=== PATIENT | female | born 1970 | race Caucasian/White ===

== ENCOUNTER 2020-10-29 08:17 | Outpatient (REF) | payer OTHER, SELFPAY ==
--- NOTE | 2020-10-29 08:26 | XR_ITS ---
EXAMINATION: XR KNEE, RIGHT XR KNEE, LEFT CLINICAL INFORMATION: Right and left knee pain. COMPARISON: Left knee radiographs dated 03/16/2010. TECHNIQUE: AP and lateral views of the right and left knee. FINDINGS: Right Knee: Mild tricompartmental joint space narrowing with tiny tricompartmental marginal osteophytes. No osseous erosion. No fracture or dislocation. Trace joint effusion. No abnormal soft tissue calcification. Left Knee: Mild tricompartmental joint space narrowing with small marginal osteophytes, increased when compared to the prior examination. No osseous erosion. No fracture or dislocation. Small joint effusion. No abnormal soft tissue calcification. XR/XR knee LT 2V IMPRESSION: RIGHT KNEE: Minimal tricompartmental osteoarthritis and trace joint effusion. LEFT KNEE: Mild tricompartmental osteoarthritis and small joint effusion. Findings have progressed when compared to the prior radiographs.
--- NOTE | 2020-10-29 08:26 | XR_ITS ---
EXAMINATION: XR KNEE, RIGHT XR KNEE, LEFT CLINICAL INFORMATION: Right and left knee pain. COMPARISON: Left knee radiographs dated 03/16/2010. TECHNIQUE: AP and lateral views of the right and left knee. FINDINGS: Right Knee: Mild tricompartmental joint space narrowing with tiny tricompartmental marginal osteophytes. No osseous erosion. No fracture or dislocation. Trace joint effusion. No abnormal soft tissue calcification. Left Knee: Mild tricompartmental joint space narrowing with small marginal osteophytes, increased when compared to the prior examination. No osseous erosion. No fracture or dislocation. Small joint effusion. No abnormal soft tissue calcification. XR/XR knee RT 2V IMPRESSION: RIGHT KNEE: Minimal tricompartmental osteoarthritis and trace joint effusion. LEFT KNEE: Mild tricompartmental osteoarthritis and small joint effusion. Findings have progressed when compared to the prior radiographs.
== END 2020-10-29 08:18 | disposition home or self-care (01) ==
LOC: HO.XRAY 08:17
PROVIDERS: Visit Provider Physician Assistant
DX: M25.562 Pain in left knee (principal); M25.561 Pain in right knee
CPT/HCPCS: 73560

== ENCOUNTER → 2020-12-03 09:21 | Outpatient (BNVA) | payer OTHER, SELFPAY | PROVIDERS: Visit Provider Orthopaedic Surgery | DX: Z13.89 Encounter for screening for other disorder (principal) | CPT/HCPCS: 99202 ==

== ENCOUNTER 2020-12-19 10:56 | Outpatient (REF) | payer OTHER, SELFPAY ==
--- NOTE | 2020-12-19 12:05 | ECG_ITS ---
Test Reason : PREOP Blood Pressure : / mmHG Vent. Rate : 068 BPM Atrial Rate : 069 BPM P-R Int : 158 ms QRS Dur : 082 ms QT Int : 458 ms P-R-T Axes : 043 007 021 degrees QTc Int : 487 ms Artifact in tracing Normal sinus rhythm Nonspecific ST abnormality Prolonged QT Abnormal ECG When compared with ECG of 15-OCT-2019 10:40, No significant change was found Referred By: Jovanni Moore Electronically Signed By: ISSAC VINSON
[2020-12-19 14:05] LABS: MANUAL DIFF FLAG NO
[2020-12-19 14:08] LABS: Basophils Percent Auto 0.5 % (0-2); Eosinophils Absolute Auto 0.2 X10*3/uL (0.0-0.4); Eosinophils Percent Auto 2.1 % (0-4); Hematocrit 41.2 % (37-47); Hemoglobin 12.9 g/dl (12.0-16.0); Imm Gran Abs Auto 0.03 X10*3/uL (0.00-0.03); Imm Gran Pct Auto 0.4 % (0.0-0.4); Lymphocytes Absolute Auto 1.9 X10*3/uL (1.2-4.9); Lymphocytes Percent Auto 25.1 % (20-40); Mean Corpuscular HGB Conc 31.3 g/dl (31.0-35.0); Mean Corpuscular Hemoglobin 28.1 pg (27.0-33.0); Mean Corpuscular Volume 89.8 fL (80-98); Mean Platelet Volume 10.4 fL (9.4-12.3); Monocytes Absolute Auto 0.4 X10*3/uL (0.1-1.2); Monocytes Percent Auto 5.7 % (2-11); Neutrophils Percent Auto 66.2 % (45-73); Platelet Count 224 X10*3/uL (160-400); Red Blood Count 4.59 X10*6/uL (4.20-5.50); Red Cell Distribution Width 20.4 % (11.0-16.0); White Blood Count 7.5 X10*3/uL (4.8-10.8)
[2020-12-19 14:46] LABS: Anion Gap 16 (12-20); Blood Urea Nitrogen 13 mg/dL (9-16); Calcium 8.8 mg/dL (8.4-10.2); Carbon Dioxide 25 mmol/L (22-29); Chloride 104 mmol/L (96-108); Estimated Glomerular Filt Rate > 60; Glucose Random 100 mg/dL (60-115); Potassium 4.4 mmol/L (3.3-5.1); Sodium 141 mmol/L (135-145)
== END 2020-12-19 10:57 | disposition home or self-care (01) ==
LOC: HO.LABR 10:56
PROVIDERS: PCP Physician Assistant; Visit Provider Orthopaedic Surgery
DX: Z01.812 Encounter for preprocedural laboratory examination (principal); Z01.810 Encounter for preprocedural cardiovascular examination
CPT/HCPCS: 36415; 80048; 85025; 93005

== ENCOUNTER 2021-01-17 13:50 | Outpatient (REF) | payer OTHER, SELFPAY ==
--- NOTE | ~2021-01-17 | MM_ITS ---
EXAMINATION: MM SCREENING DIGITAL BREAST TOMOSYNTHESIS, BILATERAL CLINICAL INFORMATION: Screening. Asymptomatic. The lifetime risk of breast cancer based on the Tyrer-Cuzick Model is 10%. COMPARISON: Mammography: 10/04/2019, 09/13/2018, 07/30/2016 TECHNIQUE: Digital breast tomosynthesis is performed in both the craniocaudal and mediolateral oblique views along with computer-aided detection (CAD). Synthesized 2D images are generated from the tomosynthesis. Additional right CC view is provided. FINDINGS: The breasts are almost entirely fatty (ACR BI-RADS breast composition Category a). Background stromal and fibroglandular densities are stable. There is no developing density or interval mass or architectural abnormality. No abnormal calcifications. The axilla and skin contours are unremarkable. No significant changes. MM/MM tomosynthesis screening BI IMPRESSION: No mammographic evidence of malignancy. ASSESSMENT: BI-RADS 1: Negative RECOMMENDATION: Routine annual mammography screening. This patient's information was entered into a reminder system with a target due date for their next mammogram.
== END 2021-01-17 13:51 | disposition home or self-care (01) ==
LOC: HO.MAMMO 13:50
PROVIDERS: Visit Provider Physician Assistant
DX: Z12.31 Encounter for screening mammogram for malignant neoplasm of breast (principal); M16.11 Unilateral primary osteoarthritis, right hip
CPT/HCPCS: 77063; 77067; 99212

== ENCOUNTER 2021-01-22 06:27 | Inpatient (IN) | payer OTHER, SELFPAY ==
[2021-01-11 11:01] LABS: Alanine Aminotransferase 14 U/L (0-31); Alkaline Phosphatase 92 U/L (39-117); Aspartate Amino Transferase 14 U/L (5-31); Bilirubin Direct 0.2 mg/dL (0.0-0.5); Bilirubin Total 0.4 mg/dL (0.0-1.0); Total Protein 7.3 g/dL (6.5-8.0)
[2021-01-11 11:22] LABS: Thyroid Stimulating Hormone 0.34 uIU/mL (0.32-4.0)
[2021-01-18 12:12] VITALS: BP 126/79; PULSE 68; RESP 20; O2SAT 95; BMI 41.8
[2021-01-18 15:13] LABS: MRSA Nasal PCR NEGATIVE (Negative); SA Nasal PCR POSITIVE (Negative)
[2021-01-22] VITALS (18 sets, daily range): BP systolic 102–155; BP diastolic 52–121; PULSE 60–79; RESP 14–20; TEMP 36.2–37.2; O2SAT 96–100
--- NOTE | ~2021-01-22 | XR_ITS ---
EXAMINATION: XR HIP, RIGHT CLINICAL INFORMATION: Post hip replacement COMPARISON: Previous x-ray April 2020 TECHNIQUE: One view of the right hip. FINDINGS: There is a new right hip replacement in satisfactory position. No fracture or dislocation is seen. There is a left hip replacement that appears unchanged. Bones of the pelvis are unremarkable. Soft tissues are unremarkable. XR/XR hip RT 1V IMPRESSION: Satisfactory appearance of right hip replacement.
[2021-01-22 06:45] LABS: COVID-19 Test Negative (Negative); IDNOW Serial# 9DD0AD1C
--- NOTE | 2021-01-22 07:18 | HO.ANESPROP2 ---
[facility] Active Problems Active Problems: All Active Problems (Updated 01/18/21 @ 12:42 by Sultana Wynne) Panic attack (Acute) Hip osteoarthritis (Acute) Knee pain, left (Acute) Knee pain, right (Acute) Preoperative clearance (Acute) Osteoarthritis of right hip (Acute) Past Medical History Medical History Depression DVT (deep venous thrombosis) History of anxiety History of panic attacks Hypertension Osteoarthritis of right hip Family History Family History Father In good health Mother In good health Maternal Grandmother Breast cancer Paternal Grandmother Colon cancer Brother Multiple sclerosis Surgical History Surgical History History of left hip replacement History of tonsillectomy History of tubal ligation Social History Social History (Updated 01/18/21 @ 12:36 by Sultana Wynne) Are you a primary manager critical care unit to a significant other at home: No Do you presently have visiting nurse or other home services: No Alcohol intake: current Alcohol intake frequency: a few times a week Smoking Status: Former smoker Tobacco Type: Cigarette Packs Per Day: 0.25 Cigarettes Per Day: 5.0 Years Smoked: 20 Smoked in Last 30 Days: No Smoking Quit Date: age 35 Use of substances other than those prescribed or required for medical reasons: Yes Substance Use Type: Marijuana Substance Use Frequency: Occasionally Have you been hit, kicked, punched, or otherwise hurt by someone within the past year? If so, by whom?: No Advance Directives Information Provided: No Recently lost weight without trying: No Current occupational status: unemployed Meds Allergies Allergy/AdvReac Type Severity Reaction Status Date / Time No Known Allergies Allergy Verified 01/22/21 06:47 [No Known Allergies*] Home Medications Medication Instructions Recorded Confirmed Last Taken Type ibuprofen 200 mg tablet 200 mg PO Q6H PRN 01/11/21 01/18/21 01/14/21 History bupropion HCl 150 mg PO BEDTIME 01/18/21 01/18/21 Unknown History clonidine HCl 0.6 mg PO BEDTIME 01/18/21 01/18/21 Unknown History fluoxetine 40 mg PO BEDTIME 01/18/21 01/18/21 Unknown History lisinopril 10 mg PO BEDTIME 01/18/21 01/18/21 Unknown History propranolol 20 mg PO BEDTIME 01/18/21 01/18/21 Unknown History Exam Exam Date and Time: January 22, 202118 Height,Weight and Vital Signs: Height 5 ft 9 in Weight 128.367 kg Last Vital Signs Temp 97.2 F 01/22/21 06:48 Pulse 60 01/22/21 06:48 Resp 18 01/22/21 06:48 BP 155/90 H 01/22/21 06:48 Pulse Ox 97 01/22/21 06:48 Pertinent Lab Results Pertinent Lab Results: Laboratory Tests 01/11/21 01/18/21 01/18/21 10:25 13:00 13:20 Total Bilirubin 0.4 Direct Bilirubin 0.2 AST 14 ALT 14 Alkaline Phosphatase 92 Total Protein 7.3 Albumin 4.0 TSH 0.34 Nasal Screen MRSA (PCR) NEGATIVE Nasal S. aureus Screen POSITIVE A Nasal MRSA/S.aureus Interp SEE NOTE COVID-19 ([facility]) COVID-19 Clin Com Blood Type B Positive Antibody Screen NEGATIVE 01/22/21 06:20 Total Bilirubin Direct Bilirubin AST ALT Alkaline Phosphatase Total Protein Albumin TSH Nasal Screen MRSA (PCR) Nasal S. aureus Screen Nasal MRSA/S.aureus Interp COVID-19 ([facility]) Negative COVID-19 Clin Com See Note Blood Type Antibody Screen Airway Mallampati Class: III TM Dist: >3cm Neck ROM: Full Loose/Missing/Broken Teeth: Yes Heart: RRR Lungs: NL Assessment and Plan Assessment Anesthesia Assessment: Anesthesia Plan Discussed and Chart Reviewed Final Anesthetic Review NPO: Yes ASA Class: III Final Preanesthetic Review: No Changes in Pt Med Stat, Meds/Allgs Chart Reviewed, Consent Obtained/Reviewed and Anes Risks/Benef Reviewed Patient Risk: High Procedure Risk: Intermediate Anesthetic Plan Anesthetic Plan: GA Disposition: Standard PACU
[2021-01-22] MEDS: Lactated Ringers 1,000 ML 50 ML IV (07:24)
--- NOTE | 2021-01-22 07:25 | MHC.SHP ---
Pre-Procedural Eval Section A The patient is an INPATIENT: No Changes since office visit: Yes Patient answered all questions; No Cold of Flu in the past 2 weeks, No New Medical Problems and No Changes in Medication The History & Physical has been completed within 30 days and I have reviewed it.: Yes Section B Chief Complaint: RIGHT TOTAL HIP ARTHROPLASTY Allergies: Allergies Allergy/AdvReac Type Severity Reaction Status Date / Time No Known Allergies Allergy Verified 01/22/21 06:47 [No Known Allergies*] Plan I have reviewed the history and physical and performed a pertinent physical examination on my patient. No changes have occurred unless specified.
--- NOTE | 2021-01-22 10:29 | PM.OP ---
Brief Operative Note Date of Service: 01/22/21 Pre-op diagnosis: right hip OA Post-op diagnosis: same Procedure: Right TULIO Implants: Becki trident2 52/20deg liner accolade2#5 36 -2.5 ceramic Surgeon: Jovanni Moore MD Anesthesia: GETA [employer] Consultant: Rafi Canales Estimated blood loss (mL): 150 IV fluids (mL): 1,000 Pathology: other Condition: stable Disposition: PACU
--- NOTE | 2021-01-22 10:35 | W.PM.OPN ---
Operative Note Operative Note Date of Service: 01/22/21 Narrative: Pre-op diagnosis: right hip OA Post-op diagnosis: same Procedure: Right TULIO Implants: Becki trident2 52/20deg liner accolade2#5 36 -2.5 ceramic Surgeon: Jovanni Moore MD Anesthesia: GETA Benzol Operator: Rafi Canales Estimated blood loss (mL): 150 IV fluids (mL): 1,000 Pathology: other Condition: stable Disposition: PACU Procedure in detail: Patient was brought into the operating room and placed in a right lateral decubitus position. All bony prominences were well padded and the limb was prepped and draped in standard sterile fashion. Time-out was called to identify proper site procedure proper surgeon IV antibiotics. I began by making a curvilinear incision over the posterolateral aspect of the greater trochanter. Dissection was taken down to the tensor fascia which was incised in line with the incision and a Charnley retractor was placed. She had aabundaant adipose tissue and so dissection was slow. The hip was internally rotated and the external rotators were identified. The vessels were cauterized and a full-thickness capsular/external rotator layer was developed starting just proximal to the piriformis. Dull Hohmann retractor was placed underneath the neck in the hip was dislocated. The head was defomred and diminutive. A neck cut was made 1 cm proximal to the lesser trochanter and the head and neck were removed and measured on the back table. Placed my anterior-posterior acetabular retractors and performed a labrectomy. The fovea was removed and I reamed to the inner table. There was bone loss superiorly. I then sequentially reamed up to a size 51_ and placed my final 52 cup in 45 inclination and 25 version. I then impacted a _20deg liner and turned my attention to the femur. All I used cautery to identify the piriformis start site and used this as a starting point for my isabellie cutter. I then used a Charnley awl to identify the canal and a curved curette to remove the lateral bone. I then sequentially broached in the patient's natural version to a size _5___ and placed my trial implants. I took the hip through range of motion with a -2.5 head and I was very satisfied with the stability and length. She was short pre-operatively and tight. I was unable to get a +0 located. I removed all instrumentation copiously irrigated placed my final femoral implant. I again took the hip through range of motion and was happy with the stability and length and rain using a -2.5 head and so my final femoral head was placed. I then irrigated for 3 minutes with iodine. I then performed a capsular closure with FiberWire, Robert's fascia with 0 Vicryl, subcuticular with 2-0 vicryl and skin with bola. Patient was placed into a sterile dressing. Radiographs were obtained at the completion of the case and I was satisfied with the component position. Patient was extubated brought to the recovery room in stable condition.
[2021-01-22] MEDS: HYDROmorphone HCl 0.5 MG/0.5 ML SYRINGE IVPUSH ×3 (10:37→10:52)
[2021-01-22] MEDS: Ketorolac Tromethamine 15 MG/ML VIAL IVPUSH (10:39)
[2021-01-22] MEDS: Dextrose 5 % and 0.45 % NaCl 1,000 ML 80 ML IVCONT (12:50)
[2021-01-22] MEDS: ceFAZolin Sodium/Dextrose,Iso 2 GM/50 ML PIGGYBACK IV ×2 (12:51→13:59)
[2021-01-22] MEDS: oxyCODONE HCl Immed Release 5 MG TABLET 10 MG PO (13:06)
[2021-01-22] MEDS: Acetaminophen 325 MG TABLET 650 MG PO (13:06)
--- NOTE | 2021-01-22 15:14 | MHC.CM.PN ---
NURSE BUS DRIVER SUPERVISOR NOTE ELECTRONIC MEDICAL RECORD REVIEWED ALONG WITH CASE DISCUSSED WITH STAFF NURSE , MET WITH PATIENT AND EXPLAINED THE ROLE OF THE NURSE BUS DRIVER SUPERVISOR IN THE TRANSITION FROM THE HOSPITAL TO HOME OR SHORT TERM REHAB. PATIENT CONFIRMED SHE BELIEVES SHE HAS A HEALTH CARE PROXY , COPY REQUESTED IF NOT WE COULD COMPLETE A NEW ONE NAMING ALL THREE CHILDREN ON IT. PATIENT LIVES ALONE SHE HAS NO VNA NO DME SERVICES IN THE HOME . 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 PATIENT WANTS TO GO TO SHORTY TERM REHAB AND AFTER DISCUSSION SHE REQUESTED THAT I MAKE REFERRALS TO [facility] SHE REPORTS SHE HAS A PAST HISTORY OF ANXIETY AND DEPRESSION BUT DOES NOT AEE ANYONE AND DOES NOT FEEL SHE NEEDS TO. DISCHARGE PLAN STR- [facility]
--- NOTE | 2021-01-22 17:13 | PM.IMCN ---
History of Present Illness Data of Consult Service Date: 01/22/21 Requesting physician: Jovanni Moore Primary Care Provider: BEATRIZ Vo Reason for consult: Management of medical comorbidities This is a 50-year-old woman who underwent right total hip arthroplasty for osteoarthritis today. She previously underwent left total hip arthroplasty 5 years ago without complication. About 6 years ago, she had an unprovoked DVT which she says was treated with aspirin alone. She recalls being on a short course of warfarin after the left total hip surgery. Notably, her brother had extensive bilateral DVTs and is on lifelong anticoagulation. She does not recall ever being tested for thrombophilia. Medical history also notable for hypertension, anxiety, and depression. She denies history of coronary artery disease or chronic lung disease. Currently, her postoperative pain is well controlled. Denies chest pain or dyspnea. Review of Systems Review of Systems: Yes all other systems are reviewed and are negative [facility] Medical History Depression DVT (deep venous thrombosis) History of anxiety History of panic attacks Hypertension Osteoarthritis of right hip Family History Father In good health Mother In good health Maternal Grandmother Breast cancer Paternal Grandmother Colon cancer Brother Multiple sclerosis Surgical History History of left hip replacement History of tonsillectomy History of tubal ligation Social History Household Members: None Housing: Apartment Are you a primary group care worker to a significant other at home: No Do you presently have visiting nurse or other home services: No Alcohol intake: current Alcohol intake frequency: a few times a week Smoking Status: Former smoker Tobacco Type: Cigarette Packs Per Day: 0.25 Cigarettes Per Day: 5.0 Years Smoked: 20 Smoked in Last 30 Days: No Smoking Quit Date: age 35 Use of substances other than those prescribed or required for medical reasons: Yes Substance Use Type: Marijuana Substance Use Frequency: Occasionally Currently Displaying Signs/Symptoms of Drug Intoxication Withdrawal: No Have you been hit, kicked, punched, or otherwise hurt by someone within the past year? If so, by whom?: No Do you feel safe in your current relationship?: No Current Relationship Is there a partner from a previous relationship who is making you feel unsafe now?: No Are you made to feel afraid or neglected: No Advance Directives Information Provided: No Do you have thoughts of harming others: None Do you have a plan to hurt others: No Plan Recently lost weight without trying: No service: No Current occupational status: unemployed Meds Allergies Allergy/AdvReac Type Severity Reaction Status Date / Time No Known Allergies Allergy Verified 01/22/21 06:47 [No Known Allergies*] Active Medications: Current Medications Generic Name Dose Route Start Last Admin Trade Name Freq PRN Reason Stop Dose Admin Acetaminophen 650 mg 01/22/21 12:30 01/22/21 13:06 Acetaminophen 325 Mg Tablet PO 650 mg Q6H PRN Administration Pain, Mild (Pain Scale 1-3) Bupropion HCl 150 mg 01/22/21 21:00 Bupropion Hcl Xl 150 Mg Tab.Er.24h PO BEDTIME JUNE Celecoxib 200 mg 01/22/21 21:00 Celecoxib 200 Mg Capsule PO BID JUNE Clonidine HCl 0.6 mg 01/22/21 21:00 Clonidine Hcl 0.2 Mg Tablet PO BEDTIME JUNE Docusate Sodium 100 mg 01/22/21 21:00 Docusate Sodium 100 Mg Capsule PO BID JUNE Enoxaparin Sodium 40 mg 01/23/21 10:00 Enoxaparin Sodium 40 Mg/0.4 Ml Syringe SUBCUT Q24H JUNE Fluoxetine HCl 40 mg 01/22/21 21:00 Fluoxetine Hcl 20 Mg Capsule PO BEDTIME JUNE Hydromorphone HCl 0.25 mg 01/22/21 12:30 Hydromorphone Hcl 0.5 Mg/0.5 Ml Syringe IVPUSH Q4H PRN Pain, Severe (Pain Scale 7-10) Dextrose/Sodium Chloride 1,000 mls @ 80 mls/hr 01/22/21 12:30 01/22/21 12:50 D51/2ns IVCONT 80 mls/hr .[id number] JUNE Administration Naloxone HCl 0.2 mg 01/22/21 12:30 Naloxone Hcl 0.4 Mg/Ml Vial IVPUSH Q2M PRN Excessive sedation or RR < 8 Oxycodone HCl 10 mg 01/22/21 12:30 01/22/21 13:06 Oxycodone Hcl Immed Release 5 Mg Tablet PO 10 mg Q4H PRN Administration Pain, Moderate (Pain Scale 4-6 Oxycodone HCl 10 mg 01/22/21 21:00 Oxycodone Hcl Er 10 Mg Tab.Er.12h PO BID [facility] Propranolol HCl 20 mg 01/22/21 21:00 Propranolol Hcl 20 Mg Tablet PO BEDTIME [facility] Protocol Sodium Chloride 3 ml 01/22/21 16:00 0.9 % Sodium Chloride Flush 3 Ml Syringe IVFLUSH QSHIFT [facility] Home Medications Medication Instructions Recorded Confirmed Last Taken Type ibuprofen 200 mg tablet 200 mg PO Q6H PRN 01/11/21 01/18/21 01/14/21 History bupropion HCl 150 mg PO BEDTIME 01/18/21 01/18/21 Unknown History clonidine HCl 0.6 mg PO BEDTIME 01/18/21 01/18/21 Unknown History fluoxetine 40 mg PO BEDTIME 01/18/21 01/18/21 Unknown History lisinopril 10 mg PO BEDTIME 01/18/21 01/18/21 Unknown History propranolol 20 mg PO BEDTIME 01/18/21 01/18/21 Unknown History Physical Exam Vital Signs and Narrative: Vital Signs: Last Vital Signs Temp 98.9 F 01/22/21 15:51 Pulse 73 01/22/21 15:51 Resp 15 01/22/21 15:51 BP 102/52 L 01/22/21 15:51 Pulse Ox 97 01/22/21 15:51 Body Mass Index 41.8 Gen: in no acute distress HEENT: sclera anicteric, moist mucus membranes Neck: supple Lungs: clear to auscultation bilaterally Heart: regular rate and rhythm, no murmurs Abd: soft, non-tender, non-distended, moribdly obese Ext: no edema, R hip incision with dry dressing Skin: warm/well-perfused Neuro: alert and oriented x3, no focal findings Psych: appropriate affect Results Labs Labs: Laboratory Results - last 24 hr 01/22/21 06:20 COVID-19 ([facility]) Negative COVID-19 Clin Com See Note Imaging Radiologist's Impressions: Impressions Hip X-Ray 01/22/21 08:36 IMPRESSION: Satisfactory appearance of right hip replacement. Assessment and Plan (1) Osteoarthritis of right hip: Status: Acute 50yo F POD#0 TULIO for OA, medical consultation for management of comorbid conditions: history of unprovoked DVT, HTN, and mood disorder # prior DVT - she states that this was prior to her left hip replacement. Given the family history in first-degree relative, will pursue thrombophilia workup. Certainly she is at high risk of DVT and should at least be on 1 month of anticoagulation with Lovenox postoperatively. This can be started when cleared by the orthopedics team # HTN - she takes lisinopril; will hold for now given soft blood pressure postoperatively, but resume as her blood pressure rises. she is also on propranolol but is unsure whether this for blood pressure control or mood issues are both; will continue for now. # mood disorder - continue clonidine, fluoxtine, and bupropion # POD #0 R TULIO - analgesia as per orthopedics team # VTE ppx - as above
[2021-01-22] MEDS: HYDROmorphone HCl 0.5 MG/0.5 ML SYRINGE 0.25 MG IVPUSH (18:46)
[2021-01-22] MEDS: 0.9 % Sodium Chloride Flush 3 ML SYRINGE IVFLUSH (18:46)
[2021-01-22] MEDS: FLUoxetine HCl 20 MG CAPSULE 40 MG PO (21:22)
[2021-01-22] MEDS: Docusate Sodium 100 MG CAPSULE PO (21:22)
[2021-01-22] MEDS: buPROPion HCl XL 150 MG TAB.ER.24H PO (21:22)
[2021-01-22] MEDS: cloNIDine HCL 0.2 MG TABLET 0.6 MG PO (21:22)
[2021-01-22] MEDS: oxyCODONE HCl ER 10 MG TAB.ER.12H PO (21:22)
[2021-01-22] MEDS: Celecoxib 200 MG CAPSULE PO (21:22)
[2021-01-22] MEDS: Propranolol HCL 20 MG TABLET PO (21:23)
[2021-01-23] VITALS (7 sets, daily range): BP systolic 90–114; BP diastolic 47–67; PULSE 62–81; RESP 16–19; TEMP 35.6–37.4; O2SAT 96–100
[2021-01-23] MEDS: Dextrose 5 % and 0.45 % NaCl 1,000 ML 80 ML IVCONT ×3 (01:49→23:54)
[2021-01-23] MEDS: oxyCODONE HCl Immed Release 5 MG TABLET 10 MG PO ×3 (05:23→18:36)
[2021-01-23 06:11] LABS: MANUAL DIFF FLAG NO
[2021-01-23 06:18] LABS: Basophils Percent Auto 0.1 % (0-2); Hematocrit 32.3 % (37-47); Hemoglobin 10.1 g/dl (12.0-16.0); Imm Gran Abs Auto 0.05 X10*3/uL (0.00-0.03); Imm Gran Pct Auto 0.6 % (0.0-0.4); Lymphocytes Absolute Auto 1.6 X10*3/uL (1.2-4.9); Lymphocytes Percent Auto 17.9 % (20-40); Mean Corpuscular HGB Conc 31.3 g/dl (31.0-35.0); Mean Corpuscular Hemoglobin 30.4 pg (27.0-33.0); Mean Corpuscular Volume 97.3 fL (80-98); Mean Platelet Volume 11.1 fL (9.4-12.3); Monocytes Absolute Auto 0.9 X10*3/uL (0.1-1.2); Monocytes Percent Auto 9.6 % (2-11); Neutrophils Absolute Auto 6.5 X10*3/uL (2.0-8.3); Neutrophils Percent Auto 71.8 % (45-73); Platelet Count 218 X10*3/uL (160-400); Red Blood Count 3.32 X10*6/uL (4.20-5.50); Red Cell Distribution Width 18.6 % (11.0-16.0)
[2021-01-23 06:50] LABS: Anion Gap 13 (12-20); Blood Urea Nitrogen 7 mg/dL (9-16); Calcium 8.4 mg/dL (8.4-10.2); Carbon Dioxide 24 mmol/L (22-29); Chloride 105 mmol/L (96-108); Creatinine Clr Calc Pharmacy 142.3; Estimated Glomerular Filt Rate > 60; Glucose Fasting 129 mg/dL (60-99); Potassium 3.7 mmol/L (3.3-5.1); Sodium 138 mmol/L (135-145)
--- NOTE | 2021-01-23 06:59 | P.CDIC_ITS ---
CDI Concurrent Query Service Date: 01/23/21 Documentation Clarification: Please clarify if you are treating a proba ble/suspected/likely or confirmed: Morbid Obesity Other Obesity, please specify Provider Response: Morbid Obesity PLEASE DO NOT DELETE/MODIFY EXISTING CONTENT Additional information is needed in order to code to the highest accuracy and appropriate Severity of Illness (SOI). Please clarify the information noted below in your progress notes and discharge summary. Risk Factors/Clinical Indicators/Treatments 50 year old female admitted for Osteoarthritis Right Hip and underwent Right Total Hip Arthroplasy HT 5'9 WT 128.367 kg BMI 41.8 CDS: Dorothy Hodge RN Contact Number: [phone] Please Review the information above and exercise your independent professional judgment in responding to the query. If you concur, pleas document in the PROGRESS NOTES and DISCHARGE SUMMARY. If you do not agree with the query, please document in the query above. THIS QUERY IS PART OF THE PERMANENT MEDICAL RECORD
--- NOTE | 2021-01-23 07:44 | PM.PNORT ---
Subjective Subjective Date of Service: 01/23/21 Interval history: POD:1 s/p RT TULIO No overnight events Patient is: resting in bed, tolerating pain well. No concerns. Admits: some pain in the hip flexor region down to the ankle Denies: cp, sob, dizziness Physical Exam Vital Signs: Vital Signs: Last Vital Signs Temp 96.0 F L 01/23/21 07:24 Pulse 62 01/23/21 07:24 Resp 18 01/23/21 07:24 BP 98/53 L 01/23/21 07:24 Pulse Ox 96 01/23/21 07:24 Body Mass Index 41.8 Const: General: cooperative, healthy appearing and no acute distress Resp: Effort & Inspection: normal respiratory effort and able to speak in complete sentences Cardio: Rate: regular rate Peripheral pulses: Peripheral pulses 2+ throughout GI: Palpation (GI): Soft to palpation Skin: General skin exam: no rashes or lesions noted Extrem: Other: Right hip bandage clean dry and intact No erythema mild edema, sensation intact. Progress Note: A&P Assessment and plan (1) Status post right hip replacement: Status: Acute Assessment and Plan: Continue pain mgmnt Begin lovenox for dvt ppx begin PT for RT TULIO - posterior precautions Dispo planning-Pending PT eval, pain mgmnt Fall Risk Details Current Medications: Current Medications Generic Name Dose Route Start Last Admin Trade Name Freq PRN Reason Stop Dose Admin Acetaminophen 650 mg 01/22/21 12:30 01/22/21 13:06 Acetaminophen 325 Mg Tablet PO 650 mg Q6H PRN Administration Pain, Mild (Pain Scale 1-3) Bupropion HCl 150 mg 01/22/21 21:00 01/22/21 21:22 Bupropion Hcl Xl 150 Mg Tab.Er.24h PO 150 mg BEDTIME JUNE Administration Celecoxib 200 mg 01/22/21 21:00 01/22/21 21:22 Celecoxib 200 Mg Capsule PO 200 mg BID JUNE Administration Clonidine HCl 0.6 mg 01/22/21 21:00 01/22/21 21:22 Clonidine Hcl 0.2 Mg Tablet PO 0.6 mg BEDTIME JUNE Administration Docusate Sodium 100 mg 01/22/21 21:00 01/22/21 21:22 Docusate Sodium 100 Mg Capsule PO 100 mg BID JUNE Administration Enoxaparin Sodium 40 mg 01/23/21 10:00 Enoxaparin Sodium 40 Mg/0.4 Ml Syringe SUBCUT Q24H JUNE Fluoxetine HCl 40 mg 01/22/21 21:00 01/22/21 21:22 Fluoxetine Hcl 20 Mg Capsule PO 40 mg BEDTIME JUNE Administration Hydromorphone HCl 0.25 mg 01/22/21 12:30 01/22/21 18:46 Hydromorphone Hcl 0.5 Mg/0.5 Ml Syringe IVPUSH 0.25 mg Q4H PRN Administration Pain, Severe (Pain Scale 7-10) Dextrose/Sodium Chloride 1,000 mls @ 80 mls/hr 01/22/21 12:30 01/23/21 01:49 D51/2ns IVCONT 80 mls/hr .[id number] JUNE Administration Naloxone HCl 0.2 mg 01/22/21 12:30 Naloxone Hcl 0.4 Mg/Ml Vial IVPUSH Q2M PRN Excessive sedation or RR < 8 Oxycodone HCl 10 mg 01/22/21 12:30 01/23/21 05:23 Oxycodone Hcl Immed Release 5 Mg Tablet PO 10 mg Q4H PRN Administration Pain, Moderate (Pain Scale 4-6 Oxycodone HCl 10 mg 01/22/21 21:00 01/22/21 21:22 Oxycodone Hcl Er 10 Mg Tab.Er.12h PO 10 mg BID JUNE Administration Propranolol HCl 20 mg 01/22/21 21:00 01/22/21 21:23 Propranolol Hcl 20 Mg Tablet PO 20 mg BEDTIME JUNE Administration Protocol Sodium Chloride 3 ml 01/22/21 16:00 01/23/21 00:21 0.9 % Sodium Chloride Flush 3 Ml Syringe IVFLUSH Not Given QSHIFT JUNE Time Spent With Patient Time: Total time spent is greater than 50% in coordination of care (as documented) at patient's floor/unit and/or counseling patient: Time with patient: 15 - 24 minutes
[2021-01-23] MEDS: Docusate Sodium 100 MG CAPSULE PO ×2 (08:10→21:24)
[2021-01-23] MEDS: Celecoxib 200 MG CAPSULE PO ×2 (08:11→21:24)
[2021-01-23] MEDS: oxyCODONE HCl ER 10 MG TAB.ER.12H PO ×2 (08:11→21:24)
[2021-01-23] MEDS: Enoxaparin Sodium 40 MG/0.4 ML SYRINGE SUBCUT (11:41)
--- NOTE | 2021-01-23 12:40 | HO.POSTANES ---
Post Anesthesia Evaluation Post Anesthesia Evaluation Vital Signs: Vital Signs Temp Pulse Resp BP Pulse Ox 01/23/21 11:45 97.1 F 69 18 107/61 97 01/23/21 07:24 96.0 F L 62 18 98/53 L 96 01/23/21 04:00 99.4 F 63 16 101/50 L 97 Anesthesia: General Mental Status: Awake Pain Control: Satisfactory Nausea/Vomiting: None Hydration: Adequate Anesthesia-Related Issues: No Anes. Related Issues
[2021-01-23] MEDS: Acetaminophen 325 MG TABLET 650 MG PO (13:10)
--- NOTE | 2021-01-23 14:56 | MHC.CM.PN ---
nurse geriatric care manager note electronic medical record d reviewed along with case discussed with orthopedic pa and staff nurse. clinical acceptance from [facility] secured discussed with caleb if we have STR BED WOULD THEY CONSIDER D/C TODAY AND SHE RESPONDED YES, [facility] WENT FOR INSURANCE AUTH (NOW STILL PENDING), RECIVED WORD FROM ORTHOPEDIC SURGICAL PA SURGEON NOTES HE WOULD LIKE TO KEEP HER ONE MORE DAY SINCE SHE IS ONLY POD #1, THIS INFORMATION WAS SENT TO [facility] . COMPLETION OF HEALTH CARE PLAN COMPLETED ONE SENT VIA [employer] TO [facility] , ORIGINAL AND 4 COPIES GIVEN TO PATIENT
--- NOTE | 2021-01-23 15:04 | P.PNIM_ITS ---
Subjective Subjective Date of Service: 01/23/21 Interval History: Postoperative pain well controlled No shortness of breath No chest pain Physical Exam Vital Signs: Vital Signs: Last Vital Signs Temp 97.1 F 01/23/21 11:45 Pulse 69 01/23/21 11:45 Resp 18 01/23/21 11:45 BP 107/61 01/23/21 11:45 Pulse Ox 97 01/23/21 11:45 Body Mass Index 41.8 Gen: in no acute distress HEENT: sclera anicteric, moist mucus membranes Neck: supple Lungs: clear to auscultation bilaterally Heart: regular rate and rhythm, no murmurs Abd: soft, non-tender, non-distended, morbidly obese Ext: no edema Skin: warm/well-perfused Neuro: alert and oriented x3, no focal findings Psych: appropriate affect Objective Data Current Medications Generic Name Dose Route Start Last Admin Trade Name Freq PRN Reason Stop Dose Admin Acetaminophen 650 mg 01/22/21 12:30 01/23/21 13:10 Acetaminophen 325 Mg Tablet PO 650 mg Q6H PRN Administration Pain, Mild (Pain Scale 1-3) Bupropion HCl 150 mg 01/22/21 21:00 01/22/21 21:22 Bupropion Hcl Xl 150 Mg Tab.Er.24h PO 150 mg BEDTIME JUNE Administration Celecoxib 200 mg 01/22/21 21:00 01/23/21 08:11 Celecoxib 200 Mg Capsule PO 200 mg BID JUNE Administration Clonidine HCl 0.6 mg 01/22/21 21:00 01/22/21 21:22 Clonidine Hcl 0.2 Mg Tablet PO 0.6 mg BEDTIME JUNE Administration Docusate Sodium 100 mg 01/22/21 21:00 01/23/21 08:10 Docusate Sodium 100 Mg Capsule PO 100 mg BID JUNE Administration Enoxaparin Sodium 40 mg 01/23/21 10:00 01/23/21 11:41 Enoxaparin Sodium 40 Mg/0.4 Ml Syringe SUBCUT 40 mg Q24H JUNE Administration Fluoxetine HCl 40 mg 01/22/21 21:00 01/22/21 21:22 Fluoxetine Hcl 20 Mg Capsule PO 40 mg BEDTIME JUNE Administration Hydromorphone HCl 0.25 mg 01/22/21 12:30 01/22/21 18:46 Hydromorphone Hcl 0.5 Mg/0.5 Ml Syringe IVPUSH 0.25 mg Q4H PRN Administration Pain, Severe (Pain Scale 7-10) Dextrose/Sodium Chloride 1,000 mls @ 80 mls/hr 01/22/21 12:30 01/23/21 13:16 D51/2ns IVCONT 80 mls/hr .[id number] JUNE Administration Naloxone HCl 0.2 mg 01/22/21 12:30 Naloxone Hcl 0.4 Mg/Ml Vial IVPUSH Q2M PRN Excessive sedation or RR < 8 Oxycodone HCl 10 mg 01/22/21 12:30 01/23/21 13:10 Oxycodone Hcl Immed Release 5 Mg Tablet PO 10 mg Q4H PRN Administration Pain, Moderate (Pain Scale 4-6 Oxycodone HCl 10 mg 01/22/21 21:00 01/23/21 08:11 Oxycodone Hcl Er 10 Mg Tab.Er.12h PO 10 mg BID JUNE Administration Propranolol HCl 20 mg 01/22/21 21:00 01/22/21 21:23 Propranolol Hcl 20 Mg Tablet PO 20 mg BEDTIME JUNE Administration Protocol Sodium Chloride 3 ml 01/22/21 16:00 01/23/21 08:11 0.9 % Sodium Chloride Flush 3 Ml Syringe IVFLUSH Not Given QSHIFT [facility] Labs CBC & Chem 7: 01/23/21 05:44 01/23/21 05:44 Labs: Laboratory Results - last 24 hr 01/23/21 01/23/21 05:44 05:44 WBC 9.0 RBC 3.32 L D Hgb 10.1 L D Hct 32.3 L D MCV 97.3 MCH 30.4 MCHC 31.3 RDW 18.6 H Plt Count 218 MPV 11.1 Immature Gran % (Auto) 0.6 H Neut % (Auto) 71.8 Lymph % (Auto) 17.9 L [place] % (Auto) 9.6 Eos % (Auto) 0.0 Baso % (Auto) 0.1 Lymph # (Auto) 1.6 [place] # (Auto) 0.9 Eos # (Auto) 0.0 Baso # (Auto) 0.0 Abs Immat Gran (auto) 0.05 H Absolute Neuts (auto) 6.5 Absolute Nucleated RBC 0.000 Nucleated RBC % (auto) 0.0 Sodium 138 Potassium 3.7 Chloride 105 Carbon Dioxide 24 Anion Gap 13 BUN 7 L Creatinine 0.68 Estim Creat Clear Calc 142.3 Estimated GFR > 60 Fasting Glucose 129 H Calcium 8.4 Assessment and Plan (1) Status post right hip replacement: Status: Acute Assessment and Plan: medicine consultation for this 50yo F who is POD#1 R TULIO for OA # prior DVT - not associated with her prior L TULIO. strong FHx- brother with BLE DVTs; thrombophilia workup sent. recommend 1 mo of prophylactic LMWH postoperatively- started today # HTN - holding lisinopril for soft BP postoperatively - she is also on propranolol but is unsure whether this for blood pressure control or mood issues are both; will continue for now. # mood disorder - continue clonidine, fluoxtine, and bupropion
[2021-01-23] MEDS: HYDROmorphone HCl 0.5 MG/0.5 ML SYRINGE 0.25 MG IVPUSH (16:39)
[2021-01-23] MEDS: buPROPion HCl XL 150 MG TAB.ER.24H PO (21:24)
[2021-01-23] MEDS: cloNIDine HCL 0.2 MG TABLET 0.6 MG PO (21:24)
[2021-01-23] MEDS: Propranolol HCL 20 MG TABLET PO (21:24)
[2021-01-23] MEDS: FLUoxetine HCl 20 MG CAPSULE 40 MG PO (21:24)
[2021-01-24 03:25] VITALS: BP 103/51; PULSE 75; RESP 20; TEMP 36.3; O2SAT 96
[2021-01-24 06:35] LABS: MANUAL DIFF FLAG NO
[2021-01-24 06:58] LABS: Basophils Percent Auto 0.2 % (0-2); Eosinophils Percent Auto 0.3 % (0-4); Hematocrit 28.2 % (37-47); Hemoglobin 8.9 g/dl (12.0-16.0); Imm Gran Abs Auto 0.03 X10*3/uL (0.00-0.03); Imm Gran Pct Auto 0.3 % (0.0-0.4); Lymphocytes Absolute Auto 1.6 X10*3/uL (1.2-4.9); Lymphocytes Percent Auto 17.8 % (20-40); Mean Corpuscular HGB Conc 31.6 g/dl (31.0-35.0); Mean Corpuscular Hemoglobin 30.8 pg (27.0-33.0); Mean Corpuscular Volume 97.6 fL (80-98); Mean Platelet Volume 11.6 fL (9.4-12.3); Monocytes Absolute Auto 0.8 X10*3/uL (0.1-1.2); Monocytes Percent Auto 9.3 % (2-11); Neutrophils Absolute Auto 6.4 X10*3/uL (2.0-8.3); Neutrophils Percent Auto 72.1 % (45-73); Platelet Count 161 X10*3/uL (160-400); Red Blood Count 2.89 X10*6/uL (4.20-5.50); Red Cell Distribution Width 18.4 % (11.0-16.0); White Blood Count 8.8 X10*3/uL (4.8-10.8)
[2021-01-24 07:15] VITALS: BP 112/64; PULSE 76; RESP 20; TEMP 36.9; O2SAT 98
[2021-01-24 07:23] LABS: Anion Gap 11 (12-20); Blood Urea Nitrogen 7 mg/dL (9-16); Calcium 8.1 mg/dL (8.4-10.2); Carbon Dioxide 25 mmol/L (22-29); Chloride 107 mmol/L (96-108); Creatinine Clr Calc Pharmacy 148.8; Estimated Glomerular Filt Rate > 60; Glucose Fasting 119 mg/dL (60-99); Potassium 3.3 mmol/L (3.3-5.1); Sodium 140 mmol/L (135-145)
[2021-01-24] MEDS: oxyCODONE HCl Immed Release 5 MG TABLET 10 MG PO (07:33)
[2021-01-24] MEDS: Acetaminophen 325 MG TABLET 650 MG PO (07:34)
[2021-01-24] MEDS: Docusate Sodium 100 MG CAPSULE PO (07:34)
[2021-01-24] MEDS: Enoxaparin Sodium 40 MG/0.4 ML SYRINGE SUBCUT (10:06)
[2021-01-24] MEDS: oxyCODONE HCl ER 10 MG TAB.ER.12H PO (10:06)
[2021-01-24] MEDS: Celecoxib 200 MG CAPSULE PO (10:06)
--- NOTE | 2021-01-24 10:14 | PM.DS ---
DS: Providers Provider Date of Service: 01/24/21 Date of admission: 01/22/21 06:27 Primary care physician: Declan Saravia PA-C Consults: 01/22/21 12:30 Consult to Hospitalist Routine Consulting Provider: Hospitalist Reason For Exam: post op medical management, h/o PE DS: Diagnosis Discharge Diagnosis (1) Status post right hip replacement: Status: Acute Problem details: This is a 50-year-old female who presented to the office today with ongoing right hip pain. She was found have osteoarthritis of the right hip which affected her daily activities. She failed all conservative measures and continued to have difficulty with ambulation therefore she consented to move forward with right total hip arthroplasty. DS: Medications Discharge Medications Home Medications: Home Medications Medication Instructions Recorded Confirmed bupropion HCl 150 mg PO BEDTIME 01/18/21 01/18/21 clonidine HCl 0.6 mg PO BEDTIME 01/18/21 01/18/21 fluoxetine 40 mg PO BEDTIME 01/18/21 01/18/21 lisinopril 10 mg PO BEDTIME 01/18/21 01/18/21 propranolol 20 mg PO BEDTIME 01/18/21 01/18/21 Previous Rx's Medication Instructions Recorded Raised toilet seat #1 ea 01/17/21 walker #1 ea 01/17/21 acetaminophen 650 mg PO Q6H PRN 30 Days #240 tab 01/24/21 celecoxib 200 mg PO BID 30 Days #60 cap 01/24/21 docusate sodium 100 mg PO BID 14 Days #28 cap 01/24/21 enoxaparin 40 mg SUBCUT Q24H 42 Days #16.8 ml 01/24/21 oxycodone 10 mg PO Q4H PRN 7 Days #42 tab 01/24/21 DS: Summary Hospital Course Hospital Course: The patient underwent a successful right total hip arthroplasty, was transferred to PACU and then to the floor to recover. During their stay, their vitals were stable, afebrile at 98.4. Labs were unremarkable, H/H 8.9/28.2. POD 1 she was started on Lovenox for DVT ppx, they also received physical therapy and occupational therapy services twice a day. Prior to discharge, their dressing was change, incision clean dry and intact, new Aquacel dressing applied and the plan was to be discharged to short-term rehab Time Spent with Patient Time attestation: Total time spent providing and/or coordinating discharge services: Discharge coordination time: Less than 30 minutes Physical Exam Vital Signs: Vital Signs: Last Vital Signs Temp 98.4 F 01/24/21 07:15 Pulse 76 01/24/21 07:15 Resp 20 01/24/21 07:15 BP 112/64 01/24/21 07:15 Pulse Ox 98 01/24/21 07:15 Body Mass Index 41.8 Const: General: cooperative, healthy appearing and no acute distress Resp: Effort & Inspection: normal respiratory effort and able to speak in complete sentences Cardio: Rate: regular rate Peripheral pulses: Peripheral pulses 2+ throughout GI: Palpation (GI): Soft to palpation Skin: General skin exam: no rashes or lesions noted Extrem: Other: Right hip incision clean dry and intact there is some localized bruising and swelling. Sensation intact. DS: Data Data Completed and Pending Pending studies at discharge: Pending at discharge 01/22/21 09:00 Surgical [PTH] Routine Labs on day of discharge: Laboratory Results - last 24 hr 01/24/21 01/24/21 05:56 05:56 WBC 8.8 RBC 2.89 L Hgb 8.9 L Hct 28.2 L MCV 97.6 MCH 30.8 MCHC 31.6 RDW 18.4 H Plt Count 161 D MPV 11.6 Immature Gran % (Auto) 0.3 Neut % (Auto) 72.1 Lymph % (Auto) 17.8 L [place] % (Auto) 9.3 Eos % (Auto) 0.3 Baso % (Auto) 0.2 Lymph # (Auto) 1.6 [place] # (Auto) 0.8 Eos # (Auto) 0.0 Baso # (Auto) 0.0 Abs Immat Gran (auto) 0.03 Absolute Neuts (auto) 6.4 Absolute Nucleated RBC 0.000 Nucleated RBC % (auto) 0.0 Sodium 140 Potassium 3.3 Chloride 107 Carbon Dioxide 25 Anion Gap 11 L BUN 7 L Creatinine 0.65 Estim Creat Clear Calc 148.8 Estimated GFR > 60 Fasting Glucose 119 H Calcium 8.1 L Discharge Plan Discharge Patient Disposition: Xfer SNF Discharge Diagnosis: S/p RT TULIO Referrals: JESSICA MIRANDA [Other] - 1 Week (DISCHARGED TO [facility] to be transported [facility]) Rafi Canales PA-C [Physician Critical Care Specialist] - 1 Week (02/07/21 2:15 [facility] [place] Orthopedic Surgeons Rafi Canales PA-C) Discharge Medications: New enoxaparin 40 mg/0.4 mL Syringe 40 mg subcut Q24H 42 Days Qty: 16.8 RF: 0 acetaminophen 325 mg Tablet 650 mg PO Q6H PRN (Reason: Pain, Mild (Pain Scale 1-3)) 30 Days Qty: 240 RF: 0 celecoxib 200 mg Capsule 200 mg PO BID 30 Days Qty: 60 RF: 0 docusate sodium 100 mg Capsule 100 mg PO BID 14 Days Qty: 28 RF: 0 oxycodone 5 mg Tablet 10 mg PO Q4H PRN (Reason: Pain, Moderate (Pain Scale 4-6) 7 Days Qty: 42 RF: 0 Continued fluoxetine 40 mg capsule 40 mg PO BEDTIME RF: 0 clonidine HCl 0.3 mg tablet 0.6 mg PO BEDTIME RF: 0 lisinopril 10 mg tablet 10 mg PO BEDTIME RF: 0 propranolol 20 mg tablet 20 mg PO BEDTIME RF: 0 bupropion HCl 150 mg tablet extended release 24 hr 150 mg PO BEDTIME RF: 0 (DME) walker Misc See Rx Instructions .MEDSUPPLY Qty: 1 RF: 0 (DME) Raised toilet seat See Rx Instructions .ROUTE .MEDSUPPLY Qty: 1 RF: 0 Discontinued meloxicam 15 mg tablet 15 mg PO DAILY 30 Days Qty: 30 RF: 3 ibuprofen 200 mg tablet 200 mg PO Q6H PRN (Reason: Pain) RF: 0 Discharge Orders: Discharge Order (Routine); Ordered 01/24/21 Ordered By: Rafi Canales Diet: regular diet Activity on Discharge: Use cane or walker Stand Alone Forms: Patient Portal Discharge page Care Plan Goals: Restore function of joint Health Concerns: none Plan of Treatment: Physical Therapy Pain management DVT prophylaxis Assessment: Physical Therapy for Total hip arthroplasty: posterior precautions, gait training, ROM, strength Limit stair climbing No showering, no tub bath-keep dressing clean, dry and intact No driving x6 weeks Continue Lovenox tabs once a day x 6 weeks Follow up with [facility] [place] Orthopedics in 2 weeks
--- NOTE | 2021-01-24 10:25 | P.PNIM_ITS ---
Subjective Subjective Date of Service: 01/24/21 Interval History: Pain is controlled Review of Systems Gen: no fever Resp: no sob, no cough CV: no chest, no AYOUB, no leg edema GI: No n/v, no abd pain Neuro: No confusion pain in the hip Physical Exam Vital Signs: Vital Signs: Last Vital Signs Temp 98.4 F 01/24/21 07:15 Pulse 76 01/24/21 07:15 Resp 20 01/24/21 07:15 BP 112/64 01/24/21 07:15 Pulse Ox 98 01/24/21 07:15 Body Mass Index 41.8 Const: Other: General: AO X 3, no acute distress Resp: CTA bilateral CVS: S1,S2,RRR GI: +BS, NT, no distention Skin: surgical wound site is d/c/i Neuro: motor grossly intact Psych: appropriate affect Objective Data Current Medications Generic Name Dose Route Start Last Admin Trade Name Freq PRN Reason Stop Dose Admin Acetaminophen 650 mg 01/22/21 12:30 01/24/21 07:34 Acetaminophen 325 Mg Tablet PO 650 mg Q6H PRN Administration Pain, Mild (Pain Scale 1-3) Bupropion HCl 150 mg 01/22/21 21:00 01/23/21 21:24 Bupropion Hcl Xl 150 Mg Tab.Er.24h PO 150 mg BEDTIME JUNE Administration Celecoxib 200 mg 01/22/21 21:00 01/24/21 10:06 Celecoxib 200 Mg Capsule PO 200 mg BID JUNE Administration Clonidine HCl 0.6 mg 01/22/21 21:00 01/23/21 21:24 Clonidine Hcl 0.2 Mg Tablet PO 0.6 mg BEDTIME JUNE Administration Docusate Sodium 100 mg 01/22/21 21:00 01/24/21 07:34 Docusate Sodium 100 Mg Capsule PO 100 mg BID JUNE Administration Enoxaparin Sodium 40 mg 01/23/21 10:00 01/24/21 10:06 Enoxaparin Sodium 40 Mg/0.4 Ml Syringe SUBCUT 40 mg Q24H JUNE Administration Fluoxetine HCl 40 mg 01/22/21 21:00 01/23/21 21:24 Fluoxetine Hcl 20 Mg Capsule PO 40 mg BEDTIME JUNE Administration Hydromorphone HCl 0.25 mg 01/22/21 12:30 01/23/21 16:39 Hydromorphone Hcl 0.5 Mg/0.5 Ml Syringe IVPUSH 0.25 mg Q4H PRN Administration Pain, Severe (Pain Scale 7-10) Dextrose/Sodium Chloride 1,000 mls @ 80 mls/hr 01/22/21 12:30 01/23/21 23:54 D51/2ns IVCONT 80 mls/hr .[id number] JUNE Administration Naloxone HCl 0.2 mg 01/22/21 12:30 Naloxone Hcl 0.4 Mg/Ml Vial IVPUSH Q2M PRN Excessive sedation or RR < 8 Oxycodone HCl 10 mg 01/22/21 12:30 01/24/21 07:33 Oxycodone Hcl Immed Release 5 Mg Tablet PO 10 mg Q4H PRN Administration Pain, Moderate (Pain Scale 4-6 Oxycodone HCl 10 mg 01/22/21 21:00 01/24/21 10:06 Oxycodone Hcl Er 10 Mg Tab.Er.12h PO 10 mg BID JUNE Administration Propranolol HCl 20 mg 01/22/21 21:00 01/23/21 21:24 Propranolol Hcl 20 Mg Tablet PO 20 mg BEDTIME JUNE Administration Protocol Sodium Chloride 3 ml 01/22/21 16:00 01/24/21 07:34 0.9 % Sodium Chloride Flush 3 Ml Syringe IVFLUSH Not Given QSHIFT [facility] Labs CBC & Chem 7: 01/24/21 05:56 01/24/21 05:56 Assessment and Plan (1) Status post right hip replacement: Status: Acute Assessment and Plan: medicine consultation for this 50yo F who is POD#12R TULIO for OA # prior DVT - not associated with her prior L TULIO. strong FHx- brother with BLE DVTs; t hrombophilia workup sent. recommend 1 mo of prophylactic LMWH postoperatively- started today # HTN--can resume Lisinopril and Propranolol upon dc # mood disorder - continue clonidine, fluoxtine, and bupropion no acute medical issues at this time
[2021-01-24 11:02] LABS: Anti-Thrombin III Activity 105 % normal (80-135)
[2021-01-24 11:17] LABS: COVID-19 Test Negative (Negative)
[2021-01-24 11:43] VITALS: BP 130/65; PULSE 68; RESP 20; TEMP 36.8; O2SAT 98
--- NOTE | 2021-01-24 12:56 | MHC.CM.PN ---
NURSE RAILROAD POLICE NOTE ELECTRONIC MEDICAL RECORD REVIEWED ALONG WITH CASE DISCUSSED WITH STAFF NURSE, AND THE ORTHOPEDIC SURGEON , PATIENT WILL BE DISCHARGED TODAY TO SHORT TERM REHAB AT [facility] , TO BE TRANSPORTED [facility] updates sent to [facility] with covid -19 rtapid test -negative
[2021-01-24 14:16] LABS: PTT (LAC) Screen 27 sec (< OR = 40)
[2021-01-25 01:06] LABS: Cardiolipin IgG Ab <14 GPL; Cardiolipin IgM Ab <12 MPL
[2021-01-25 22:43] LABS: Protein C Activity 120 % (70-180); Protein S Activity rflx Tot&Fr 119 % (60-140)
[2021-01-29 15:17] LABS: Prothrombin 20210A NEGATIVE
[2021-02-08 22:27] LABS: Factor V Leiden NEGATIVE
== END 2021-01-24 13:23 | disposition skilled nursing facility (03) | DRG 301 ==
LOC: HO.SSSA 06:28 → HO.S3 10:51
PROVIDERS: Family Medicine; Physician Assistant; Absent Provider Internal Medicine; Admitting Provider Orthopaedic Surgery; PCP Physician Assistant; Visit Provider Orthopaedic Surgery
PROC: 0SR90JA Replacement of Right Hip Joint with Synthetic Substitute, Uncemented, Open Approach (ICD-10-PCS; CPT 27130; principal; 2021-01-22 07:30)
DX: M16.11 Unilateral primary osteoarthritis, right hip (principal); Z68.41 Body mass index [BMI] 40.0-44.9, adult; I11.0 Hypertensive heart disease with heart failure; E66.01 Morbid (severe) obesity due to excess calories; F17.210 Nicotine dependence, cigarettes, uncomplicated; F39 Unspecified mood [affective] disorder; Z20.822 Contact with and (suspected) exposure to COVID-19; Z86.718 Personal history of other venous thrombosis and embolism; Z71.6 Tobacco abuse counseling; Z79.899 Other long term (current) drug therapy
CPT/HCPCS: 27130; 36415; 73501; 80048; 80076; 81240; 81241; 84443; 85025; 85300; 85302; 85303; 85305; 85306; 85597; 85613; 85730; 86147; 86850; 86900; 86901; 87635; 87640; 87641; 88304; 88311; 97110; 97116; 97162; 97165; 97535; C1776; J0131; J0330; J0690; J1100; J1170; J1650; J1885; J2250; J2405; J3010

== ENCOUNTER 2021-01-25 06:48 | Outpatient (REF) | payer OTHER, SELFPAY ==
[2021-01-25 07:05] LABS: MANUAL DIFF FLAG NO
[2021-01-25 07:14] LABS: Basophils Percent Auto 0.1 % (0-2); Eosinophils Absolute Auto 0.1 X10*3/uL (0.0-0.4); Eosinophils Percent Auto 1.1 % (0-4); Hematocrit 27.8 % (37-47); Hemoglobin 8.8 g/dl (12.0-16.0); Imm Gran Abs Auto 0.08 X10*3/uL (0.00-0.03); Imm Gran Pct Auto 0.9 % (0.0-0.4); Lymphocytes Absolute Auto 1.5 X10*3/uL (1.2-4.9); Lymphocytes Percent Auto 16.7 % (20-40); Mean Corpuscular HGB Conc 31.7 g/dl (31.0-35.0); Mean Corpuscular Hemoglobin 31.1 pg (27.0-33.0); Mean Corpuscular Volume 98.2 fL (80-98); Mean Platelet Volume 11.2 fL (9.4-12.3); Monocytes Absolute Auto 0.9 X10*3/uL (0.1-1.2); Monocytes Percent Auto 10.2 % (2-11); Neutrophils Absolute Auto 6.6 X10*3/uL (2.0-8.3); Platelet Count 179 X10*3/uL (160-400); Red Blood Count 2.83 X10*6/uL (4.20-5.50); Red Cell Distribution Width 18.2 % (11.0-16.0); White Blood Count 9.2 X10*3/uL (4.8-10.8)
[2021-01-25 07:35] LABS: Alanine Aminotransferase 12 U/L (0-31); Albumin Level 3.1 g/dL (3.5-5.0); Alkaline Phosphatase 62 U/L (39-117); Anion Gap 12 (12-20); Aspartate Amino Transferase 21 U/L (5-31); Bilirubin Total 0.8 mg/dL (0.0-1.0); Blood Urea Nitrogen 6 mg/dL (9-16); Calcium 8.3 mg/dL (8.4-10.2); Carbon Dioxide 26 mmol/L (22-29); Chloride 107 mmol/L (96-108); Estimated Glomerular Filt Rate > 60; Glucose Random 113 mg/dL (60-115); Potassium 3.6 mmol/L (3.3-5.1); Sodium 141 mmol/L (135-145); Total Protein 5.8 g/dL (6.5-8.0)
== END 2021-01-25 06:49 | disposition home or self-care (01) ==
LOC: HO.MMNH2L 06:48
PROVIDERS: Visit Provider Family Medicine
DX: Z96.641 Presence of right artificial hip joint (principal)
CPT/HCPCS: 36415; 80053; 85025

== ENCOUNTER 2021-01-28 00:20 | Outpatient (REF) | payer OTHER, SELFPAY ==
[2021-01-28 07:16] LABS: MANUAL DIFF FLAG NO
[2021-01-28 07:49] LABS: Basophils Percent Auto 0.3 % (0-2); Eosinophils Absolute Auto 0.3 X10*3/uL (0.0-0.4); Eosinophils Percent Auto 4.6 % (0-4); Hematocrit 30.2 % (37-47); Hemoglobin 9.7 g/dl (12.0-16.0); Imm Gran Abs Auto 0.05 X10*3/uL (0.00-0.03); Imm Gran Pct Auto 0.8 % (0.0-0.4); Lymphocytes Absolute Auto 1.8 X10*3/uL (1.2-4.9); Lymphocytes Percent Auto 27.4 % (20-40); Mean Corpuscular HGB Conc 32.1 g/dl (31.0-35.0); Mean Corpuscular Hemoglobin 31.4 pg (27.0-33.0); Mean Corpuscular Volume 97.7 fL (80-98); Mean Platelet Volume 10.8 fL (9.4-12.3); Monocytes Absolute Auto 0.7 X10*3/uL (0.1-1.2); Monocytes Percent Auto 11.4 % (2-11); Neutrophils Absolute Auto 3.6 X10*3/uL (2.0-8.3); Neutrophils Percent Auto 55.5 % (45-73); Platelet Count 283 X10*3/uL (160-400); Red Blood Count 3.09 X10*6/uL (4.20-5.50); Red Cell Distribution Width 17.2 % (11.0-16.0); White Blood Count 6.5 X10*3/uL (4.8-10.8)
[2021-01-28 08:15] LABS: Anion Gap 12 (12-20); Blood Urea Nitrogen 10 mg/dL (9-16); Calcium 8.7 mg/dL (8.4-10.2); Carbon Dioxide 30 mmol/L (22-29); Chloride 102 mmol/L (96-108); Estimated Glomerular Filt Rate > 60; Glucose Random 96 mg/dL (60-115); Potassium 3.7 mmol/L (3.3-5.1); Sodium 140 mmol/L (135-145)
== END 2021-01-28 00:21 | disposition home or self-care (01) ==
LOC: HO.MMNH2L 00:20
PROVIDERS: Visit Provider Family Medicine
DX: Z96.641 Presence of right artificial hip joint (principal)
CPT/HCPCS: 36415; 80048; 85025

== ENCOUNTER 2021-02-04 10:37 | Outpatient (REF) | payer OTHER, SELFPAY ==
[2021-02-04 07:26] LABS: MANUAL DIFF FLAG NO
[2021-02-04 07:49] LABS: Basophils Percent Auto 0.2 % (0-2); Eosinophils Absolute Auto 0.3 X10*3/uL (0.0-0.4); Eosinophils Percent Auto 4.2 % (0-4); Hematocrit 30.3 % (37-47); Hemoglobin 9.2 g/dl (12.0-16.0); Imm Gran Abs Auto 0.02 X10*3/uL (0.00-0.03); Imm Gran Pct Auto 0.3 % (0.0-0.4); Lymphocytes Absolute Auto 1.8 X10*3/uL (1.2-4.9); Lymphocytes Percent Auto 30.4 % (20-40); Mean Corpuscular HGB Conc 30.4 g/dl (31.0-35.0); Mean Corpuscular Hemoglobin 30.1 pg (27.0-33.0); Mean Platelet Volume 10.5 fL (9.4-12.3); Monocytes Absolute Auto 0.5 X10*3/uL (0.1-1.2); Monocytes Percent Auto 7.6 % (2-11); Neutrophils Absolute Auto 3.4 X10*3/uL (2.0-8.3); Neutrophils Percent Auto 57.3 % (45-73); Platelet Count 290 X10*3/uL (160-400); Red Blood Count 3.06 X10*6/uL (4.20-5.50); Red Cell Distribution Width 16.8 % (11.0-16.0); White Blood Count 5.9 X10*3/uL (4.8-10.8)
[2021-02-04 08:36] LABS: Anion Gap 12 (12-20); Blood Urea Nitrogen 10 mg/dL (9-16); Calcium 8.6 mg/dL (8.4-10.2); Carbon Dioxide 27 mmol/L (22-29); Chloride 106 mmol/L (96-108); Estimated Glomerular Filt Rate > 60; Glucose Random 99 mg/dL (60-115); Potassium 4.4 mmol/L (3.3-5.1); Sodium 141 mmol/L (135-145)
== END 2021-02-04 10:38 | disposition home or self-care (01) ==
LOC: HO.MMNH2L 10:37
PROVIDERS: Visit Provider Family Medicine
DX: Z96.641 Presence of right artificial hip joint (principal)
CPT/HCPCS: 36415; 80048; 85025

== ENCOUNTER → 2021-02-07 14:24 | Outpatient (BNVA) | payer OTHER, SELFPAY | PROVIDERS: PCP Physician Assistant; Visit Provider Physician Assistant | DX: Z47.1 Aftercare following joint replacement surgery (principal); Z96.641 Presence of right artificial hip joint | CPT/HCPCS: 99212 ==

== ENCOUNTER 2021-02-11 00:38 | Outpatient (REF) | payer OTHER, SELFPAY | END 2021-02-11 00:39 | disposition home or self-care (01) | LOC: HO.MMNH2L 00:38 | PROVIDERS: Visit Provider Family Medicine | DX: Z13.89 Encounter for screening for other disorder (principal) ==

== ENCOUNTER 2021-03-07 08:30 | Outpatient (REF) | payer OTHER, SELFPAY ==
--- NOTE | ~2021-03-07 | XR_ITS ---
EXAMINATION: PELVIS AND RIGHT HIP X-RAY CLINICAL INFORMATION: Post hip replacement COMPARISON: Previous x-ray most recent December 2020 TECHNIQUE: One view of the pelvis and 2 views of the right hip. FINDINGS: There are bilateral hip replacements in satisfactory position. No fracture or dislocation is seen. Bones of the pelvis are unremarkable. There are degenerative changes of the visualized lower lumbar spine. XR/XR pelvis 1-2V IMPRESSION: Satisfactory appearance of bilateral hip replacements.
--- NOTE | ~2021-03-07 | XR_ITS ---
EXAMINATION: PELVIS AND RIGHT HIP X-RAY CLINICAL INFORMATION: Post hip replacement COMPARISON: Previous x-ray most recent December 2020 TECHNIQUE: One view of the pelvis and 2 views of the right hip. FINDINGS: There are bilateral hip replacements in satisfactory position. No fracture or dislocation is seen. Bones of the pelvis are unremarkable. There are degenerative changes of the visualized lower lumbar spine. XR/XR hip RT 1V IMPRESSION: Satisfactory appearance of bilateral hip replacements.
== END 2021-03-07 08:31 | disposition home or self-care (01) ==
LOC: HO.HOSX 08:30
PROVIDERS: Visit Provider Orthopaedic Surgery
DX: M25.551 Pain in right hip (principal); F17.210 Nicotine dependence, cigarettes, uncomplicated; Z96.641 Presence of right artificial hip joint
CPT/HCPCS: 72170; 73501; 99212

== ENCOUNTER 2021-04-11 15:24 | Outpatient (REF) | payer OTHER, SELFPAY ==
--- NOTE | ~2021-04-11 | US_ITS ---
EXAMINATION: US VENOUS ULTRASOUND WITH DOPPLER LOWER EXTREMITY, LEFT CLINICAL INFORMATION: Pain in knee. Tenderness. COMPARISON: Bilateral venous Doppler ultrasound exam March 18, 2018. TECHNIQUE: Ultrasound of the deep veins is performed from the hip to the calf with compression sonography and color and pulse Doppler assessment. Spectral analysis with color-flow imaging is performed. FINDINGS: There is normal venous compression and respiratory variation and augmented flow. The visualized common femoral vein, superficial femoral vein, profunda femoral vein, popliteal vein, and the trifurcation region shows no evidence of deep venous thrombosis. There is a popliteal fossa cyst measuring 2.9 x 1.2 x 1.9 cm. If the patient's symptoms persist, followup ultrasound in 5 days 7 days might be of value to exclude proximal propagation from a non-visualized calf vein. US/US venous duplex LE LT IMPRESSION: 1. No DVT demonstrated in the left lower extremity. 2. Popliteal fossa cyst.
== END 2021-04-11 15:25 | disposition home or self-care (01) ==
LOC: HO.US 15:24
PROVIDERS: PCP Physician Assistant; Visit Provider Nurse Practitioner Family
DX: M25.562 Pain in left knee (principal)
CPT/HCPCS: 93971

== ENCOUNTER → 2021-04-18 09:15 | Outpatient (BNVA) | payer OTHER, SELFPAY | PROVIDERS: PCP Physician Assistant; Visit Provider Orthopaedic Surgery | DX: Z47.1 Aftercare following joint replacement surgery (principal); Z96.641 Presence of right artificial hip joint | CPT/HCPCS: 99212 ==

== ENCOUNTER 2021-04-18 10:00 | Outpatient (RCR) | payer OTHER, SELFPAY ==
--- NOTE | 2021-03-08 13:52 | MHC.PT.EP ---
[facility] [place] [facility] [place] [facility] [place] [facility] [address] Gregory Chahal [address] [phone] F: [phone] F: [phone] F: [phone] F: [phone] Physical Therapy Plan of Care Date of Evaluation: Date of Surgery: 01/23/21 Diagnosis: Presence of R artifical hip, s/p R TULIO Assessment: Angelica is a 50 y.o. female referred to PT status post R TULIO. She is 6 weeks post op. She presents w/ B decreased hip strength, R decreased hip ROM, B decreased knee strength, postural deviations, and gait abnormalities. She would benefit from skilled PT to address the aforementioned impairments and improve her ability to complete ADL's such as walking, stair negotiation, cooking, cleaning, and self care. She is very motivated to participate PT. Frequency and Duration: The patient will be seen 2x week for 5 weeks Short Term Goals: 1. In 2 weeks she will be be independent with her HEP to maintain her post-op status given TULIO precautions. 2. in 3 weeks she will be able to ambulate 100' without any AD. 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 In 4 weeks she will demonstrate improved hip ROM to improve her ability for dressing, self care, and sitting. 2. In 5 weeks she will demonstrate improved hip strength by 1 MMT grade to improve her ability for standing up from the chair, stair negotiation. 3. In 5 weeks patient will demonstrate good dynamic and static balance to enable her to participate in weight loss programs. Treatment Plan: Modalities to reduce pain, spasms and effusion. Manual therapy to restore motion and function. Therapeutic exercise to improve strength and flexibility. Neuromuscular re-education for posture and balance. Therapeutic activities to return to functional activities of daily living. Electronically signed by: Gail Stevenson PT DPT Please sign and return to therapist. Thank you for your referral.
--- NOTE | 2021-05-22 15:33 | MHC.PT.DC ---
[facility] [place] [facility] [place] [facility] [place] [facility] [address] Gregory Chahal [address] [phone] F: [phone] F: [phone] F: [phone] F: [phone] Physical Therapy Discharge Report Diagnosis: Presence of R artifical hip, s/p R TULIO Date of Surgery: 01/23/21 Date of Evaluation: 03/08/21 Date of Discharge: 04/25/21 Treatments to Date: 8 Cancellations to Date: 0 No Shows to Date: 0 Discharge Status: Achieved Goals Improved Function Independent with HEP Discharge Summary: Pt arrived late to PT at 1015. Pt presents with normalized gait pattern. Pt denies any increase in pain with exercises today, and presents with increased endurance for activities. Trial of heel tap downs today, pt demonstrated difficulty with this and was only able to junior x10. Pt would like to d/c in 2 weeks to begin PT for her knee. 1x/wk for next 2 weeks. Electronically signed by: Gail Stevenson PT DPT Please sign and return to therapist. Thank you for your referral.
== END 2021-05-22 15:33 | disposition home or self-care (01) ==
LOC: HO.PT 10:00
PROVIDERS: PCP Physician Assistant; Visit Provider Physician Assistant
DX: Z96.641 Presence of right artificial hip joint (principal)
CPT/HCPCS: 97110; 97161; 97530

== ENCOUNTER 2021-08-26 12:00 | Outpatient (REF) | payer OTHER, SELFPAY | END 2021-08-26 12:01 | disposition home or self-care (01) | LOC: HO.LAB 12:00 | PROVIDERS: Visit Provider Internal Medicine | DX: Z20.822 Contact with and (suspected) exposure to COVID-19 (principal) | CPT/HCPCS: C9803; U0003; U0005 ==

== ENCOUNTER 2021-11-04 08:07 | Outpatient (REF) | payer OTHER, SELFPAY ==
[2021-11-04 08:43] LABS: Hematocrit 47.1 % (37.0-47.0); Hemoglobin 15.7 g/dl (12.0-16.0); Mean Corpuscular HGB Conc 33.3 g/dl (31.0-35.0); Mean Corpuscular Hemoglobin 31.2 pg (27.0-33.0); Mean Corpuscular Volume 93.6 fL (80.0-98.0); Platelet Count 205 X10*3/uL (160-400); Red Blood Count 5.03 X10*6/uL (4.20-5.50); Red Cell Distribution Width 14.7 % (11.0-16.0)
[2021-11-04 08:52] LABS: Estimated Average Glucose 100 mg/dL; Hemoglobin A1c % 5.1 %
[2021-11-04 09:06] LABS: Alanine Aminotransferase 12 U/L (0-31); Albumin Level 4.3 g/dL (3.5-5.0); Alkaline Phosphatase 73 U/L (39-117); Anion Gap 15 (12-20); Aspartate Amino Transferase 16 U/L (5-31); Bilirubin Total 1.3 mg/dL (0.0-1.0); Blood Urea Nitrogen 9 mg/dL (9-16); Calcium 9.7 mg/dL (8.4-10.2); Carbon Dioxide 26 mmol/L (22-29); Chloride 104 mmol/L (96-108); Cholesterol 222 mg/dL; Estimated Glomerular Filt Rate > 60; Glucose Fasting 120 mg/dL (60-99); HDL Cholesterol 59 mg/dL; LDL Cholesterol Calculated 123 mg/dl; Potassium 3.7 mmol/L (3.3-5.1); Sodium 141 mmol/L (135-145); Total Protein 7.9 g/dL (6.5-8.0); Triglycerides 201 mg/dL
[2021-11-04 09:29] LABS: TSH reflex Free T4 1.47 uIU/mL (0.32-4.0)
== END 2021-11-04 08:08 | disposition home or self-care (01) ==
LOC: HO.LAB 08:07
PROVIDERS: PCP Physician Assistant; Visit Provider Physician Assistant
DX: I10 Essential (primary) hypertension (principal)
CPT/HCPCS: 36415; 80053; 80061; 83036; 84443; 85027

== ENCOUNTER 2022-01-29 10:29 | Outpatient (REF) | payer OTHER, SELFPAY ==
--- NOTE | ~2022-01-29 | MM_ITS ---
EXAMINATION: MM SCREENING DIGITAL BREAST TOMOSYNTHESIS, BILATERAL CLINICAL INFORMATION: Screening. Asymptomatic. The lifetime risk of breast cancer based on the Tyrer-Cuzick Model is 9%. COMPARISON: Mammography: 01/17/2021, 10/04/2019, 09/13/2018 TECHNIQUE: Digital breast tomosynthesis is performed in both the craniocaudal and mediolateral oblique views along with computer-aided detection (CAD). Synthesized 2D images are generated from the tomosynthesis. Additional right MLO view is provided. FINDINGS: The breasts are almost entirely fatty (ACR BI-RADS breast composition Category a). There are no significant masses, abnormal calcifications, or other abnormalities. Background stromal markings are stable. The axilla and skin contours are unremarkable. MM/MM tomosynthesis screening BI IMPRESSION: No mammographic evidence of malignancy. ASSESSMENT: BI-RADS 1: Negative RECOMMENDATION: Routine annual mammography screening. This patient's information was entered into a reminder system with a target due date for their next mammogram.
== END 2022-01-29 10:30 | disposition home or self-care (01) ==
LOC: HO.MAMMO 10:29
PROVIDERS: PCP Physician Assistant; Visit Provider Physician Assistant
DX: Z12.31 Encounter for screening mammogram for malignant neoplasm of breast (principal)
CPT/HCPCS: 77063; 77067

== ENCOUNTER 2022-05-30 21:45 | Emergency (ER) | payer OTHER, SELFPAY ==
[2022-05-30 21:59] VITALS: BP 127/82; BP 148/90; PULSE 110; PULSE 89; RESP 16; TEMP 36.7; O2SAT 96; O2SAT 98; BMI 39.4
--- NOTE | 2022-05-30 22:42 | ED.ALCOHOL ---
HPI - Alcohol General Chief Complaint: ETOH/Substance Use Stated Complaint: EToh Time Seen by Provider: 05/30/22 22:21 Source: patient Mode of arrival: EMS Limitations: no limitations History of Present Illness HPI narrative: 51-year-old female who presents emergency department for evaluation of alcohol intoxication. Patient states she was living with her daughter and her daughter after out the house today. The patient states that she was drinking alcohol today. She states that she drink at least 6 nips of root beer schnapps. She states she drinks this mellitus alcohol daily. She denies using any other drugs. She states she did smoke marijuana yesterday. She states she has a history of using crack cocaine in the past. She states she is currently homeless since her daughter kicked her out of the house this evening, but does have a van that she can living. She states she is interested in getting into a rehab program to help with her alcohol use disorder complaint: alcohol intoxication, alcohol dependence and desires rehab Last drink: Hours (ago) (1) Chronic alcohol use: Yes Previous visits for alcohol intoxication: No Recent trauma: No Associated symptoms: denies other symptoms Treatments prior to arrival: none Related Data Previous Rx's Medication Instructions Recorded Raised toilet seat #1 ea 01/17/21 acetaminophen 325 mg tablet 650 mg PO Q6H PRN Pain, Mild (Pain 01/24/21 Scale 1-3) 30 days #240 tabs azithromycin 250 mg tablet See Rx Instructions PO .COMPLEX #6 11/05/21 tabs blood pressure kit-extra large #1 ea 11/05/21 [id number]-[id number]-ivasepbo 1 cap PO Q8H PRN pain 4 days #12 11/05/21 50 mg-300 mg-40 mg capsule caps (Fioricet) meloxicam 15 mg tablet 15 mg PO DAILY 30 days #30 tabs 01/16/22 clonidine HCl 0.3 mg tablet 0.6 mg PO BEDTIME 30 days #60 tabs 02/11/22 bupropion HCl 150 mg 24 hr tablet, 150 mg PO QAM #90 tabs 02/25/22 extended release fluticasone propionate 50 1 spray intranasal BID 30 days #16 03/17/22 mcg/actuation nasal grams spray,suspension (Flonase Allergy Relief) fluoxetine 40 mg capsule 40 mg PO DAILY #90 caps 03/24/22 lisinopril 10 mg tablet 10 mg PO DAILY #90 tabs 03/24/22 propranolol 20 mg tablet 20 mg PO BID PRN for panic attack 04/03/22 30 days #60 tabs Allergies Allergy/AdvReac Type Severity Reaction Status Date / Time No Known Allergies Allergy Verified 11/05/21 16:17 [No Known Allergies*] Review of Systems Review of Systems: Yes all other systems are reviewed and are negative [facility] Past Medical History [facility] Narrative: Social history: The patient denies tobacco use. She states she stop smoking 17 years prior but did smoke for at least 20 years. She does drink alcohol daily. She drinks at least 6 nips of alcohol per day. She occasionally smokes marijuana. She has a history crack cocaine use but states she has not used in a long time. Medical History Depression DVT (deep venous thrombosis) History of anxiety History of panic attacks Hypertension Osteoarthritis of right hip Surgical History History of left hip replacement History of right hip replacement History of tonsillectomy History of tubal ligation Family History Family History Father In good health Mother In good health Maternal Grandmother Breast cancer Paternal Grandmother Colon cancer Brother Multiple sclerosis Social History Social History Household Members: None Housing: Apartment Are you a primary patient care nursing assistant to a significant other at home: No Do you presently have visiting nurse or other home services: No Alcohol intake: current Alcohol intake frequency: a few times a week Alcohol type: hard liquor Patient Tobacco Use Status: Former Tobacco user (15 years ago) Cigarette Packs Per Day: 0.25 Cigarettes Per Day: 5.0 Years Smoked: 20 e-Cigarette/Vaping Use: Never Used Second Hand Smoke Exposure: No Substance Use Type: Marijuana Advance Directives: No Advance Directives Information Provided: No service: No Current occupational status: unemployed Current occupation: [employer] Cognitive needs: No Hearing needs: No Vision needs: No Physical Exam ED Vital Signs: Vital Signs - 24 hr 05/30/22 21:59 Temperature 98.1 F Pulse Rate 89 Respiratory Rate 16 Blood Pressure 127/82 Pulse Oximetry 96 Oxygen Delivery Method Room Air BMI result Body Mass Index 39.4 Const Other: Awake, alert, female patient, strong odor of alcohol on her breath, she is tearful, she is aggressive at times and is yelling at the staff but can be redirected. She was able to give me a good history and answer questions appropriately. HENMT Head: Yes normal to inspection, Yes normocephalic and Yes atraumatic Ears: external ears normal General nose exam: Normal external nose present Face and sinus: Yes normal facial exam Mouth: Normal oral and palatal mucosa present Throat: Yes posterior oropharynx normal Eyes General: appearance normal, both eyes and all related structures Pupils: Equal, round and reactive pupils present Neck Neck: Yes normal visual inspection, Yes no lymphadenopathy, Yes trachea midline and Yes supple Chest Chest palpation & inspection: normal inspection of the chest and normal palpation of entire chest wall Resp Effort & Inspection: normal respiratory effort and able to speak in complete sentences Auscultation: clear to auscultation bilaterally Cardio Rate: regular rate Rhythm: regular rhythm Heart sounds: S1 normal heart sound present, S2 normal heart sound present and no murmurs GI Inspection: Yes normal to inspection Palpation (GI): Soft to palpation, nontender and no guarding Auscultation: normal bowel sounds General: Yes no CVA tenderness Back/Spine/Pelvis Back: no CVA tenderness Skin General skin exam: no rashes or lesions noted Neuro Other: Oriented to person and place Cranial nerves: Yes CN's II-XII intact bilaterally and Yes Equal, round and reactive pupils present Motor exam (neuro): 5/5 motor strength present throughout Extrem General: Yes normal to inspection Psych Other: Appears to be acutely intoxicated is tearful, belligerent at times which can be redirected Speech and movement: Normal speech and movement present Affect: Labile affect present Attitude: cooperative and Belligerent attititude/behavior present Thought process: Normal thought process present Thought content: Normal thought content present, suicidality and no homicidality Insight: Good insight present (Psych) Judgement: Good judgement present (Psych) Course Course Course Narrative: 51-year-old female who presents emergency department for evaluation of acute alcohol intoxication. Patient states that her daughter kicked her out of her house and the patient then called an ambulance since she wanted to get help. Patient states she did drink at least 6 nips of alcohol and she does this daily. On presentation to the emergency department she does appear to be acutely intoxicated. She was belligerent but cooperative at times. Her examination was unremarkable. Patient initially stated that she wanted to stay in the emergency department and get seen by our pyridine recovery operator to get into a detox program. She was able to get out hold of her father who can pick her up in the emergency department and that this time she is refusing blood work and further treatment. I think the patient is intoxicated but she does have good judgment and I think that she is not suicidal or homicidal and can be discharged in the care of her father. The patient will be given detox numbers to call as an outpatient if she is interested in getting help with her alcohol use disorder. Discharge Plan Discharge Clinical Impression: Alcohol use Alcohol intoxication Qualifiers: Complication of substance-induced condition: uncomplicated Qualified Code(s): F10.920 - Alcohol use, unspecified with intoxication, uncomplicated Patient Disposition: Home, Self-Care Instructions: Alcohol Intoxication (ED), Alcohol Use Disorder (ED) Additional Instructions: We are sending you home with a list of outpatient detox programs. If you are interested in getting help with your alcohol use disorder, call the programs on the list and if they have available spot they can get you into the treatment program. Follow-up with your doctor in 2 days. Please return to the emergency department if your symptoms get worse or if you develop any symptoms that are concerning to you. Prescriptions: No Action meloxicam 15 mg tablet 15 mg PO DAILY 30 Days Qty: 30 2RF clonidine HCl 0.3 mg tablet 0.6 mg PO BEDTIME 30 Days Qty: 60 3RF bupropion HCl 150 mg tablet extended release 24 hr 150 mg PO QAM Qty: 90 2RF fluticasone propionate [Flonase Allergy Relief] 50 mcg/actuation spray,suspension 1 spray intranasal BID 30 Days Qty: 16 2RF Rx Instructions: administer into each nostril lisinopril 10 mg tablet 10 mg PO DAILY Qty: 90 1RF fluoxetine 40 mg capsule 40 mg PO DAILY Qty: 90 1RF propranolol 20 mg tablet 20 mg PO BID PRN (Reason: for panic attack) 30 Days Qty: 60 3RF acetaminophen 325 mg Tablet 650 mg PO Q6H PRN (Reason: Pain, Mild (Pain Scale 1-3)) 30 Days Qty: 240 0RF iknwhlbikz-hnjdehlrkphno-pyao [Fioricet] 50-300-40 mg capsule 1 cap PO Q8H PRN (Reason: pain) 4 Days Qty: 12 0RF azithromycin 250 mg tablet See Rx Instructions PO .COMPLEX Qty: 6 0RF Rx Instructions: For 250 mg dose pack: take 500 mg today (day 1), then 250 mg for 4 days (days 2-5) PO (DME) blood pressure kit-extra large Kit See Rx Instructions .Route Qty: 1 0RF Rx Instructions: As directed (DME) Raised toilet seat See Rx Instructions .ROUTE .MEDSUPPLY Qty: 1 0RF Rx Instructions: As directed
--- NOTE | 2022-05-30 23:17 | PC.NURSE ---
Contacted pt's father, Mandeep, to arrange a ride for her. He said he would be on his way to pick her up.
--- NOTE | 2022-05-30 23:34 | PC.NURSE ---
pt refusing discharged paper work, pt discharge to waiting awaiting her ride home per provider.
--- NOTE | 2022-05-30 23:34 | PC.NURSE ---
Pt. refusing care and discharge paperwork. Refusing to sign. Pt. discharge to lobby with steady gait, father is here to pick her up.
== END 2022-05-30 23:40 | disposition home or self-care (01) ==
PROVIDERS: Emergency Provider Emergency Medicine Emergency Medical Services
DX: F10.129 Alcohol abuse with intoxication, unspecified (principal); Y90.9 Presence of alcohol in blood, level not specified; Z79.899 Other long term (current) drug therapy; Z87.891 Personal history of nicotine dependence
CPT/HCPCS: 99282

== ENCOUNTER 2023-03-20 07:59 | Outpatient (REF) | payer OTHER, SELFPAY ==
--- NOTE | ~2023-03-20 | MM_ITS ---
EXAMINATION: MM SCREENING DIGITAL BREAST TOMOSYNTHESIS, BILATERAL CLINICAL INFORMATION: Screening. Asymptomatic. The lifetime risk of breast cancer based on the Tyrer-Cuzick Model is 9%. COMPARISON: Mammography: 01/29/2022, 01/15/2021, 10/04/2019 TECHNIQUE: Digital breast tomosynthesis is performed in both the craniocaudal and mediolateral oblique views along with computer-aided detection (CAD). Synthesized 2D images are generated from the tomosynthesis. FINDINGS: There are scattered areas of fibroglandular density (ACR BI-RADS breast composition Category b). Breast tissue composition borders on predominantly fatty. Background stromal and fibroglandular densities are similar to prior studies and there is no developing density or architectural abnormality. There are no significant masses, abnormal calcifications, or other abnormalities. The axilla and skin contours are unremarkable. MM/MM tomosynthesis screening BI IMPRESSION: No mammographic evidence of malignancy. ASSESSMENT: BI-RADS 1: Negative RECOMMENDATION: Routine annual mammography screening. This patient's information was entered into a reminder system with a target due date for their next mammogram.
== END 2023-03-20 08:00 | disposition home or self-care (01) ==
LOC: HO.MAMMO 07:59
PROVIDERS: PCP Physician Assistant; Visit Provider Physician Assistant
DX: Z12.31 Encounter for screening mammogram for malignant neoplasm of breast (principal)
CPT/HCPCS: 77063; 77067

== ENCOUNTER 2023-04-06 16:55 | Emergency (ER) | payer OTHER, SELFPAY ==
--- NOTE | ~2023-04-06 | CT_ITS ---
EXAMINATION: CT HEAD WITHOUT CONTRAST CT FACIAL BONES WITHOUT CONTRAST CT CERVICAL SPINE WITHOUT CONTRAST CLINICAL INFORMATION: Limited head injury. Left lateral orbital swelling/pain. EtOH. COMPARISON: None available. TECHNIQUE: Imaging was performed from the skull base to vertex without intravenous administration of contrast. In addition, helical noncontrast CT imaging was acquired through the cervical spine and facial bones and source images were reviewed along with axial reconstructions and sagittal and coronal MPRs. This CT examination was performed using dose optimization techniques as appropriate, variously including the following: *Automated exposure control. *Adjustment of mA and/or kV according to patient size (this includes techniques or standardized protocols for targeted exams where dose is matched to indication/reason for exam; i.e. extremities or head). *Use of iterative reconstruction technique. DLP: 1777 mGy-cm FINDINGS: Head: There is no evidence of acute intracranial hemorrhage or edematous territorial infarction. Rajan-white matter differentiation is preserved. A few foci of hypoattenuation in the periventricular and deep white matter are consistent with mild microangiopathy. Proportional prominence of the ventricles and sulcal spaces without evidence of obstructive hydrocephalus. No abnormal mass effect or midline shift. No extra-axial fluid collections. No acute soft tissue or osseous abnormalities. Maxillofacial Bones: Moderate subcutaneous edema/hematoma within the upper lip and along the left temporal fossa No evidence of maxillofacial bone fractures. The zygomatic arches remain intact. No nasal bone fracture. The nasal septum remains midline. No evidence of mandibular or maxillary fracture. The mandibular condyles remain well-seated in their respective temporal articular grooves. Normal appearance of the intraconal and extraconal fat. No evidence of traumatic injury to the extraocular musculature or globes. Mucous retention cyst within the left maxillary sinus. Mild mucosal thickening of the remaining paranasal sinuses. The mastoid air cells and middle ear cavities are clear. No layering fluid collections. Periapical lucency associated with the maxillary left 1st premolar. Cervical Spine: . Mildly motion degraded exam. The atlantooccipital and atlantoaxial articulations remain well aligned. Degenerative stepwise anterolisthesis of C2-C5. Mild reversal the normal cervical lordosis centered on C5-C6. No evidence of acute fracture or subluxation. The vertebral body heights are maintained. Advanced degenerative disc disease at C5-C6 and C6-C7. Moderate degenerative disc disease at all additional levels. Facet and uncovertebral joint arthropathy leads to osseous encroachment on the neural foramina from C2-T3. There is no prevertebral soft tissue swelling. The thyroid gland and remaining cervical soft tissues are within normal limits. The lung apices demonstrate no abnormalities. CT/CT cervical spine wo IV con IMPRESSION: 1. No evidence of acute intracranial hemorrhage or edematous territorial infarction. Mild underlying microangiopathy and generalized cerebral volume loss. 2. No evidence of acute fracture or traumatic subluxation of the cervical spine. Moderate multilevel degenerative spondyloarthropathy of the cervical spine. 3. No evidence of acute fracture of the maxillofacial bones. Moderate edema/hematoma within the upper lip and along the left temporal fossa.
[2023-04-06 17:03] VITALS: BP 112/72; PULSE 76; O2SAT 96; BMI 36.8
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
[2023-04-06 17:16] VITALS: BP 114/65; PULSE 72; RESP 18; TEMP 36.7; O2SAT 98
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
[2023-04-06 18:44] LABS: MANUAL DIFF FLAG NO
[2023-04-06 18:46] LABS: Basophils Percent Auto 0.5 % (0-2); Eosinophils Absolute Auto 0.3 X10*3/uL (0.0-0.4); Eosinophils Percent Auto 3.6 % (0-4); Hemoglobin 12.6 g/dl (12.0-16.0); Imm Gran Abs Auto 0.06 X10*3/uL (0.00-0.03); Imm Gran Pct Auto 0.7 % (0.0-0.4); Lymphocytes Absolute Auto 2.9 X10*3/uL (1.2-4.9); Lymphocytes Percent Auto 35.7 % (20-40); Mean Corpuscular HGB Conc 34.1 g/dl (31.0-35.0); Mean Corpuscular Hemoglobin 35.3 pg (27.0-33.0); Mean Corpuscular Volume 103.6 fL (80.0-98.0); Mean Platelet Volume 9.4 fL (9.4-12.3); Monocytes Absolute Auto 0.5 X10*3/uL (0.1-1.2); Monocytes Percent Auto 6.4 % (2-11); Neutrophils Absolute Auto 4.4 x10*3/uL (2.0-8.3); Neutrophils Percent Auto 53.1 % (45-73); Platelet Count 198 X10*3/uL (160-400); Red Blood Count 3.57 X10*6/uL (4.20-5.50); Red Cell Distribution Width 13.3 % (11.0-16.0); White Blood Count 8.2 X10*3/uL (4.8-10.8)
[2023-04-06 18:56] LABS: INTERNATIONAL NORM RATIO 0.9 (0.9-1.1); Prothrombin Time 10.5 SEC (10.0-13.1)
--- NOTE | 2023-04-06 19:20 | PC.NURSE ---
Assumed care of pt. Pt lying on stretcher, C-collar in place from EMS. Pt taken to room to use bedpan. Pt endorses significant alcohol use today, however labs demonstrate inconsistencies. Pt Endorsing L face and head pain, mild contusion noted to L side of L eye socket.
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
[2023-04-06 19:29] LABS: Alanine Aminotransferase 17 U/L (0-31); Alkaline Phosphatase 77 U/L (39-117); Anion Gap 17 (12-20); Aspartate Amino Transferase 25 U/L (5-31); Bilirubin Total 0.5 mg/dL (0.0-1.0); Blood Urea Nitrogen 25 mg/dL (9-16); Calcium 9.5 mg/dL (8.4-10.2); Carbon Dioxide 21 mmol/L (22-29); Chloride 108 mmol/L (96-108); Creatinine Clr Calc Pharmacy 62.1; Estimated Glomerular Filt Rate 39; Ethanol 278 mg/dL; Glucose Random 105 mg/dL (60-115); Potassium 3.7 mmol/L (3.3-5.1); Sodium 142 mmol/L (135-145); Total Protein 7.6 g/dL (6.5-8.0)
--- NOTE | 2023-04-06 20:41 | MHC.RECOVSUP ---
? Reason for consult Recovery support o Current location: ED 22H o Identified substance use concern: Heroin - Seeking ATS (detox) - Support ? Intervention: o Community resources provided o Harm reduction discussion ? Plan: o Patient to follow up with [facility] / [facility] after discharge ? Additional information: Guerda with patient and we talked about recovery and harm reduction.. Patient stated that she wants the help to get to ATS... but has to wait till tomorrow due to her stuff is at the assisted.. Resources was given to patient where she could go tomorrow to get help in [place].
[2023-04-06] MEDS: Acetaminophen 325 MG TABLET 975 MG PO (21:04)
[2023-04-06] MEDS: 0.9 % Sodium Chloride 1,000 ML 999 ML IV (21:05)
[2023-04-06 21:51] VITALS: BP 106/65; PULSE 77; RESP 18; TEMP 36.9; O2SAT 98
[2023-04-06 23:21] LABS: Anion Gap 18 (12-20); Blood Urea Nitrogen 22 mg/dL (9-16); Calcium 8.9 mg/dL (8.4-10.2); Carbon Dioxide 17 mmol/L (22-29); Chloride 112 mmol/L (96-108); Creatinine Clr Calc Pharmacy 86.4; Estimated Glomerular Filt Rate 57; Glucose Random 92 mg/dL (60-115); Potassium 3.5 mmol/L (3.3-5.1); Sodium 143 mmol/L (135-145)
[2023-04-07 01:05] VITALS: BP 111/61; PULSE 79; RESP 18; TEMP 37.1; O2SAT 97
[2023-04-07] MEDS: ondansetron HCL 4 MG/2 ML VIAL IVPUSH (01:16)
--- NOTE | 2023-04-07 01:17 | PC.NURSE ---
Pt endorsing nausea and actively vomited x 1. Medication administered per orders with good effect.
--- NOTE | 2023-04-07 03:17 | PC.NURSE ---
Pt ready for discharge, IV removed, sleeping on stretcher at this time.
== END 2023-04-07 05:56 | disposition home or self-care (01) ==
PROVIDERS: Nurse Practitioner Family; Emergency Provider Internal Medicine; PCP Physician Assistant
DX: S09.90XA Unspecified injury of head, initial encounter (principal); F10.129 Alcohol abuse with intoxication, unspecified; R51.9 Headache, unspecified; M54.2 Cervicalgia; Y90.8 Blood alcohol level of 240 mg/100 ml or more; W01.0XXA Fall on same level from slipping, tripping and stumbling without subsequent striking against object, initial encounter; Y93.9 Activity, unspecified; Y92.9 Unspecified place or not applicable; Y99.9 Unspecified external cause status; Z86.718 Personal history of other venous thrombosis and embolism; Z79.01 Long term (current) use of anticoagulants; Z87.891 Personal history of nicotine dependence; Z79.899 Other long term (current) drug therapy
CPT/HCPCS: 36415; 70450; 70486; 72125; 80048; 80053; 80307; 85025; 85610; 96361; 96374; 99284; J2405

== ENCOUNTER 2023-05-28 10:23 | Outpatient (AMB) | payer OTHER, SELFPAY ==
[2023-05-28 10:24] VITALS: BP 130/82; PULSE 98; O2SAT 99; BMI 34.4
--- NOTE | 2023-05-28 10:24 | A.OFFPC_ITS ---
Vital Signs 05/28/23 10:24 Height 5 ft 9 in Weight 233 lb 0.6 oz BMI 34.4 BP 130/82 Blood Pressure Location Lt brachial Position Sitting Pulse 98 Pulse Source Pulse Oximeter Temp Source Skin Pulse Oximetry (%) 99 Oxygen Delivery Method Room Air Intake Visit Reasons: Physical exam Intake Note: Patient is here today for a physical. Nitroglycerin Supervisor Required: No Allergies No Known Allergies [No Known Allergies*] Allergy (Verified 05/28/23 10:35) Medication List - Last Reconciled 05/28/23 by YUNG Sin amlodipine 10 mg PO DAILY blood pressure kit-extra large As directed clonidine HCl 0.6 mg (2 x 0.3 mg) PO BEDTIME 30 days fluticasone propionate 50 mcg/actuation (Flonase Allergy Relief) 1 spray intranasal BID 30 days folic acid 1 mg PO DAILY lisinopril 10 mg PO DAILY propranolol 20 mg PO BID PRN 30 days pyridoxine (vitamin B6) 50 mg PO DAILY [Raised toilet seat As directed] Tobacco use date assessed: 05/28/23 Dental Screening Dental Screen Date: 05/28/23 Did you have a dental visit in the last 12 months?: Yes Did you have a dental problem in the last 6 months where you did not have access to dental care?: No Was dental information given to patient?: Patient has dentist HPI Physical exam HPI Details Patient is a 52-year-old female who presents today for physical exam. Patient of YASEMIN Saravia. medical history significant for panic attack, anxiety - not interested in counseling referral, hypertension, borderline high cholesterol, migraines, obesity, QT prolongation-patient has order for EKG - she was encouraged to complete her EKG, alcohol abuse-interested in comprehensive care clinic referral. Today we discussed patient's need for colon cancer screening and cervical cancer screening. Mammogram normal 02/2023. Patient reports that she started with left leg swelling about 6 months ago and then for the past couple weeks she has been having bilateral lower extremity swelling. Patient is on amlodipine and lisinopril for blood pressure. She reports she did not take anything for blood pressure today. No shortness of breath or chest pain. Patient will call for eye exam. Patient stays in a nursing home. [facility] Medical History Depression DVT (deep venous thrombosis) History of anxiety History of panic attacks Hypertension Osteoarthritis of right hip Surgical History History of left hip replacement History of right hip replacement History of tonsillectomy History of tubal ligation Family History Father In good health Mother In good health Maternal Grandmother Breast cancer Paternal Grandmother Colon cancer Brother Multiple sclerosis Social History Household Members: None Housing: Other ([facility] Are you a primary primary care coordinator to a significant other at home: No Do you presently have visiting nurse or other home services: No Alcohol intake: current Alcohol intake frequency: 3 or more drinks per day Alcohol type: hard liquor Patient Tobacco Use Status: Former Tobacco user (15 years ago) Cigarette Packs Per Day: 0.25 Cigarettes Per Day: 5.0 Years Smoked: 20 e-Cigarette/Vaping Use: Never Used Second Hand Smoke Exposure: No Substance Use Type: Marijuana service: No Current occupational status: unemployed and disabled Current occupation: Rt handed Cognitive needs: No Hearing needs: No Vision needs: No Questionnaire PHQ-9 Over the last 2 weeks, how often have you been bothered by any of the following problems? 1. Little interest or pleasure in doing things: not at all 2. Feeling down, depressed, or hopeless: not at all 3. Trouble falling or staying asleep, or sleeping too much: not at all 4. Feeling tired or having little energy: not at all 5. Poor appetite or overeating: not at all 6. Feeling bad about yourself - or that you are a failure or have let yourself or your family down: not at all 7. Trouble concentrating on things, such as reading the newspaper or watching television: not at all 8. Moving or speaking so slowly that other people could have noticed. Or the opposite - being so fidgety or restless that you have been moving around a lot more than usual: not at all 9. Thoughts that you would be better off or of hurting yourself in some way: not at all Total score: 0 Depression Screening Interpretation: Negative 24277 - PHQ-9 Billing: Yes Source: Developed by Drs. Ehsan Jeffrey, Garima Rueda, Stanley Dias and colleagues, with an educational moises from [employer]. Thrive Questionnaire Date Thrive assessed: 10/07/22 AUDIT C Alcohol Use Questionnaire (AUDIT-C) 1. How often do you have a drink containing alcohol?: 4 or more times a week 2. How many drinks containing alcohol do you have on a typical day when you are drinking?: 5 or 6 3. How often do you have six or more drinks on one occasion?: Daily or almost daily Total Score: 10 Score Reviewed/Action Taken: Yes DASHA-7 AMB Questionnaire DASHA-7 Date DASHA - 7 assessed: 05/28/23 Feeling nervous, anxious, or on edge: 0 = Not at all Not being able to stop or control worryin = Not at all Worrying too much about different things: 0 = Not at all Trouble relaxin = Not at all Being so restless that it is hard to sit still: 0 = Not at all Becoming easily annoyed or irritable: 0 = Not at all Feeling afraid as if something awful might happen: 0 = Not at all Total DASHA-7 score (0-4 normal; 5-9 mild; 10-14 moderate; 15-21 severe): 0 Source: Developed by Drs. Ehsan Jeffrey, Garima Rueda, Stanley Dias and colleagues, with an educational moises from [employer]. DASHA-7 Assessment Billing DASHA-7 Assessment Tool: DASHA-7 Assessment 17803 Review of Systems Const Denies body aches, Denies chills, Denies fever(s) and Denies headache(s) Eyes Denies change in vision ENT Denies dizziness, Denies otalgia, Denies headache(s), Denies nasal discharge, Denies sinus pain and Denies sore throat Card Denies chest pain, Denies edema, Reports leg edema, Denies lightheadedness and Denies dyspnea Resp Denies cough, Denies dyspnea and Denies wheezing GI Denies abdominal pain, Denies constipation, Denies diarrhea, Denies nausea and Denies vomiting Denies dysuria Musc Denies myalgias Skin/Breast Denies rash Neuro Denies dizziness and Denies headache(s) Aller/Immun Denies wheezing Physical exam (Primary Care) Vital Signs: Last Vital Signs Pulse 98 05/28/23 10:24 BP 130/82 05/28/23 10:24 Pulse Ox 99 05/28/23 10:24 Oxygen Delivery Method Room Air 05/28/23 10:24 BMI result Body Mass Index 34.4 Tobacco/Smoking Status: Tobacco use Status Tobacco use date assessed 05/28/23 05/28/23 10:32 Patient Tobacco Use Status Former Tobacco user (15 05/28/23 10:32 years ago) e-Cigarette/Vaping Use Never Used 05/28/23 10:32 PHQ-9: PHQ-9 Score PHQ-9: Total score 0 05/28/23 10:32 Depression Screening Interpretation: Negative Thrive Assessment: Date of Thrive Assessment Date Thrive assessed 10/07/22 05/28/23 10:32 Const General: cooperative and no acute distress Orientation/consciousness: patient oriented x3 HENMT Head: Yes normocephalic and Yes atraumatic Ears: TM's normal bilaterally Face and sinus: Yes sinuses nontender Mouth: oropharynx normal and moist mucous membranes Throat: Yes posterior oropharynx normal Eyes General: appearance normal, both eyes and all related structures Pupils: Equal, round and reactive pupils present EOM: EOMs intact bilaterally Neck Neck: Yes normal visual inspection, Yes full ROM and Yes no lymphadenopathy Thyroid: Thyroid normal Resp Effort & Inspection: normal respiratory effort and able to speak in complete sentences Auscultation: clear to auscultation bilaterally, no crackles, no rales, no rhonchi and no wheezes Cardio Rate: regular rate Rhythm: regular rhythm Heart sounds: S1 normal heart sound present, S2 normal heart sound present and no murmurs GI Palpation (GI): Soft to palpation, not firm, nontender, no guarding, not rigid and no hepatosplenomegaly Auscultation: normal bowel sounds General: No CVA tenderness Back/Spine/Pelvis Back: No CVA tenderness Skin General skin exam: no rashes or lesions noted Neuro General: patient oriented x3 Cranial nerves: Yes Equal, round and reactive pupils present Gait exam (Neuro): Normal gait present Extrem Other: Trace edema to bilateral lower extremity, no erythema General: Yes full ROM Assessment and Plan Assessment & Plan (1) Cervical cancer screening: Code(s): Z12.4 - Encounter for screening for malignant neoplasm of cervix (2) Alcohol abuse: Code(s): F10.10 - Alcohol abuse, uncomplicated Plan: Comprehensive care clinic referral Encouraged alcohol cessation (3) Obese: Code(s): E66.9 - Obesity, unspecified Qualifiers: Obesity type: due to excess calories Obesity classification: adult class 2 (BMI 35 - 39.9) Serious obesity comorbidity presence: with serious comorbidity Body mass index: BMI 39.0-39.9 Qualified Code(s): E66.01 - Morbid (severe) obesity due to excess calories; Z68.39 - Body mass index [BMI] 39.0- 39.9, adult Plan: Healthy food choices and exercise as tolerated (4) Colon cancer screening: Code(s): Z12.11 - Encounter for screening for malignant neoplasm of colon (5) Borderline high cholesterol: Code(s): E78.9 - Disorder of lipoprotein metabolism, unspecified Plan: Lipid panel ordered Low-cholesterol diet (6) Annual physical exam: Code(s): Z00.00 - Encounter for general adult medical examination without abnormal findings Plan: Repeat in 1 year (7) Hypertension: Code(s): I10 - Essential (primary) hypertension Qualifiers: Hypertension type: primary hypertension Qualified Code(s): I10 - Essential (primary) hypertension Plan: Goal BP equal or less than 140/90 Blood pressure in the range today Will stop amlodipine ? Lower extremity edema Continue lisinopril 10 mg daily Low-sodium diet and weight loss (8) DASHA (generalized anxiety disorder): Code(s): F41.1 - Generalized anxiety disorder Plan: Patient declined counseling referral Continue clonidine at bedtime (9) Bilateral lower extremity edema: Code(s): R60.0 - Localized edema Plan: Trace edema to bilateral lower extremity Elevate BLE Compression stockings on during the day and off at night Blood work ordered Follow-up in the office if no improvement in 1 month Plan Follow-up with PCP in 4 months or sooner as needed Orders: Orders Vitamin B12 and Folate Today I10 - Essential (primary) hypertension Lipid Panel Today E78.9 - Disorder of lipoprotein metabolism, unspecified TSH reflex Free T4 Today I10 - Essential (primary) hypertension Vitamin D 25-OH Total Today I10 - Essential (primary) hypertension Comprehensive [place]. Panel Fast Today I10 - Essential (primary) hypertension Referrals Addiction Medicine Referral F10.10 - Alcohol abuse, uncomplicated Gastroenterology Referral Z12.11 - Encounter for screening for malignant neoplasm of colon WAY INSPECTOR Referral Z12.4 - Encounter for screening for malignant neoplasm of cervix Medications: Refilled lisinopril 10 mg PO DAILY 90 tabs 1RF I10 - Essential (primary) hypertension propranolol 20 mg PO BID 30 days PRN 60 tabs 3RF for panic attack F41.1 - Generalized anxiety disorder Discontinued amlodipine Discontinued Reason: Doctor's Order 10 mg PO DAILY 30 tabs 3RF Coding Level of Care Code Est Pt Prev Care 40-64y(69895) Diagnoses Cervical cancer screening Z12.4 Alcohol abuse F10.10 Obese E66.01; Z68.39 Obesity type: due to excess calories Obesity classification: adult class 2 (BMI 35 - 39.9) Serious obesity comorbidity presence: with serious comorbidity Body mass index: BMI 39.0-39.9 Colon cancer screening Z12.11 Borderline high cholesterol E78.9 Annual physical exam Z00.00 Hypertension I10 Hypertension type: primary hypertension DASHA (generalized anxiety disorder) F41.1 Bilateral lower extremity edema R60.0 Additional Codes DASHA-7 Assessment Billing - DASHA-7 Assessment Tool: DASHA-7 Assessment 69252 ([id number])
== END 2023-05-28 10:55 | disposition home or self-care (01) ==
PROVIDERS: PCP Physician Assistant; Visit Provider Nurse Practitioner Family
DX: Z00.00 Encounter for general adult medical examination without abnormal findings (principal); I10 Essential (primary) hypertension; E66.01 Morbid (severe) obesity due to excess calories; Z68.39 Body mass index [BMI] 39.0-39.9, adult; F10.10 Alcohol abuse, uncomplicated; E78.9 Disorder of lipoprotein metabolism, unspecified; F41.1 Generalized anxiety disorder; R60.0 Localized edema
CPT/HCPCS: 99396

== ENCOUNTER 2023-06-03 08:31 | Outpatient (REF) | payer OTHER, SELFPAY ==
[2023-06-03 10:36] LABS: Alanine Aminotransferase 23 U/L (0-31); Albumin Level 3.8 g/dL (3.5-5.0); Alkaline Phosphatase 77 U/L (39-117); Anion Gap 14 (12-20); Aspartate Amino Transferase 34 U/L (5-31); Bilirubin Total 0.6 mg/dL (0.0-1.0); Blood Urea Nitrogen 20 mg/dL (9-16); Calcium 9.7 mg/dL (8.4-10.2); Carbon Dioxide 24 mmol/L (22-29); Chloride 108 mmol/L (96-108); Cholesterol 220 mg/dL (<200); Estimated Glomerular Filt Rate 31; Glucose Fasting 97 mg/dL (60-99); HDL Cholesterol 64 mg/dL (>40); LDL Cholesterol Calculated 135 mg/dL (<100); Potassium 5.4 mmol/L (3.3-5.1); Sodium 141 mmol/L (135-145); Total Protein 7.1 g/dL (6.5-8.0); Triglycerides 105 mg/dL (<150)
[2023-06-03 10:38] LABS: Vitamin D 25-OH Total 47.3 ng/mL (>30)
[2023-06-03 10:55] LABS: Folate 2.4 ng/mL (> or = 4.0); Vitamin B12 182 pg/mL (200-900)
== END 2023-06-03 08:32 | disposition home or self-care (01) ==
LOC: HO.LAB 08:31
PROVIDERS: PCP Physician Assistant; Visit Provider Nurse Practitioner Family
DX: I10 Essential (primary) hypertension (principal); E78.9 Disorder of lipoprotein metabolism, unspecified
CPT/HCPCS: 36415; 80053; 80061; 82306; 82607; 82746; 84443

== ENCOUNTER 2023-06-05 07:24 | Outpatient (REF) | payer OTHER, SELFPAY ==
[2023-06-05 07:57] LABS: Anion Gap 14 (12-20); Blood Urea Nitrogen 16 mg/dL (9-16); Calcium 9.5 mg/dL (8.4-10.2); Carbon Dioxide 24 mmol/L (22-29); Chloride 109 mmol/L (96-108); Estimated Glomerular Filt Rate 38; Glucose Random 95 mg/dL (60-115); Potassium 4.6 mmol/L (3.3-5.1); Sodium 142 mmol/L (135-145)
== END 2023-06-05 07:25 | disposition home or self-care (01) ==
LOC: HO.LAB 07:24
PROVIDERS: PCP Physician Assistant; Visit Provider Nurse Practitioner Family
DX: E78.5 Hyperlipidemia, unspecified (principal); N18.30 Chronic kidney disease, stage 3 unspecified
CPT/HCPCS: 36415; 80048

== ENCOUNTER 2023-06-08 09:41 | Outpatient (AMB) | payer OTHER, SELFPAY ==
--- NOTE | 2023-06-08 09:51 | MHC.OFFVIS ---
Intake Intake Visit Reasons: MAT Intake Allergies No Known Allergies [No Known Allergies*] Allergy (Verified 05/28/23 10:35) PFSH Medical History Depression DVT (deep venous thrombosis) History of anxiety History of panic attacks Hypertension Osteoarthritis of right hip Surgical History History of left hip replacement History of right hip replacement History of tonsillectomy History of tubal ligation Family History Father In good health Mother In good health Maternal Grandmother Breast cancer Paternal Grandmother Colon cancer Brother Multiple sclerosis Social History Household Members: None Housing: Other (Correction.) Are you a primary summer child caregiver to a significant other at home: No Do you presently have visiting nurse or other home services: No Alcohol intake: current Alcohol intake frequency: 3 or more drinks per day Alcohol type: hard liquor Patient Tobacco Use Status: Former Tobacco user (15 years ago) Cigarette Packs Per Day: 0.25 Cigarettes Per Day: 5.0 Years Smoked: 20 e-Cigarette/Vaping Use: Never Used Second Hand Smoke Exposure: No Substance Use Type: Marijuana service: No Current occupational status: unemployed and disabled Current occupation: Rt handed Cognitive needs: No Hearing needs: No Vision needs: No Coding
--- NOTE | 2023-06-08 09:54 | AM.OFFVISNUR ---
Intake Vital Signs 06/08/23 10:02 BP 108/76 Blood Pressure Location Lt radial Position Sitting Pulse 62 Pulse Source Pulse Oximeter Pulse Oximetry (%) 98 Oxygen Delivery Method Room Air Intake Visit Reasons: MAT Intake Intake Note: the patient presents for a mat intake Computer Systems Integrator Required: No Allergies No Known Allergies [No Known Allergies*] Allergy (Verified 06/08/23 10:03) Do you need a note to return to daycare/school/sports/work: No Coding
[2023-06-08 10:02] VITALS: BP 108/76; PULSE 62; O2SAT 98
--- NOTE | 2023-06-08 10:39 | A.OFFVIS_ITS ---
Intake Vital Signs 06/08/23 10:02 BP 108/76 Blood Pressure Location Lt radial Position Sitting Pulse 62 Pulse Source Pulse Oximeter Pulse Oximetry (%) 98 Oxygen Delivery Method Room Air Intake Visit Reasons: MAT Intake Intake Note: the patient presents for a mat visit Inspector Insulation Required: No Allergies No Known Allergies [No Known Allergies*] Allergy (Verified 06/08/23 11:20) Do you need a note to return to daycare/school/sports/work: No MAT Intake Nursing Intake Reason for visit: Pt presents for AUD information, MAT intake. Resides at [facility] [address] [facility] the [facility] in [place]. Pt interested in medications for AUD. Are you currently using?: Yes What are you taking?: ETOH When was your last use?: Last night 06/07 How much?: 10 nips Current PCP: Declan Saravia Date of last visit: 05/28/23 Referral Source: PCP Substance Abuse History Substance Abuse History (includes route, frequency and quantity): Alcohol (5-10 nips daily) Age of first use: 13 years old Social History Children: 3 Do you have a support system?: No Current mode of transportation?: None Where are you currently [facility] LMP: None Are you using contraception?: Yes (Pt states tubes tied) IV Drug Use Details: Not applicable Recovery History Have you had any periods of recovery?: Yes What is your longest time in recovery?: During three pregnancies When was the last time you were in recovery?: 26 years ago, for 9 months, when with last child Have you ever had inpatient treatment for your substance abuse disorder?: No Have you been in an inpatient detoxification program?: No Have you been in an inpatient Rehab/Assisted house?: No Have you been in an outpatient Methadone Maintenance program?: No Have you been in an outpatient Suboxone Maintenance program?: No Have you been in an AA/NA support program?: No Have you had a Recovery Support Curing Press Maintainer?: No Have you had Peer Support?: No Details: Pt reports had tried [facility] in the past, not helpful Behavioral Health History Do you have a current BH provider? If so, who?: None BH diagnosis: None History of other addictive behavior: None History of inpatient psychiatric hospitalization? If so, how many? Most Recent? Where?: None History of self harming thoughts?: No History of homicidal or suicidal intentions?: No Medical Conditions Endocarditis?: No Skin Infection: No Seizure related to withdrawal or overdose: Yes (3 x's, Willy 2022, hosptialized at [facility] for ETOH withdrawal) Head or brain injury: No Hepatitis A (if yes, have you been treated?): No Hepatitis B (if yes, have you been treated?): No Hepatitis C (if yes, have you been treated?): No HIV (if yes, have you been treated?): No TB (if yes, have you been treated?): No Other: No Do you have any chronic pain conditions?: None Details: Current medications listed in chart, pt confirmed takes all meds as prescribed. Reviewed risks of ETOH withdrawal, pt verbalized understanding. HPI MAT Intake HPI Details Patient presents for evaluation and treatment of alcohol use. Intake completed by RN, notes reviewed. Currently drinking 5-10 nips daily Patient reporting that she wants to stop drinking completely, however is unable to go to [facility] facility because [facility] Discussed risk reduction strategies, including naltrexone and reduction of drinks over time ED visit a couple of moths ago for fall history of alcohol withdrawal seizure in September family history of AUD Patient reports that she has no supports (although her daughter was present in visit) [facility] Medical History Depression DVT (deep venous thrombosis) History of anxiety History of panic attacks Hypertension Osteoarthritis of right hip Surgical History History of left hip replacement History of right hip replacement History of tonsillectomy History of tubal ligation Family History Father In good health Mother In good health Maternal Grandmother Breast cancer Paternal Grandmother Colon cancer Brother Multiple sclerosis Social History Household Members: None Housing: Other ([facility].) Are you a primary director of healthcare systems to a significant other at home: No Do you presently have visiting nurse or other home services: No Alcohol intake: current Alcohol intake frequency: 3 or more drinks per day Alcohol type: hard liquor Patient Tobacco Use Status: Former Tobacco user (15 years ago) Cigarette Packs Per Day: 0.25 Cigarettes Per Day: 5.0 Years Smoked: 20 e-Cigarette/Vaping Use: Never Used Second Hand Smoke Exposure: No Substance Use Type: Marijuana service: No Current occupational status: unemployed and disabled Current occupation: Rt handed Cognitive needs: No Hearing needs: No Vision needs: No Review of Systems Const Reports as per HPI Physical Exam Vital Signs: Last Vital Signs Pulse 62 06/08/23 10:02 BP 108/76 06/08/23 10:02 Pulse Ox 98 06/08/23 10:02 Oxygen Delivery Method Room Air 06/08/23 10:02 Const General: cooperative, healthy appearing and anxious Nutritional Appearance: overweight Orientation/consciousness: patient oriented x3 Neuro General: patient oriented x3 Psych Appearance: well kempt Speech and movement: Clear speech present Affect: Sad affect present and Anxious affect present Insight: Good insight present (Psych) Assessment & Plan Assessment & Plan (1) Alcohol use disorder, severe, dependence: Code(s): F10.20 - Alcohol dependence, uncomplicated Plan: * naltrexone 50mg QD * reduce drinks slowly * encouraged to present to ED with any withdrawal sx Medications: New naltrexone take 1/2 tab daily for 3 days then increase to one tab daily 50 mg PO DAILY 30 tabs 0RF Coding Level of Care Code New Pt Level 4 (48331) Diagnoses Alcohol use disorder, severe, dependence F10.20
== END 2023-06-08 10:53 | disposition home or self-care (01) ==
LOC: HO.HCC 09:41
PROVIDERS: PCP Physician Assistant; Visit Provider Nurse Practitioner Psychiatric/Mental Health
DX: F10.20 Alcohol dependence, uncomplicated (principal)
CPT/HCPCS: 99204

== ENCOUNTER → 2023-06-08 09:41 | Outpatient (BNVA) | payer OTHER, SELFPAY | PROVIDERS: PCP Physician Assistant; Visit Provider Nurse Practitioner Psychiatric/Mental Health ==

== ENCOUNTER 2023-06-22 09:35 | Outpatient (AMB) | payer OTHER, SELFPAY ==
--- NOTE | 2023-06-22 09:46 | A.OFFVIS_ITS ---
Intake Vital Signs 06/22/23 10:08 BP 130/90 H Blood Pressure Location Lt brachial Position Sitting Pulse 54 Pulse Oximetry (%) 99 Intake Visit Reasons: MAT Visit Allergies No Known Allergies [No Known Allergies*] Allergy (Verified 06/08/23 11:20) HPI MAT Visit HPI Details Patient presents for AUD treatment follow up Last drink Thursday 3 nips and a truly prior to that 1 nip Following last appt, started taper. At the start she was at 10 nips daily and now at 0-3 (rarely 3) Reporting some anxiety, mild tremor and increased cravings for alcohol Tolerating naltrexone, discussed increasing dose to 2 tabs daily, or taking an additional tab when cravings increase. Overall feeling better. Discussed recovery supports, including family and social situations. Patient reports she often drinks with her adult children especially when one of us gets paid . [facility] Medical History Depression DVT (deep venous thrombosis) History of anxiety History of panic attacks Hypertension Osteoarthritis of right hip Surgical History History of left hip replacement History of right hip replacement History of tonsillectomy History of tubal ligation Family History Father In good health Mother In good health Maternal Grandmother Breast cancer Paternal Grandmother Colon cancer Brother Multiple sclerosis Social History Household Members: None Housing: Other ([facility].) Are you a primary manager intensive care to a significant other at home: No Do you presently have visiting nurse or other home services: No Alcohol intake: current Alcohol intake frequency: 3 or more drinks per day Alcohol type: hard liquor Patient Tobacco Use Status: Former Tobacco user (15 years ago) Cigarette Packs Per Day: 0.25 Cigarettes Per Day: 5.0 Years Smoked: 20 e-Cigarette/Vaping Use: Never Used Second Hand Smoke Exposure: No Substance Use Type: Marijuana service: No Current occupational status: unemployed and disabled Current occupation: Rt handed Cognitive needs: No Hearing needs: No Vision needs: No Review of Systems Const Reports as per HPI Physical Exam Vital Signs: Last Vital Signs Pulse 54 06/22/23 10:08 BP 130/90 H 06/22/23 10:08 Pulse Ox 99 06/22/23 10:08 Const General: cooperative, healthy appearing and no acute distress Psych Appearance: well kempt Speech and movement: Clear speech present Affect: normal affect Attitude: cooperative Thought process: Normal thought process present Thought content: Normal thought content present Insight: Fair insight present (Psych) Judgement: Good judgement present (Psych) Assessment & Plan Assessment & Plan (1) Alcohol use disorder, severe, dependence: Code(s): F10.20 - Alcohol dependence, uncomplicated Plan: * continue naltrexone at current dose, with PRN dose * vivitrol injection ordered * recovery support center information provided ([facility]) Medications: New gabapentin 100 mg PO BID 14 caps 0RF naltrexone microspheres ER (Vivitrol) 380 mg IM Q4W 1 ea 5RF Changed From naltrexone take 1/2 tab daily for 3 days then increase to one tab daily 50 mg PO DAILY 30 tabs 0RF To naltrexone 100 mg (2 x 50 mg) PO DAILY 60 tabs 0RF Coding Level of Care Code Est Pt Level 4 (14231) Diagnoses Alcohol use disorder, severe, dependence F10.20
[2023-06-22 10:08] VITALS: BP 130/90; PULSE 54; O2SAT 99
== END 2023-06-22 10:35 | disposition home or self-care (01) ==
LOC: HO.HCC 09:35
PROVIDERS: PCP Physician Assistant; Visit Provider Nurse Practitioner Psychiatric/Mental Health
DX: F10.20 Alcohol dependence, uncomplicated (principal)
CPT/HCPCS: 99214

== ENCOUNTER → 2023-06-22 09:35 | Outpatient (BNVA) | payer OTHER, SELFPAY | PROVIDERS: PCP Physician Assistant; Visit Provider Nurse Practitioner Psychiatric/Mental Health | DX: F10.20 Alcohol dependence, uncomplicated (principal) | CPT/HCPCS: 99212 ==

== ENCOUNTER 2023-07-09 13:18 | Outpatient (AMB) | payer OTHER, SELFPAY ==
--- NOTE | 2023-07-09 13:39 | AM.OFFVISNUR ---
Intake Vital Signs 07/09/23 13:40 BP 140/98 H Blood Pressure Location Lt brachial Position Sitting Pulse Oximetry (%) 97 Intake Visit Reasons: Dora Inj Allergies No Known Allergies [No Known Allergies*] Allergy (Verified 06/08/23 11:20) Coding
[2023-07-09 13:40] VITALS: BP 140/98; O2SAT 97
== END 2023-07-09 14:18 | disposition home or self-care (01) ==
PROVIDERS: PCP Physician Assistant; Visit Provider Nurse Practitioner Psychiatric/Mental Health
DX: F10.20 Alcohol dependence, uncomplicated (principal); Z51.81 Encounter for therapeutic drug level monitoring
CPT/HCPCS: J2315

== ENCOUNTER → 2023-07-09 13:18 | Outpatient (BNVA) | payer OTHER, SELFPAY | PROVIDERS: PCP Physician Assistant; Visit Provider Nurse Practitioner Psychiatric/Mental Health | DX: F10.20 Alcohol dependence, uncomplicated (principal) | CPT/HCPCS: 80305; 96372 ==

== ENCOUNTER 2023-08-06 13:22 | Outpatient (AMB) | payer OTHER, SELFPAY ==
--- NOTE | 2023-08-06 15:14 | MHC.AM.SUB ---
Intake Intake Visit Reasons: Dora Inj Allergies No Known Allergies [No Known Allergies*] Allergy (Verified 06/08/23 11:20) HPI Dora Inj HPI Details Pt presents for vivitrol injection. States the past month has been good for her Had a job interview yesterday for [employer]- starts Thursday of next week. Pt excited about new job- bright affect. Brother recently came to visit from [place], pt states she has not seen him in 16 yrs, was happy about visit. Drinking 3 nips daily, feels as though she is making good progress cutting down. Cautioned by t/w not to cut down too quickly. Denies any concerns at this time. [facility] Medical History Depression DVT (deep venous thrombosis) History of anxiety History of panic attacks Hypertension Osteoarthritis of right hip Surgical History History of left hip replacement History of right hip replacement History of tonsillectomy History of tubal ligation Family History Father In good health Mother In good health Maternal Grandmother Breast cancer Paternal Grandmother Colon cancer Brother Multiple sclerosis Social History Household Members: None Housing: Other (Retirement.) Are you a primary home care administrator to a significant other at home: No Do you presently have visiting nurse or other home services: No Alcohol intake: current Alcohol intake frequency: 3 or more drinks per day Alcohol type: hard liquor Patient Tobacco Use Status: Former Tobacco user (15 years ago) Cigarette Packs Per Day: 0.25 Cigarettes Per Day: 5.0 Years Smoked: 20 e-Cigarette/Vaping Use: Never Used Second Hand Smoke Exposure: No Substance Use Type: Marijuana service: No Current occupational status: unemployed and disabled Current occupation: Rt handed Cognitive needs: No Hearing needs: No Vision needs: No Review of Systems Const Reports as per HPI and Reports no additional complaints Physical Exam Const General: cooperative and no acute distress Resp Effort & Inspection: normal respiratory effort Skin General skin exam: no rashes or lesions noted Psych Appearance: grossly normal Mental Status: mental status grossly normal Speech and movement: Normal speech and movement present Attitude: cooperative Thought process: Normal thought process present Office Meds Vivitrol 380 mg intramuscular suspension,extended release Performing Provider: Geetha Coombs CNP Performing Location: [facility] Administered by: Lana Johnson on 08/06/23 15:21 Dose Route Admin Location Dispensed Lot Number Expiration Date [employer] 380 mg IM RG 380 mg 2023-1013T 11/25/25 28632-319-99 [employer] Comments: Pt tolerated injection well. Educated on signs/symptoms of infection, encouraged to call the [facility] with questions or concerns. Assessment & Plan Assessment & Plan (1) Alcohol use disorder, severe, dependence: Code(s): F10.20 - Alcohol dependence, uncomplicated Plan: Pt tolerated injection well. Follow up 4 weeks. eval and plan reviewed with HELENA Stokes Orders: Orders AMB Naltrexone Injection Patient Supplied 08/06/23 F10.20 - Alcohol dependence, uncomplicated Coding Level of Care Code Est Pt Level 3 (38189) Diagnoses Alcohol use disorder, severe, dependence F10.20
== END 2023-08-06 13:54 | disposition home or self-care (01) ==
PROVIDERS: PCP Physician Assistant; Visit Provider Nurse Practitioner Psychiatric/Mental Health
DX: F10.20 Alcohol dependence, uncomplicated (principal)
CPT/HCPCS: 99213; J2315

== ENCOUNTER → 2023-08-06 13:22 | Outpatient (BNVA) | payer OTHER, SELFPAY | PROVIDERS: PCP Physician Assistant; Visit Provider Nurse Practitioner Psychiatric/Mental Health | DX: F10.20 Alcohol dependence, uncomplicated (principal); Z79.899 Other long term (current) drug therapy | CPT/HCPCS: 96372; 99212 ==

== ENCOUNTER → 2023-08-26 10:36 | Outpatient (BNVA) | payer OTHER, SELFPAY | PROVIDERS: PCP Physician Assistant; Visit Provider Nurse Practitioner Family | DX: Z12.11 Encounter for screening for malignant neoplasm of colon (principal); F10.20 Alcohol dependence, uncomplicated; K59.01 Slow transit constipation | CPT/HCPCS: 99202 ==

== ENCOUNTER 2023-08-26 10:38 | Outpatient (AMB) | payer OTHER, SELFPAY ==
--- NOTE | 2023-08-26 10:38 | MHC.OFFVIS ---
Intake Vital Signs 08/26/23 10:40 Height 5 ft 9 in Weight 238 lb 1.588 oz BMI 35.2 Blood Pressure Location Lt brachial Position Sitting Intake Visit Reasons: Colonoscopy Screening Intake Note: Angelica presents in the office as a colonoscopy screening. CC: She states that she is upset because her weight. She wants to do the weight loss program. Allergies No Known Allergies [No Known Allergies*] Allergy (Verified 08/26/23 10:43) HPI Colonoscopy Screening HPI Details 52-year-old female with past medical history of low vitamin B12 level, low folate, CKD, obesity, hypertension, DASHA, hypercholesteremia, right hip lid placement, ETOH abuse is here today for initial consultation. Patient is here to discuss going for colonoscopy. Patient reports that she has been doing fairly well. Patient has been feeling frustrated lately as she is unable to lose weight. Patient has been trying to quit alcohol completely and is seen by addiction medicine for Vivitrol shot. Patient also takes Vivitrol orally. Drinks couple nips a day which is significantly less from what she used to drink. Patient reports that she is not able to move her bowels well. Feels very bloated throughout the day. Denies any melena, hematochezia, unintentional weight loss or ribbon like stools. Patient reports occasional acid reflux, however that depends on what she eats. Denies any dyspepsia, dysphagia or odynophagia. [facility] Medical History DVT (deep venous thrombosis) History of anxiety History of panic attacks Depression Osteoarthritis of right hip Hypertension Surgical History History of right hip replacement History of left hip replacement History of tubal ligation History of tonsillectomy Family History (Updated 08/26/23 @ 10:46 by NATASHA Patterson) Father Colon cancer Mother In good health Maternal Grandmother Breast cancer Paternal Grandmother Colon cancer Brother Multiple sclerosis Paternal Uncle Colon cancer Social History Household Members: None Housing: Other (Assisted.) Are you a primary residential caregiver to a significant other at home: No Do you presently have visiting nurse or other home services: No Alcohol intake: current Alcohol intake frequency: 3 or more drinks per day Alcohol type: hard liquor Patient Tobacco Use Status: Former Tobacco user (15 years ago) Cigarette Packs Per Day: 0.25 Cigarettes Per Day: 5.0 Years Smoked: 20 e-Cigarette/Vaping Use: Never Used Second Hand Smoke Exposure: No Substance Use Type: Marijuana service: No Current occupational status: unemployed and disabled Current occupation: Rt handed Cognitive needs: No Hearing needs: No Vision needs: No Review of Systems Const Denies weight gain and Denies weight loss ENT Reports no additional complaints, Denies dysphagia and Denies odynophagia Card Reports no additional complaints Resp Reports no additional complaints GI Denies abdominal pain, Denies belching, Denies melena, Denies bloating, Denies change in bowel habits, Reports constipation, Denies dysphagia, Denies excessive flatus, Denies dyspepsia, Denies heartburn, Denies diarrhea, Denies loose stools, Denies nausea, Denies odynophagia and Denies vomiting Reports no additional complaints Musc Reports no additional complaints Neuro Reports no additional complaints Psych Reports no additional complaints Endo Reports no additional complaints Physical Exam Vital Signs: BMI result Body Mass Index 35.2 Const General: healthy appearing, no acute distress and well developed Nutritional Appearance: obese Orientation/consciousness: patient oriented x3 HEENT Head: Yes normal to inspection, Yes normocephalic and Yes atraumatic Face and sinus: Yes normal facial exam Mouth: Normal oral and palatal mucosa present Throat: Yes posterior oropharynx normal, Yes tonsils normal and Yes uvula midline Eyes General: appearance normal, both eyes and all related structures Neck Neck: Yes normal visual inspection, Yes full ROM and Yes trachea midline Thyroid: Thyroid normal Resp Effort & Inspection: normal respiratory effort, able to speak in complete sentences, no tracheal deviation and symmetric chest movement Auscultation: clear to auscultation bilaterally Cardio Rate: regular rate GI Inspection: Yes normal to inspection, No distended and Yes obesity Palpation (GI): Soft to palpation, not firm, nontender and No hepatosplenomegaly present Auscultation: normal bowel sounds General: Yes no CVA tenderness Back/Spine/Pelvis Back: no CVA tenderness Skin General skin exam: elasticity normal, turgor normal and dry skin Neuro General: patient oriented x3 Psych Appearance: grossly normal Mental Status: mental status grossly normal Assessment & Plan Assessment & Plan (1) Alcohol use disorder, severe, dependence: Code(s): F10.20 - Alcohol dependence, uncomplicated (2) Colon cancer screening: Code(s): Z12.11 - Encounter for screening for malignant neoplasm of colon (3) Constipation: Code(s): K59.00 - Constipation, unspecified Qualifiers: Constipation type: slow transit constipation Qualified Code(s): K59.01 - Slow transit constipation Plan Patient was encouraged to increase fluid intake and activity to promote better bowel motility. Patient will start taking MiraLax every morning and will take senna every evening. Patient will return in 5 weeks to discuss colonoscopy. Patient will call our office if she will have any other GI concerning symptoms. Patient is agreeable to this plan and verbalizes understanding of instructions. She was given the opportunity to ask questions and all questions answered. Thank you for allowing me to participate in her care Medications: New sennosides (Natural Senna Laxative) 8.6 mg PO BEDTIME 90 tabs 3RF constipation K59.00 - Constipation, unspecified polyethylene glycol 3350 (Miralax) 17 grams PO DAILY 510 grams 2RF Coding Level of Care Code New Pt Level 3 (17715) Diagnoses Alcohol use disorder, severe, dependence F10.20 Colon cancer screening Z12.11 Slow transit constipation K59.01 Constipation type: slow transit constipation Time Spent (min) 40 Comment 30 minutes spent with patient and additional 10 minutes spent reviewing her records
[2023-08-26 10:40] VITALS: BMI 35.2
== END 2023-08-26 11:22 | disposition home or self-care (01) ==
PROVIDERS: PCP Physician Assistant; Visit Provider Nurse Practitioner Family
DX: F10.20 Alcohol dependence, uncomplicated (principal); Z12.11 Encounter for screening for malignant neoplasm of colon; K59.01 Slow transit constipation
CPT/HCPCS: 99203

== ENCOUNTER 2023-09-10 11:02 | Outpatient (AMB) | payer OTHER, SELFPAY ==
--- NOTE | 2023-09-10 11:01 | AM.OFFVISNUR ---
Intake Vital Signs 09/10/23 11:11 BP 118/70 Blood Pressure Location Lt radial Position Sitting Pulse 70 Pulse Source Pulse Oximeter Pulse Oximetry (%) 98 Oxygen Delivery Method Room Air Intake Visit Reasons: MAT VISIT Intake Note: th patient presents for a mana inj Move Coordinator Required: No Allergies No Known Allergies [No Known Allergies*] Allergy (Verified 08/26/23 10:43) Do you need a note to return to daycare/school/sports/work: No Office Meds Vivitrol 380 mg intramuscular suspension,extended release Performing Provider: Diane Stokes NP Performing Location: [facility] Administered by: Angelica Wong RN on 09/10/23 11:35 Dose Route Admin Location Dispensed Lot Number Expiration Date [facility] [employer] 380 mg IM LG 380 mg 2023-1019T 12/27/23 [id number] [employer] Comments: Pt tolerated injection well, denies concerns about previous injection. Educated on signs and symptoms of infection, encouraged to call [facility] with any questions or concerns, pt verbalized understanding. Coding Assessment & Plan Assessment & Plan Orders: Orders AMB Naltrexone Injection Today F10.20 - Alcohol dependence, uncomplicated
[2023-09-10 11:11] VITALS: BP 118/70; PULSE 70; O2SAT 98
--- NOTE | 2023-09-10 11:40 | AM.OFFVISNUR ---
Intake Vital Signs 09/10/23 11:11 BP 118/70 Blood Pressure Location Lt radial Position Sitting Pulse 70 Pulse Source Pulse Oximeter Pulse Oximetry (%) 98 Oxygen Delivery Method Room Air Intake Visit Reasons: MAT VISIT Allergies No Known Allergies [No Known Allergies*] Allergy (Verified 08/26/23 10:43) Nursing Note Patient present for four week AUD visit and naltrexone injection. Pt states that she is doing okay with alcohol use. Pt reports 3-4 nips a day, still grieving loss of ex-. Pt was asked if utilizing any other recovery resources, she was not. Pt expressed interest in AA and was shown how to access AA website to view active meetings in her new location of [place]. Pt to call [facility] with any injection or recovery questions and will schedule follow up appointment in four weeks. Office Meds Vivitrol 380 mg intramuscular suspension,extended release Performing Provider: Diane Stokes NP Performing Location: [facility] Administered by: Angelica Wong RN on 09/10/23 11:35 Dose Route Admin Location Dispensed Lot Number Expiration Date [facility] [employer] 380 mg IM LG 380 mg 2023-1019T 12/27/23 [id number] [employer] Comments: Pt tolerated injection well, denies concerns about previous injection. Educated on signs and symptoms of infection, encouraged to call [facility] with any questions or concerns, pt verbalized understanding. Coding Assessment & Plan Assessment & Plan Orders: Orders AMB Naltrexone Injection Today F10.20 - Alcohol dependence, uncomplicated
== END 2023-09-10 11:31 | disposition home or self-care (01) ==
PROVIDERS: PCP Physician Assistant
DX: F10.20 Alcohol dependence, uncomplicated (principal)

== ENCOUNTER → 2023-09-10 11:02 | Outpatient (BNVA) | payer OTHER, SELFPAY | PROVIDERS: PCP Physician Assistant | DX: F10.20 Alcohol dependence, uncomplicated (principal) | CPT/HCPCS: 96372; J2315 ==

== ENCOUNTER 2023-09-24 09:54 | Outpatient (AMB) | payer OTHER, SELFPAY ==
[2023-09-24 10:05] VITALS: BP 142/72; PULSE 41; O2SAT 94; BMI 36.6
--- NOTE | 2023-09-24 10:05 | A.OFFPC_ITS ---
Vital Signs 09/24/23 10:05 Height 5 ft 9 in Weight 248 lb BMI 36.6 BP 142/72 H Blood Pressure Location Lt brachial Position Sitting Pulse 41 L Pulse Source Pulse Oximeter Pulse Oximetry (%) 94 Oxygen Delivery Method Room Air Intake Visit Reasons: HTN Bingo Usher Required: No Accompanied by: Self / Same As Patient Allergies No Known Allergies [No Known Allergies*] Allergy (Verified 09/24/23 10:35) Medication List - Last Reconciled 09/24/23 by Declan Saravia PA-C blood pressure kit-extra large As directed clonidine HCl 0.6 mg (2 x 0.3 mg) PO BEDTIME 30 days cyanocobalamin (vitamin B-12) 1,000 mcg PO DAILY fluticasone propionate 50 mcg/actuation (Flonase Allergy Relief) 1 spray intranasal BID 30 days folic acid 1 mg PO DAILY gabapentin 100 mg PO BID lisinopril 10 mg PO DAILY naltrexone 100 mg (2 x 50 mg) PO DAILY naltrexone microspheres ER (Vivitrol) 380 mg IM Q4W polyethylene glycol 3350 (Miralax) 17 grams PO DAILY propranolol 20 mg PO BID PRN 30 days pyridoxine (vitamin B6) 50 mg PO DAILY [Raised toilet seat As directed] sennosides (Natural Senna Laxative) 8.6 mg PO BEDTIME Tobacco use date assessed: 05/28/23 Dental Screening Dental Screen Date: 09/24/23 Did you have a dental visit in the last 12 months?: Yes Did you have a dental problem in the last 6 months where you did not have access to dental care?: No Was dental information given to patient?: Patient has dentist HPI HTN HPI Details Patient is a 52-year-old female here today for follow-up visit.? Patient has a past medical history significant for generalized anxiety disorder polyarthralgia hypertension, history of total hip replacement.. ? .. Alcohol use disorder: Now getting Vivitrol injections through addiction treatment special here in [place]. Unfortunately continues to drink 3 nips a day. She reports if she does not drink she has breakthrough seizures. She will try to find inpatient detox to get completely sober. Given the phone number to [facility]. .. Major depressive disorder: Has been existing condition for her with comorbid alcohol use disorder. She had reports her expose been recently and she is going through grieving process. .. ? Hypertension:? she reports her blood pressures have been stable.? Today in office blood pressure slightly elevated, continues on lisinopril and propranolol. Denies any headaches, chest discomfort or palpitations. Colonoscopy: Has followed up with [place] gastro[facility]ology and getting colonoscopy in near future. [facility] Medical History DVT (deep venous thrombosis) History of anxiety History of panic attacks Depression Osteoarthritis of right hip Hypertension Surgical History History of right hip replacement History of left hip replacement History of tubal ligation History of tonsillectomy Family History Father Colon cancer Mother In good health Maternal Grandmother Breast cancer Paternal Grandmother Colon cancer Brother Multiple sclerosis Paternal Uncle Colon cancer Social History (Updated 09/24/23 @ 13:32 by Declan Saravia PA-C) Household Members: None Housing: Other (Fpc.) Are you a primary pediatric critical care nurse to a significant other at home: No Do you presently have visiting nurse or other home services: No Alcohol intake: current Alcohol intake frequency: 3 or more drinks per day Alcohol type: hard liquor Patient Tobacco Use Status: Former Tobacco user (15 years ago) Cigarette Packs Per Day: 0.25 Cigarettes Per Day: 5.0 Years Smoked: 20 e-Cigarette/Vaping Use: Never Used Second Hand Smoke Exposure: No Substance Use Type: Marijuana service: No Current occupational status: unemployed and disabled Current occupation: Rt handed Cognitive needs: No Hearing needs: No Vision needs: No Questionnaire Thrive Questionnaire Date Thrive assessed: 10/07/22 DASHA-7 AMB Questionnaire DASHA-7 Date DASHA - 7 assessed: 05/28/23 Source: Developed by Drs. Ehsan Jeffrey, Garima Rueda, Stanley Dias and colleagues, with an educational moises from [employer]. Review of Systems Const Denies headache(s) Eyes Denies loss of vision ENT Denies vertigo, Denies dizziness, Denies headache(s) and Denies sore throat Card Denies chest pain, Denies leg edema and Denies lightheadedness Resp Denies cough, Denies hemoptysis and Denies wheezing GI Denies abdominal pain, Denies melena, Denies constipation, Denies diarrhea and Denies vomiting Denies urinary frequency, Denies dysuria and Denies urinary urgency Musc Denies arthralgias, Denies joint swelling, Denies numbness and Denies tingling Neuro Denies Abnormal speech present, Denies behavioral changes, Denies vertigo, Denies dizziness, Denies headache(s), Denies loss of vision, Denies memory loss, Denies numbness and Denies tingling Psych Denies anxiety, Denies behavioral changes, Denies depression, Denies memory loss and Denies panic attacks Freddie/Lymph Denies easy bleeding and Denies easy bruising Aller/Immun Denies wheezing Physical exam (Primary Care) Vital Signs: Last Vital Signs Pulse 41 L 09/24/23 10:05 BP 142/72 H 09/24/23 10:05 Pulse Ox 94 09/24/23 10:05 Oxygen Delivery Method Room Air 09/24/23 10:05 BMI result Body Mass Index 36.6 BMI Assessment/Plan discussion: High Tobacco/Smoking Status: Tobacco use Status Tobacco use date assessed 05/28/23 09/24/23 10:06 Patient Tobacco Use Status Former Tobacco user (15 09/24/23 10:06 years ago) e-Cigarette/Vaping Use Never Used 09/24/23 10:06 Thrive Assessment: Date of Thrive Assessment Date Thrive assessed 10/07/22 09/24/23 10:06 Const Other: Obese- teary-eyed today in office General: healthy appearing, no acute distress, alert and awake Nutritional Appearance: well nourished Orientation/consciousness: oriented to person, oriented to place and oriented to time [facility] Ears: TM's normal bilaterally General nose exam: Normal nasal mucous membranes and turbinates present Eyes Conjunctivae: conjunctivae normal Sclerae: sclerae normal Pupils: Equal, round and reactive pupils present Neck Neck: Yes no lymphadenopathy and Yes no JVD Thyroid: Thyroid normal Carotids: no bruits Resp Effort & Inspection: normal respiratory effort and not tachypneic Auscultation: no crackles, no rales, no rhonchi and no wheezes Cardio Rate: regular rate Rhythm: regular rhythm Heart sounds: no murmurs and normal S1 and S2 GI Palpation (GI): Soft to palpation, nontender, no hepatomegaly and no splenomegaly Auscultation: normal bowel sounds Skin General skin exam: no rashes or lesions noted and dry skin Neuro General: oriented to person, oriented to place and oriented to time Cranial nerves: Yes Equal, round and reactive pupils present Speech: No Abnormal speech present Gait exam (Neuro): Normal gait present Motor exam (neuro): no tremor noted Extrem Right upper extremity: full ROM Left upper extremity: full ROM Right lower extremity: full ROM; no edema Left lower extremity: full ROM; no edema Psych Mental Status: mental status grossly normal Speech and movement: Normal speech and movement present Affect: normal affect Attitude: cooperative Thought process: Normal thought process present Assessment and Plan Assessment & Plan (1) Alcohol use disorder, severe, dependence: Code(s): F10.20 - Alcohol dependence, uncomplicated Plan: CONTINUES TO HAVE SEVERE DEPENDENCE TO ALCOHOL. SHE REPORTS SHE IS MAINTAINING HERSELF ON 3 NIPS A DAY DOWN FROM 20 NIPS A DAY. SHE IS SEEING [facility] AND GETTING VIVITROL INJECTIONS. ADVISED INPATIENT DETOX. GIVEN PHONE NUMBER TO JEREMY. (2) Hypertension: Code(s): I10 - Essential (primary) hypertension Qualifiers: Hypertension type: primary hypertension Qualified Code(s): I10 - Essential (primary) hypertension Plan: Patient's blood pressure slightly elevated today in office. Likely due to continued alcohol use. Advised to continue on lisinopril and propranolol. Difficult to control blood pressure when still actively abusing alcohol. The patient agrees and understands. (3) Obese: Code(s): E66.9 - Obesity, unspecified Qualifiers: Body mass index: BMI 36.0-36.9 Obesity classification: adult class 2 (BMI 35 - 39.9) Obesity type: due to excess calories Serious obesity comorbidity presence: with serious comorbidity Qualified Code(s): E66.01 - Morbid (severe) obesity due to excess calories; Z68.36 - Body mass index [BMI] 36.0-36.9, adult Plan: Patient does understand her BMI is over 30 and will try to be more physically active and adapt to better eating habits to reduce her weight. (4) CKD (chronic kidney disease) stage 3, GFR 30-59 ml/min: Code(s): N18.30 - Chronic kidney disease, stage 3 unspecified Qualifiers: Chronic kidney disease stage 3 subtype: stage 3a (GFR 45-59) Qualified Code(s): N18.31 - Chronic kidney disease, stage 3a Plan: Noted to have chronic kidney disease likely secondary to her alcohol use disorder vs uncontrolled hypertension. Will continue to follow renal function Orders: Orders Microalbumin, Random (w Creat) Today I10 - Essential (primary) hypertension Comprehensive [place]. Panel Fast Today E78.9 - Disorder of lipoprotein metabolism, unspecified Lipid Panel Today E78.9 - Disorder of lipoprotein metabolism, unspecified Medications: Refilled folic acid 1 mg PO DAILY 90 tabs 3RF E53.8 - Deficiency of other specified B group vitamins cyanocobalamin (vitamin B-12) 1,000 mcg PO DAILY 90 caps 3RF E53.8 - Deficiency of other specified B group vitamins propranolol 20 mg PO BID 30 days PRN 60 tabs 3RF for panic attack F41.1 - Generalized anxiety disorder Coding Level of Care Code Est Pt Level 4 (55249) Diagnoses Alcohol use disorder, severe, dependence F10.20 Primary hypertension I10 Hypertension type: primary hypertension Class 2 severe obesity due to excess calories with serious comorbidity and body mass index (BMI) of 36.0 to 36.9 in adult E66.01; Z68.36 Body mass index: BMI 36.0-36.9 Obesity classification: adult class 2 (BMI 35 - 39.9) Obesity type: due to excess calories Serious obesity comorbidity presence: with serious comorbidity Stage 3a chronic kidney disease N18.31 Chronic kidney disease stage 3 subtype: stage 3a (GFR 45-59)
== END 2023-09-24 11:01 | disposition home or self-care (01) ==
PROVIDERS: PCP Physician Assistant; Visit Provider Physician Assistant
DX: F10.20 Alcohol dependence, uncomplicated (principal); I12.9 Hypertensive chronic kidney disease with stage 1 through stage 4 chronic kidney disease, or unspecified chronic kidney disease; N18.31 Chronic kidney disease, stage 3a
CPT/HCPCS: 99214

== ENCOUNTER 2023-09-30 10:06 | Outpatient (REF) | payer OTHER, SELFPAY ==
[2023-09-30 12:59] LABS: Alanine Aminotransferase 18 U/L (0-31); Albumin Level 3.8 g/dL (3.5-5.0); Alkaline Phosphatase 84 U/L (39-117); Anion Gap 12 (12-20); Aspartate Amino Transferase 27 U/L (5-31); Bilirubin Total 1.3 mg/dL (0.0-1.0); Blood Urea Nitrogen 9 mg/dL (9-16); Carbon Dioxide 30 mmol/L (22-29); Chloride 104 mmol/L (96-108); Cholesterol 235 mg/dL (<200); Estimated Glomerular Filt Rate > 60; Glucose Fasting 105 mg/dL (60-99); HDL Cholesterol 87 mg/dL (>40); LDL Cholesterol Calculated 131 mg/dL (<100); Potassium 3.8 mmol/L (3.3-5.1); Sodium 142 mmol/L (135-145); Total Protein 7.4 g/dL (6.5-8.0); Triglycerides 89 mg/dL (<150)
== END 2023-09-30 10:07 | disposition home or self-care (01) ==
LOC: HO.LAB 10:06
PROVIDERS: PCP Physician Assistant; Visit Provider Physician Assistant
DX: I10 Essential (primary) hypertension (principal); E78.9 Disorder of lipoprotein metabolism, unspecified; E53.8 Deficiency of other specified B group vitamins
CPT/HCPCS: 36415; 80053; 80061; 82043; 82570; 82607; 82746; 99212

== ENCOUNTER 2023-09-30 10:49 | Outpatient (AMB) | payer OTHER, SELFPAY ==
--- NOTE | 2023-09-30 10:54 | MHC.OFFVIS ---
Intake Vital Signs 09/30/23 10:55 Height 5 ft 9 in Weight 242 lb 8.136 oz BMI 35.8 BP 157/88 H Blood Pressure Location Lt brachial Position Sitting Pulse 69 Intake Visit Reasons: 5 weekfollow up Intake Note: Angelica presents in the office as a 5 week follow up. CC: She states that she is not having any concerns at this time. She states that she did the prep yesterday because she thought today was the procedure and she will need a new Rx. Allergies No Known Allergies [No Known Allergies*] Allergy (Verified 09/30/23 10:56) HPI 5 weekfollow up HPI Details LAST VISIT: Alcohol use disorder, severe, dependence Colon cancer screening Constipation Plan Patient was encouraged to increase fluid intake and activity to promote better bowel motility. Patient will start taking MiraLax every morning and will take senna every evening. Patient will return in 5 weeks to discuss colonoscopy. Patient will call our office if she will have any other GI concerning symptoms. Patient is agreeable to this plan and verbalizes understanding of instructions. She was given the opportunity to ask questions and all questions answered. ? Thank you for allowing me to participate in her care Medications New sennosides (Natural Senna Laxative) 8.6 mg PO BEDTIME 90 tabs 3RF constipation K59.00 polyethylene glycol 3350 (Miralax) 17 grams PO DAILY 510 grams 2RF TODAY'S VISIT: Patient is here today for follow-up and to discuss going for colonoscopy. Patient felt that today was the procedure and she did her prep yesterday. Patient has not taking senna or MiraLax daily. Patient that the bowel was the prep before the procedure. Since last visit patient reports that she has been feeling better. Denies any abdominal pain or discomfort. Is able to move her bowels better, however she continues to feel like she does not empty completely. Occasional postprandial abdominal bloating. Patient denies any acid reflux, dyspepsia, dysphagia or odynophagia. Patient has a very strong family history of colorectal cancer. Paternal unkles and patient's father have colon cancer. Patient's father is currently treated for stage IV colorectal cancer with chemotherapy. Patient reports that she has been drinking less. Last little weight. Currently is living with her daughter. Patient denies any melena, hematochezia, unintentional weight loss or ribbon like stools. No history of sleep apnea. Not on any anticoagulation medication. Denies any issues with anesthesia in the past. [facility] Medical History DVT (deep venous thrombosis) History of anxiety History of panic attacks Depression Osteoarthritis of right hip Hypertension Surgical History History of right hip replacement History of left hip replacement History of tubal ligation History of tonsillectomy Family History Father Colon cancer Mother In good health Maternal Grandmother Breast cancer Paternal Grandmother Colon cancer Brother Multiple sclerosis Paternal Uncle Colon cancer Social History Household Members: None Housing: Other ([facility] Are you a primary field care advocate to a significant other at home: No Do you presently have visiting nurse or other home services: No Alcohol intake: current Alcohol intake frequency: 3 or more drinks per day Alcohol type: hard liquor Patient Tobacco Use Status: Former Tobacco user (15 years ago) Cigarette Packs Per Day: 0.25 Cigarettes Per Day: 5.0 Years Smoked: 20 e-Cigarette/Vaping Use: Never Used Second Hand Smoke Exposure: No Substance Use Type: Marijuana service: No Current occupational status: unemployed and disabled Current occupation: Rt handed Cognitive needs: No Hearing needs: No Vision needs: No Review of Systems Const Denies weight gain and Denies weight loss ENT Reports no additional complaints, Denies dysphagia and Denies odynophagia Card Reports no additional complaints Resp Reports no additional complaints GI Denies abdominal pain, Denies belching, Denies melena, Denies bloating, Reports constipation, Denies dysphagia, Denies excessive flatus, Denies dyspepsia, Denies heartburn, Denies diarrhea, Denies loose stools, Denies nausea, Denies odynophagia and Denies vomiting Reports no additional complaints Musc Reports no additional complaints Neuro Reports no additional complaints Psych Reports no additional complaints Endo Reports no additional complaints Physical Exam Vital Signs: Last Vital Signs Pulse 69 09/30/23 10:55 BP 157/88 H 09/30/23 10:55 BMI result Body Mass Index 35.8 Const General: healthy appearing, no acute distress and well developed Nutritional Appearance: obese Orientation/consciousness: patient oriented x3 HEENT Head: Yes normal to inspection, Yes normocephalic and Yes atraumatic Face and sinus: Yes normal facial exam Mouth: Normal oral and palatal mucosa present Throat: Yes posterior oropharynx normal, Yes tonsils normal and Yes uvula midline Eyes General: appearance normal, both eyes and all related structures Neck Neck: Yes normal visual inspection, Yes full ROM and Yes trachea midline Thyroid: Thyroid normal Resp Effort & Inspection: normal respiratory effort, able to speak in complete sentences, no tracheal deviation and symmetric chest movement Auscultation: clear to auscultation bilaterally Cardio Rate: regular rate GI Inspection: Yes normal to inspection, No distended and Yes obesity Palpation (GI): Soft to palpation, not firm, nontender and No hepatosplenomegaly present Auscultation: normal bowel sounds General: Yes no CVA tenderness Back/Spine/Pelvis Back: no CVA tenderness Skin General skin exam: elasticity normal, turgor normal and dry skin Neuro General: patient oriented x3 Psych Appearance: grossly normal Mental Status: mental status grossly normal Assessment & Plan Assessment & Plan (1) Alcohol use disorder, severe, dependence: Code(s): F10.20 - Alcohol dependence, uncomplicated (2) Colon cancer screening: Code(s): Z12.11 - Encounter for screening for malignant neoplasm of colon (3) Constipation: Code(s): K59.00 - Constipation, unspecified Qualifiers: Constipation type: slow transit constipation Qualified Code(s): K59.01 - Slow transit constipation Plan Patient can start taking Senokot every day 2 tablets in the evening. Patient denies any cardiac or respiratory symptoms. No issues with anesthesia in the past. No history of sleep apnea. Not on any anticoagulation medication. With expect before during and after procedure discussed with patient. Good bowel prep as well as clear liquid diet day before procedure discussed with patient. I will see patient after the procedure, sooner on as needed basis. Patient is agreeable to this plan and verbalizes understanding of instructions she was given the opportunity to ask questions and all questions answered. Thank you for allowing me to participate in her care Medications: New polyethylene glycol 3350 (Miralax) As directed by [facility]ology [facility] at [facility] 238 grams PO ONCE 238 grams 0RF Z12.11 - Encounter for screening for malignant neoplasm of colon bisacodyl (Dulcolax (bisacodyl)) take 4 tabs at noon the day before your colonoscopy 20 mg (4 x 5 mg) PO ONCE 1 day 4 tabs 0RF Z12.11 - Encounter for screening for malignant neoplasm of colon Changed From sennosides (Natural Senna Laxative) 8.6 mg PO BEDTIME 90 tabs 3RF constipation K59.00 - Constipation, unspecified To sennosides (Natural Senna Laxative) 17.2 mg (2 x 8.6 mg) PO BEDTIME 180 tabs 3RF constipation K59.00 - Constipation, unspecified Coding Level of Care Code Est Pt Level 3 (29755) Diagnoses Alcohol use disorder, severe, dependence F10.20 Colon cancer screening Z12.11 Slow transit constipation K59.01 Constipation type: slow transit constipation Time Spent (min) 30 Comment 20 minutes spent with patient and additional 10 minutes spent reviewing her records
[2023-09-30 10:55] VITALS: BP 157/88; PULSE 69; BMI 35.8
== END 2023-09-30 11:47 | disposition home or self-care (01) ==
PROVIDERS: PCP Physician Assistant; Visit Provider Nurse Practitioner Family
DX: F10.20 Alcohol dependence, uncomplicated (principal); Z12.11 Encounter for screening for malignant neoplasm of colon; K59.01 Slow transit constipation
CPT/HCPCS: 99213

== ENCOUNTER 2023-10-13 10:23 | Outpatient (AMB) | payer OTHER, SELFPAY ==
--- NOTE | 2023-10-13 10:30 | AM.OFFVISNUR ---
Intake Vital Signs 10/13/23 10:39 BP 136/88 Blood Pressure Location Lt radial Position Sitting Pulse 76 Pulse Source Pulse Oximeter Pulse Oximetry (%) 98 Oxygen Delivery Method Room Air Intake Visit Reasons: Dora Inj Intake Note: the patient presents for a dora inj Ramp Agent Required: No Allergies No Known Allergies [No Known Allergies*] Allergy (Verified 10/13/23 10:32) Do you need a note to return to daycare/school/sports/work: No Nursing Note Patient here today for Vivitrol injection. Tolerated with no stated complaints or complications. Here with Daughter, both in good spirits. Daughter acknowledged she noticed a change for the positive in mom since recieving injections, Patient said she is down to 3 nips a day from 20. Office Meds Vivitrol 380 mg intramuscular suspension,extended release Performing Provider: Geetha Coombs CNP Performing Location: [facility] Administered by: Rossy Arroyo RN on 10/13/23 11:05 Dose Route Admin Location Dispensed Lot Number Expiration Date [facility] Wood Shop Teacher 380 mg IM RG 380 mg 2023-1023T 12/26/25 11512-354-68 [employer] Results AMB Test Urine AMB Test Urine Negative Last Edit by Danya Soares CMA on 10/13/23 10:40 Coding Assessment & Plan Assessment & Plan Orders: Orders AMB HCG Urine Test Today Z32.01 - Encounter for test, result positive, Z32.02 - Encounter for test, result negative AMB Naltrexone Injection Patient Supplied Today F10.20 - Alcohol dependence, uncomplicated
[2023-10-13 10:39] VITALS: BP 136/88; PULSE 76; O2SAT 98
== END 2023-10-13 11:03 | disposition home or self-care (01) ==
PROVIDERS: PCP Physician Assistant
DX: Z32.02 Encounter for pregnancy test, result negative (principal); Z32.01 Encounter for pregnancy test, result positive; F10.20 Alcohol dependence, uncomplicated

== ENCOUNTER → 2023-10-13 10:23 | Outpatient (BNVA) | payer OTHER, SELFPAY | PROVIDERS: PCP Physician Assistant | DX: F10.20 Alcohol dependence, uncomplicated (principal) | CPT/HCPCS: 81025; 96372; J2315 ==

== ENCOUNTER 2023-11-10 09:45 | Outpatient (AMB) | payer OTHER, SELFPAY ==
--- NOTE | 2023-11-10 09:46 | AM.OFFVISNUR ---
Intake Vital Signs 11/10/23 09:51 BP 130/80 Blood Pressure Location Rt brachial Position Sitting Pulse 71 Pulse Source Pulse Oximeter Pulse Oximetry (%) 93 Oxygen Delivery Method Room Air Intake Visit Reasons: Dora Inj Allergies No Known Allergies [No Known Allergies*] Allergy (Verified 10/13/23 10:32) Office Meds Vivitrol 380 mg intramuscular suspension,extended release Performing Provider: Geetha Coombs CNP Performing Location: [facility] Administered by: Rossy Arroyo RN on 11/10/23 15:27 Dose Route Admin Location Dispensed Lot Number Expiration Date [facility] Quality Process Lead 380 mg IM LG 380 mg 2023-3022T 01/25/26 28166-889-66 [employer] Comments: Patient tolerated injection well with no noted or stated side effects. Verbally understands to call [facility] with any questions or concerns. Coding Assessment & Plan Assessment & Plan Orders: Orders AMB Naltrexone Injection Patient Supplied Today F10.20 - Alcohol dependence, uncomplicated
[2023-11-10 09:51] VITALS: BP 130/80; PULSE 71; O2SAT 93
== END 2023-11-10 10:18 | disposition home or self-care (01) ==
PROVIDERS: PCP Physician Assistant
DX: F10.20 Alcohol dependence, uncomplicated (principal)

== ENCOUNTER → 2023-11-10 09:45 | Outpatient (BNVA) | payer OTHER, SELFPAY | PROVIDERS: PCP Physician Assistant | DX: F10.20 Alcohol dependence, uncomplicated (principal); Z79.899 Other long term (current) drug therapy | CPT/HCPCS: 96372; J2315 ==

== ENCOUNTER 2023-11-13 08:33 | Outpatient (AMB) | payer OTHER, SELFPAY ==
[2023-11-13 08:33] VITALS: BP 126/70; BMI 35.8
--- NOTE | 2023-11-13 08:33 | A.OFFVIS_ITS ---
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 She is doing well with concerns: Reoccurring external bump, she squeezed this week. Currently not sexually active. Denies any vaginal dryness or irritation. STI testing offered; she accepts. Last pap smear; not up-to-date. Last mammogram; 02/2023. Colonoscopy is booked for 01/15/2024. Denies any family history of breast or ovarian cancer. Family history of colon cancer. [facility] Medical History (Updated 11/13/23 @ 08:54 by Milady Boone CNM) Possible exposure to STD DVT (deep venous thrombosis) History of anxiety History of panic attacks Depression Osteoarthritis of right hip Hypertension Surgical History History of right hip replacement History of left hip replacement History of tubal ligation History of tonsillectomy Family History Father Colon cancer Mother In good health Maternal Grandmother Breast cancer Paternal Grandmother Colon cancer Brother Multiple sclerosis Paternal Uncle Colon cancer Social History Household Members: None Housing: Other Are you a primary career development coordinator/teacher to a significant other at home: No Do you presently have visiting nurse or other home services: No Alcohol intake: current Alcohol intake frequency: 3 or more drinks per day Alcohol type: hard liquor Patient Tobacco Use Status: Former Tobacco user Cigarette Packs Per Day: 0.25 Cigarettes Per Day: 5.0 Years Smoked: 20 e-Cigarette/Vaping Use: Never Used Second Hand Smoke Exposure: No Substance Use Type: Marijuana service: No Current occupational status: unemployed and disabled Current occupation: Rt handed Cognitive needs: No Hearing needs: No Vision needs: No Female Reproductive History Menstrual Menopause type: natural Total pregnancies: 3 Full term: 3 Number of Living Children: 3 Date of last pap smear: 12/05/10 Date of Mammogram: 03/20/23 Review of Systems Const All systems reviewed & are unremarkable except as noted in HPI and below Reports as per HPI Eyes Reports no additional complaints ENT Reports no additional complaints Card Reports no additional complaints Resp Reports no additional complaints GI Reports as per HPI and Reports no additional complaints Reports as per HPI Musc Reports no additional complaints Skin/Breast Reports as per HPI Neuro Reports no additional complaints Psych Reports no additional complaints Endo Reports no additional complaints Freddie/Lymph Reports no additional complaints Aller/Immun Reports no additional complaints Physical Exam Vital Signs: Last Vital Signs BP 126/70 11/13/23 08:33 BMI result Body Mass Index 35.8 Const General: cooperative, healthy appearing, no acute distress, well developed and alert Orientation/consciousness: patient oriented x3 HEENT Head: Yes normal to inspection Eyes General: appearance normal, both eyes and all related structures Neck Neck: Yes normal visual inspection Thyroid: Thyroid normal Chest Chest palpation & inspection: normal inspection of the chest and other (no puckering, dimpling, peau de orange, retraction, discharge, masses) Breast/axilla inspection: normal inspection of the breasts Breast/axilla palpation: normal palpation of the breasts Resp Effort & Inspection: normal respiratory effort GI Inspection: Yes normal to inspection Palpation (GI): Soft to palpation Rectal Exam - Female: deferred Other: 1 cm right lower labial sore, appears to be a healing ingrown hair, no erythema or pus drainage. General: Yes bladder normal to palpation External Female Exam: normal external appearance and normal appearance of the urethra Speculum Exam - Vagina: normal appearance of the vagina, normal palpation and abnormal vaginal discharge (Frothy white) Speculum Exam - Cervix: normal appearance of the cervix and normal palpation Bimanual exam- vagina & uterus: normal bimanual exam, normal palpation, uterine size normal, bladder normal to palpation, normal palpation and non-tender Bimanual Exam- Adnexa, other: no masses Skin General skin exam: no rashes or lesions noted Rashes: no rashes Neuro General: patient oriented x3 Cognition (Neuro): normal cognition Extrem General: Yes normal to inspection Psych Attitude: cooperative Thought process: Normal thought process present Assessment & Plan Assessment & Plan (1) Encounter for well woman exam with routine gynecological exam: Code(s): Z01.419 - Encounter for gynecological examination (general) (routine) without abnormal findings (2) Possible exposure to STD: Code(s): Z20.2 - Contact with and (suspected) exposure to infections with a predominantly sexual mode of transmission Plan Discussed: Current recommendations for pap smears per ASCCP guidelines. Breast awareness, periodic self breast exams and yearly mammogram. Maintain a healthy lifestyle, well balanced diet including Calcium 1,200 mg and Vitamin D 600 IU daily, and routine exercise. Use of condoms for STI if indicated. Plan STD blood work, patient denies any past history of HIV, syphilis or hepatitis diagnosis. Advised not to squeeze any ingrown hairs, preferably just to use a warm compress externally several times a day. If at any time an external area becomes red, painful and not resolving advised to come in to the office for further evaluation. Contact the office with any postmenopausal bleeding. Patient verbalizes understanding and agrees to the plan of care. She was given opportunity to ask questions and all questions were answered to the best of my ability. RTO in 1 year for annual telephone cleaner exam. This note is constructed using voice recognition software. While every effort has been made to ensure accuracy, document imaging manager errors may have been included. Orders: Orders Hepatitis C Antibody Reflex Today Z20.2 - Contact with and (suspected) exposure to infections with a predominantly sexual mode of transmission HIV Ab/Ag Today Z20.2 - Contact with and (suspected) exposure to infections with a predominantly sexual mode of transmission Hepatitis B Core Antibody Today Z20.2 - Contact with and (suspected) exposure to infections with a predominantly sexual mode of transmission Syphilis Screen Today Z20.2 - Contact with and (suspected) exposure to infections with a predominantly sexual mode of transmission Coding Level of Care Code New Pt Prev Care 40-64y(24973) Diagnoses Encounter for well woman exam with routine gynecological exam Z01.419 Possible exposure to STD Z20.2
== END 2023-11-13 08:58 | disposition home or self-care (01) ==
LOC: HO.HWS 08:33
PROVIDERS: PCP Physician Assistant; Visit Provider Advanced Practice Midwife
DX: Z01.419 Encounter for gynecological examination (general) (routine) without abnormal findings (principal); Z20.2 Contact with and (suspected) exposure to infections with a predominantly sexual mode of transmission
CPT/HCPCS: 99386

== ENCOUNTER 2023-11-13 08:33 | Outpatient (REF) | payer OTHER, SELFPAY ==
[2023-11-13 11:14] LABS: CT PCR NOT DETECTED (Not Detect.); NG PCR NOT DETECTED (Not Detect.)
[2023-11-14 11:36] LABS: BV Int Neg Control Negative (Negative); BV Int Pos Control Positive (Positive)
[2023-11-17 04:24] LABS: HPV mRNA E6/E7 rflx Not Detected (Not Detected)
== END 2023-11-13 08:34 | disposition home or self-care (01) ==
LOC: HO.LNP 08:33
PROVIDERS: PCP Physician Assistant; Visit Provider Advanced Practice Midwife
DX: Z01.419 Encounter for gynecological examination (general) (routine) without abnormal findings (principal); Z20.2 Contact with and (suspected) exposure to infections with a predominantly sexual mode of transmission
CPT/HCPCS: 0353U; 87480; 87510; 87624; 87660; 88142; 99386

== ENCOUNTER 2023-12-08 09:24 | Outpatient (AMB) | payer OTHER, SELFPAY ==
--- NOTE | 2023-12-08 09:31 | AM.OFFVISNUR ---
Intake Vital Signs 12/08/23 09:46 BP 126/84 Blood Pressure Location Lt radial Position Sitting Pulse 74 Pulse Oximetry (%) 96 Oxygen Delivery Method Room Air Intake Visit Reasons: mana inj Intake Note: the patient presents for a mana inj Plant Pathologist Required: No Allergies No Known Allergies [No Known Allergies*] Allergy (Verified 12/08/23 09:34) Nursing Note Patient in office today for vivitrol injection, she is tearful, admits to having one nip this morning, lost her housing and is trying to find a place to stay. A+o x4, speaking in clear/full sentences, other than emotional distress states I feel good . Patient given bus passes and multiple numbers to call for housing, encouraged to stay in our waiting area to make calls, and encouraged to reach out for assistance. Office Meds Vivitrol 380 mg intramuscular suspension,extended release Performing Provider: Geetha Coombs CNP Performing Location: [facility] Administered by: Rossy Arroyo RN on 12/08/23 09:32 Dose Route Admin Location Dispensed Lot Number Expiration Date [facility] New Media Strategist 380 mg IM RG 380 mg 2023-1031T 02/25/23 37174-650-20 [employer] Comments: patient tolerated injection well with no stated or noted complications. Agrees and educated to call [facility] with any concerns or questions. Results AMB Test Urine AMB Test Urine Negative Last Edit by Danya Soares CMA on 12/08/23 09:52 Coding Assessment & Plan Assessment & Plan Orders: Orders AMB HCG Urine Test Today Z32.02 - Encounter for test, result negative AMB Naltrexone Injection Patient Supplied ([place]) Today F10.20 - Alcohol dependence, uncomplicated
[2023-12-08 09:46] VITALS: BP 126/84; PULSE 74; O2SAT 96
== END 2023-12-08 10:19 | disposition home or self-care (01) ==
PROVIDERS: PCP Physician Assistant
DX: F10.20 Alcohol dependence, uncomplicated (principal); Z32.02 Encounter for pregnancy test, result negative

== ENCOUNTER → 2023-12-08 09:24 | Outpatient (BNVA) | payer OTHER, SELFPAY | PROVIDERS: PCP Physician Assistant | DX: F10.20 Alcohol dependence, uncomplicated (principal); Z32.02 Encounter for pregnancy test, result negative; Z79.899 Other long term (current) drug therapy | CPT/HCPCS: 81025; 96372; J2315 ==

== ENCOUNTER 2023-12-23 10:20 | Outpatient (AMB) | payer OTHER, SELFPAY ==
[2023-12-23 10:33] VITALS: BP 120/86; PULSE 74; O2SAT 95; BMI 36.5
--- NOTE | 2023-12-23 10:33 | MHC.PC.OV ---
Vital Signs 12/23/23 10:33 Height 5 ft 9 in Weight 247 lb BMI 36.5 BP 120/86 Blood Pressure Location Lt brachial Position Sitting Pulse 74 Pulse Source Pulse Oximeter Pulse Oximetry (%) 95 Oxygen Delivery Method Room Air Intake Visit Reasons: f/u HTN/ ETOH use Intake Note: The patient is here for a follow-up on hypertension. However, today, they are also experiencing depression, anxiety, and grief due to the recent loss of their spouse, as well as the news that their father has stage 4 colon cancer. In Store Representative Required: No Accompanied by: Self / Same As Patient Allergies No Known Allergies [No Known Allergies*] Allergy (Verified 12/23/23 11:07) Medication List - Last Reconciled 12/23/23 by Declan Saravia PA-C acamprosate 666 mg PO TID bisacodyl (Dulcolax (bisacodyl)) 20 mg (4 x 5 mg) PO ONCE 1 day blood pressure kit-extra large As directed clonidine HCl 0.6 mg (2 x 0.3 mg) PO BEDTIME 30 days cyanocobalamin (vitamin B-12) 1,000 mcg PO DAILY fluticasone propionate 50 mcg/actuation (Flonase Allergy Relief) 1 spray intranasal BID 30 days folic acid 1 mg PO DAILY gabapentin 100 mg PO BID lisinopril 10 mg PO DAILY naltrexone 100 mg (2 x 50 mg) PO DAILY naltrexone microspheres ER (Vivitrol) 380 mg IM Q4W polyethylene glycol 3350 (Miralax) 238 grams PO ONCE propranolol 20 mg PO BID 90 days pyridoxine (vitamin B6) 50 mg PO DAILY [Raised toilet seat As directed] sennosides (Natural Senna Laxative) 17.2 mg (2 x 8.6 mg) PO BEDTIME Tobacco use date assessed: 12/23/23 Dental Screening Dental Screen Date: 12/23/23 Did you have a dental visit in the last 12 months?: Yes Did you have a dental problem in the last 6 months where you did not have access to dental care?: No Was dental information given to patient?: Patient has dentist HPI f/u HTN/ ETOH use HPI Details Patient is a 53 year-old female here today for follow-up visit.? Patient has a past medical history significant for generalized anxiety disorder polyarthralgia hypertension, history of total hip replacement. Currently homeless- living in a retirement in [place]. Luna--> has developed a facial rash over the last week. She reports she has been out in the cold and wind which may have caused her facial rash/ ? Wind burned ? .. Alcohol use disorder: getting Vivitrol injections through addiction treatment special I here in [place]. Unfortunately continues to drink 3-6 nips a day which is much better from previous 15 -20 nips a day. She reports if she does not drink she has breakthrough seizures. She will try to find inpatient detox to get completely sober. She adds that she will ask her retirement counselor about getting into detox soon .. Major depressive disorder: Has been existing condition for her with comorbid alcohol use disorder. She had reports her expose been recently and she is going through grieving process. .. ? Hypertension:? she reports her blood pressures have been stable.? Today in office blood pressure reasonable. continues on lisinopril and propranolol. Denies any headaches, chest discomfort or palpitations. [facility] Medical History (Updated 12/23/23 @ 11:17 by Declan Saravia PA-C) Possible exposure to STD DVT (deep venous thrombosis) History of anxiety History of panic attacks Depression Osteoarthritis of right hip Hypertension Surgical History History of right hip replacement History of left hip replacement History of tubal ligation History of tonsillectomy Family History Father Colon cancer Mother In good health Maternal Grandmother Breast cancer Paternal Grandmother Colon cancer Brother Multiple sclerosis Paternal Uncle Colon cancer Social History Household Members: None Housing: Other Are you a primary patient care to a significant other at home: No Do you presently have visiting nurse or other home services: No Alcohol intake: current Alcohol intake frequency: 3 or more drinks per day Alcohol type: hard liquor Patient Tobacco Use Status: Former Tobacco user Cigarette Packs Per Day: 0.25 Cigarettes Per Day: 5.0 Years Smoked: 20 e-Cigarette/Vaping Use: Never Used Second Hand Smoke Exposure: No Substance Use Type: Marijuana service: No Current occupational status: unemployed and disabled Current occupation: Rt handed Cognitive needs: No Hearing needs: No Vision needs: No Questionnaire PHQ-9 Over the last 2 weeks, how often have you been bothered by any of the following problems? 1. Little interest or pleasure in doing things: nearly every day 2. Feeling down, depressed, or hopeless: nearly every day 3. Trouble falling or staying asleep, or sleeping too much: nearly every day 4. Feeling tired or having little energy: nearly every day 5. Poor appetite or overeating: nearly every day 6. Feeling bad about yourself - or that you are a failure or have let yourself or your family down: nearly every day 7. Trouble concentrating on things, such as reading the newspaper or watching television: nearly every day 8. Moving or speaking so slowly that other people could have noticed. Or the opposite - being so fidgety or restless that you have been moving around a lot more than usual: not at all 9. Thoughts that you would be better off or of hurting yourself in some way: nearly every day Total score: 24 Depression Screening Interpretation: Positive Depression Screening Follow-up: Existing condition and In treatment Depression Screening Done: Yes 33793 - PHQ-9 Billing: Yes Source: Developed by Drs. Ehsan Jeffrey, Garima Rueda, Stanley Dias and colleagues, with an educational moises from [employer]. Thrive Questionnaire Date Thrive assessed: 12/23/23 I am a: Patient What is your living situation today?: I do not have a steady places to live I am staying at a retirement (For the past 4 days) Within the past 12 months, did the food you bought not last and you didn't have the money to get more?: Never true Within the past 12 months, did you worry whether your food would run out before you got money to buy more?: Never true Do you have trouble paying for medicines?: No Do you have trouble getting transportation to medical appointments?: No Do you have trouble paying your heating and electricity bill?: No Do you have trouble taking care of your child, family member or friend?: No Do you have trouble with day-to-day activities such as bathing, preparing meals, shopping, managing finances, etc.?: No Are you currently unemployed and looking for a job?: No Are you interested in more education?: No Please select the resources that you would like help with: None Currently or been in a relationship where the following occur: no concerns reported THRIVE Score: 1 AUDIT C Alcohol Use Questionnaire (AUDIT-C) 1. How often do you have a drink containing alcohol?: 4 or more times a week 2. How many drinks containing alcohol do you have on a typical day when you are drinking?: 5 or 6 (Nips 100 proof ) 3. How often do you have six or more drinks on one occasion?: Daily or almost daily Total Score: 10 DASHA-7 AMB Questionnaire DASHA-7 Date DASHA - 7 assessed: 12/23/23 Feeling nervous, anxious, or on edge: 3 = Nearly every day Not being able to stop or control worryin = Nearly every day Worrying too much about different things: 3 = Nearly every day Trouble relaxin = Nearly every day Being so restless that it is hard to sit still: 2 = More than half the days Becoming easily annoyed or irritable: 3 = Nearly every day Feeling afraid as if something awful might happen: 3 = Nearly every day Total DASHA-7 score (0-4 normal; 5-9 mild; 10-14 moderate; 15-21 severe): 20 Source: Developed by Drs. Ehsan Jeffrey, Garima Rueda, Stanley Dias and colleagues, with an educational moises from [employer]. DASHA-7 Assessment Billing DASHA-7 Assessment Tool: DASHA-7 Assessment 99958 Review of Systems Const Denies headache(s) Eyes Denies loss of vision ENT Denies vertigo, Denies dizziness, Denies headache(s) and Denies sore throat Card Denies chest pain, Denies leg edema and Denies lightheadedness Resp Denies cough, Denies hemoptysis and Denies wheezing GI Denies abdominal pain, Denies melena, Denies constipation, Denies diarrhea and Denies vomiting Denies urinary frequency, Denies dysuria and Denies urinary urgency Musc Denies arthralgias, Denies joint swelling, Denies numbness and Denies tingling Neuro Denies Abnormal speech present, Denies behavioral changes, Denies vertigo, Denies dizziness, Denies headache(s), Denies loss of vision, Denies memory loss, Denies numbness and Denies tingling Psych Denies anxiety, Denies behavioral changes, Denies depression, Denies memory loss and Denies panic attacks Freddie/Lymph Denies easy bleeding and Denies easy bruising Aller/Immun Denies wheezing Physical exam (Primary Care) Vital Signs: Last Vital Signs Pulse 74 12/23/23 10:33 BP 120/86 12/23/23 10:33 Pulse Ox 95 12/23/23 10:33 Oxygen Delivery Method Room Air 12/23/23 10:33 BMI result Body Mass Index 36.5 Tobacco/Smoking Status: Tobacco use Status Tobacco use date assessed 12/23/23 12/23/23 10:48 Patient Tobacco Use Status Former Tobacco user 12/23/23 10:35 e-Cigarette/Vaping Use Never Used 12/23/23 10:35 PHQ-9: PHQ-9 Score PHQ-9: Total score 24 12/23/23 11:11 Depression Screening Interpretation: Positive Depression Screening Follow-up: Existing condition and In treatment Thrive Assessment: Date of Thrive Assessment Date Thrive assessed 12/23/23 12/23/23 10:48 Currently or been in a relationship where the following occur: no concerns reported Const General: healthy appearing, no acute distress, alert and awake Nutritional Appearance: well nourished Orientation/consciousness: oriented to person, oriented to place and oriented to time HENMT Other: THROAT ERYTHEMATOUS UPON INSPECTION. NO TONSILLAR EXUDATES Ears: TM's normal bilaterally General nose exam: Normal nasal mucous membranes and turbinates present Eyes Conjunctivae: conjunctivae normal Sclerae: sclerae normal Pupils: Equal, round and reactive pupils present Neck Neck: Yes no lymphadenopathy and Yes no JVD Thyroid: Thyroid normal Carotids: no bruits Resp Effort & Inspection: normal respiratory effort and not tachypneic Auscultation: no crackles, no rales, no rhonchi and no wheezes Cardio Rate: regular rate Rhythm: regular rhythm Heart sounds: no murmurs and normal S1 and S2 GI Palpation (GI): Soft to palpation, nontender, no hepatomegaly and no splenomegaly Auscultation: normal bowel sounds Skin General skin exam: no rashes or lesions noted and dry skin Neuro General: oriented to person, oriented to place and oriented to time Cranial nerves: Yes Equal, round and reactive pupils present Speech: No Abnormal speech present Gait exam (Neuro): Normal gait present Motor exam (neuro): no tremor noted Extrem Right upper extremity: full ROM Left upper extremity: full ROM Right lower extremity: full ROM; no edema Left lower extremity: full ROM; no edema Psych Mental Status: mental status grossly normal Speech and movement: Normal speech and movement present Affect: normal affect Attitude: cooperative Thought process: Normal thought process present Assessment and Plan Assessment & Plan (1) Alcohol use disorder, severe, dependence: Code(s): F10.20 - Alcohol dependence, uncomplicated Plan: CONTINUES TO HAVE SEVERE DEPENDENCE TO ALCOHOL. SHE REPORTS SHE IS MAINTAINING HERSELF ON 3 NIPS A DAY DOWN FROM 20 NIPS A DAY. SHE [facility] SEEING [facility] AND GETTING VIVITROL INJECTIONS. ADVISED INPATIENT DETOX. (2) Hypertension: Code(s): I10 - Essential (primary) hypertension Qualifiers: Hypertension type: primary hypertension Qualified Code(s): I10 - Essential (primary) hypertension Plan: Patient's blood pressure acceptable today in office.. Advised to continue on lisinopril and propranolol. Goal blood pressures to remain below 140/90 (3) Obese: Code(s): E66.9 - Obesity, unspecified Qualifiers: Body mass index: BMI 36.0-36.9 Obesity classification: adult class 2 (BMI 35 - 39.9) Obesity type: due to excess calories Serious obesity comorbidity presence: with serious comorbidity Qualified Code(s): E66.01 - Morbid (severe) obesity due to excess calories; Z68.36 - Body mass index [BMI] 36.0-36.9, adult Plan: Patient does understand her BMI is over 30 and will try to be more physically active and adapt to better eating habits to reduce her weight. (4) CKD (chronic kidney disease) stage 3, GFR 30-59 ml/min: Code(s): N18.30 - Chronic kidney disease, stage 3 unspecified Qualifiers: Chronic kidney disease stage 3 subtype: stage 3a (GFR 45-59) Qualified Code(s): N18.31 - Chronic kidney disease, stage 3a Plan: Noted to have chronic kidney disease likely secondary to her alcohol use disorder vs uncontrolled hypertension. Will continue to follow renal function (5) Facial rash: Code(s): R21 - Rash and other nonspecific skin eruption Plan: Has erythema and edema to her facial skin. Likely secondary to wind and cold exposure. Will supply patient with a prednisone taper. (6) Acute pharyngitis: Code(s): J02.9 - Acute pharyngitis, unspecified Qualifiers: Pharyngitis/tonsillitis etiology: other specified organisms Qualified Code(s): J02.8 - Acute pharyngitis due to other specified organisms Plan: Does have a sore throat and erythematous posterior pharynx on physical exam. Will supply patient with antibiotic. Orders: Orders Lipid Panel Today E78.9 - Disorder of lipoprotein metabolism, unspecified Comprehensive [place]. Panel Fast Today E78.9 - Disorder of lipoprotein metabolism, unspecified Complete Blood Count no Diff Today I10 - Essential (primary) hypertension Medications: New prednisone take 3 tabs x 3 days, take 2 tabs x 3 days , take 1 tab x 3 days 10 mg PO DIRECTED 9 days 18 tabs 0RF R21 - Rash and other nonspecific skin eruption azithromycin For 250 mg dose pack: take 500 mg today (day 1), then 250 mg for 4 days (days 2-5) PO 6 tabs 0RF J02.8 - Acute pharyngitis due to other specified organisms Coding Level of Care Code Est Pt Level 4 (81362) Diagnoses Alcohol use disorder, severe, dependence F10.20 Primary hypertension I10 Hypertension type: primary hypertension Class 2 severe obesity due to excess calories with serious comorbidity and body mass index (BMI) of 36.0 to 36.9 in adult E66.01; Z68.36 Body mass index: BMI 36.0-36.9 Obesity classification: adult class 2 (BMI 35 - 39.9) Obesity type: due to excess calories Serious obesity comorbidity presence: with serious comorbidity Stage 3a chronic kidney disease N18.31 Chronic kidney disease stage 3 subtype: stage 3a (GFR 45-59) Facial rash R21 Acute pharyngitis due to other specified organisms J02.8 Pharyngitis/tonsillitis etiology: other specified organisms Additional Codes DASHA-7 Assessment Billing - DASHA-7 Assessment Tool: DASHA-7 Assessment 56110 ([id number])
== END 2023-12-23 11:29 | disposition home or self-care (01) ==
PROVIDERS: PCP Physician Assistant; Visit Provider Physician Assistant
DX: I12.9 Hypertensive chronic kidney disease with stage 1 through stage 4 chronic kidney disease, or unspecified chronic kidney disease (principal); N18.31 Chronic kidney disease, stage 3a; F10.20 Alcohol dependence, uncomplicated; J02.8 Acute pharyngitis due to other specified organisms
CPT/HCPCS: 99214

== ENCOUNTER 2024-01-14 07:52 | Day surgery (SDC) | payer OTHER, SELFPAY ==
--- NOTE | 2024-01-13 16:39 | HO.ANESPROP2 ---
HPI - Anesthesia Eval Consult details Narrative: 53 yo female patient for Colonoscopy PMF Active Problems Active Problems: All Active Problems Acute pharyngitis (Acute) Facial rash (Acute) Possible exposure to STD (Acute) Alcohol use disorder, severe, dependence (Acute). Last drink 01/13/24 Low vitamin B12 level (Acute) Low folate (Acute) CKD (chronic kidney disease) stage 3, GFR 30-59 ml/min (Acute) Hyperkalemia (Acute) Bilateral lower extremity edema (Acute) Cervical cancer screening (Acute) Alcohol abuse (Acute). QT prolongation (Acute) Obese (Acute). BMI 35.7 Colon cancer screening (Acute) Migraines (Acute) Acute frontal sinusitis (Acute) Borderline high cholesterol (Acute) Annual physical exam (Acute) Hypertension (Acute) DASHA (generalized anxiety disorder) (Acute) Price's cyst of knee (Acute) Status post right hip replacement (Acute) Panic attack (Acute) Hip osteoarthritis (Acute) Knee pain, left (Acute) Knee pain, right (Acute) Preoperative clearance (Acute) Past Medical History Medical History Possible exposure to STD DVT (deep venous thrombosis) History of anxiety History of panic attacks Depression Osteoarthritis of right hip Hypertension Family History Family History Father Colon cancer Mother In good health Maternal Grandmother Breast cancer Paternal Grandmother Colon cancer Brother Multiple sclerosis Paternal Uncle Colon cancer Family history of problems with anesthesia: No Surgical History Surgical History History of right hip replacement History of left hip replacement History of tubal ligation History of tonsillectomy History of Problems with Anesthesia: No Social History Social History Household Members: None Housing: Other Are you a primary respiratory care practitioner to a significant other at home: No Do you presently have visiting nurse or other home services: No Alcohol intake: current Alcohol intake frequency: 3 or more drinks per day Alcohol type: hard liquor Patient Tobacco Use Status: Former Tobacco user Cigarette Packs Per Day: 0.25 Cigarettes Per Day: 5.0 Years Smoked: 20 e-Cigarette/Vaping Use: Never Used Second Hand Smoke Exposure: No Substance Use Type: Marijuana Advance Directives: No Advance Directives Information Provided: Yes Nutrition Risks: No Nutritional Risk service: No Current occupational status: unemployed and disabled Current occupation: Rt handed Cognitive needs: No Hearing needs: No Vision needs: No Meds Allergies Allergy/AdvReac Type Severity Reaction Status Date / Time No Known Allergies Allergy Verified 01/14/24 08:22 [No Known Allergies*] Home Medications ?Medication ?Instructions ?Recorded ?Confirmed ?Last Taken ?Type pyridoxine (vitamin B6) 50 mg 50 mg PO DAILY 10/07/22 01/14/24 Unknown History tablet naltrexone microspheres 380 mg 380 mg IM Q4W 01/14/24 01/14/24 Unknown History intramuscular suspension,extended release (Vivitrol) Exam Height,Weight and Vital Signs: Height 5 ft 9 in Weight 109.769 kg Vital Signs Temp Pulse Resp BP Pulse Ox O2 Del Method 01/14/24 08:55 97.9 F 79 18 146/81 H 100 Room Air Airway Mallampati Class: III TM Dist: >3cm Partial: Upper and Lower Loose/Missing/Broken Teeth: Yes Heart: RRR Lungs: CTAB Assessment and Plan Assessment Anesthesia Assessment: Anesthesia Plan Discussed and Chart Reviewed Final Anesthetic Review Family History of Problems with Anesthesia: No History of Problems with Anesthesia: No NPO: Yes ASA Class: III Final Preanesthetic Review: No Changes in Pt Med Stat, Meds/Allgs Chart Reviewed, Consent Obtained/Reviewed and Anes Risks/Benef Reviewed Patient Risk: Intermediate Procedure Risk: Low Assessment/Block/Sedation in SS: Assess/Block/Sedation-SS Anesthetic Plan Anesthetic Plan: MAC: and TIVA Disposition: Standard PACU
[2024-01-14 08:49] VITALS: BMI 35.7
[2024-01-14] MEDS: Lactated Ringers 1,000 ML 100 ML IVCONT (08:54)
[2024-01-14 08:55] VITALS: BP 146/81; PULSE 79; RESP 18; TEMP 36.6; O2SAT 100
--- NOTE | 2024-01-14 09:40 | MHC.SHP ---
Pre-Procedural Eval Section A - 24 Hr Update-Section A only Date of Service: 01/14/24 Section B - Complete if H&P > 30 days Chief Complaint: Encounter for screening for malignant neoplasm of Details of Present Illness: fh of CRC Relevant Family History (Specify if Yes): Yes Relevant Social History: Alcohol Use Present Medications: see Short Stay Collaborative assessment Medical History: Significant History (Possible exposure to STD DVT (deep venous thrombosis) History of anxiety History of panic attacks Depression Osteoarthritis of right hip Hypertension) History of Previous Operations: Relevant previous surgery/procedure and date(s) (History of right hip replacement History of left hip replacement History of tubal ligation History of tonsillectomy) Allergies: Allergies Allergy/AdvReac Type Severity Reaction Status Date / Time No Known Allergies Allergy Verified 01/14/24 08:22 [No Known Allergies*] Review of Systems Sugical H&P ROS: Negative: Constitution, Cardiovascular, Respiratory, Neurological, Psychiatric, Hem-Onc, Allergic/Immunologic, Gastrointestinal, Genitourinary, Musculoskeletal, Integumentary, Endocrine and Eyes/Ears/Nose/Throat Exam Surgical H&P Exam: Normal: HEENT, Normal: Heart, Normal: Lungs, Normal: Extremities, Normal: Abdomen, Normal: Skin and Normal: Neurological Plan Diagnosis/Plan: Unchanged I have reviewed the history and physical and performed a pertinent physical examination on my patient. No changes have occurred unless specified. Time Spent With Patient Time: Total time managing care of this patient today ____ minutes.
--- NOTE | 2024-01-14 10:14 | W.PM.OPN ---
Operative Note Operative Note Date of Service: 01/14/24 Narrative: Operative Information Procedure Description: Colonoscopy Indication: screening Anesthesia: MAC COLONOSCOPY Instrument: Olympus variable stiffness pediatric scope 190L Colonoscopy Monitoring: Vital signs and clinical assessment, continuous EKG monitoring, Pulse oximetry, Carbon Dioxide monitoring and blood pressure monitoring were done throughout the procedure. Colon withdrawal time was 30 minutes. Procedure: The patient was placed in the left lateral decubitis position and pre-procedure medications were administered. After a digital rectal examination of the ano-rectum, the video colonoscope was inserted into the rectum and advanced through the colon to the cecum/TI. The colonoscope was slowly withdrawn in a retrograde panoramic fashion and the colon mucosa was carefully examined including a retroflexed view of the rectum. Findings and interventions are described below. Procedure Difficulty: easy Findings: Terminal Ileum-normal Cecum:normal Ascending Colon: x 2 sessile polyps 4-7 mm removed with cold forceps Transverse Colon -normal Descending Colon:normal Sigmoid Colon: 10 mm sessile polyp removed with cold snare Rectum: Retroflexion with small internal hemorrhoids seen, grade I, x2 semi pedunculated polyps, one was 10 mm and the other was 15 mm--smaller one removed with cold snare and the other with hot snare with one clip applied to the stalk after injection with 1 cc of epinephrine Anorectum - normal Intervention: cold snare, hot snare, epinephrine injection, cold forceps polypectomy Colon preparation: [place] Bowel Preparation Scale Right colon; 2 Transverse colon: 2 Left colon; 2 (0 = Unprepared colon segment with mucosa not seen due to solid stool that cannot be cleared. 1 = Portion of mucosa of the colon segment seen, but other areas of the colon segment not well seen due to staining, residual stool and/or opaque liquid. 2 = Minor amount of residual staining, small fragments of stool and/or opaque liquid, but mucosa of colon segment seen well. 3 = Entire mucosa of colon segment seen well with no residual staining, small fragments of stool or opaque liquid) Impression and Post Procedure Diagnosis: colon polyps internal hemorrhoids Plan: High fiber diet leaflet Avoid straining at stool, epsom salts and sitz bath, anusol supps or cream Repeat Colonoscopy in 1 year or earlier if clinically indicated Above findings were reviewed with the patient and relevant handouts were provided if indicated.
[2024-01-14 11:00] VITALS: BP 112/62; PULSE 76; RESP 16; TEMP 36.8; O2SAT 99
[2024-01-14 11:15] VITALS: BP 142/89; PULSE 79; RESP 16; TEMP 36.8; O2SAT 100
== END 2024-01-14 11:58 | disposition home or self-care (01) ==
PROVIDERS: PCP Physician Assistant; Visit Provider Internal Medicine Gastroenterology
PROC: 0DJD8ZZ Inspection of Lower Intestinal Tract, Via Natural or Artificial Opening Endoscopic (ICD-10-PCS; CPT 45378; principal; 2024-01-14 09:50)
DX: Z12.11 Encounter for screening for malignant neoplasm of colon (principal); D12.2 Benign neoplasm of ascending colon; D12.8 Benign neoplasm of rectum; K59.01 Slow transit constipation; I10 Essential (primary) hypertension; Z86.718 Personal history of other venous thrombosis and embolism
CPT/HCPCS: 45385; 45380; 45381; 88305; J0171; J2250; J2704

== ENCOUNTER → 2024-01-14 07:52 | Outpatient (BNV) | payer OTHER, SELFPAY | PROVIDERS: PCP Physician Assistant; Visit Provider Internal Medicine Gastroenterology | DX: Z12.11 Encounter for screening for malignant neoplasm of colon (principal); D12.2 Benign neoplasm of ascending colon; D12.5 Benign neoplasm of sigmoid colon; D12.8 Benign neoplasm of rectum; K64.0 First degree hemorrhoids | CPT/HCPCS: 45380; 45381; 45385 ==

== ENCOUNTER 2024-01-19 09:42 | Outpatient (AMB) | payer OTHER, SELFPAY ==
--- NOTE | 2024-01-19 09:50 | AM.OFFVISNUR ---
Intake Vital Signs 01/19/24 09:55 BP 130/90 H Blood Pressure Location Rt brachial Position Sitting Respiration 20 Pulse 84 Pulse Source Pulse Oximeter Pulse Oximetry (%) 96 Intake Visit Reasons: Dora Inj Allergies No Known Allergies [No Known Allergies*] Allergy (Verified 01/14/24 08:22) Nursing Note Patient in office today for injection, she is alert and oreinted x4. Acknowledges she is dirnking about 2 drinks a day , is afraid to stop, states she is afraid of having a seizure . I asked pt if detox is something she is interested in, she accepted a list of numbers and states she wants to call on her own. I encouraged pt to reach out for any help. Pt will see provider in 4 weeks for follow up. 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
[2024-01-19 09:55] VITALS: BP 130/90; PULSE 84; RESP 20; O2SAT 96
== END 2024-01-19 10:40 | disposition home or self-care (01) ==
PROVIDERS: PCP Physician Assistant
DX: F10.20 Alcohol dependence, uncomplicated (principal)

== ENCOUNTER → 2024-01-19 09:42 | Outpatient (BNVA) | payer OTHER, SELFPAY | PROVIDERS: PCP Physician Assistant | DX: F10.20 Alcohol dependence, uncomplicated (principal); Z79.899 Other long term (current) drug therapy; Z51.81 Encounter for therapeutic drug level monitoring | CPT/HCPCS: 96372; J2315 ==

== ENCOUNTER 2024-01-25 11:24 | Inpatient (IN) | payer OTHER, SELFPAY ==
--- NOTE | ~2024-01-25 | US_ITS ---
EXAMINATION: US VENOUS ULTRASOUND WITH DOPPLER LOWER EXTREMITY, BILATERAL CLINICAL INFORMATION: Swelling left greater than right history of DVT COMPARISON: Ultrasound venous Doppler lower extremity from 04/11/2021 TECHNIQUE: Ultrasound of the deep veins is performed from the hip to the calf with compression sonography and color and pulse Doppler assessment. Spectral analysis with color-flow imaging is performed. FINDINGS: RIGHT: There is normal venous compression and respiratory variation and augmented flow. The visualized common femoral vein, superficial femoral vein, profunda femoral vein, popliteal vein, and the trifurcation region shows no evidence of deep venous thrombosis. Within the right popliteal fossa is a 3.2 x 1.2 x 1.8 cm cystic focus. Soft tissue edema overlying the calf. LEFT: There is normal venous compression and respiratory variation and augmented flow. The visualized common femoral vein, superficial femoral vein, profunda femoral vein, popliteal vein, and the trifurcation region shows no evidence of deep venous thrombosis. Within left popliteal fossa is a 1.3 x 2.6 x 0.9 cm cystic focus. Soft tissue edema overlying the calf. If the patient's symptoms persist, followup ultrasound in 5 days 7 days might be of value to exclude proximal propagation from a non-visualized calf vein. US/US venous duplex LE BI IMPRESSION: 1. No DVT demonstrated in the bilateral lower extremity. 2. Within the right popliteal fossa is a 3.2 x 1.2 x 1.8 cm cystic focus. 3. Within the left popliteal fossa is a 1.3 x 2.6 x 0.9 cm cystic focus. 4. Soft tissue edema overlying the calf.
--- NOTE | ~2024-01-25 | XR_ITS ---
EXAMINATION: XR CHEST CLINICAL INFORMATION: Cough. COMPARISON: Chest radiograph dated 10/15/2019. TECHNIQUE: 2 views of the chest were obtained. FINDINGS: Heart size is normal. The lungs are clear. There is no pleural effusion or pneumothorax. There is no acute osseous abnormality. XR/XR chest 2V IMPRESSION: No acute cardiopulmonary disease.
--- NOTE | 2024-01-25 11:26 | ECG_ITS ---
Test Reason : palpitation Blood Pressure : / mmHG Vent. Rate : 067 BPM Atrial Rate : 067 BPM P-R Int : 180 ms QRS Dur : 090 ms QT Int : 440 ms P-R-T Axes : 048 030 042 degrees QTc Int : 464 ms Normal sinus rhythm Anterior infarct , age undetermined Abnormal ECG When compared with ECG of 19-DEC-2020 12:28, Anterior infarct is now Present Referred By: Everett Garcia Electronically Signed By:ISSAC TAYLOR
--- NOTE | 2024-01-25 11:31 | ED.GENADULT ---
HPI - General Adult General Chief complaint: ETOH/Substance Use Stated complaint: ETOH Time Seen by Provider: 01/25/24 12:10 Source: patient Mode of arrival: ambulatory History of Present Illness HPI narrative: 53-year-old female with chronic alcohol use disorder, currently intoxicated and has complaints about bilateral lower extremity edema for 3 days with increased pain, was seen at urgent care yesterday, has significant withdrawal symptoms when abstaining from alcohol and also expresses vague SI, is currently homeless and states being sad about those conditions and about her current alcohol use. When detox is offered to the patient she states that she would prefer to take care of this in the outpatient setting. Related Data Home Medications ?Medication ?Instructions ?Recorded ?Confirmed pyridoxine (vitamin B6) 50 mg 50 mg PO DAILY 10/07/22 01/14/24 tablet naltrexone microspheres 380 mg 380 mg IM Q4W 01/14/24 01/14/24 intramuscular suspension,extended release (Vivitrol) Previous Rx's ?Medication ?Instructions ?Recorded Raised toilet seat #1 ea 01/17/21 blood pressure kit-extra large #1 ea 11/05/21 cyanocobalamin (vitamin B-12) 1,000 mcg PO DAILY #90 caps 09/24/23 1,000 mcg capsule folic acid 1 mg tablet 1 mg PO DAILY #90 tabs 09/24/23 clonidine HCl 0.3 mg tablet 0.6 mg (2 x 0.3 mg) PO BEDTIME 30 11/09/23 days #60 tabs propranolol 20 mg tablet 20 mg PO BID for panic attack 90 01/11/24 days #180 tabs lisinopril 10 mg tablet 10 mg PO DAILY #90 tabs 01/19/24 Allergies Allergy/AdvReac Type Severity Reaction Status Date / Time No Known Allergies Allergy Verified 01/25/24 11:45 [No Known Allergies*] Review of Systems Review of Systems: Pertinent positives and negatives as stated in HPI [facility] Past Medical History Source: nursing notes reviewed Medical History Possible exposure to STD DVT (deep venous thrombosis) History of anxiety History of panic attacks Depression Osteoarthritis of right hip Hypertension Surgical History History of right hip replacement History of left hip replacement History of tubal ligation History of tonsillectomy Family History Family History Father Colon cancer Mother In good health Maternal Grandmother Breast cancer Paternal Grandmother Colon cancer Brother Multiple sclerosis Paternal Uncle Colon cancer Social History Social History Household Members: None Housing: Other Are you a primary continuum of care manager to a significant other at home: No Do you presently have visiting nurse or other home services: No Alcohol intake: current Alcohol intake frequency: 3 or more drinks per day Alcohol type: hard liquor Patient Tobacco Use Status: Former Tobacco user Cigarette Packs Per Day: 0.25 Cigarettes Per Day: 5.0 Years Smoked: 20 Smoked in Last 30 Days: Yes e-Cigarette/Vaping Use: Never Used Second Hand Smoke Exposure: No Use of substances other than those prescribed or required for medical reasons: Yes Substance Use Type: Marijuana and Opiates Advance Directives: No Advance Directives Information Provided: Yes Do you have a plan to hurt others: No Plan service: No Current occupational status: unemployed and disabled Current occupation: Rt handed Cognitive needs: No Hearing needs: No Vision needs: No Physical Exam ED Vital Signs: Vital Signs - 24 hr 01/25/24 11:39 Temperature 96.8 F Pulse Rate 65 Respiratory Rate 20 Blood Pressure 90/53 L Pulse Oximetry 99 Oxygen Delivery Method Room Air BMI result Body Mass Index 35.4 VITAL SIGNS: Reviewed. GENERAL: Well developed, well nourished, in no acute distress. HEAD: Normocephalic/atraumatic EYES: PERRLA, EOMI EARS: Ext canals without abnormality NOSE: Nares patent bilateral OROPHARYNX: no oral lesions noted, posterior pharynx clear NECK: Supple, no adenopathy LUNGS: Normal breath sounds. No adventitious sounds or accessory muscle use. SpO2<99> CARDIOVASCULAR: Regular rate and rhythm without noted murmurs, no JVD bilateral lower leg pitting edema ABDOMEN: Soft, non-tender, non-distended with bowel sounds. MUSCULOSKELETAL: No tenderness, deformities, or effusions noted on gross inspection. EXTREMITIES: No cyanosis, clubbing or edema. SKIN: Inspection of the skin reveals no rashes NEUROLOGIC: Alert and oriented x 4. Strength and sensation to light touch were grossly intact x 4. Course Course Course Narrative: This is an RME: Additional HPI, ROS, PE not included below will be deferred to primary provider. 53 yo f with alcohol use disorder and CKD, low B12 and folate, HTN, alcohol withdrawal seizures presents with bilateral swelling in legs and feet for 3 days. States no trauma to the area. Has not taken any prescribed meds since , reports she is homeless. Current daily drinker, 2 sleeves per day. Last drink was one hour ago. Endorses SI. Medical Decision Making Medical Decision Making MDM Narrative: 53-year-old female with history and clinical presentation, DDX: Alcohol intoxication, severe alcohol use disorder, history of alcohol withdrawal, NIDIA, venous insufficiency, no concern for DVT. I reviewed all investigations and hematologic indices are negative for leukocytosis and there is no thrombocytopenia, patient has a macrocytic anemia without history or clinical findings to suggest active bleeding and likely reflective of patient's underlying chronic use of alcohol. Chemistry indices demonstrate NIDIA with mildly elevated sodium and chloride likely indicative of hemoconcentration and detectable transaminases without right upper quadrant pain, BNP is noted to be elevated and this is in corroboration with clinical findings. Patient is also noted to have a mildly elevated lipase again likely associated with alcohol use but patient has no complaints of nausea and vomiting. I sensitivity troponin is noted be detectable but not significantly elevated and on review of EKG there is no evidence of STEMI however there are changes when compared to prior EKG from 2020 but patient also expresses no complaints of chest pain. Urinalysis is grossly contaminated and do not suspect acute UTI. Urine drug screen positive for barbiturates and alcohol level-355 and patient placed on CIWA and has a significant past medical history of alcohol withdrawals. Chest x-ray does not demonstrate pulmonary edema. My interpretation is that patient will benefit from diuresis, she is placed on a one-to-one and will receive 40 mg of Lasix, she is continued on a CIWA protocol and has been started on a phenobarb protocol. Differential Diagnosis Differential Diagnoses: The differential diagnosis associated with the presentation includes Please see the discussion above Admission/Observation Consideration of admission/observation: Escalation of care including admission/observation considered Please see the discussion above Consult Healthcare Provider Management of the patient was discussed with: Hospitalist Please see the discussion above Lab Data [facility] Lab Attestation statement: I reviewed the patient's lab results. Please see the discussion above 01/25/24 11:55 01/25/24 11:55 Labs: Lab Results 01/25/24 01/25/24 Range/Units 11:55 12:52 WBC 7.6 (4.8-10.8) X10*3/uL RBC 3.28 L (4.20-5.50) X10*6/uL Hgb 11.8 L (12.0-16.0) g/dl Hct 35.1 L (37.0-47.0) % MCV 107.0 H (80.0-98.0) fL MCH 36.0 H (27.0-33.0) pg MCHC 33.6 (31.0-35.0) g/dl RDW 14.6 (11.0-16.0) % Plt Count 192 (160-400) X10*3/uL MPV 9.9 (9.4-12.3) fL Immature Gran % (Auto) 0.7 H (0.0-0.4) % Neut % (Auto) 40.9 L (45-73) % Lymph % (Auto) 46.4 H (20-40) % [place] % (Auto) 7.3 (2-11) % Eos % (Auto) 4.0 (0-4) % Baso % (Auto) 0.7 (0-2) % Lymph # (Auto) 3.5 (1.2-4.9) X10*3/uL [place] # (Auto) 0.6 (0.1-1.2) X10*3/uL Eos # (Auto) 0.3 (0.0-0.4) X10*3/uL Baso # (Auto) 0.1 (0.0-0.2) X10*3/uL Abs Immat Gran (auto) 0.05 H (0.00-0.03) X10*3/uL Absolute Neuts (auto) 3.1 (2.0-8.3) x10*3/uL Absolute Nucleated RBC 0.000 (0.0-0.012) X10*3/uL Nucleated RBC % (auto) 0.0 (0.0-0.2) /100WBC Sodium 146 H (135-145) mmol/L Potassium 3.3 (3.3-5.1) mmol/L Chloride 109 H (96-108) mmol/L Carbon Dioxide 27 (22-29) mmol/L Anion Gap 13 (12-20) BUN 18 H (9-16) mg/dL Creatinine 2.07 H (0.5-1.4) mg/dL Estim Creat Clear Calc 41.3 Estimated GFR 25 Random Glucose 108 (60-115) mg/dL Calcium 8.7 (8.4-10.2) mg/dL Magnesium 2.0 (1.6-2.6) mg/dL Total Bilirubin 0.3 (0.0-1.0) mg/dL AST 60 H (5-31) U/L ALT 35 H (0-31) U/L Alkaline Phosphatase 86 (39-117) U/L Troponin I High Sens 8.5 (<3.5-17.0) ng/L B-Natriuretic Peptide 118 H (<100) pg/mL Total Protein 7.0 (6.5-8.0) g/dL Albumin 3.4 L (3.5-5.0) g/dL Lipase 93 H (8-78) U/L Urine Color Dark Yellow Urine Appearance Turbid Urine pH 5.5 (5.0-9.0) Ur Specific [place] 1.025 (1.005-1.025) Urine Protein 100 (2+) H (Neg-Trace) mg/dL Urine Glucose (UA) Negative (Negative) mg/dL Urine Ketones 15 (Negative) mg/dL Urine Blood Negative (Negative) Urine Nitrite Negative (Negative) Ur Leukocyte Esterase Large (3+) H (Negative) Urine RBC 0-2 (0-2) /HPF Urine WBC >50 H (0-5) /HPF Urine WBC Clumps Present Ur Squamous Epith Cells >20 (0-2) /HPF Urine Bacteria 4+ (None Seen) Hyaline Casts 11-20 (0-2) /LPF Urine Opiates Screen Not Detected (Not Detect) Ur Buprenorphine Scrn Not Detected (Not Detect) ng/mL Ur Oxycodone Screen Not Detected (Not Detect) ng/mL Urine Methadone Screen Not Detected (Not Detect) ng/mL Urine Fentanyl Screen Not Detected (Not Detect) Ur Barbiturates Screen POSITIVE H (Not Detect) Ur Phencyclidine Scrn Not Detected (Not Detect) Ur Amphetamines Screen Not Detected (Not Detect) U Benzodiazepines Scrn Not Detected (Not Detect) Urine Cocaine Screen Not Detected (Not Detect) U Marijuana (THC) Screen Not Detected (Not Detect) Ethyl Alcohol 355 H* mg/dL Independent Interpretation I performed an independent interpretation of an: EKG Interpretation: Normal sinus rhythm, HR-67, no STEMI, MS/QRS/QTC is within normal limits. Radiology Impression Discussion of test interpretation with radiology: I have reviewed the radiologist's reading. Radiologist Impression: Please see the discussion above External Record Review External record reviewed: Outpatient record and Prior outpatient labs Chronic Conditions Patient?s care impacted by: Hypertension Social Determinants Patient?s care significantly limited by Social Determinants of Health including: Alcoholism and drug addiction in family Critical Care Time Critical Care Time Critical Care Time: Yes Total Critical Care Time: 60 Attestation: I personally attest to this time spent taking care of the patient. Discharge Plan Discharge Clinical Impression: Alcohol withdrawal, Alcohol abuse, CHF (congestive heart failure) Patient Disposition: Admitted As Inpatient Prescriptions: No Action clonidine HCl 0.3 mg tablet 0.6 mg PO BEDTIME 30 Days Qty: 60 6RF propranolol 20 mg tablet 20 mg PO BID 90 Days Qty: 180 1RF lisinopril 10 mg tablet 10 mg PO DAILY Qty: 90 1RF Vivitrol 380 mg suspension,extended rel recon 380 mg IM Q4W pyridoxine (vitamin B6) 50 mg tablet 50 mg PO DAILY folic acid 1 mg tablet 1 mg PO DAILY Qty: 90 3RF cyanocobalamin (vitamin B-12) 1,000 mcg capsule 1,000 mcg PO DAILY Qty: 90 3RF (DME) blood pressure kit-extra large Kit See Rx Instructions .Route Qty: 1 0RF Rx Instructions: As directed (DME) Raised toilet seat See Rx Instructions .ROUTE .MEDSUPPLY Qty: 1 0RF Rx Instructions: As directed Print Language: Malagasy
[2024-01-25 11:39] VITALS: BP 90/53; PULSE 65; RESP 20; TEMP 36; O2SAT 99; BMI 35.4
[2024-01-25 12:01] LABS: MANUAL DIFF FLAG NO
[2024-01-25 12:05] LABS: Basophils Absolute Auto 0.1 X10*3/uL (0.0-0.2); Basophils Percent Auto 0.7 % (0-2); Eosinophils Absolute Auto 0.3 X10*3/uL (0.0-0.4); Hematocrit 35.1 % (37.0-47.0); Hemoglobin 11.8 g/dl (12.0-16.0); Imm Gran Abs Auto 0.05 X10*3/uL (0.00-0.03); Imm Gran Pct Auto 0.7 % (0.0-0.4); Lymphocytes Absolute Auto 3.5 X10*3/uL (1.2-4.9); Lymphocytes Percent Auto 46.4 % (20-40); Mean Corpuscular HGB Conc 33.6 g/dl (31.0-35.0); Mean Platelet Volume 9.9 fL (9.4-12.3); Monocytes Absolute Auto 0.6 X10*3/uL (0.1-1.2); Monocytes Percent Auto 7.3 % (2-11); Neutrophils Absolute Auto 3.1 x10*3/uL (2.0-8.3); Neutrophils Percent Auto 40.9 % (45-73); Platelet Count 192 X10*3/uL (160-400); Red Blood Count 3.28 X10*6/uL (4.20-5.50); Red Cell Distribution Width 14.6 % (11.0-16.0); White Blood Count 7.6 X10*3/uL (4.8-10.8)
[2024-01-25 12:15] LABS: Ethanol 355 mg/dL
[2024-01-25 12:18] LABS: Alanine Aminotransferase 35 U/L (0-31); Albumin Level 3.4 g/dL (3.5-5.0); Alkaline Phosphatase 86 U/L (39-117); Anion Gap 13 (12-20); Aspartate Amino Transferase 60 U/L (5-31); Bilirubin Total 0.3 mg/dL (0.0-1.0); Blood Urea Nitrogen 18 mg/dL (9-16); Calcium 8.7 mg/dL (8.4-10.2); Carbon Dioxide 27 mmol/L (22-29); Chloride 109 mmol/L (96-108); Creatinine Clr Calc Pharmacy 41.3; Estimated Glomerular Filt Rate 25; Glucose Random 108 mg/dL (60-115); Lipase 93 U/L (8-78); Potassium 3.3 mmol/L (3.3-5.1); Sodium 146 mmol/L (135-145)
[2024-01-25 12:23] LABS: B Type Natriuretic Peptide 118 pg/mL (<100)
[2024-01-25 12:26] LABS: Troponin-I High Sensitivity 8.5 ng/L (<3.5-17.0)
[2024-01-25 13:22] LABS: Appearance Urine Turbid; Color Urine Dark Yellow; Glucose Urine UA Negative (Negative); Leukocyte Esterase Urine Large (3+) (Negative); Nitrite Urine Negative (Negative); PH 5.5 (5.0-9.0); Specific Gravity - Urine 1.025 (1.005-1.025); UMIC TRIGGER UACC YES; Urine Blood Negative (Negative); Urine Ketones 15 mg/dL (Negative); Urine Protein 100 (2+) mg/dL (Neg-Trace)
[2024-01-25 13:32] LABS: Bacteria Urine 4+ (None Seen); RBC Urine 0-2 /HPF (0-2); Squamous Epithelial Cell Urine >20 /HPF (0-2); UACC Culture Trigger YES; WBC Clumps Urine Present; WBC Urine >50 /HPF (0-5)
[2024-01-25 13:33] LABS: Amphetamine Screen Urine Not Detected (Not Detect); Barbiturates, Urine POSITIVE (Not Detect); Benzodiazepines Screen Urine Not Detected (Not Detect); Buprenorphine Scr Not Detected (Not Detect); Cannabinoid Screen Urine Not Detected (Not Detect); Cocaine Screen Urine Not Detected (Not Detect); Fentanyl, urine Not Detected (Not Detect); Methadone Screen, Urine Not Detected (Not Detect); Opiate Screen Urine Not Detected (Not Detect); Oxycodone Screen Urine Not Detected (Not Detect); Phencyclidine Screen Urine Not Detected (Not Detect)
--- NOTE | 2024-01-25 17:03 | PHA.MEDREC ---
Pharmacy Consult ? Medication Reconciliation Pharmacy has completed the medication reconciliation. Patient reported medications. Reports taking medications at bedtime, and takes propranolol every night and as needed in the morning. Lday Hanna, AshwiniD
[2024-01-25 17:18] VITALS: BP 90/52; PULSE 64; RESP 20; TEMP 36.6; O2SAT 99
--- NOTE | 2024-01-25 18:01 | PM.IMHP ---
History of Present Illness Date of Service: 01/25/24 Chief Complaint: Bilateral leg swelling 53-year-old female patient with past medical history significant for chronic alcohol use disorder, hypertension, anxiety, depression, history of DVT, status post bilateral hip replacement , went to urgent care today due to bilateral lower extremity swelling of 3 days' duration, and difficulty in ambulation, she was referred to [place] ED from urgent care for further evaluation and treatment, as per patient she is homeless and sleeping in her car for last several days since she lost her residents since she was unable to pay her rent, she has been drinking on and off heavily depending on how much money she has, in last 24 hours she had 20 nips, last alcohol intake this morning, denies withdrawal symptoms, no tremors, no nausea, no vomiting, she denies chest pain, no shortness of breath, no PND, no orthopnea, in the emergency room patient was noted to have soft blood pressure 90/53, BNP 118, magnesium of 2, lipase 93, troponin of 8.5, AST 60, ALT 35, albumin 3.4, normal total bili, chest x-ray showed no acute infiltrate, patient in the emergency room placed on phenobarb protocol, received 1 dose of IV Lasix 40 mg Since patient mentioned about feeling hopeless , no desire to live, with lack of housing, patient had sitter placed due to passive suicidal ideation, patient has no plan, patient is now being admitted to [facility] for bilateral lower extremity edema, acute kidney injury and alcohol use disorder with high likelihood of alcohol withdrawal. Review of Systems Review of Systems: General no headache, no dizziness, feels cold being in car CVS no chest pain, no palpitation. Respiratory no cough no sob Gastrointestinal no nausea no vomiting, no abdominal pain Skin no rash Musculoskeletal bilateral leg pain no urgency, no frequency PMFSH Medical History Possible exposure to STD DVT (deep venous thrombosis) History of anxiety History of panic attacks Depression Osteoarthritis of right hip Hypertension Family History Father Colon cancer Mother In good health Maternal Grandmother Breast cancer Paternal Grandmother Colon cancer Brother Multiple sclerosis Paternal Uncle Colon cancer Surgical History History of right hip replacement History of left hip replacement History of tubal ligation History of tonsillectomy Social History Household Members: None Housing: Homeless Are you a primary primary care sales representative to a significant other at home: No Do you presently have visiting nurse or other home services: No Alcohol intake: current Alcohol intake frequency: 3 or more drinks per day Alcohol type: hard liquor Comment: 1:1 sitter Patient Tobacco Use Status: Former Tobacco user Cigarette Packs Per Day: 0.25 Cigarettes Per Day: 5.0 Years Smoked: 20 Smoked in Last 30 Days: Yes e-Cigarette/Vaping Use: Never Used Second Hand Smoke Exposure: No Use of substances other than those prescribed or required for medical reasons: Yes Substance Use Type: Marijuana Substance Use Frequency: Occasionally Last Used Substance: Unknown Currently Displaying Signs/Symptoms of Drug Intoxication Withdrawal: No Have you been hit, kicked, punched, or otherwise hurt by someone within the past year? If so, by whom?: No Do you feel safe in your current relationship?: No Current Relationship Is there a partner from a previous relationship who is making you feel unsafe now?: No Are you made to feel afraid or neglected: No Advance Directives: No Advance Directives Information Provided: Yes Advance Directives on File: No Do you have a plan to hurt others: No Plan Recently lost weight without trying: No How much weight loss: Not applicable Eating poorly because of decreased appetite: No Nutrition screen score: 0 Nutrition Risks: No Nutritional Risk Patient : No : No Poor oral hygiene: No service: No Current occupational status: unemployed and disabled Current occupation: Rt handed Cognitive needs: No Hearing needs: No Vision needs: No Meds Allergies Allergy/AdvReac Type Severity Reaction Status Date / Time No Known Allergies Allergy Verified 01/25/24 11:45 [No Known Allergies*] Active Medications: Current Medications Pharmacy Consult (Consult Rx Etoh Phenob Im/Po) 1 each MISCELLANE ONCE PRN; Protocol PRN Reason: Consult order Phenobarbital (Phenobarbital 15 Mg Tablet) 45 mg PO BID JUNE; Protocol Stop: 01/27/24 21:01 Phenobarbital (Phenobarbital 15 Mg Tablet) 15 mg PO BID JUNE; Protocol Stop: 01/29/24 21:01 Phenobarbital (Phenobarbital 15 Mg Tablet) 15 mg PO DAILY JUNE; Protocol Stop: 01/31/24 09:01 Phenobarbital Sodium (Phenobarbital Sodium 130 Mg/Ml Vial Im Q3hx2) 237.9 mg IM Q3H JUNE; Protocol Stop: 01/25/24 23:01 Home Medications ?Medication ?Instructions ?Recorded ?Confirmed ?Last Taken ?Type naltrexone microspheres 380 mg 380 mg IM Q4W 01/14/24 01/25/24 5 Days Ago History intramuscular suspension,extended ~01/20/24 release (Vivitrol) ibuprofen 200 mg tablet 400 mg PO Q6H PRN Pain (Scale 01/25/24 01/25/24 Unknown History Score 1-3) lisinopril 10 mg tablet 10 mg PO BEDTIME 01/25/24 01/25/24 01/24/24 History propranolol 20 mg tablet 20 mg PO BEDTIME for panic attack 01/25/24 01/25/24 01/24/24 History propranolol 20 mg tablet 20 mg PO DAILY PRN panic attack 01/25/24 01/25/24 01/24/24 History Physical Exam Vital Signs and Narrative: Vital Signs: Last Vital Signs Temp 97.9 F 01/25/24 17:18 Pulse 64 01/25/24 17:18 Resp 20 01/25/24 17:18 BP 90/52 L 01/25/24 17:18 Pulse Ox 99 01/25/24 17:18 O2 Del Method Room Air 01/25/24 17:18 BMI result Body Mass Index 35.4 Const: Other: General awake alert x3, resting comfortably in no acute distress. Anicteric sclera,PERRLA Neck supple no JVD. CVS regular rate rhythm, Respiratory lungs clear to auscultation, no respiratory distress, no wheeze, no rhonchi. Gastrointestinal abdomen soft, non tender, bowel sounds audible, no guarding , no rigidity. Extremities bilateral pitting edema left >rt., no redness, mild warmth, tender to palpation. Neuro non focal,speech clear, no tremors. Psych depressed Results Labs 01/26/24 08:30 01/26/24 08:30 Labs: Laboratory Results - last 24 hr 01/25/24 01/25/24 11:55 12:52 MCV 107.0 H MCH 36.0 H MCHC 33.6 RDW 14.6 Plt Count 192 MPV 9.9 Immature Gran % (Auto) 0.7 H Neut % (Auto) 40.9 L Lymph % (Auto) 46.4 H [place] % (Auto) 7.3 Eos % (Auto) 4.0 Baso % (Auto) 0.7 Lymph # (Auto) 3.5 [place] # (Auto) 0.6 Eos # (Auto) 0.3 Baso # (Auto) 0.1 Abs Immat Gran (auto) 0.05 H Absolute Neuts (auto) 3.1 Absolute Nucleated RBC 0.000 Nucleated RBC % (auto) 0.0 Anion Gap 13 Estim Creat Clear Calc 41.3 Estimated GFR 25 Random Glucose 108 Calcium 8.7 Magnesium 2.0 Total Bilirubin 0.3 AST 60 H ALT 35 H Alkaline Phosphatase 86 Troponin I High Sens 8.5 B-Natriuretic Peptide 118 H Total Protein 7.0 Albumin 3.4 L Lipase 93 H Urine Color Dark Yellow Urine Appearance Turbid Urine pH 5.5 Ur Specific [place] 1.025 Urine Protein 100 (2+) H Urine Glucose (UA) Negative Urine Ketones 15 Urine Blood Negative Urine Nitrite Negative Ur Leukocyte Esterase Large (3+) H Urine RBC 0-2 Urine WBC >50 H Urine WBC Clumps Present Ur Squamous Epith Cells >20 Urine Bacteria 4+ Hyaline Casts 11-20 Urine Opiates Screen Not Detected Ur Buprenorphine Scrn Not Detected Ur Oxycodone Screen Not Detected Urine Methadone Screen Not Detected Urine Fentanyl Screen Not Detected Ur Barbiturates Screen POSITIVE H Ur Phencyclidine Scrn Not Detected Ur Amphetamines Screen Not Detected U Benzodiazepines Scrn Not Detected Urine Cocaine Screen Not Detected U Marijuana (THC) Screen Not Detected Ethyl Alcohol 355 H* Imaging Radiologist's Impressions: Impressions Chest X-Ray 01/25/24 15:42 IMPRESSION: No acute cardiopulmonary disease. Assessment and Plan (1) NIDIA (acute kidney injury): Status: Acute (2) Alcohol abuse: Status: Acute (3) Alcohol withdrawal: Status: Acute Plan 53-year-old female patient with past medical history significant for alcohol use disorder, hypertension, history of anxiety, panic attacks and depression history of bilateral hip arthroplasty, history of unprovoked DVT which as per patient was treated with aspirin, brother has history of extensive bilateral DVT and is on lifelong anticoagulation, presented to [place] ED due to bilateral lower extremity swelling of 3 days' duration without associated shortness of breath chest pain, dyspnea on exertion and noted to be in acute kidney injury. Alcohol use disorder/high likelihood of alcohol withdrawal Admit to med surge continue phenobarb protocol Place on thiamine/folic acid On naltrexone IM Q monthly Addiction Team consult Acute kidney injury likely due to hypotension Hold lisinopril, propranolol and clonidine, avoid nephrotoxins was on ibuprofen at home IV fluids, Monitor BP closely Hold diuretics/follow BMP Bilateral lower extremity swelling Unknown etiology Rule out DVT with history of prior unprovoked DVT/no evidence of cellulitis with no redness, no skin breakdown no fevers, normal WBC Less likely CHF with no history of shortness of breath, no PND, no orthopnea, chest x-ray unremarkable, bnp 118, albumin 3.4, Received 1 dose of IV Lasix in ED will follow I's and O's and clinical course/recommend to keep leg elevated Suicidal ideation with underlying history of anxiety/depression/panic 1:1 sitter, care team evaluation prior to discharge. Hypertension Noted to have soft blood pressures will hold lisinopril 10 mg at bedtime, clonidine 0.6 mg at bedtime and propranolol 20 mg at bedtime, patient also use propranolol 20 mg daily as needed for panic attacks. Full code Lovenox In my clinical judgment patient need two night inpatient hospitalization for management of bilateral lower extremity swelling requiring further imaging studies, monitoring of BMP and management of alcohol withdrawal. Quality Stroke Does the patient have a stroke diagnosis?: No VTE Prior VTE?: No VTE Risk Level:: Medical - moderate - high VTE Device Contraindication: Treatment Not Indicated VTE Drug Contraindication: N/A - Med Ordered
[2024-01-25 18:11] VITALS: BP 101/59; PULSE 68; RESP 16; O2SAT 100
[2024-01-25 18:12] VITALS: BP 101/59
[2024-01-25] MEDS: Furosemide 40 MG/4 ML VIAL IVPUSH (18:12)
[2024-01-25 19:59] VITALS: BP 133/75; PULSE 69; RESP 18; TEMP 36.2; O2SAT 99; BMI 35.4
[2024-01-25] MEDS: PHENobarbitaL sodium 130 MG/ML VIAL IM Q3Hx2 237.9 MG IM (20:35)
[2024-01-25] MEDS: Enoxaparin Sodium 40 MG/0.4 ML SYRINGE SUBCUT (20:36)
[2024-01-26] MEDS: 0.9 % Sodium Chloride Flush 3 ML SYRINGE IVFLUSH ×4 (03:09→20:23)
[2024-01-26 03:24] VITALS: BP 122/71; PULSE 66; RESP 18; TEMP 36.7; O2SAT 97
[2024-01-26] MEDS: Acetaminophen 325 MG TABLET 650 MG PO ×2 (03:36→15:39)
[2024-01-26] MEDS: PHENobarbitaL sodium 130 MG/ML VIAL IM Q3Hx2 237.9 MG IM (03:42)
[2024-01-26 07:29] VITALS: BP 139/77; PULSE 74; RESP 18; TEMP 36.6; O2SAT 96
[2024-01-26] MEDS: Folic Acid 1 MG TABLET PO (08:19)
[2024-01-26] MEDS: PHENobarbitaL 15 MG TABLET 45 MG PO ×2 (08:19→20:23)
[2024-01-26] MEDS: Thiamine HCL 100 MG TABLET PO (08:19)
[2024-01-26 08:58] LABS: Hematocrit 36.7 % (37.0-47.0); Hemoglobin 12.5 g/dl (12.0-16.0); Mean Corpuscular HGB Conc 34.1 g/dl (31.0-35.0); Mean Corpuscular Hemoglobin 35.8 pg (27.0-33.0); Mean Corpuscular Volume 105.2 fL (80.0-98.0); Mean Platelet Volume 9.7 fL (9.4-12.3); Platelet Count 161 X10*3/uL (160-400); Red Blood Count 3.49 X10*6/uL (4.20-5.50); Red Cell Distribution Width 14.4 % (11.0-16.0); White Blood Count 6.2 X10*3/uL (4.8-10.8)
[2024-01-26 09:36] LABS: Anion Gap 15 (12-20); Blood Urea Nitrogen 16 mg/dL (9-16); Calcium 8.6 mg/dL (8.4-10.2); Carbon Dioxide 26 mmol/L (22-29); Chloride 102 mmol/L (96-108); Creatinine Clr Calc Pharmacy 98.3; Estimated Glomerular Filt Rate > 60; Glucose Random 107 mg/dL (60-115); Potassium 3.2 mmol/L (3.3-5.1); Sodium 140 mmol/L (135-145)
--- NOTE | 2024-01-26 11:46 | MHC.CM.PN ---
Addendum entered by Rachel Franco 01/26/24 11:52: Return message received from Recovery nurse Lana Johnson. She will send out a referral for treatment programs. Original Note: Female 53 DX ETOH W/D SI with a 1:1 observation. She states that she is independent with all functional mobility. She is hoeless. She is living in a care with a friend. She is a patient @ the [facility]. She is interested in a treatment program at discharge. A tiger text has been sent to the Recovery nurse. She has been notified of pts interest in REHAB for ETOH. DP resources provided by Addiction/Recovery medicine. She may need assist with transportation.
--- NOTE | 2024-01-26 13:45 | P.PNIM_ITS ---
Subjective Subjective Date of Service: 01/26/24 Interval History: Feeling better this morning with less leg swelling, and pain, denies chest pain, no shortness of breath, no acute events overnight tolerating diet with no nausea, no vomiting, no fevers, no chills, no acute events overnight. Review of Systems All other system reviewed and negative Physical Exam 2 Vital Signs: Vital Signs: Last Vital Signs Temp 97.9 F 01/26/24 07:29 Pulse 74 01/26/24 07:29 Resp 18 01/26/24 07:29 BP 139/77 01/26/24 07:29 Pulse Ox 96 01/26/24 07:29 O2 Del Method Room Air 01/26/24 07:29 BMI result Body Mass Index 35.4 Const: Other: General awake alert x3, resting comfortably in no acute distress. Anicteric sclera,PERRLA Neck supple no JVD. CVS regular rate rhythm, Respiratory lungs clear to auscultation, no respiratory distress, no wheeze, no rhonchi. Gastrointestinal abdomen soft, non tender, bowel sounds audible, no guarding , no rigidity. Extremities bilateral pitting edema left >rt., better than yesterday no redness, no warmth, no open sores. Neuro non focal,speech clear, no tremors. Psych depressed Objective Data Active Medications Acetaminophen (Acetaminophen 325 Mg Tablet) 650 mg PO Q6H PRN PRN Reason: Pain, Mild (Pain Scale 1-3) Last Admin: 01/26/24 03:36 Dose: 650 mg Documented By: JAY Benzonatate (Benzonatate 100 Mg Capsule) 100 mg PO TID PRN PRN Reason: Cough Docusate Sodium (Docusate Sodium 100 Mg Capsule) 100 mg PO DAILY PRN PRN Reason: Constipation Enoxaparin Sodium (Enoxaparin Sodium 40 Mg/0.4 Ml Syringe) 40 mg SUBCUT Q24H [facility] Last Admin: 01/25/24 20:36 Dose: 40 mg Documented By: JAY Folic Acid (Folic Acid 1 Mg Tablet) 1 mg PO DAILY [facility] Last Admin: 01/26/24 08:19 Dose: 1 mg Documented By: SULEMA Magnesium Hydroxide (Milk Of Magnesia 30 Ml Oral.Susp) 30 ml PO DAILY PRN PRN Reason: Constipation Melatonin (Melatonin 3 Mg Tablet) 6 mg PO BEDTIME PRN PRN Reason: Insomnia Ondansetron HCl (Ondansetron Hcl 4 Mg/2 Ml Vial) 4 mg IVPUSH Q8H PRN PRN Reason: Nausea and Vomiting Pharmacy Consult (Consult Rx Etoh Phenob Im/Po) 1 each MISCELLANE ONCE PRN; Protocol PRN Reason: Consult order Phenobarbital (Phenobarbital 15 Mg Tablet) 45 mg PO BID [facility]; Protocol Stop: 01/27/24 21:01 Last Admin: 01/26/24 08:19 Dose: 45 mg Documented By: SULEMA Phenobarbital (Phenobarbital 15 Mg Tablet) 15 mg PO BID [facility]; Protocol Stop: 01/29/24 21:01 Phenobarbital (Phenobarbital 15 Mg Tablet) 15 mg PO DAILY [facility]; Protocol Stop: 01/31/24 09:01 Sodium Chloride (0.9 % Sodium Chloride Flush 3 Ml Syringe) [facility] Last Admin: 01/26/24 08:19 Dose: 3 ml Documented By: SULEMA Thiamine HCl (Thiamine Hcl 100 Mg Tablet) 100 mg PO DAILY [facility] Last Admin: 01/26/24 08:19 Dose: 100 mg Documented By: SULEMA Labs 01/26/24 08:30 01/26/24 08:30 Labs: Laboratory Results - last 24 hr 01/26/24 08:30 MCV 105.2 H MCH 35.8 H MCHC 34.1 RDW 14.4 Plt Count 161 MPV 9.7 Absolute Nucleated RBC 0.000 Nucleated RBC % (auto) 0.0 Anion Gap 15 Estim Creat Clear Calc 98.3 Estimated GFR > 60 Random Glucose 107 Calcium 8.6 Microbiology Microbiology Results: Microbiology 01/25/24 Unknown Urine Culture - Preliminary Urine clean catch - Clean Catch Midstream Gram negative jacy Assessment and Plan (1) NIDIA (acute kidney injury): Status: Acute (2) Alcohol abuse: Status: Acute (3) Alcohol withdrawal: Status: Acute Plan 53-year-old female patient with past medical history significant for alcohol use disorder, hypertension, history of anxiety, panic attacks and depression history of bilateral hip arthroplasty, history of unprovoked DVT which as per patient was treated with aspirin, brother has history of extensive bilateral DVT and is on lifelong anticoagulation, presented to [place] ED due to bilateral lower extremity swelling of 3 days' duration without associated shortness of breath chest pain, dyspnea on exertion and noted to be in acute kidney injury. Alcohol use disorder/alcohol withdrawal Denies withdrawal symptoms, continue phenobarb protocol, thiamine/folic acid On naltrexone IM Q monthly Addiction Team consult Acute kidney injury likely due to hypotension Resolved, will avoid hypotension continue to Hold lisinopril, propranolol and clonidine, avoid nephrotoxins was on ibuprofen at home Monitor BP closely Acute mild hypokalemia likely due to diuretic will repeat bleed and follow labs Bilateral lower extremity swelling Improving Ultrasound lower extremity showed no DVT/no evidence of cellulitis with no redness, no skin breakdown no fevers, normal WBC Less likely CHF with no history of shortness of breath, no PND, no orthopnea, chest x-ray unremarkable, bnp 118, albumin 3.4, Likely due to venous insufficiency/recommend to keep leg elevated/Angel wrap/verona stockings low-dose Lasix Suicidal ideation with underlying history of anxiety/depression/panic 1:1 sitter, care team evaluation prior to discharge. Hypertension On admission had soft blood pressure, now 139/77 will dc lisinopril 10 mg at bedtime, continue to hold clonidine 0.6 mg at bedtime and propranolol 20 mg at bedtime, patient also use propranolol 20 mg daily as needed for panic attacks. Will resume propranolol 20 mg at bedtime. Will adjust dose of antihypertensive prior to discharge Full code Lovenox In my clinical judgment patient need continued inpatient hospitalization for management of bilateral lower extremity swelling , monitoring of BMP and management of alcohol withdrawal on phenobarb protocol. Quality Stroke Does the patient have a stroke diagnosis?: No VTE Prior VTE?: No VTE Risk Level:: Medical - moderate - high VTE Device Contraindication: Treatment Not Indicated VTE Drug Contraindication: N/A - Med Ordered
[2024-01-26 15:28] VITALS: BP 140/80; PULSE 75; RESP 18; TEMP 36.5; O2SAT 99
[2024-01-26 16:15] VITALS: BP 140/80
[2024-01-26] MEDS: Furosemide 20 MG TABLET PO (16:15)
[2024-01-26] MEDS: Potassium Chloride ER 20 MEQ TAB.ER.PRT 40 MEQ PO (16:15)
[2024-01-26] MEDS: ondansetron HCL 4 MG/2 ML VIAL IVPUSH (17:22)
[2024-01-26 19:58] VITALS: BP 168/78; PULSE 78; RESP 18; TEMP 36.6; O2SAT 95
[2024-01-26] MEDS: Enoxaparin Sodium 40 MG/0.4 ML SYRINGE SUBCUT (20:23)
[2024-01-27 02:37] VITALS: BP 152/59; PULSE 90; RESP 18; TEMP 37.1; O2SAT 94
[2024-01-27] MEDS: ondansetron HCL 4 MG/2 ML VIAL IVPUSH (05:05)
[2024-01-27 07:39] VITALS: BP 161/92; PULSE 87; RESP 14; TEMP 37; O2SAT 94
[2024-01-27] MEDS: Propranolol HCL 20 MG TABLET PO (08:23)
[2024-01-27] MEDS: PHENobarbitaL 15 MG TABLET 45 MG PO (08:24)
[2024-01-27 08:26] VITALS: BP 161/92
[2024-01-27] MEDS: Folic Acid 1 MG TABLET PO (08:26)
[2024-01-27] MEDS: Furosemide 20 MG TABLET PO (08:26)
[2024-01-27] MEDS: Thiamine HCL 100 MG TABLET PO (08:26)
[2024-01-27] MEDS: 0.9 % Sodium Chloride Flush 3 ML SYRINGE IVFLUSH (08:29)
[2024-01-27] MEDS: Acetaminophen 325 MG TABLET 650 MG PO (08:36)
[2024-01-27 09:01] LABS: Potassium 3.2 mmol/L (3.3-5.1)
--- NOTE | 2024-01-27 10:23 | MHC.CARE ---
Patient was seen by CARE team and does NOT currently meet inpatient level of care, patient will be referred to [facility] for 1:1 individual therapy.
--- NOTE | 2024-01-27 11:47 | MHC.RECOVRN ---
Addendum entered by Lana Johnson 01/27/24 12:18: [facility] does not have bed availability today, pt is added to the waitlist. Pt to call from community to check in, . RN and CM aware. Original Note: Met with pt and daughter to discuss discharge plans. Pt interested in CSS level of care, has not been to treatment before. Educated pt on CSS, pt agreeable to referral to [facility]. Pt denies questions or concerns. Referral sent, awaiting reply.
--- NOTE | 2024-01-27 12:16 | MHC.CM.PN ---
Addendum entered by Rachel Franco 01/27/24 12:51: [facility] does not have a bed today. The patient is on the wait list. Contact info has been provided to the patient. She will need to call daily to check on bed availability. She has arranged for transportation at discharge. She is not interested in going to a care home. She will return to her prior situation. She lives in a car. Original Note: Patient is discharged. She has been seen by the Recovery nurse. Patient interested in CSS. A referral has been sent to the [facility]. Bed offer is pending.
--- NOTE | 2024-01-27 17:53 | P.CDIM_ITS ---
PROVIDER RESPONSE TEXT: To clarify, the appropriate diagnosis supported by the clinical indicators: Other (explain): anthony QUERY TEXT: PHYSICIAN'S DOCUMENTATION REQUEST Date of Query: 01/27/2024 08:49 AM EDT Patient Name: Angelica Ventura Admit Date: 01/25/2024 Dear Jeet Marx, A review of the medical record indicates additional documentation may be needed. Please review below and update the documentation accordingly. Clinical Indicators: ED 4/: History and Physical: CKD Stage 3 Course narrative: 53 y old female with alcohol use disorder and CKD. Progress notes: Plan - Acute kidney injury likely due to hypotension. Creatinine 2.07 Bun 18 Gfr 25 >60 Please clarify which of the following accurately represents the patient's stage of the noted CKD: Acute on chronic renal failure Stage 1, 2, 3a, 3b, 4 Chronic kidney disease please specify stage if known Other (explain) Clinically unable to determine (explain) Thank you, Ananya Silva, CCS, CDIS Use of terms such as suspected, likely, concern for, or probable (associated with a specific diagnosi s that is being evaluated, monitored, or treated as if it exists) are acceptable and can be coded in the inpatient se tting, when documented at the time of discharge. Please use your independent medical judgment in providing your response. THIS QUERY IS PART OF THE PERMANENT MEDICAL RECORD
--- NOTE | 2024-01-27 22:08 | MHC.CARE ---
RAD Team emailed pt referral to [facility]. RAD Team will follow up tomorrow
--- NOTE | 2024-01-28 16:04 | P.DS_ITS ---
DS: Providers Provider Date of Service: 01/28/24 Date of admission: 01/25/24 17:59 Primary care physician: Declan Saravia PA-C Consults: 01/25/24 16:44 Consult to Care Team Stat Comment: Reason for consultation: SI 01/25/24 18:23 Addiction Medicine Routine Consulting Provider: Addiction Covering Reason for consultation: etoh abuse Has provider been notified: No 01/27/24 07:59 Consult to Care Team Routine Comment: Reason for consultation: medically cleared DS: Diagnosis Discharge Diagnosis (1) NIDIA (acute kidney injury): Status: Acute (2) Alcohol abuse: Status: Acute (3) Alcohol withdrawal: Status: Acute DS: Summary Hospital Course Hospital Course: Date of Service: 01/25/24 Chief Complaint: Bilateral leg swelling 53-year-old female patient with past medical history significant for chronic alcohol use disorder, hypertension, anxiety, depression, history of DVT, status post bilateral hip replacement , went to urgent care today due to bilateral lower extremity swelling of 3 days' duration, and difficulty in ambulation, she was referred to [place] [facility] from urgent care for further evaluation and treatment, as per patient she is homeless and sleeping in her car for last several days since she lost her residents since she was unable to pay her rent, she has been drinking on and off heavily depending on how much money she has, in last 24 hours she had 20 nips, last alcohol intake this morning, denies withdrawal symptoms, no tremors, no nausea, no vomiting, she denies chest pain, no shortness of breath, no PND, no orthopnea, in the emergency room patient was noted to have soft blood pressure 90/53, BNP 118, magnesium of 2, lipase 93, troponin of 8.5, AST 60, ALT 35, albumin 3.4, normal total bili, chest x-ray showed no acute infiltrate, patient in the emergency room placed on phenobarb protocol, received 1 dose of IV Lasix 40 mg Since patient mentioned about feeling hopeless , no desire to live, with lack of housing, patient had sitter placed due to passive suicidal ideation, patient has no plan, patient is now being admitted to [facility] for bilateral lower extremity edema, acute kidney injury and alcohol use disorder with high likelihood of alcohol withdrawal. Hospital course: 53-year-old female patient with past medical history significant for alcohol use disorder, hypertension, history of anxiety, panic attacks and depression history of bilateral hip arthroplasty, history of unprovoked DVT which as per patient was treated with aspirin, brother has history of extensive bilateral DVT and is on lifelong anticoagulation, presented to [place] [facility] due to bilateral lower extremity swelling of 3 days' duration without associated shortness of breath chest pain, dyspnea on exertion and noted to be in acute kidney injury and also mentioned about feeling hopeless and no desire to live therefore admitted for following medical issues. Alcohol use disorder/alcohol withdrawal treated with phenobarb protocol, thiamine and folic acid patient responded well to above treatment feeling significantly better seen by Addiction Team and they recommend outpatient foll ow-up with [facility] appointment has been made, recommend to continue naltrexone IM Q monthly. Acute kidney injury likely due to hypotension resolved, lisinopril has been discontinued recommend to avoid NSAIDs. Acute mild hypokalemia likely due to diuretics, repleted and normalized. Bilateral lower extremity swelling, treated with 1 dose of IV Lasix, Ultrasound lower extremity showed no DVT/no evidence of cellulitis with no redness, no skin breakdown no fevers, normal WBC, chest x-ray unremarkable BMP 118, normal albumin likely has venous insufficiency recommend to keep leg elevated and use Luis stockings as tolerated. Suicidal ideation with underlying history of anxiety/depression/panic seen by care team and patient has been cleared for discharge. Hypertension, noted to have soft blood pressures on admission therefore lisinopril has been discontinued and she has been continued on home dose of clonidine and propranolol recommended close outpatient follow-up with PCP. Time Attestation Discharge Coordination Time (in mins): 38 Quality: Safe Use of Opioids Does Pt have an Active Cancer Diagnosis on the Problem List?: No Quality: Stroke Does the patient have a stroke diagnosis?: No Physical Exam Vital Signs: Vital Signs: Last Vital Signs Temp 98.6 F 01/27/24 07:39 Pulse 87 01/27/24 07:39 Resp 14 01/27/24 07:39 BP 161/92 H 01/27/24 08:26 Pulse Ox 94 01/27/24 07:39 O2 Del Method Room Air 01/27/24 07:39 BMI result Body Mass Index 35.4 Const: Other: General awake alert x3, resting comfortably in no acute distress. Anicteric sclera,PERRLA Neck supple no JVD. CVS regular rate rhythm, Respiratory lungs clear to auscultation, no respiratory distress, no wheeze, no rhonchi. Gastrointestinal abdomen soft, non tender, bowel sounds audible, no guarding , no rigidity. Extremities mild edema resolved. Neuro non focal,speech clear, no tremors. Psych depressed DS: Data Data Completed and Pending Completed studies during hospitalization [Text1]: Procedures Replacement of Right Hip Joint with Synthetic Substitute, Uncemented, Open Approach (01/22/21) Discharge Plan Discharge Anticipated Discharge Date/Time: 01/27/24 10:37 Patient Disposition: Home, Self-Care Discharge Diagnosis: Alcohol use disorder Alcohol withdrawal Acute kidney injury Referrals: [facility] [Other] - 1 Week (You have been placed on the wait list for the [facility]. Please call the number above to check on bed availability.) Declan Saravia PA-C [Primary Care Provider] - 1 Week Discharge Medications: Continued clonidine HCl 0.3 mg tablet 0.6 mg PO BEDTIME 30 Days Qty: 60 6RF Vivitrol 380 mg suspension,extended rel recon 380 mg IM Q4W propranolol 20 mg tablet 20 mg PO DAILY PRN (Reason: panic attack) propranolol 20 mg tablet 20 mg PO BEDTIME (DME) blood pressure kit-extra large Kit See Rx Instructions .Route Qty: 1 0RF Rx Instructions: As directed (DME) Raised toilet seat See Rx Instructions .ROUTE .MEDSUPPLY Qty: 1 0RF Rx Instructions: As directed Discontinued lisinopril 10 mg tablet 10 mg PO BEDTIME ibuprofen 200 mg Tablet 400 mg PO Q6H PRN (Reason: Pain (Scale Score 1-3)) Discharge Orders: Discharge Order (Routine); Ordered 01/27/24 Ordered By: Jeet Marx Diet: Advance to usual diet Activity on Discharge: As tolerated Stand Alone Forms: Patient Portal Discharge page Print Language: Welsh Care Plan Goals: Strongly recommend to abstain from alcohol, recommend outpatient [facility] for one-to-one individual therapy Take all other medications as above Avoid NSAIDs including ibuprofen Advil Motrin Take Tylenol for pain Lisinopril has been discontinued monitor blood pressure Continue clonidine and propranolol as before and follow-up with primary care physician. Health Concerns: Hypertension Alcohol use disorder Plan of Treatment: Follow-up at [facility] as above Follow-up with primary care physician call for appointment in 1-2 weeks. Assessment: As above. Discharge Date/Time: 01/27/24 13:52
== END 2024-01-27 13:52 | disposition home or self-care (01) | DRG 775 ==
LOC: HO.ED 16:47 → HO.EDOVER 18:06 → HO.S3 18:24
PROVIDERS: Physician Assistant; Admitting Provider Hospitalist; Emergency Provider Student in an Organized Health Care Education/Training Program; PCP Physician Assistant; Visit Provider Hospitalist
DX: F10.139 Alcohol abuse with withdrawal, unspecified (principal); F10.129 Alcohol abuse with intoxication, unspecified; N17.9 Acute kidney failure, unspecified; R45.851 Suicidal ideations; I95.9 Hypotension, unspecified; E87.6 Hypokalemia; B96.20 Unspecified Escherichia coli [E. coli] as the cause of diseases classified elsewhere; Y90.8 Blood alcohol level of 240 mg/100 ml or more; I10 Essential (primary) hypertension; F41.9 Anxiety disorder, unspecified; F32.A Depression, unspecified; Z59.02 Unsheltered homelessness; Z86.718 Personal history of other venous thrombosis and embolism; Z87.891 Personal history of nicotine dependence; Z79.899 Other long term (current) drug therapy
CPT/HCPCS: 36415; 71046; 80048; 80053; 80307; 81001; 81003; 83690; 83735; 83880; 84132; 84484; 85025; 85027; 87086; 87088; 87186; 93005; 93970; 99285; J1650; J1940; J2405; J2560; S9485

== ENCOUNTER → 2024-01-25 11:26 | Outpatient (BNV) | payer OTHER, SELFPAY | PROVIDERS: Emergency Provider Student in an Organized Health Care Education/Training Program; PCP Physician Assistant; Visit Provider Internal Medicine | DX: R94.31 Abnormal electrocardiogram [ECG] [EKG] (principal) | CPT/HCPCS: 93010 ==

== ENCOUNTER → 2024-01-25 17:59 | Outpatient (BNV) | payer OTHER, SELFPAY | PROVIDERS: Admitting Provider Hospitalist; Emergency Provider Student in an Organized Health Care Education/Training Program; PCP Physician Assistant; Visit Provider Hospitalist | DX: N17.9 Acute kidney failure, unspecified (principal); F10.939 Alcohol use, unspecified with withdrawal, unspecified | CPT/HCPCS: 99223; 99233; 99239 ==

== ENCOUNTER 2024-02-08 11:14 | Outpatient (AMB) | payer OTHER, SELFPAY ==
[2024-02-08 11:18] VITALS: BP 140/98; PULSE 54; O2SAT 97; BMI 39.1
--- NOTE | 2024-02-08 11:18 | MHC.PC.OV ---
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 Patient has a past medical history significant for generalized anxiety disorder polyarthralgia hypertension, history of total hip replacement. Patient recently admitted to the [facility] for acute alcohol withdrawal. She was found to worsening lower extremity edema 3 days prior to hospital admission. She was given IV Lasix. She was also found to hypotension and her lisinopril was discontinued. She was seen by the addiction team will recommended IM injections on naltrexone. She is now living at the [facility] sober living. She is now 15 days sober and is very proud of this. Of note since her hospitalization her blood pressures have been elevated and is asking to be placed back on lisinopril. She unfortunately still has bilateral lower extremity edema. Ultrasounds in the hospital were negative for DVT. PLAN: Will supply her 2 weeks of 20 mg Lasix and restart lisinopril at lower dose 5 mg for blood pressure control. ? .. Alcohol use disorder(in early remission): getting Vivitrol injections through addiction treatment special I here in [place]. She is now 15 days sober. Now living in sober living at the [facility]. .. ? Hypertension:? Blood pressure is since hospitalization seen to been elevated. She has been taken off lisinopril due to hypotension in the setting of her hospitalization. continues on clonidine and propranolol. Denies any headaches, chest discomfort or palpitations. [facility] Medical History Possible exposure to STD DVT (deep venous thrombosis) History of anxiety History of panic attacks Depression Osteoarthritis of right hip Hypertension Surgical History History of right hip replacement History of left hip replacement History of tubal ligation History of tonsillectomy Family History Father Colon cancer Mother In good health Maternal Grandmother Breast cancer Paternal Grandmother Colon cancer Brother Multiple sclerosis Paternal Uncle Colon cancer Social History Household Members: None Housing: Homeless Are you a primary child care center administrator to a significant other at home: No Do you presently have visiting nurse or other home services: No Alcohol intake: current Alcohol intake frequency: 3 or more drinks per day Alcohol type: hard liquor Comment: 1:1 sitter Patient Tobacco Use Status: Former Tobacco user Cigarette Packs Per Day: 0.25 Cigarettes Per Day: 5.0 Years Smoked: 20 e-Cigarette/Vaping Use: Never Used Second Hand Smoke Exposure: No Substance Use Type: Marijuana service: No Current occupational status: unemployed and disabled Current occupation: Rt handed Cognitive needs: No Hearing needs: No Vision needs: No Questionnaire Thrive Questionnaire Date Thrive assessed: 02/08/24 I am a: Patient What is your living situation today?: I do not have a steady places to live I am staying at a prison (For the past 4 days) Within the past 12 months, did the food you bought not last and you didn't have the money to get more?: Never true Within the past 12 months, did you worry whether your food would run out before you got money to buy more?: Never true Do you have trouble paying for medicines?: No Do you have trouble getting transportation to medical appointments?: No Do you have trouble paying your heating and electricity bill?: No Do you have trouble taking care of your child, family member or friend?: No Do you have trouble with day-to-day activities such as bathing, preparing meals, shopping, managing finances, etc.?: No Are you currently unemployed and looking for a job?: No Are you interested in more education?: No Please select the resources that you would like help with: None Currently or been in a relationship where the following occur: no concerns reported THRIVE Score: 1 AUDIT C Alcohol Use Questionnaire (AUDIT-C) 1. How often do you have a drink containing alcohol?: 4 or more times a week 2. How many drinks containing alcohol do you have on a typical day when you are drinking?: 5 or 6 (Nips 100 proof ) 3. How often do you have six or more drinks on one occasion?: Daily or almost daily Total Score: 10 DASHA-7 AMB Questionnaire DASHA-7 Date DASHA - 7 assessed: 12/23/23 Source: Developed by Drs. Ehsan Jeffrey, Garima Rueda, Stanley Dias and colleagues, with an educational moises from [employer]. Review of Systems Const Denies headache(s) Eyes Denies loss of vision ENT Denies vertigo, Denies dizziness, Denies headache(s) and Denies sore throat Card Denies chest pain, Denies leg edema and Denies lightheadedness Resp Denies cough, Denies hemoptysis and Denies wheezing GI Denies abdominal pain, Denies melena, Denies constipation, Denies diarrhea and Denies vomiting Denies urinary frequency, Denies dysuria and Denies urinary urgency Musc Denies arthralgias, Denies joint swelling, Denies numbness and Denies tingling Neuro Denies Abnormal speech present, Denies behavioral changes, Denies vertigo, Denies dizziness, Denies headache(s), Denies loss of vision, Denies memory loss, Denies numbness and Denies tingling Psych Denies anxiety, Denies behavioral changes, Denies depression, Denies memory loss and Denies panic attacks Freddie/Lymph Denies easy bleeding and Denies easy bruising Aller/Immun Denies wheezing Physical exam (Primary Care) Vital Signs: Last Vital Signs Pulse 54 02/08/24 11:18 BP 140/98 H 02/08/24 11:18 Pulse Ox 97 02/08/24 11:18 Oxygen Delivery Method Room Air 02/08/24 11:18 BMI result Body Mass Index 39.1 Tobacco/Smoking Status: Tobacco use Status Tobacco use date assessed 02/08/24 02/08/24 11:19 Patient Tobacco Use Status Former Tobacco user 02/08/24 11:19 e-Cigarette/Vaping Use Never Used 02/08/24 11:19 Thrive Assessment: Date of Thrive Assessment Date Thrive assessed 02/08/24 02/08/24 11:19 Currently or been in a relationship where the following occur: no concerns reported Const General: healthy appearing, no acute distress, alert and awake Nutritional Appearance: well nourished Orientation/consciousness: oriented to person, oriented to place and oriented to time HENMT Ears: TM's normal bilaterally General nose exam: Normal nasal mucous membranes and turbinates present Eyes Conjunctivae: conjunctivae normal Sclerae: sclerae normal Pupils: Equal, round and reactive pupils present Neck Neck: Yes no lymphadenopathy and Yes no JVD Thyroid: Thyroid normal Carotids: no bruits Resp Effort & Inspection: normal respiratory effort and not tachypneic Auscultation: no crackles, no rales, no rhonchi and no wheezes Cardio Rate: regular rate Rhythm: regular rhythm Heart sounds: no murmurs and normal S1 and S2 GI Palpation (GI): Soft to palpation, nontender, no hepatomegaly and no splenomegaly Auscultation: normal bowel sounds Skin General skin exam: no rashes or lesions noted and dry skin Neuro General: oriented to person, oriented to place and oriented to time Cranial nerves: Yes Equal, round and reactive pupils present Speech: No Abnormal speech present Gait exam (Neuro): Normal gait present Motor exam (neuro): no tremor noted Extrem Other: NOTED BILATERAL LOWER 1+ PITTING EXTREMITY EDEMA TO THE LEVEL OF MID GRANADOS Right upper extremity: full ROM Left upper extremity: full ROM Right lower extremity: full ROM and edema Left lower extremity: full ROM and edema Psych Mental Status: mental status grossly normal Speech and movement: Normal speech and movement present Affect: normal affect Attitude: cooperative Thought process: Normal thought process present Assessment and Plan Assessment & Plan (1) Alcohol use disorder, severe, dependence: Code(s): F10.20 - Alcohol dependence, uncomplicated Plan: PATIENT NOW IN EARLY REMISSION, 15 DAYS SOBER. SEEING THE [email or web address] TREATMENT C[facility] AND GETTING IM NALTREXONE INJECTIONS. NOW LIVING IN A SOBER LIVING SITUATION AT THE [facility] IN DOING DAILY ACTIVITIES AND MEETINGS. SHE HOPES TO GAIN LONG-TERM SOBRIETY.. (2) Hypertension: Code(s): I10 - Essential (primary) hypertension Qualifiers: Hypertension type: primary hypertension Qualified Code(s): I10 - Essential (primary) hypertension Plan: Patient's blood pressure elevated today in office. She was taken off of lisinopril while in the hospital due to hypotension. Will restart lisinopril at a lower dose 5 mg and advised to monitor blood pressure with goal blood pressure to be below 140/90.. Goal blood pressures to remain below 140/90 (3) Lower extremity edema: Code(s): R60.0 - Localized edema Plan: Will supply patient with 2 week dose of Lasix 20 mg. Advised on elevating her legs and to perhaps try some compression socks on a daily basis. (4) Allergic rhinitis: Code(s): J30.9 - Allergic rhinitis, unspecified Qualifiers: Allergic rhinitis seasonality: seasonal Allergic rhinitis trigger: pollen Qualified Code(s): J30.1 - Allergic rhinitis due to pollen (5) DASHA (generalized anxiety disorder): Code(s): F41.1 - Generalized anxiety disorder Plan: Patient does continue to suffer with anxiety. She does use propanolol for her somatic symptoms(heart palpitations) that manifest in her anxiety. Also does use clonidine at bedtime with good effect on sleep. Orders: Orders CA echo transthoracic complete 02/08/24 R60.0 - Localized edema Medications: New furosemide 20 mg PO DAILY 14 tabs 0RF 14 days R60.0 - Localized edema lisinopril 5 mg PO DAILY 30 tabs 3RF 30 days I10 - Essential (primary) hypertension loratadine 10 mg PO DAILY 30 tabs 3RF 30 days J30.1 - Allergic rhinitis due to pollen acetaminophen 500 mg PO Q6H PRN 120 caps 0RF fever 30 days M25.562 - Pain in left knee Changed From propranolol 20 mg PO DAILY PRN panic attack To propranolol 20 mg PO DAILY 30 tabs 3RF panic attack 30 days Refilled clonidine HCl 0.6 mg (2 x 0.3 mg) PO BEDTIME 60 tabs 6RF 30 days F41.1 - Generalized anxiety disorder Coding Level of Care Code Est Pt Level 4 (86221) Diagnoses Alcohol use disorder, severe, dependence F10.20 Primary hypertension I10 Hypertension type: primary hypertension Lower extremity edema R60.0 Seasonal allergic rhinitis due to pollen J30.1 Allergic rhinitis seasonality: seasonal Allergic rhinitis trigger: pollen DASHA (generalized anxiety disorder) F41.1
== END 2024-02-08 12:12 | disposition home or self-care (01) ==
PROVIDERS: PCP Physician Assistant; Visit Provider Physician Assistant
DX: I10 Essential (primary) hypertension (principal); F10.20 Alcohol dependence, uncomplicated; R60.0 Localized edema; J30.1 Allergic rhinitis due to pollen; F41.1 Generalized anxiety disorder
CPT/HCPCS: 99214

== ENCOUNTER 2024-02-17 13:08 | Outpatient (AMB) | payer OTHER, SELFPAY ==
[2024-02-17 13:05] VITALS: BP 142/88; PULSE 80; O2SAT 98
--- NOTE | 2024-02-17 13:05 | MHC.AM.SUB ---
Vital Signs 02/17/24 13:05 BP 142/88 H Blood Pressure Location Lt brachial Position Sitting Pulse 80 Pulse Source Pulse Oximeter Pulse Oximetry (%) 98 Oxygen Delivery Method Room Air Intake Visit Reasons: MAT Visit/ Dora Inj Allergies No Known Allergies [No Known Allergies*] Allergy (Verified 02/08/24 11:18) HPI HPI MAT Visit/ [facility]ora Inj: Details: Patient presents for AUD treatment follow up and Vivitrol injection 24 days no alcohol -bright affect happy to share this news has been staying at the [facility] since January 28 Will be transitioning to [facility] on Thursday Tearful during visit sharing that her daughter recently had an overdose, she is okay, and currently inpatient at a facility in [facility]. She acknowledges that while this is a challenging time for her, she does not want to risk her recovery and has chosen to stay in treatment. Bilateral lower leg edema Saw PCP on 02/07 -started on lasix Follow up March 01 Denies any SOB PFSH Medical History Possible exposure to STD DVT (deep venous thrombosis) History of anxiety History of panic attacks Depression Osteoarthritis of right hip Hypertension Surgical History History of right hip replacement History of left hip replacement History of tubal ligation History of tonsillectomy Family History Father Colon cancer Mother In good health Maternal Grandmother Breast cancer Paternal Grandmother Colon cancer Brother Multiple sclerosis Paternal Uncle Colon cancer Social History Household Members: None Housing: Homeless Are you a primary infant childcare provider to a significant other at home: No Do you presently have visiting nurse or other home services: No Alcohol intake: current Alcohol intake frequency: 3 or more drinks per day Alcohol type: hard liquor Comment: 1:1 sitter Patient Tobacco Use Status: Former Tobacco user Cigarette Packs Per Day: 0.25 Cigarettes Per Day: 5.0 Years Smoked: 20 e-Cigarette/Vaping Use: Never Used Second Hand Smoke Exposure: No Substance Use Type: Marijuana service: No Current occupational status: unemployed and disabled Current occupation: Rt handed Cognitive needs: No Hearing needs: No Vision needs: No Review of Systems Const Reports as per HPI Physical Exam Vital Signs: Last Vital Signs Pulse 80 02/17/24 13:05 BP 142/88 H 02/17/24 13:05 Pulse Ox 98 02/17/24 13:05 Oxygen Delivery Method Room Air 02/17/24 13:05 Const General: cooperative, healthy appearing, no acute distress and well groomed Extrem Right lower extremity: edema Left lower extremity: edema Office Meds Vivitrol 380 mg intramuscular suspension,extended release Performing Provider: Geetha Coombs CNP Performing Location: [facility] Administered by: Rossy Arroyo RN on 02/18/24 12:53 Dose Route Admin Location Dispensed Lot Number Expiration Date [facility] [employer] 380 mg IM RG 380 mg [id number] 05/28/26 04975-808-16 [employer] Assessment & Plan Assessment & Plan (1) Alcohol use disorder, severe, dependence: Code(s): F10.20 - Alcohol dependence, uncomplicated Category: Medical Plan: relapse prevention discussion follow up 4 weeks tolerated injection Orders: Orders AMB Naltrexone Injection Patient Supplied ([place]) 02/17/24 F10.10 - Alcohol abuse, uncomplicated
== END 2024-02-17 13:52 | disposition home or self-care (01) ==
LOC: HO.HCC 13:08
PROVIDERS: PCP Physician Assistant; Visit Provider Nurse Practitioner Psychiatric/Mental Health
DX: F10.20 Alcohol dependence, uncomplicated (principal)
CPT/HCPCS: 99213

== ENCOUNTER → 2024-02-17 13:08 | Outpatient (BNVA) | payer OTHER, SELFPAY | PROVIDERS: PCP Physician Assistant; Visit Provider Nurse Practitioner Psychiatric/Mental Health | DX: F10.20 Alcohol dependence, uncomplicated (principal); Z79.899 Other long term (current) drug therapy; Z51.81 Encounter for therapeutic drug level monitoring | CPT/HCPCS: 96372; 99212; J2315 ==

== ENCOUNTER 2024-03-01 11:23 | Outpatient (AMB) | payer OTHER, SELFPAY ==
[2024-03-01 11:27] VITALS: BP 110/72; PULSE 55; O2SAT 92; BMI 35.6
--- NOTE | 2024-03-01 11:27 | MHC.PC.OV ---
Vital Signs 03/01/24 11:27 Height 5 ft 9 in Weight 241 lb 4 oz BMI 35.6 BP 110/72 Blood Pressure Location Lt brachial Position Sitting Pulse 55 Pulse Source Pulse Oximeter Pulse Oximetry (%) 92 Oxygen Delivery Method Room Air Intake Visit Reasons: 2 Week F/U Egg Caser Required: No Accompanied by: Self / Same As Patient Allergies No Known Allergies [No Known Allergies*] Allergy (Verified 03/01/24 11:44) Medication List - Last Reconciled 03/01/24 by Declan Saravia PA-C acetaminophen 500 mg PO Q6H PRN 30 days blood pressure kit-extra large As directed clonidine HCl 0.6 mg (2 x 0.3 mg) PO BEDTIME 30 days furosemide 20 mg PO DAILY 14 days lisinopril 5 mg PO DAILY 30 days loratadine 10 mg PO DAILY 30 days naltrexone microspheres ER (Vivitrol) 380 mg IM Q4W propranolol 20 mg PO BEDTIME [Raised toilet seat As directed] Tobacco use date assessed: 02/08/24 Dental Screening Dental Screen Date: 12/23/23 HPI 2 Week F/U HPI Details Patient is a 53 year-old female here today for a follow-up visit. Patient has a past medical history significant for generalized anxiety disorder polyarthralgia hypertension, history of total hip replacement. 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 Now has 1 month sobriety. Continues to do vivitrol injection. She reports she is feeling well. She has now in a new sober living situation at the [facility] and [place]. As far as her lower extremity edema have drastically improved since she has been sober and taking furosemide. Does have upcoming appointment for echocardiogram to evaluate her heart. hypertension: Blood pressure acceptable today in office. Continues on lisinopril 5 mg. Blood pressures have been stable at home. She denies any chest pain, shortness of breath or headaches. [facility] Medical History Possible exposure to STD DVT (deep venous thrombosis) History of anxiety History of panic attacks Depression Osteoarthritis of right hip Hypertension Surgical History History of right hip replacement History of left hip replacement History of tubal ligation History of tonsillectomy Family History Father Colon cancer Mother In good health Maternal Grandmother Breast cancer Paternal Grandmother Colon cancer Brother Multiple sclerosis Paternal Uncle Colon cancer Social History Household Members: None Housing: Homeless Are you a primary companion caregiver to a significant other at home: No Do you presently have visiting nurse or other home services: No Alcohol intake: current Alcohol intake frequency: 3 or more drinks per day Alcohol type: hard liquor Comment: 1:1 sitter Patient Tobacco Use Status: Former Tobacco user Cigarette Packs Per Day: 0.25 Cigarettes Per Day: 5.0 Years Smoked: 20 Packs Per Year: 5 Packs per year/per ci.00 e-Cigarette/Vaping Use: Never Used Second Hand Smoke Exposure: No Substance Use Type: Marijuana service: No Current occupational status: unemployed and disabled Current occupation: Rt handed Cognitive needs: No Hearing needs: No Vision needs: No Questionnaire Thrive Questionnaire Date Thrive assessed: 02/08/24 DASHA-7 AMB Questionnaire DASHA-7 Date DASHA - 7 assessed: 12/23/23 Source: Developed by Drs. Ehsan Jeffrey, Garima Rueda, Stanley Dias and colleagues, with an educational moises from [employer]. Review of Systems Const Denies headache(s) Eyes Denies loss of vision ENT Denies vertigo, Denies dizziness, Denies headache(s) and Denies sore throat Card Denies chest pain, Denies leg edema and Denies lightheadedness Resp Denies cough, Denies hemoptysis and Denies wheezing GI Denies abdominal pain, Denies melena, Denies constipation, Denies diarrhea and Denies vomiting Denies urinary frequency, Denies dysuria and Denies urinary urgency Musc Denies arthralgias, Denies joint swelling, Denies numbness and Denies tingling Neuro Denies Abnormal speech present, Denies behavioral changes, Denies vertigo, Denies dizziness, Denies headache(s), Denies loss of vision, Denies memory loss, Denies numbness and Denies tingling Psych Denies anxiety, Denies behavioral changes, Denies depression, Denies memory loss and Denies panic attacks Freddie/Lymph Denies easy bleeding and Denies easy bruising Aller/Immun Denies wheezing Physical exam (Primary Care) Vital Signs: Last Vital Signs Pulse 55 03/01/24 11:27 BP 110/72 03/01/24 11:27 Pulse Ox 92 03/01/24 11:27 Oxygen Delivery Method Room Air 03/01/24 11:27 BMI result Body Mass Index 35.6 Tobacco/Smoking Status: Tobacco use Status Tobacco use date assessed 02/08/24 03/01/24 11:27 Patient Tobacco Use Status Former Tobacco user 03/01/24 11:27 e-Cigarette/Vaping Use Never Used 03/01/24 11:27 Thrive Assessment: Date of Thrive Assessment Date Thrive assessed 02/08/24 03/01/24 11:27 Const General: healthy appearing, no acute distress, alert and awake Nutritional Appearance: well nourished Orientation/consciousness: oriented to person, oriented to place and oriented to time HENMT Ears: TM's normal bilaterally General nose exam: Normal nasal mucous membranes and turbinates present Eyes Conjunctivae: conjunctivae normal Sclerae: sclerae normal Pupils: Equal, round and reactive pupils present Neck Neck: Yes no lymphadenopathy and Yes no JVD Thyroid: Thyroid normal Carotids: no bruits Resp Effort & Inspection: normal respiratory effort and not tachypneic Auscultation: no crackles, no rales, no rhonchi and no wheezes Cardio Rate: regular rate Rhythm: regular rhythm Heart sounds: no murmurs and normal S1 and S2 GI Palpation (GI): Soft to palpation, nontender, no hepatomegaly and no splenomegaly Auscultation: normal bowel sounds Skin General skin exam: no rashes or lesions noted and dry skin Neuro General: oriented to person, oriented to place and oriented to time Cranial nerves: Yes Equal, round and reactive pupils present Speech: No Abnormal speech present Gait exam (Neuro): Normal gait present Motor exam (neuro): no tremor noted Extrem Right upper extremity: full ROM Left upper extremity: full ROM Right lower extremity: full ROM; no edema Left lower extremity: full ROM; no edema Psych Mental Status: mental status grossly normal Speech and movement: Normal speech and movement present Affect: normal affect Attitude: cooperative Thought process: Normal thought process present Assessment and Plan Assessment & Plan (1) Alcohol use disorder, severe, dependence: Code(s): F10.20 - Alcohol dependence, uncomplicated Plan: PATIENT NOW IN EARLY REMISSION, 32 DAYS SOBER. SEEING THE [facility] TREATMENT C[facility] AND GETTING IM NALTREXONE INJECTIONS. NOW LIVING IN A SOBER LIVING SITUATION ([facility]) AT THE [facility] IN DOING DAILY ACTIVITIES AND MEETINGS. SHE HOPES TO GAIN LONG-TERM SOBRIETY.. (2) Hypertension: Code(s): I10 - Essential (primary) hypertension Qualifiers: Hypertension type: primary hypertension Qualified Code(s): I10 - Essential (primary) hypertension Plan: Patient's blood pressure acceptable today in office. We have restarted lisinopril 5 mg. Blood pressures are acceptable.. Goal blood pressures to remain below 140/90 (3) DASHA (generalized anxiety disorder): Code(s): F41.1 - Generalized anxiety disorder Plan: Patient does continue to suffer with anxiety. She does use propanolol for her somatic symptoms(heart palpitations) that manifest in her anxiety. Also does use clonidine at bedtime with good effect on sleep. (4) Lower extremity edema: Code(s): R60.0 - Localized edema Plan: Continues to use furosemide 20 mg. Legs are much improved. Has lost significant amount of weight since last office visit. Does have upcoming appointment for echocardiogram to evaluate for cardiomyopathy. Patient Instructions: :Goal: Blood pressure to remain below 140/90, maintain sobriety Barriers: Adherence to physical activity and healthy eating habits. Coding Level of Care Code Est Pt Level 4 (07856) Complex EM visit Add On [id number] Diagnoses Alcohol use disorder, severe, dependence F10.20 Primary hypertension I10 Hypertension type: primary hypertension DASHA (generalized anxiety disorder) F41.1 Lower extremity edema R60.0
== END 2024-03-01 11:57 | disposition home or self-care (01) ==
PROVIDERS: PCP Physician Assistant; Visit Provider Physician Assistant
DX: I10 Essential (primary) hypertension (principal); F10.20 Alcohol dependence, uncomplicated; F41.1 Generalized anxiety disorder; R60.0 Localized edema
CPT/HCPCS: 99214; G2211

== ENCOUNTER → 2024-03-09 12:42 | Outpatient (REF) | payer OTHER, SELFPAY ==
--- NOTE | 2024-03-09 12:45 | CA_ITS ---
Transthoracic Echocardiogram Patient (Last, First, Middle): Angelica Ventura M Gender: Female Date of : 1970 Age: 53 Procedure Date: 03/09/2024 Procedure Type: Transthoracic Echocardiogram Location: OP Height: 175.26 cm Weight: 108.86 kg BSA: 2.23 m2 Heart Rate: bpm BP: 110 / 70 mmHg Commissioned Security Officer: TO Referring MD: Declan Saravia PA-C Symptoms: R60.0 - Localized edema Study Quality: Adequate ECG Rhythm: Sinus Conclusions: - The left ventricular systolic function is normal. The calculated ejection fraction is 67% by biplane method. - The left atrium is moderately dilated. - No obvious valvular pathology seen on this study. Findings Left Ventricle Normal left ventricular cavity size. The left ventricular systolic function is normal. The calculated ejection fraction is 67% by biplane method. There is no evidence of regional wall motion abnormalities. There is mild septal asymmetric hypertrophy. LV peak GLS -22.3% (normal). Right Ventricle Normal right ventricular cavity size and systolic function. Atria The left atrium is moderately dilated. The right atrium is mildly dilated. Aortic Valve There is a normal trileaflet aortic valve. There is no aortic valve stenosis. There is no aortic valve regurgitation. Mitral Valve There is mild mitral annular calcification. There is no mitral valve regurgitation. There is no mitral valve stenosis. Pulmonic Valve There is trace pulmonic valve regurgitation. Tricuspid Valve Normal tricuspid valve structure. There is trace tricuspid valve regurgitation. There is no evidence of pulmonary hypertension. Great Vessels The asc aorta is normal in size. Venous The inferior vena cava is normal in size and collapses greater than 50% with inspiration. Pericardium/Pleural There is no evidence of pericardial effusion. Prior Study Comparison Changes noted compared to prior study dated: 10/26/2019. Increase in left atrial size. Recommendations, Care & Conclusions No obvious valvular pathology seen on this study. Measurements 2D Linear Measurements IVSd: 1.26 0.6-0.9/0.6-1.0 cm LVIDd: 5.07 3.9-5.3/4.2-5.9 cm LVIDd Index: 2.27 2.4-3.2/2.2-3.1 cm/m2 LVIDs: 3.38 2.0-3.6 cm LVPWd: 0.75 0.7-1.1 cm LA Diam: 4.50 2.7-3.8/3.0-4.0 cm LAIDs Index: 2.02 1.5-2.3 cm/m2 LV Mass: 233.24 67-162/88-224 g LV Mass Index: 104.59 43-95/49-115 g/m2 LVOT Diam: 2.10 3.0+(-)1.3 cm 2D Systolic Function EF 4C: 68.20 >55% EF 2C: 64.10 >55% EF BiP: 66.60 >55% Mitral Valve MV Pk E: 0.76 MV PK A: 0.50 MV Decel Time: 205.00 E/A: 1.50 E'Lateral: 8.70 E'Medial: 6.85 E/E' Med: 11.10 E/E' Lat: 8.80 PHT: 60.00 MVA PHT: 3.67 Decel [place]: 3.71 Aortic Valve AoV Pk Grabiel: 1.50 AoV Mn Grabiel: 1.06 AoV VTI: 0.36 AoV Pk Grad: 9.00 Aov Mn Grad: 5.00 LINA Cont.VTI: 2.49 LVOT LVOT Pk Grabiel: 1.15 LVOT Mn Grabiel: 0.70 LVOT VTI: 0.26 LVOT Pk Grad: 5.00 LVOT Mn Grad: 2.00 LVOT Diam: 2.10 LVOT Area: 3.46 Diastolic Function MV Pk E: 0.76 MV Pk A: 0.50 E/A: 1.50 E'Medial: 6.85 E/E' Med: 11.10 E' Laterial: 8.70 E/E' Lat: 8.80 Right Ventricle TAPSE (mm): 26.40 TVS' Grabiel: 12.10 Tricuspid Valve TR Pk Grabiel: 2.28 TR Pk Grad: 21.00 RA Press: 3.00 RVSP: 24.00 Great Vessels Aorta Sinus of Valsalva: 3.19 2.0-3.5 cm Ao Asc: 3.20 2.1-3.4 cm Ao Arch: 3.00 Updated in Other Vendor System with Status of Final Laurent Soliz MD electronically signed on 03/10/2024 11:11:54 AM with status of Final
== END ==
LOC: HO.CARD 12:42
PROVIDERS: PCP Physician Assistant; Visit Provider Physician Assistant
DX: R60.0 Localized edema (principal)
CPT/HCPCS: 93306; 93356

== ENCOUNTER → 2024-03-09 12:45 | Outpatient (BNV) | payer OTHER, SELFPAY | PROVIDERS: PCP Physician Assistant; Visit Provider Internal Medicine | DX: I34.81 Nonrheumatic mitral (valve) annulus calcification (principal); I51.7 Cardiomegaly | CPT/HCPCS: 93306; 93356 ==

== ENCOUNTER 2024-03-17 09:48 | Outpatient (AMB) | payer OTHER, SELFPAY ==
--- NOTE | 2024-03-17 09:49 | AM.OFFVISNUR ---
Intake Intake Visit Reasons: Dora Inj Allergies No Known Allergies [No Known Allergies*] Allergy (Verified 03/01/24 11:44) Nursing Note Patient here today in clinic for injection. Pt is alert and oriented x4, in good spirits, speaking in clear/full sentences. Denies any complications with previous injection. Patient has been residing at the [facility] for about a month, states she feels great , is having a hard time with other clients at facility, she states they steal often, and this worries her, she also bought herself multivitamins and staff at facility she states threw them away. She requested that we write her a script so she can take them according to the rules of the [facility] . Office Meds Vivitrol 380 mg intramuscular suspension,extended release Performing Provider: Geetha Coombs CNP Performing Location: [facility] [[email or web address]] Administered by: Rossy Arroyo RN on 03/17/24 10:14 Dose Route Admin Location Dispensed Lot Number Expiration Date [facility] Steam Conditioning Operator 380 mg IM RG 380 mg [id number] 07/28/26 89301-997-48 [employer] Coding Assessment & Plan Assessment & Plan Orders: Orders AMB Naltrexone Injection Patient Supplied (NC) Today F10.10 - Alcohol abuse, uncomplicated Medications: New Vivitrol ER (naltrexone microspheres) 380 mg IM ONCE 1 ea 0RF NS F10.10 - Alcohol abuse, uncomplicated
== END 2024-03-17 10:04 | disposition home or self-care (01) ==
LOC: HO.HCC 09:48
PROVIDERS: PCP Physician Assistant
DX: F10.10 Alcohol abuse, uncomplicated (principal)

== ENCOUNTER → 2024-03-17 09:48 | Outpatient (BNVA) | payer OTHER, SELFPAY | PROVIDERS: PCP Physician Assistant | DX: F10.10 Alcohol abuse, uncomplicated (principal); Z79.899 Other long term (current) drug therapy | CPT/HCPCS: 96372; J2315 ==

== ENCOUNTER 2024-03-25 07:43 | Outpatient (REF) | payer OTHER, SELFPAY | END 2024-03-25 07:44 | disposition home or self-care (01) | LOC: HO.MAMMO 07:43 | PROVIDERS: PCP Physician Assistant; Visit Provider Physician Assistant | DX: Z12.31 Encounter for screening mammogram for malignant neoplasm of breast (principal) | CPT/HCPCS: 77063; 77067 ==

== ENCOUNTER → 2024-03-25 08:00 | Outpatient (BNV) | payer OTHER, SELFPAY | PROVIDERS: PCP Physician Assistant; Visit Provider Radiology Diagnostic Radiology | DX: Z12.31 Encounter for screening mammogram for malignant neoplasm of breast (principal) | CPT/HCPCS: 77063; 77067 ==

== ENCOUNTER 2024-04-13 14:11 | Outpatient (AMB) | payer OTHER, SELFPAY ==
--- NOTE | 2024-04-13 14:21 | AM.OFFVISNUR ---
Vital Signs 04/13/24 14:32 BP 130/80 Blood Pressure Location Rt brachial Position Sitting Respiration 19 Pulse 88 Pulse Source Pulse Oximeter Intake Visit Reasons: Dora Inj Allergies No Known Allergies [No Known Allergies*] Allergy (Verified 03/01/24 11:44) Nursing Note Patient to clinic today for vivitrol injection. Alert and oriented x4, denies any complications with previous injection, injection today given per orders in the RG. Will follow up in 4 weeks with RN. Patient continues her treatment and support systems with the [facility] that she resides in, doing AA multiple times a week. Office Meds Vivitrol 380 mg intramuscular suspension,extended release Performing Provider: Geetha Coombs CNP Performing Location: [facility] Administered by: Rossy Arroyo RN on 04/13/24 14:30 Dose Route Admin Location Dispensed Lot Number Expiration Date [facility] Manager Music 380 mg IM RG 380 mg [id number] 04/13/24 50467-210-25 [employer] Dynamo Assessment & Plan Assessment & Plan Orders: Orders AMB Naltrexone Injection Patient Supplied (NC) Today F10.20 - Alcohol dependence, uncomplicated Medications: New Vivitrol ER (naltrexone microspheres) 380 mg IM ONCE 1 ea 0RF NS F10.20 - Alcohol dependence, uncomplicated
[2024-04-13 14:32] VITALS: BP 130/80; PULSE 88; RESP 19
== END 2024-04-13 14:36 | disposition home or self-care (01) ==
PROVIDERS: PCP Physician Assistant
DX: F10.20 Alcohol dependence, uncomplicated (principal)

== ENCOUNTER → 2024-04-13 14:11 | Outpatient (BNVA) | payer OTHER, SELFPAY | PROVIDERS: PCP Physician Assistant | DX: F10.20 Alcohol dependence, uncomplicated (principal) | CPT/HCPCS: 96372; J2315 ==

== ENCOUNTER 2024-04-16 08:39 | Emergency (ER) | payer OTHER, SELFPAY ==
--- NOTE | ~2024-04-16 | XR_ITS ---
EXAMINATION: XR LUMBOSACRAL SPINE CLINICAL INFORMATION: Fall. COMPARISON: MR lumbar spine 09/06/2014. TECHNIQUE: Three views of the lumbosacral spine. FINDINGS: Mild rightward curvature of the lumbar spine with apex at L3. No evidence of acute compression deformity or subluxation. Moderate intervertebral disc height loss with endplate sclerosis at L5-S1. Moderate multilevel facet arthropathy more prominent at L5-S1 where there is some degree of neural foraminal encroachment. Symmetric SI joints. No significant paraspinal soft tissue abnormality. Partially seen bilateral hip arthroplasties. Tubular-shaped radiopaque body in the left upper pelvis, possibly surgical clip, correlate with prior surgical history. XR/XR lumbar spine 2-3V IMPRESSION: 1. No acute compression deformity or malalignment. 2. Moderate lumbar spondylosis, more prominent at L5-S1.
--- NOTE | ~2024-04-16 | XR_ITS ---
EXAMINATION: RADIOGRAPH PELVIS AND LEFT HIP CLINICAL INFORMATION: Fall, post total hip arthroplasty. COMPARISON: Radiograph pelvis 03/07/2021. TECHNIQUE: 1 view of the pelvis and 2 views of the left hip. FINDINGS: Total left-sided hip arthroplasty. No evidence of hardware fracture or complication. Partially seen total right-sided hip arthroplasty without discrete abnormality, the distal aspect of the femoral stem is not included in the field of view. No acute fracture or subluxation. Symmetric SI joints. Pubic symphysis is maintained. Elongated radiopaque body, possibly surgical clip overlying the left upper pelvis. Small pelvic calcifications suggestive of phleboliths. XR/XR hip LT w PEL1V IMPRESSION: No acute fracture or subluxation.
--- NOTE | ~2024-04-16 | XR_ITS ---
RADIOGRAPH LEFT HUMERUS AND LEFT ELBOW CLINICAL HISTORY: Fall. COMPARISON: Radiograph left elbow 03/10/2010 and. Radiograph right shoulder 07/02/2016. TECHNIQUE: 2 views of the left humerus and 2 views of the left elbow. FINDINGS: No acute fracture or subluxation. No joint effusion. No significant soft tissue abnormality. XR/XR humerus LT IMPRESSION: Normal radiographic examinations of the left humerus and left elbow.
--- NOTE | ~2024-04-16 | XR_ITS ---
RADIOGRAPH LEFT HUMERUS AND LEFT ELBOW CLINICAL HISTORY: Fall. COMPARISON: Radiograph left elbow 03/10/2010 and. Radiograph right shoulder 07/02/2016. TECHNIQUE: 2 views of the left humerus and 2 views of the left elbow. FINDINGS: No acute fracture or subluxation. No joint effusion. No significant soft tissue abnormality. XR/XR elbow LT 2V IMPRESSION: Normal radiographic examinations of the left humerus and left elbow.
[2024-04-16 08:45] VITALS: BP 180/100; PULSE 60; O2SAT 95
[2024-04-16 08:48] VITALS: BMI 35.4
[2024-04-16 08:50] VITALS: BP 106/73; PULSE 60; RESP 18; TEMP 36.6; O2SAT 100
--- NOTE | 2024-04-16 08:50 | PC.NURSE ---
a&ox4. vss and up to date. pt biba from the [facility] s/p falling down the stairs after someone mopped. pt verbalizes falling from the 2nd/3rd step but is worried d/t past surgical history of bilateral hip replacements. pt c/o lower back pain/left hip/left elbow pain. denies any numbness/tingling. no sob/wob noted. respirations even/unlabored. plan of care ongoing. call coats placed within reach.
--- NOTE | 2024-04-16 08:53 | ED.FALL ---
HPI - Fall General Chief Complaint: Fall Stated Complaint: FELL DOWN 2 STEPS L ELBOW PAIN Time Seen by Provider: 04/16/24 08:51 Source: patient and EMS Mode of arrival: EMS Limitations: no limitations History of Present Illness ED Provider: DR. Becker HPI Narrative: 53-year-old female came in for evaluation after a mechanical fall. Patient is a [facility] resident for alcohol detox rehab was going downstairs patient stepped on a wet stairs causing her to lose balance and fall down 2 steps of stairs landing on her back, no head injury, no LOC, no neck pain, no numbness, no weakness. Patient is complaining of low back pain, left elbow pain, and left hip pain. Patient is s/p bilateral THR. No history of AC therapy. Related Data Home Medications ?Medication ?Instructions ?Recorded ?Confirmed naltrexone microspheres 380 mg 380 mg IM Q4W 01/14/24 03/01/24 intramuscular suspension,extended release (Vivitrol) propranolol 20 mg tablet 20 mg PO BEDTIME for panic attack 01/25/24 03/01/24 Previous Rx's ?Medication ?Instructions ?Recorded Raised toilet seat #1 ea 01/17/21 blood pressure kit-extra large #1 ea 11/05/21 clonidine HCl 0.3 mg tablet 0.6 mg (2 x 0.3 mg) PO BEDTIME 30 02/08/24 days #60 tabs lisinopril 5 mg tablet 5 mg PO DAILY 30 days #30 tabs 02/08/24 loratadine 10 mg tablet 10 mg PO DAILY 30 days #30 tabs 02/08/24 multivitamin (Daily Multi-Vitamin 1 tab PO QAM #30 tabs 03/17/24 tablet) acetaminophen 500 mg capsule 500 mg PO Q6H PRN fever 30 days 03/30/24 #120 caps furosemide 20 mg tablet 20 mg PO DAILY 14 days #14 tabs 04/15/24 Allergies Allergy/AdvReac Type Severity Reaction Status Date / Time No Known Allergies Allergy Verified 04/16/24 08:49 [No Known Allergies*] Review of Systems Review of Systems: All other systems are reviewed and are negative Constitutional: Reports as per HPI and Reports no additional constitutional complaints Eyes: Reports as per HPI and Reports no additional eye complaints Reports system reviewed and no additional complaints, except as documented Cardiovascular: Reports as per HPI and Reports no additional cardiovascular complaints Respiratory: Reports as per HPI and Reports no additional respiratory complaints Gastrointestinal: Reports as per HPI and Reports no additional gastrointestinal complaints Genitourinary: Reports no additional female genitourinary complaints Musculoskeletal: Reports no additional musculoskeletal complaints Skin/Breast: Reports system reviewed and no additional complaints, except as docu Psychiatric: Reports no additional psychiatric complaints Endocrine: Reports no additional endocrine complaints Hematologic/Lymphatic: Reports no additional hematologic/lymphatic complaints Allergic/Immunologic: Reports no additional allergic/immunologic complaints Reports system reviewed and no additional complaints, except as documented and Reports Abnormal speech present [facility] Past Medical History Medical History Possible exposure to STD DVT (deep venous thrombosis) History of anxiety History of panic attacks Depression Osteoarthritis of right hip Hypertension Surgical History History of right hip replacement History of left hip replacement History of tubal ligation History of tonsillectomy Family History Family History Father Colon cancer Mother In good health Maternal Grandmother Breast cancer Paternal Grandmother Colon cancer Brother Multiple sclerosis Paternal Uncle Colon cancer Social History Social History Household Members: None Housing: Homeless Are you a primary long term acute care registered nurse to a significant other at home: No Do you presently have visiting nurse or other home services: No Alcohol intake: current Alcohol intake frequency: 3 or more drinks per day Alcohol type: hard liquor Comment: 1:1 sitter Patient Tobacco Use Status: Former Tobacco user Cigarette Packs Per Day: 0.25 Cigarettes Per Day: 5.0 Years Smoked: 20 e-Cigarette/Vaping Use: Never Used Second Hand Smoke Exposure: No Substance Use Type: Marijuana Advance Directives: No Advance Directives Information Provided: No Do you have a plan to hurt others: No Plan service: No Current occupational status: unemployed and disabled Current occupation: Rt handed Cognitive needs: No Hearing needs: No Vision needs: No Physical Exam Vital Signs: Vital Signs: Last Vital Signs Temp 97.9 F 04/16/24 08:50 Pulse 60 04/16/24 08:50 Resp 18 04/16/24 08:50 BP 106/73 04/16/24 08:50 Pulse Ox 100 04/16/24 08:50 O2 Del Method Room Air 04/16/24 08:50 BMI result Body Mass Index 35.4 Vital signs have been reviewed and appear to be correct. Blood pressure elevated. Heart rate normal. Respiratory rate normal. Temperature normal. Oxygen saturation normal. Appearance: Alert. Oriented X3. No acute distress. Head: Normal external exam. Normocephalic. Atraumatic. No Pritchett signs noted. No raccoon eyes noted Eyes: PERRLA. EOMI. Conjunctiva and sclera normal. Eyelids normal. ENT: TM's Normal. Pharynx normal. Uvula midline. Moist mucous membranes. No trismus noted. No drooling noted. No muffled voice noted. Neck: Normal inspection. Neck supple. FROM. No adenopathy. Thyroid Normal. No meningeal signs. No neck mass noted. CVS: Normal heart rate and rhythm. Heart sound normal. No murmurs noted. Pulses normal throughout. Respiratory: No respiratory distress. Painless inspiration. Breath sounds normal. No wheezes/rales/rhonchi noted. Chest nontender. No accessory muscle usage noted or decreased air movement noted. Abdomen: Soft and nontender. Bowel sounds normal in all 4 quadrants. No distention noted. No organomegaly noted. No visible injury noted. Back: No CVA tenderness. Full range of motion noted. Skin: Skin warm and dry. Normal skin color. Normal skin turgor. No rashes/lesions/lacerations noted. Extremities: Slight tenderness over the left mid humerus and left elbow with full range of motion, neurovascularly intact. Left hip: No deformity, no step-off, no leg shortness or rotation, neurovascularly intact. Neuro: Oriented X 3. Cranial nerve exam: II-XII are grossly intact No motor deficit. No sensory deficit. Reflexes normal. Course Reevaluation(s) Reevaluation #1: Unremarkable x-rays, patient is able to ambulate in the emergency department with no Abnormal limping or pain. Time: 10:34 Medical Decision Making Differential Diagnosis Differential Diagnoses: The differential diagnosis associated with the presentation includes ( Head injury, cervical spine injury, chest injury, extremity injury, abdominal trauma.) Admission/Observation Consideration of admission/observation: Escalation of care including admission/observation considered Independent Interpretation I performed an independent interpretation of an: Plain X-Ray ( Left elbow, pelvis, left hip x-ray: No acute fracture.) Radiology Impression Discussion of test interpretation with radiology: I have reviewed the radiologist's reading. Discharge Plan Discharge Clinical Impression: Accident due to mechanical fall without injury, Contusion of elbow, left, Contusion of back Patient Disposition: Home, Self-Care Instructions: Fall Prevention for Older Adults (ED), Contusion in Adults (ED) Additional Instructions: take ibuprofen 200 mg tablet every 6 hours if needed for pain. (it is [id number] ) Prescriptions: No Action multivitamin [Daily Multi-Vitamin] Tablet 1 tab PO QAM Qty: 30 3RF acetaminophen 500 mg capsule 500 mg PO Q6H PRN (Reason: fever) 30 Days Qty: 120 0RF furosemide 20 mg tablet 20 mg PO DAILY 14 Days Qty: 14 0RF Vivitrol 380 mg suspension,extended rel recon 380 mg IM Q4W propranolol 20 mg tablet 20 mg PO BEDTIME lisinopril 5 mg tablet 5 mg PO DAILY 30 Days Qty: 30 3RF loratadine 10 mg tablet 10 mg PO DAILY 30 Days Qty: 30 3RF clonidine HCl 0.3 mg tablet 0.6 mg PO BEDTIME 30 Days Qty: 60 6RF (DME) blood pressure kit-extra large Kit See Rx Instructions .Route Qty: 1 0RF Rx Instructions: As directed (DME) Raised toilet seat See Rx Instructions .ROUTE .MEDSUPPLY Qty: 1 0RF Rx Instructions: As directed Print Language: Guatemalan
--- NOTE | 2024-04-16 09:10 | PC.NURSE ---
pt returned from xray at this time. plan of care ongoing.
--- NOTE | 2024-04-16 10:28 | PC.NURSE ---
pt ambulated to the restroom w/ a strong/steady gait independently. pt denies feeling dizzy/lightheaded. no sob/wob shown. respirations even/unlabored.
[2024-04-16 10:46] VITALS: BP 106/73; PULSE 60; RESP 18; TEMP 36.6; O2SAT 100
== END 2024-04-16 10:46 | disposition home or self-care (01) ==
PROVIDERS: Emergency Provider Emergency Medicine; PCP Physician Assistant
DX: S50.02XA Contusion of left elbow, initial encounter (principal); S30.0XXA Contusion of lower back and pelvis, initial encounter; W10.8XXA Fall (on) (from) other stairs and steps, initial encounter; Y93.89 Activity, other specified; Y92.198 Other place in other specified residential institution as the place of occurrence of the external cause; Y99.9 Unspecified external cause status
CPT/HCPCS: 72100; 73060; 73070; 73502; 99282; 99283

== ENCOUNTER 2024-04-25 13:33 | Outpatient (AMB) | payer OTHER, SELFPAY ==
--- NOTE | 2024-04-25 13:47 | A.OFFPC_ITS ---
Vital Signs 3 04/25/24 13:51 Height 5 ft 9 in Weight 238 lb 6 oz BMI 35.2 BP 100/70 Blood Pressure Location Lt brachial Position Sitting Pulse 69 Pulse Source Pulse Oximeter Pulse Oximetry (%) 96 Oxygen Delivery Method Room Air [place] [facility] [place] DOWN 2 STEPS L ELBOW PAIN Intake Note: The patient would like all her medications transferred back to [facility]. Please send all prescriptions to [facility] instead of [facility]. Private Duty Rn Required: No Accompanied by: Self / Same As Patient Allergies No Known Allergies [No Known Allergies*] Allergy (Verified 04/25/24 14:16) Medication List - Last Reconciled 04/25/24 by Declan Saravia PA-C acetaminophen 500 mg PO Q6H PRN 30 days blood pressure kit-extra large As directed clonidine HCl 0.6 mg (2 x 0.3 mg) PO BEDTIME 30 days furosemide 20 mg PO DAILY 14 days lisinopril 5 mg PO DAILY 30 days loratadine 10 mg PO DAILY 30 days multivitamin (Daily Multi-Vitamin tablet) 1 tab PO QAM naltrexone microspheres ER (Vivitrol) 380 mg IM Q4W propranolol 20 mg PO BEDTIME [Raised toilet seat As directed] Tobacco use date assessed: 02/08/24 Dental Screening Dental Screen Date: 12/23/23 [place] [facility] [place] FELL DOWN 2 STEPS L ELBOW PAIN 2 HPI0 Details Patient is a 53-year-old female here today for an ER follow-up visit. Patient fell down 2 steps injuring her left elbow and lower back. X-rays without any acute findings of fractures. She reports the fall was mechanical by slipping down 2 stairs. Has been using Tylenol with good effect on reducing her pain. Otherwise doing well and continues to live in sobriety. Obesity--> patient would like to reestablish care with the bariatric program to be considered for bariatric surgery. [facility] Medical History Possible exposure to STD DVT (deep venous thrombosis) History of anxiety History of panic attacks Depression Osteoarthritis of right hip Hypertension Surgical History History of right hip replacement History of left hip replacement History of tubal ligation History of tonsillectomy Family History Father Colon cancer Mother In good health Maternal Grandmother Breast cancer Paternal Grandmother Colon cancer Brother Multiple sclerosis Paternal Uncle Colon cancer Social History Household Members: None Housing: Homeless Are you a primary care administrative tech to a significant other at home: No Do you presently have visiting nurse or other home services: No Alcohol intake: current Alcohol intake frequency: 3 or more drinks per day Alcohol type: hard liquor Comment: 1:1 sitter Patient Tobacco Use Status: Former Tobacco user Cigarette Packs Per Day: 0.25 Cigarettes Per Day: 5.0 Years Smoked: 20 Packs Per Year: 5 Packs per year/per ci.00 e-Cigarette/Vaping Use: Never Used Second Hand Smoke Exposure: No Substance Use Type: Marijuana service: No Current occupational status: unemployed and disabled Current occupation: Rt handed Cognitive needs: No Hearing needs: No Vision needs: No Questionnaire Thrive Questionnaire Date Thrive assessed: 02/08/24 DASHA-7 AMB Questionnaire DASHA-7 Date DASHA - 7 assessed: 12/23/23 Source: Developed by Drs. Ehsan Jeffrey, Garima Rueda, Stanley Dias and colleagues, with an educational moises from [employer]. Review of Systems Const Denies headache(s) Eyes Denies loss of vision ENT Denies vertigo, Denies dizziness, Denies headache(s) and Denies sore throat Card Denies chest pain, Denies leg edema and Denies lightheadedness Resp Denies cough, Denies hemoptysis and Denies wheezing GI Denies abdominal pain, Denies melena, Denies constipation, Denies diarrhea and Denies vomiting Denies urinary frequency, Denies dysuria and Denies urinary urgency Musc Denies arthralgias, Denies joint swelling, Denies numbness and Denies tingling Neuro Denies Abnormal speech present, Denies behavioral changes, Denies vertigo, Denies dizziness, Denies headache(s), Denies loss of vision, Denies memory loss, Denies numbness and Denies tingling Psych Denies anxiety, Denies behavioral changes, Denies depression, Denies memory loss and Denies panic attacks Freddie/Lymph Denies easy bleeding and Denies easy bruising Aller/Immun Denies wheezing Physical exam (Primary Care) Vital Signs: Last Vital Signs Pulse 69 04/25/24 13:51 BP 100/70 04/25/24 13:51 Pulse Ox 96 04/25/24 13:51 Oxygen Delivery Method Room Air 04/25/24 13:51 BMI result Body Mass Index 35.2 Tobacco/Smoking Status: Tobacco use Status Tobacco use date assessed 02/08/24 04/25/24 13:49 Patient Tobacco Use Status Former Tobacco user 04/25/24 13:49 e-Cigarette/Vaping Use Never Used 04/25/24 13:49 Thrive Assessment: Date of Thrive Assessment Date Thrive assessed 02/08/24 04/25/24 13:49 Const General: healthy appearing, no acute distress, alert and awake Nutritional Appearance: well nourished Orientation/consciousness: oriented to person, oriented to place and oriented to time HENMT Ears: TM's normal bilaterally General nose exam: Normal nasal mucous membranes and turbinates present Eyes Conjunctivae: conjunctivae normal Sclerae: sclerae normal Pupils: Equal, round and reactive pupils present Neck Neck: Yes no lymphadenopathy and Yes no JVD Thyroid: Thyroid normal Carotids: no bruits Resp Effort & Inspection: normal respiratory effort and not tachypneic Auscultation: no crackles, no rales, no rhonchi and no wheezes Cardio Rate: regular rate Rhythm: regular rhythm Heart sounds: no murmurs and normal S1 and S2 GI Palpation (GI): Soft to palpation, nontender, no hepatomegaly and no splenomegaly Auscultation: normal bowel sounds Skin General skin exam: no rashes or lesions noted and dry skin Neuro General: oriented to person, oriented to place and oriented to time Cranial nerves: Yes Equal, round and reactive pupils present Speech: No Abnormal speech present Gait exam (Neuro): Normal gait present Motor exam (neuro): no tremor noted Extrem Right upper extremity: full ROM Left upper extremity: full ROM Elbow/forearm/wrist images: 2 1. SOME FADING ECCHYMOSIS OVER THE LEFT FOREARM AND ELBOW. Right lower extremity: full ROM; no edema Left lower extremity: full ROM; no edema Psych Mental Status: mental status grossly normal Speech and movement: Normal speech and movement present Affect: normal affect Attitude: cooperative Thought process: Normal thought process present Assessment and Plan Assessment & Plan (1) Obese: Code(s): E66.9 - Obesity, unspecified Qualifiers: Body mass index: BMI 36.0-36.9 Obesity classification: adult class 2 (BMI 35 - 39.9) Obesity type: due to excess calories Serious obesity comorbidity presence: with serious comorbidity Qualified Code(s): E66.01 - Morbid (severe) obesity due to excess calories; Z68.36 - Body mass index [BMI] 36.0-36.9, adult Plan: Patient does understand her BMI remains above 30. She was in the weight management program in 2019. She was interested in getting bariatric surgery at though at the time pandemic was happening and she was not able to get surgery. She would like to articulate back into the bariatric program. (2) Status post fall: Code(s): Z91.81 - History of falling Plan: As per HPI patient suffered a mechanical fall down 2 stairs at her residence. Was seen at the ER gotten multiple x-rays without any acute fractures. Did so for some contusions and bruises. Otherwise doing well. Has been using Tylenol for her pain with good effect. Orders: Referrals 2 Bariatric Surgery Referral E66.01 - Morbid (severe) obesity due to excess calories, Z68.36 - Body mass index [BMI] 36.0-36.9, adult Medications: Changed 2 From acetaminophen 500 mg PO Q6H 30 days PRN 120 caps 0RF fever M25.562 - Pain in left knee To acetaminophen 1,000 mg (2 x 500 mg) PO Q6H PRN 120 caps 3RF fever 30 days M25.562 - Pain in left knee From propranolol 20 mg PO BEDTIME for panic attack I10 - Essential (primary) hypertension To propranolol 20 mg PO BEDTIME 90 tabs 3RF for panic attack 90 days I10 - Essential (primary) hypertension Refilled 2 lisinopril 5 mg PO DAILY 30 tabs 3RF 30 days I10 - Essential (primary) hypertension clonidine HCl 0.6 mg (2 x 0.3 mg) PO BEDTIME 60 tabs 6RF 30 days F41.1 - Generalized anxiety disorder furosemide 20 mg PO DAILY 14 tabs 0RF 14 days R60.0 - Localized edema loratadine 10 mg PO DAILY 30 tabs 3RF 30 days J30.1 - Allergic rhinitis due to pollen Coding Level of Care Code Est Pt Level 3 (14136) Diagnoses Class 2 severe obesity due to excess calories with serious comorbidity and body mass index (BMI) of 36.0 to 36.9 in adult E66.01; Z68.36 Body mass index: BMI 36.0-36.9 Obesity classification: adult class 2 (BMI 35 - 39.9) Obesity type: due to excess calories Serious obesity comorbidity presence: with serious comorbidity Status post fall Z91.81
[2024-04-25 13:51] VITALS: BP 100/70; PULSE 69; O2SAT 96; BMI 35.2
== END 2024-04-25 14:31 | disposition home or self-care (01) ==
PROVIDERS: PCP Physician Assistant; Visit Provider Physician Assistant
DX: E66.01 Morbid (severe) obesity due to excess calories (principal); Z68.36 Body mass index [BMI] 36.0-36.9, adult; Z91.81 History of falling
CPT/HCPCS: 99213

== ENCOUNTER → 2024-05-03 10:54 | Outpatient (BNVA) | payer OTHER, SELFPAY | PROVIDERS: PCP Physician Assistant; Visit Provider Surgery ==

== ENCOUNTER 2024-05-11 14:26 | Outpatient (AMB) | payer OTHER, SELFPAY ==
--- NOTE | 2024-05-11 14:59 | AM.OFFVISNUR ---
Intake Visit Reasons: Dora Inj Allergies No Known Allergies [No Known Allergies*] Allergy (Verified 05/03/24 11:44) Nursing Note Patient Presents for vivitrol Injection on 05/11. Given in the with LG no noted or stated complication. Denies any issues with previous injection. Denies symptoms, and denies any break through cravings. Will follow up with RN in 4 weeks for injection. Will need to see provider for check in in June . Office Meds Vivitrol 380 mg intramuscular suspension,extended release Performing Provider: Geetha Coombs CNP Performing Location: [facility] Administered by: Rossy Arroyo RN on 05/11/24 08:31 Dose Route Admin Location Dispensed Lot Number Expiration Date [facility] Manager Quality Improvement 380 mg IM LG 380 mg [id number] 02/25/26 [id number] [employer] Assessment & Plan Assessment & Plan Orders: Orders AMB Naltrexone Injection Patient Supplied (NC) 05/11/24 F10.20 - Alcohol dependence, uncomplicated Medications: New Vivitrol ER (naltrexone microspheres) 380 mg IM ONCE 1 ea 0RF NS F10.20 - Alcohol dependence, uncomplicated
== END 2024-05-11 14:56 | disposition home or self-care (01) ==
PROVIDERS: PCP Physician Assistant
DX: F10.20 Alcohol dependence, uncomplicated (principal)

== ENCOUNTER → 2024-05-11 14:26 | Outpatient (BNVA) | payer OTHER, SELFPAY | PROVIDERS: PCP Physician Assistant | DX: F10.20 Alcohol dependence, uncomplicated (principal) | CPT/HCPCS: 96372; J2315 ==

== ENCOUNTER 2024-05-21 08:54 | Outpatient (REF) | payer OTHER, SELFPAY ==
[2024-05-21 10:29] LABS: Alanine Aminotransferase 8 U/L (0-31); Albumin Level 4.1 g/dL (3.5-5.0); Alkaline Phosphatase 74 U/L (39-117); Anion Gap 14 (12-20); Aspartate Amino Transferase 12 U/L (5-31); Bilirubin Total 0.5 mg/dL (0.0-1.0); Blood Urea Nitrogen 11 mg/dL (9-16); Calcium 10.1 mg/dL (8.4-10.2); Carbon Dioxide 28 mmol/L (22-29); Chloride 108 mmol/L (96-108); Cholesterol 207 mg/dL (<200); Estimated Glomerular Filt Rate > 60; Glucose Fasting 116 mg/dL (60-99); HDL Cholesterol 48 mg/dL (>40); LDL Cholesterol Calculated 134 mg/dL (<100); Potassium 5.2 mmol/L (3.3-5.1); Sodium 145 mmol/L (135-145); Total Protein 7.2 g/dL (6.5-8.0); Triglycerides 127 mg/dL (<150)
[2024-05-21 10:41] LABS: Hematocrit 37.2 % (37.0-47.0); Hemoglobin 12.1 g/dl (12.0-16.0); Mean Corpuscular HGB Conc 32.5 g/dl (31.0-35.0); Mean Corpuscular Hemoglobin 30.3 pg (27.0-33.0); Mean Corpuscular Volume 93.2 fL (80.0-98.0); Mean Platelet Volume 11.3 fL (9.4-12.3); Platelet Count 168 X10*3/uL (160-400); Red Blood Count 3.99 X10*6/uL (4.20-5.50); Red Cell Distribution Width 12.6 % (11.0-16.0); White Blood Count 5.6 X10*3/uL (4.8-10.8)
[2024-05-21 10:50] LABS: HIV AB/AG Nonreactive (Nonreactive); HIV Num 1 0.05 S/CO (0.00-0.99); Hepatitis B Core Antibody Nonreactive (Nonreactive); ~HepC Num1 0.13 S/CO (0.00-0.79); ~Hepatitis C Antibody Nonreactive (Nonreactive)
[2024-05-21 10:51] LABS: Syphilis Screen Nonreactive (Nonreactive)
== END 2024-05-21 08:55 | disposition home or self-care (01) ==
LOC: HO.LAB 08:54
PROVIDERS: Advanced Practice Midwife; PCP Physician Assistant; Visit Provider Physician Assistant
DX: I10 Essential (primary) hypertension (principal); Z20.2 Contact with and (suspected) exposure to infections with a predominantly sexual mode of transmission; E78.9 Disorder of lipoprotein metabolism, unspecified
CPT/HCPCS: 36415; 80053; 80061; 85027; 86704; 86780; 86803; 87389

== ENCOUNTER 2024-05-23 08:01 | Outpatient (AMB) | payer OTHER, SELFPAY ==
--- NOTE | 2024-05-23 11:21 | A.OFFVIS_ITS ---
VS Expanded 05/23/24 11:46 Height 5 ft 7 in Weight 236 lb 8 oz BMI 37.0 Body Fat % 38.9 Body Fat Mass 92.2 Fat Free Mass 144.6 Visceral Fat Rating 11 Body Water % 43.4 Body Water Mass 102.8 Basal Metabolic Rate/Score 1,985 Intake Visit Reasons: [employer] BMI 37.1 Allergies No Known Allergies [No Known Allergies*] Allergy (Verified 05/23/24 11:24) Medication List - Last Reconciled 05/23/24 by Tirso Phelps MD acetaminophen 1,000 mg (2 x 500 mg) PO Q6H PRN 30 days blood pressure kit-extra large As directed clonidine HCl 0.6 mg (2 x 0.3 mg) PO BEDTIME 30 days furosemide 20 mg PO DAILY 14 days lisinopril 5 mg PO DAILY 30 days loratadine 10 mg PO DAILY 30 days naltrexone microspheres ER (Vivitrol) 380 mg IM Q4W propranolol 20 mg PO BEDTIME 90 days [Raised toilet seat As directed] vitamin B complex-folic acid 0.4 mg (B Complex 1 (with folic acid)) 1 tab PO DAILY HPI HPI [employer] BMI 37.1: Details: Start time: 11.00am, End time: 11.53am ?I spent 48 minutes speaking with the patient on the phone plus an additional 5 minutes reviewing and updating records for a total of 53 minutes HPI Comments Details: Previous weight loss efforts: self diets Wakes up: 6am, Sleeps: 11pm Breakfast: skips Lunch: 1.30pm (cereal, hot dogs, sandwich) Dinner: 5pm (rice and chicken) Snacks: 10am (bar, cookies), 7pm (cookies, cheetos) Exercise: none Fluids: Coffee: 2 cups/day with creamer, Iced tea: with sugar, soda: none, juice: none, ETOH: none PFSH Medical History (Updated 05/23/24 @ 11:29 by Tirso Phelps MD) Possible exposure to STD DVT (deep venous thrombosis) History of anxiety History of panic attacks Depression Osteoarthritis of right hip Hypertension Surgical History (Updated 05/05/24 @ 08:46 by Loulou Traore CMA) Hx of colonoscopy History of right hip replacement History of left hip replacement History of tubal ligation History of tonsillectomy Family History Father Colon cancer Mother In good health Maternal Grandmother Breast cancer Paternal Grandmother Colon cancer Brother Multiple sclerosis Paternal Uncle Colon cancer Social History (Updated 05/05/24 @ 08:52 by Loulou Traore [facility]) Household Members: None Housing: Homeless Are you a primary patient care specialist to a significant other at home: No Do you presently have visiting nurse or other home services: No Alcohol intake: former Year quit: 02/18 Comment: pt stated started vivitrol January 2024 Patient Tobacco Use Status: Former Tobacco user Cigarette Packs Per Day: 0.25 Cigarettes Per Day: 5.0 Years Smoked: 20 e-Cigarette/Vaping Use: Never Used Second Hand Smoke Exposure: No Substance Use Type: Marijuana service: No Current occupational status: unemployed and disabled Current occupation: Rt handed Cognitive needs: No Hearing needs: No Vision needs: No Telehealth Telehealth Telehealth Platform: Telephone Location of provider rendering services: practice address Location of patient: address on file Patient Identification confirmed using: Name, : Yes Telehealth method: voice only Patient verbally consented to treatment: Yes Patient verbally consented to billing insurance company: Yes Patient informed of any privacy concerns related to visit: Yes Minutes spent on Phone/Video with Pt.: 53 Assessment & Plan Assessment & Plan (1) Obese: Code(s): E66.9 - Obesity, unspecified Category: Medical Qualifiers: Obesity type: due to excess calories Obesity classification: adult class 2 (BMI 35 - 39.9) Serious obesity comorbidity presence: with serious comorbidity Body mass index: BMI 36.0-36.9 Qualified Code(s): E66.01 - Morbid (severe) obesity due to excess calories; Z68.36 - Body mass index [BMI] 36.0- 36.9, adult Plan: 1.? Plan for lap sleeve gastrectomy. If diaphragmatic or ventral hernias are present at time of surgery, these will be repaired laparoscopically as well. Risks and complications include possible conversion to an open procedure, anast omotic leak, bleeding requiring transfusion, small bowel obstruction, , DVT and pulmonary embolism, cardiac, or pulmonary complications, as longterm complications such as anastomotic ulcer, insufficient weight loss and vitamin deficiencies. I emphasized the importance of close follow-up, adherence to instructions and good communication. Meal to include lean meat (beef, fish, pork, turkey, chicken), or welsh yogurt, or egg whites, or beans with a salad with olive oil and fruits (berries, pears, apples, kiwi). Avoid salt, breads, potatoes, rice, pasta, desserts. ?3. If you choose shakes, each shake would be drunk slowly, like coffee in a period of 2 hours. ?4. If you choose bars, cut each bar in 4 pieces and eat each piece in 30min ?to make each bar last 2 hours. ?5. I emphasized the importance of measuring accurately the food portion and measure it when serving the food in plate ?6. The meal portions include a specific number of forks of meat and salad. You always eat the meat portion but you can replace up to half of salad/vegetables portion with rice, potatoes or pasta, or a fruit ?if you like. The less you do it the better weight loss will be. ?7. One full-size fork is what it can be scooped on the fork without falling aside and not what can be bit with the fork. Use regular forks like those you find in a typical restaurant. ?8.? Please send me weight measurements as soon as possible and then once a week. Always include your diet and exercise plan. 9. Start treadmill with an incline of 2.0 and speed of 3.0. Increase incline by 1 every 3 min to a max incline of 8.0, stay 3min at 8.0 and then return to 2.0 and repeat same steps until calorie goal is met. Goal is to burn 2000 calories per week on exercise, which means either 300 calories daily, or 400 calories 5 days per week, or 500 calories 4 days per week, or 650 calories 3 days per week. ?10.?It is important of avoiding and for at least 18 months postoperatively and has been discussed at the infosession. ?11. Goal is to lose at least 1.5-2lbs per week ?12. Goal to lose 10% of your weight before surgery, which is about 23lbs. Ultimate weight goal: 213lbs before surgery 13. Please follow the diet plan exactly without any change. If you don't like something about the plan or you feel hungry you need to communicate with me so I can help you revise the plan. You should not change the plan yourself. 14. To be scheduled for EGD to assess the anatomy of your stomach. The possibility of biopsies was discussed. Patient needs to avoid use of NSAIDs and aspirin for 1 week prior to EGD. Risks of perforation and bleeding was discussed with the patient. This will be an outpatient procedure with IV sedation.
[2024-05-23 11:46] VITALS: BMI 37.0
== END 2024-05-23 11:54 | disposition home or self-care (01) ==
LOC: HO.HBS 08:01
PROVIDERS: PCP Physician Assistant; Visit Provider Surgery
DX: E66.01 Morbid (severe) obesity due to excess calories (principal); Z68.36 Body mass index [BMI] 36.0-36.9, adult
CPT/HCPCS: 99204

== ENCOUNTER → 2024-05-23 08:01 | Outpatient (BNVA) | payer OTHER, SELFPAY | PROVIDERS: PCP Physician Assistant; Visit Provider Surgery ==

== ENCOUNTER 2024-05-26 08:30 | Outpatient (REF) | payer OTHER, SELFPAY ==
[2024-05-26 08:54] LABS: MANUAL DIFF FLAG NO
[2024-05-26 09:07] LABS: Basophils Percent Auto 0.6 % (0-2); Eosinophils Absolute Auto 0.2 X10*3/uL (0.0-0.4); Eosinophils Percent Auto 2.9 % (0-4); Hemoglobin 12.4 g/dl (12.0-16.0); Imm Gran Abs Auto 0.01 X10*3/uL (0.00-0.03); Imm Gran Pct Auto 0.2 % (0.0-0.4); Lymphocytes Percent Auto 38.9 % (20-40); Mean Corpuscular HGB Conc 33.5 g/dl (31.0-35.0); Mean Corpuscular Hemoglobin 30.8 pg (27.0-33.0); Mean Platelet Volume 11.1 fL (9.4-12.3); Monocytes Absolute Auto 0.3 X10*3/uL (0.1-1.2); Monocytes Percent Auto 6.3 % (2-11); Neutrophils Absolute Auto 2.7 x10*3/uL (2.0-8.3); Neutrophils Percent Auto 51.1 % (45-73); Platelet Count 148 X10*3/uL (160-400); Red Blood Count 4.02 X10*6/uL (4.20-5.50); Red Cell Distribution Width 12.7 % (11.0-16.0); White Blood Count 5.3 X10*3/uL (4.8-10.8)
[2024-05-26 09:15] LABS: INTERNATIONAL NORM RATIO 0.9 (0.9-1.1); Prothrombin Time 11.2 SEC (11.1-13.3)
[2024-05-26 09:18] LABS: Partial Thromboplastin Time 29.5 SEC (26.0-36.8)
[2024-05-26 09:25] LABS: Estimated Average Glucose 111 mg/dL; Hemoglobin A1c % 5.5 % (<6.0)
[2024-05-26 09:47] LABS: Alanine Aminotransferase 12 U/L (0-31); Albumin Level 4.1 g/dL (3.5-5.0); Alkaline Phosphatase 77 U/L (39-117); Anion Gap 10 (12-20); Aspartate Amino Transferase 15 U/L (5-31); Bilirubin Total 0.5 mg/dL (0.0-1.0); Blood Urea Nitrogen 12 mg/dL (9-16); C Reactive Protein 0.23 mg/dL (< or = 0.50); Calcium 10.3 mg/dL (8.4-10.2); Carbon Dioxide 29 mmol/L (22-29); Chloride 110 mmol/L (96-108); Cholesterol 214 mg/dL (<200); Estimated Glomerular Filt Rate > 60; Glucose Random 118 mg/dL (60-115); HDL Cholesterol 48 mg/dL (>40); Iron 71 mcg/dL (30-160); LDL Cholesterol Calculated 143 mg/dL (<100); Percent Iron Saturation 25 % (15-50); Potassium 4.9 mmol/L (3.3-5.1); Sodium 144 mmol/L (135-145); Total Iron Binding Capacity 287 mcg/dL (228-428); Total Protein 7.3 g/dL (6.5-8.0); Triglycerides 115 mg/dL (<150); Unsaturated Iron Binding 216 ug/dL
[2024-05-26 09:55] LABS: Ferritin 74 ng/mL (10-250); TSH reflex Free T4 1.65 uIU/mL (0.32-4.0); Vitamin D 25-OH Total 38.8 ng/mL (>30)
[2024-05-26 10:01] LABS: Vitamin B12 363 pg/mL (200-900)
[2024-05-30 16:09] LABS: Zinc 70 mcg/dL (60-130)
[2024-05-31 16:32] LABS: Vitamin B1 22 nmol/L (8-30)
[2024-06-01 16:47] LABS: Vitamin A 48 mcg/dL (38-98)
== END 2024-05-26 08:31 | disposition home or self-care (01) ==
LOC: HO.LAB 08:30
PROVIDERS: PCP Physician Assistant; Visit Provider Physician Assistant Surgical
DX: Z01.818 Encounter for other preprocedural examination (principal)
CPT/HCPCS: 36415; 80053; 80061; 82306; 82607; 82728; 83036; 83540; 84425; 84443; 84590; 84630; 85025; 85610; 85730; 86140

== ENCOUNTER 2024-05-31 11:20 | Outpatient (AMB) | payer OTHER, SELFPAY ==
--- NOTE | 2024-05-31 11:33 | A.OFFPC_ITS ---
Vital Signs 05/31/24 11:34 Height 5 ft 7 in Weight 243 lb 2 oz BMI 38.1 BP 110/68 Blood Pressure Location Lt brachial Position Sitting Pulse 46 L Pulse Source Pulse Oximeter Pulse Oximetry (%) 98 Oxygen Delivery Method Room Air Intake Visit Reasons: PE Intake Note: Patient is here today for a physical. 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 Accompanied by: Self / Same As Patient Allergies No Known Allergies [No Known Allergies*] Allergy (Verified 05/31/24 11:40) Medication List - Last Reconciled 05/31/24 by Declan Saravia PA-C acetaminophen 1,000 mg (2 x 500 mg) PO Q6H PRN 30 days blood pressure kit-extra large As directed clonidine HCl 0.6 mg (2 x 0.3 mg) PO BEDTIME 30 days furosemide 20 mg PO DAILY 14 days lisinopril 5 mg PO DAILY 30 days loratadine 10 mg PO DAILY 30 days naltrexone microspheres ER (Vivitrol) 380 mg IM Q4W propranolol 20 mg PO BEDTIME 90 days [Raised toilet seat As directed] vitamin B complex-folic acid 0.4 mg (B Complex 1 (with folic acid)) 1 tab PO DAILY Tobacco use date assessed: 02/08/24 Dental Screening Dental Screen Date: 12/23/23 HPI PE HPI Details Patient is a 53 year-old female here today for an annual physical. Patient has a past medical history significant for generalized anxiety disorder polyarthralgia hypertension, history of total hip replacement. Concern--> reports increased left lower extremity swelling. She does report her swelling gets better with the use of furosemide. She does have a history of a DVT in her left lower extremity in 2015 and was on anticoagulation for a short term. Did have an ultrasound of her left lower extremity in the spring which did not show any acute clot. Alcohol use disorder (in remission)-continues to follow addiction holistic specialist. Now has about 4 months of sobriety Continues to do vivitrol injection. She reports she is feeling well. She has now in a new sober living situation at the [facility]. . Obesity: Now followed by [facility]. Has been undergoing testing in his due for an upper endoscopy. She anticipates getting bariatric surgery. hypertension: Blood pressure acceptable today in office. Continues on lisinopril 5 mg. Blood pressures have been stable at home. She denies any chest pain, shortness of breath or headaches. Vaccines: UTD with COVID VAcc, UTD Tdap, Declines FLu. 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, Pap smear done in October/2023 Colonoscopy: Up-to-date with colonoscopy- done in spring polyp found repeat 1 year- has a family history PFSH Medical History Possible exposure to STD DVT (deep venous thrombosis) History of anxiety History of panic attacks Depression Osteoarthritis of right hip Hypertension Surgical History Hx of colonoscopy History of right hip replacement History of left hip replacement History of tubal ligation History of tonsillectomy Family History Father Colon cancer Mother In good health Maternal Grandmother Breast cancer Paternal Grandmother Colon cancer Brother Multiple sclerosis Paternal Uncle Colon cancer Social History Household Members: None Housing: Homeless Are you a primary menagerie caretaker to a significant other at home: No Do you presently have visiting nurse or other home services: No Alcohol intake: former Year quit: 02/18 Comment: pt stated started vivitrol January 2024 Patient Tobacco Use Status: Former Tobacco user Cigarette Packs Per Day: 0.25 Cigarettes Per Day: 5.0 Years Smoked: 20 e-Cigarette/Vaping Use: Never Used Second Hand Smoke Exposure: No Substance Use Type: Marijuana service: No Current occupational status: unemployed and disabled Current occupation: Rt handed Cognitive needs: No Hearing needs: No Vision needs: No Questionnaire PHQ-9 Over the last 2 weeks, how often have you been bothered by any of the following problems? 1. Little interest or pleasure in doing things: not at all 2. Feeling down, depressed, or hopeless: not at all 3. Trouble falling or staying asleep, or sleeping too much: not at all 4. Feeling tired or having little energy: not at all 5. Poor appetite or overeating: not at all 6. Feeling bad about yourself - or that you are a failure or have let yourself or your family down: not at all 7. Trouble concentrating on things, such as reading the newspaper or watching television: not at all 8. Moving or speaking so slowly that other people could have noticed. Or the opposite - being so fidgety or restless that you have been moving around a lot more than usual: not at all 9. Thoughts that you would be better off or of hurting yourself in some way: not at all Total score: 0 Depression Screening Interpretation: Negative Depression Screening Done: Yes 09789 - PHQ-9 Billing: Yes Source: Developed by Drs. Ehsan Jeffrey, Garima Rueda, Stanley Dias and colleagues, with an educational moises from [employer]. Thrive Questionnaire Date Thrive assessed: 05/31/24 I am a: Patient DASHA-7 AMB Questionnaire DASHA-7 Date DASHA - 7 assessed: 12/23/23 Source: Developed by Drs. Ehsan Jeffrey, Garima Rueda, Stanley Disa and colleagues, with an educational moises from [employer]. Physical exam (Primary Care) Vital Signs: Last Vital Signs Pulse 46 L 05/31/24 11:34 BP 110/68 05/31/24 11:34 Pulse Ox 98 05/31/24 11:34 Oxygen Delivery Method Room Air 05/31/24 11:34 BMI result Body Mass Index 38.1 Tobacco/Smoking Status: Tobacco use Status Tobacco use date assessed 02/08/24 05/31/24 11:34 Patient Tobacco Use Status Former Tobacco user 05/31/24 11:34 e-Cigarette/Vaping Use Never Used 05/31/24 11:34 PHQ-9: PHQ-9 Score PHQ-9: Total score 0 05/31/24 11:34 Depression Screening Interpretation: Negative Thrive Assessment: Date of Thrive Assessment Date Thrive assessed 05/31/24 05/31/24 11:34 Assessment and Plan Assessment & Plan (1) Annual physical exam: Code(s): Z00.00 - Encounter for general adult medical examination without abnormal findings (2) Alcohol use disorder, severe, dependence: Code(s): F10.20 - Alcohol dependence, uncomplicated Plan: Her alcoholism has been in remission. Still living in sober living. Has been 4 months of sobriety. (3) Hypertension: Code(s): I10 - Essential (primary) hypertension Qualifiers: Hypertension type: primary hypertension Qualified Code(s): I10 - Essential (primary) hypertension Plan: Patient's blood pressure acceptable today in office. Patient continues on lisinopril 5 mg with good effect. Blood pressures are acceptable.. Goal blood pressures to remain below 140/90 (4) DASHA (generalized anxiety disorder): Code(s): F41.1 - Generalized anxiety disorder Plan: Patient does continue to suffer with anxiety. She does use propanolol for her somatic symptoms(heart palpitations) that manifest in her anxiety. Also does use clonidine at bedtime with good effect on sleep. (5) Lower extremity edema: Code(s): R60.0 - Localized edema Plan: Continues to use furosemide 20 mg. She reports when taking furosemide more consistently her legs much improved. She does have history of a left DVT and recently has more swelling in her left leg. We did discuss the possible use of daily compression stockings. Will send for another ultrasound of her left lower extremity to evaluate for any recurrent deep vein thrombosis. (6) Pain of left thumb: Code(s): M79.645 - Pain in left finger(s) Plan: She reports left thumb/thenar eminence pain and soreness. She denies any trauma to her left hand. Will send for x-ray to evaluate for osteoarthritis. Will supply patient with diclofenac 1% gel to use in the area (7) Left leg swelling: Code(s): M79.89 - Other specified soft tissue disorders Plan: As above Orders: Orders XR hand LT min 3V Today M79.645 - Pain in left finger(s) US venous duplex LE LT Today M79.89 - Other specified soft tissue disorders Medications: New diclofenac sodium 1% apply to single elbow, wrist or hand; for hand includes palm/fingers/back of hand 2 grams topical QID 30 days PRN 100 grams 0RF pain (scale score 7-10) M79.645 - Pain in left finger(s) Changed From furosemide 20 mg PO DAILY 14 days 14 tabs 0RF R60.0 - Localized edema To furosemide 20 mg PO DAILY 90 days 90 tabs 1RF R60.0 - Localized edema Patient Instructions: Goal: Blood pressure to be below 140/90 Barriers: Adherence to physical activity and healthy eating habits Coding Level of Care Code Est Pt Prev Care 40-64y(72157) Diagnoses Annual physical exam Z00.00 Alcohol use disorder, severe, dependence F10.20 Primary hypertension I10 Hypertension type: primary hypertension DASHA (generalized anxiety disorder) F41.1 Lower extremity edema R60.0 Pain of left thumb M79.645 Left leg swelling M79.89
[2024-05-31 11:34] VITALS: BP 110/68; PULSE 46; O2SAT 98; BMI 38.1
== END 2024-05-31 12:06 | disposition home or self-care (01) ==
PROVIDERS: PCP Physician Assistant; Visit Provider Physician Assistant
DX: Z00.00 Encounter for general adult medical examination without abnormal findings (principal); F10.20 Alcohol dependence, uncomplicated; I10 Essential (primary) hypertension; F41.1 Generalized anxiety disorder; R60.0 Localized edema; M79.645 Pain in left finger(s); M79.89 Other specified soft tissue disorders
CPT/HCPCS: 99396

== ENCOUNTER 2024-06-01 08:42 | Outpatient (REF) | payer OTHER, SELFPAY ==
--- NOTE | ~2024-06-01 | XR_ITS ---
EXAMINATION: XR CHEST CLINICAL INFORMATION: Preoperative evaluation. COMPARISON: Chest radiograph dated 01/25/2024. TECHNIQUE: 2 views of the chest were obtained. FINDINGS: The lungs are clear. The cardiomediastinal silhouette is normal in size. There is no pleural effusion or pneumothorax. No acute osseous abnormality. XR/XR chest 2V IMPRESSION: No acute cardiopulmonary findings. Electronically signed by: Julian Garrido MD 06/06/2024 10:23 PM EDT
--- NOTE | ~2024-06-01 | XR_ITS ---
EXAMINATION: XR HAND, LEFT CLINICAL INFORMATION: Left finger pain. COMPARISON: None available. TECHNIQUE: PA, lateral, and oblique views of the left hand. FINDINGS: No acute fracture or dislocation. Severe joint space narrowing with marginal osteophytes at the first carpometacarpal joint. More mild joint space narrowing with small marginal osteophytes of the triscaphe and first metacarpophalangeal joint as well as scattered throughout the interphalangeal joints. No periarticular erosion. No abnormal soft tissue calcification. XR/XR hand LT min 3V IMPRESSION: Severe osteoarthritis at the first carpometacarpal joint with more mild osteoarthritis at the triscaphe and first metacarpophalangeal joints as well as scattered throughout the interphalangeal joints. Electronically signed by: Julian Garrido MD 06/06/2024 10:23 PM EDT
== END 2024-06-01 08:43 | disposition home or self-care (01) ==
LOC: HO.XRAY 08:42
PROVIDERS: PCP Physician Assistant; Visit Provider Physician Assistant
DX: Z01.818 Encounter for other preprocedural examination (principal); M79.645 Pain in left finger(s)
CPT/HCPCS: 71046; 73130

== ENCOUNTER 2024-06-02 08:34 | Day surgery (SDC) | payer OTHER, SELFPAY ==
[2024-06-02 08:38] VITALS: BP 100/66; PULSE 79; RESP 18; TEMP 36.9; O2SAT 96; BMI 37.6
[2024-06-02] MEDS: Lactated Ringers 1,000 ML 80 ML IVCONT (09:00)
--- NOTE | 2024-06-02 09:34 | P.CONAN_ITS ---
[facility] Active Problems Active Problems: All Active Problems Left leg swelling (Acute) Pain of left thumb (Acute) Pre-op evaluation (Acute) BMI 37.0-37.9, adult (Acute) Status post fall (Acute) Allergic rhinitis (Acute) Lower extremity edema (Acute) Alcohol abuse (Acute) Acute pharyngitis (Acute) Facial rash (Acute) Possible exposure to STD (Acute) Alcohol use disorder, severe, dependence (Acute) Low vitamin B12 level (Acute) Low folate (Acute) CKD (chronic kidney disease) stage 3, GFR 30-59 ml/min (Acute) Hyperkalemia (Acute) Bilateral lower extremity edema (Acute) Cervical cancer screening (Acute) Alcohol abuse (Acute) QT prolongation (Acute) Obese (Acute) Colon cancer screening (Acute) Migraines (Acute) Acute frontal sinusitis (Acute) Borderline high cholesterol (Acute) Annual physical exam (Acute) Hypertension (Acute) DASHA (generalized anxiety disorder) (Acute) Prcie's cyst of knee (Acute) Status post right hip replacement (Acute) Panic attack (Acute) Hip osteoarthritis (Acute) Knee pain, left (Acute) Knee pain, right (Acute) Preoperative clearance (Acute) Past Medical History Medical History Possible exposure to STD DVT (deep venous thrombosis) History of anxiety History of panic attacks Depression Osteoarthritis of right hip Hypertension Family History Family History Father Colon cancer Mother In good health Maternal Grandmother Breast cancer Paternal Grandmother Colon cancer Brother Multiple sclerosis Paternal Uncle Colon cancer Family history of problems with anesthesia: No Surgical History Surgical History Hx of colonoscopy History of right hip replacement History of left hip replacement History of tubal ligation History of tonsillectomy History of Problems with Anesthesia: No Social History Social History Household Members: None Housing: Homeless Are you a primary child care education coordinator to a significant other at home: No Do you presently have visiting nurse or other home services: No Alcohol intake: former Year quit: 02/18 Comment: pt stated started vivitrol January 2024 Patient Tobacco Use Status: Former Tobacco user Cigarette Packs Per Day: 0.25 Cigarettes Per Day: 5.0 Years Smoked: 20 e-Cigarette/Vaping Use: Never Used Second Hand Smoke Exposure: No Substance Use Type: Marijuana Have you been hit, kicked, punched, or otherwise hurt by someone within the past year? If so, by whom?: No Are you DNR?: No Advance Directives: No Advance Directives Information Provided: Yes Recently lost weight without trying: No service: No Current occupational status: unemployed and disabled Current occupation: Rt handed Cognitive needs: No Hearing needs: No Vision needs: No Meds Allergies Allergy/AdvReac Type Severity Reaction Status Date / Time No Known Allergies Allergy Verified 05/31/24 11:40 [No Known Allergies*] Active Medications: Current Medications Lactated Ringer's (Lr) 1,000 mls @ 80 mls/hr IVCONT .[id number] Last Admin: 06/02/24 09:00 Dose: 80 mls/hr Exam Height,Weight and Vital Signs: Height 5 ft 7 in Weight 108.998 kg Last Vital Signs Temp 98.5 F 06/02/24 08:38 Pulse 79 06/02/24 08:38 Resp 18 06/02/24 08:38 BP 100/66 06/02/24 08:38 Pulse Ox 96 06/02/24 08:38 O2 Del Method Room Air 06/02/24 08:38 Airway Mallampati Class: III TM Dist: >3cm Neck ROM: Full Partial: Upper Assessment and Plan Assessment Anesthesia Assessment: Anesthesia Plan Discussed and Chart Reviewed Final Anesthetic Review Family History of Problems with Anesthesia: No History of Problems with Anesthesia: No NPO: Yes ASA Class: III Final Preanesthetic Review: No Changes in Pt Med Stat, Meds/Allgs Chart Reviewed, Consent Obtained/Reviewed and Anes Risks/Benef Reviewed Patient Risk: Intermediate Procedure Risk: Low Anesthetic Plan Anesthetic Plan: TIVA Disposition: Standard PACU
--- NOTE | 2024-06-02 10:16 | MHC.SHP ---
Pre-Procedural Eval Section A - 24 Hr Update-Section A only Date of Service: 06/02/24 The patient is an INPATIENT: No The patient has been examined within 24 hours of the surgical procedure. The History & Physical has been completed within 30 days and I have reviewed it.: Yes Section B - Complete if H&P > 30 days Chief Complaint: Morbid (severe) obesity due to excess calories Relevant Family History (Specify if Yes): No Relevant Social History: None Present Medications: None Medical History: No relevant PMH History of Previous Operations: No relevant previous surgery Allergies: Allergies Allergy/AdvReac Type Severity Reaction Status Date / Time No Known Allergies Allergy Verified 05/31/24 11:40 [No Known Allergies*] Review of Systems Sugical H&P ROS: Negative: Constitution, Cardiovascular, Respiratory, Neurological, Psychiatric, Hem-Onc, Allergic/Immunologic, Gastrointestinal, Genitourinary, Musculoskeletal, Integumentary, Endocrine and Eyes/Ears/Nose/Throat Exam Surgical H&P Exam: Normal: HEENT, Normal: Heart, Normal: Lungs, Normal: Extremities, Normal: Abdomen, Normal: Skin and Normal: Neurological Plan Diagnosis/Plan: Unchanged (EGD to assess the anatomy of the stomach. Risks of bleeding and perforation were discussed with the patient and she is in agreement with the plan.) I have reviewed the history and physical and performed a pertinent physical examination on my patient. No changes have occurred unless specified. Time Spent With Patient Time: Total time managing care of this patient today ____ minutes.
--- NOTE | 2024-06-02 10:18 | PM.OP ---
Brief Operative Note Date of Service: 06/02/24 Pre-op diagnosis: Obesity Post-op diagnosis: same Procedure: PROCEDURE DATE: 06/02/2024 PREOPERATIVE DIAGNOSIS: Obesity POSTOPERATIVE DIAGNOSIS: ?Same as above. Normal endoscopy PROCEDURE: [id number] with biopsies Surgeon: Lisa Phelps M.D.. Ph.D. Biochemical Development Engineer: None ? Anesthesia: IV sedation Estimated blood loss: ?Minimal FINDINGS AND PROCEDURE: ? OPERATIVE INDICATIONS: ?The patient is a 53 year old female known to me who is interested in bariatric surgery. Based on this information I recommended an upper endoscopy to assess the anatomy of her stomach. Risks and complications of the surgery were discussed with the patient in advance particularly the possibility of perforation or bleeding that may require surgical intervention. The patient understood the risks and was in agreement with the plan. ? PROCEDURE: After informed consent was obtained by the patient, the patient was ?transferred to the Operating Room and was placed in the supine position.? After successful induction of IV sedation, a mouth block was inserted and the patient was placed in the left lateral decubitus position. An upper endoscopy was performed next, the oropharynx and esophagus appeared within the normal limits. There was no hiatal hernia. The z-line was smooth. Two biopsies were obtained from the distal esophagus 2-3 cm proximal to the GE junction and two additional biopsies from the GE junction. The stomach was entered and it appeared to be of normal size. There was no gastritis. There was no stricture or ulcer. A biopsy was obtained from the gastric fundus and the antrum. No significant bleeding was noted from any of the biopsy sites. Retroflexion of the scope revealed a normal GE junction. The scope was then advanced into the duodenum which appeared to be normal as well. At that point the duodenum ?and the stomach were decompressed and the scope was withdrawn from the patient's mouth. The patient extubated and was transferred in stable condition to the Recovery Room for further care. I was present and performed all steps of the procedure. There were no residents to assist with this case. Shadi Phelps M.D., Ph.D. Surgeon: Tirso Raftopoulos, MD Anesthesia: MAC Was an Biochemical Development Engineer used for this Procedure?: No Estimated blood loss (mL): 0 IV fluids (mL): 400 Urine output (mL): 0 (No Reyes to record output) Pathology: other (1) antrum x1, 2) fundus x1, 3) GE junction x2, 4) distal esophagus x2) Condition: stable Disposition: PACU
[2024-06-02 11:06] VITALS: BP 123/71; PULSE 71; RESP 12; TEMP 36.4; O2SAT 99
[2024-06-02 11:10] VITALS: BP 130/70; PULSE 63; RESP 14; O2SAT 99
[2024-06-02 11:15] VITALS: BP 126/76; PULSE 57; RESP 14; O2SAT 99
[2024-06-02 11:30] VITALS: BP 125/80; PULSE 56; RESP 14; TEMP 36.5; O2SAT 99
== END 2024-06-02 12:00 | disposition home or self-care (01) ==
PROVIDERS: PCP Physician Assistant; Visit Provider Surgery
PROC: 0DJ08ZZ Inspection of Upper Intestinal Tract, Via Natural or Artificial Opening Endoscopic (ICD-10-PCS; CPT 43235; principal; 2024-06-02 10:30)
DX: E66.01 Morbid (severe) obesity due to excess calories (principal); Z68.37 Body mass index [BMI] 37.0-37.9, adult; I10 Essential (primary) hypertension; F32.A Depression, unspecified; Z86.718 Personal history of other venous thrombosis and embolism; Z96.643 Presence of artificial hip joint, bilateral; Z79.899 Other long term (current) drug therapy; Z87.891 Personal history of nicotine dependence; Z56.0 Unemployment, unspecified
CPT/HCPCS: 43239; 88305; 88342; J1100; J1596; J2250; J2704

== ENCOUNTER → 2024-06-02 08:34 | Outpatient (BNV) | payer OTHER, SELFPAY | PROVIDERS: PCP Physician Assistant; Visit Provider Surgery | DX: E66.01 Morbid (severe) obesity due to excess calories (principal); Z68.37 Body mass index [BMI] 37.0-37.9, adult; Z01.818 Encounter for other preprocedural examination | CPT/HCPCS: 43239 ==

== ENCOUNTER → 2024-06-10 09:26 | Outpatient (AMB) | payer OTHER, SELFPAY ==
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
== END ==
PROVIDERS: PCP Physician Assistant; Visit Provider Counselor Mental Health
DX: F10.21 Alcohol dependence, in remission (principal); F41.9 Anxiety disorder, unspecified
CPT/HCPCS: 90791

== ENCOUNTER → 2024-06-10 09:26 | Outpatient (BNVA) | payer OTHER, SELFPAY | PROVIDERS: PCP Physician Assistant; Visit Provider Counselor Mental Health ==

== ENCOUNTER 2024-06-14 08:48 | Outpatient (AMB) | payer OTHER, SELFPAY ==
--- NOTE | 2024-06-14 08:55 | A.OFFVISCC_ITS ---
Intake Visit Reasons: MAT/Dora Inj Allergies No Known Allergies [No Known Allergies*] Allergy (Verified 05/31/24 11:40) HPI HPI MAT/Dora Inj: Details: patient presents for AUD treatment follow up and vivitrol injeciton continues to abstain from alcohol still residing at [facility] has been working on her overall health -bright affect, motivated PFSH Medical History Possible exposure to STD DVT (deep venous thrombosis) History of anxiety History of panic attacks Depression Osteoarthritis of right hip Hypertension Surgical History Hx of colonoscopy History of right hip replacement History of left hip replacement History of tubal ligation History of tonsillectomy Family History Father Colon cancer Mother In good health Maternal Grandmother Breast cancer Paternal Grandmother Colon cancer Brother Multiple sclerosis Paternal Uncle Colon cancer Social History Household Members: None Housing: Homeless Are you a primary career technology teacher to a significant other at home: No Do you presently have visiting nurse or other home services: No Alcohol intake: former Year quit: 02/18 Comment: pt stated started vivitrol January 2024 Patient Tobacco Use Status: Former Tobacco user Cigarette Packs Per Day: 0.25 Cigarettes Per Day: 5.0 Years Smoked: 20 e-Cigarette/Vaping Use: Never Used Second Hand Smoke Exposure: No Substance Use Type: Marijuana service: No Current occupational status: unemployed and disabled Current occupation: Rt handed Cognitive needs: No Hearing needs: No Vision needs: No Review of Systems Const Reports as per HPI and Reports no additional complaints Physical Exam Const General: cooperative, healthy appearing, comfortable and well groomed Orientation/consciousness: patient oriented x3 Limitations: no limitations Neuro General: patient oriented x3 Office Meds Vivitrol 380 mg intramuscular suspension,extended release Performing Provider: Geetha Coombs CNP Performing Location: [facility] Administered by: Rossy Arroyo RN on 06/14/24 08:56 Dose Route Admin Location Dispensed Lot Number Expiration Date [facility] Medical Office Specialist 380 mg IM LG 380 mg [id number] 05/28/26 07016-068-14 [employer] Assessment & Plan Assessment & Plan (1) Alcohol use disorder, severe, in early remission, dependence: Code(s): F10.21 - Alcohol dependence, in remission Category: Medical Plan: * tolerated injection * follow up 4 weeks Orders: Orders AMB Naltrexone Injection Patient Supplied (NC) 06/14/24 F10.21 - Alcohol dependence, in remission
== END 2024-06-14 10:08 | disposition home or self-care (01) ==
PROVIDERS: PCP Physician Assistant
DX: F10.21 Alcohol dependence, in remission (principal)
CPT/HCPCS: 99213

== ENCOUNTER → 2024-06-14 08:48 | Outpatient (BNVA) | payer OTHER, SELFPAY | PROVIDERS: PCP Physician Assistant | DX: F10.21 Alcohol dependence, in remission (principal); Z51.81 Encounter for therapeutic drug level monitoring; Z79.899 Other long term (current) drug therapy | CPT/HCPCS: 96372; 99212; J2315 ==

== ENCOUNTER 2024-06-15 09:48 | Outpatient (REF) | payer OTHER, SELFPAY ==
--- NOTE | ~2024-06-15 | US_ITS ---
EXAMINATION: US COMPLETE ABDOMEN WITH LIVER ELASTOGRAPHY CLINICAL INFORMATION: Preoperative. COMPARISON: None available. TECHNIQUE: Real-time imaging of the abdominal viscera. Noninvasive ultrasound liver fibrosis assessment is performed using Lizandro ElastPQ point quantification shear wave elastography (pSWE) with a C5-2 MHz transducer. Multiple elastography samples are obtained. FINDINGS: PANCREAS: The visualized pancreas appears unremarkable but the pancreatic tail is obscured by bowel gas. ABDOMINAL AORTA: The proximal, middle, and distal aortic segments are normal in caliber. INFERIOR VENA CAVA: Visualized portions are normal. LIVER: The liver has a normal contour with increased echogenicity. No focal lesion or intrahepatic biliary duct dilatation. The right lobe measures 14 cm in length. The left lobe measures 9.1 cm in length. Portal flow is towards the liver (hepatopetal). Shear wave liver elastography median stiffness is 1.83 m/s (reference: normal median stiffness is 1.3 m/s or less). IQR/median stiffness to assess sampling precision is 0.19 (reference: good quality data set is IQR/median stiffness of 0.15 or less). GALLBLADDER: Fundus of the gallbladder is abnormal with question of gallstone at the fundus of the gallbladder along with adenomyomatosis. No evidence of cholecystitis. COMMON BILE DUCT: Normal in caliber measuring 0.5 cm in diameter. RIGHT KIDNEY: Normal. No hydronephrosis. No renal calculi or focal parenchymal lesions. The kidney measures 10.5 cm in maximum dimension. LEFT KIDNEY: Normal. No hydronephrosis. No renal calculi or focal parenchymal lesions. The kidney measures 10.6 cm in maximum dimension. SPLEEN: Normal. The spleen measures 10.1 cm in maximum dimension. FREE FLUID: None. US/US abdomen comp w elastography IMPRESSION: 1. Hepatic steatosis. 2. Diseased gallbladder with question of stone and adenomyomatosis. 2. Liver elastography: Although measurements are suggestive of compensated advanced chronic liver disease, there is statistical variability of the sampling which decreases accuracy. REFERENCE: Society of Radiologists in Ultrasound Liver Stiffness Thresholds (2019): LIVER STIFFNESS THRESHOLDS: *Liver Stiffness equal or less than 1.3 m/s: High probability of being normal. *Liver Stiffness less than 1.7 m/s: In the absence of other known clinical signs, rules out compensated advanced chronic liver disease. *Liver Stiffness 1.7-2.1 m/s: Suggestive of compensated advanced chronic liver disease but need further test for confirmation. *Liver Stiffness over 2.1 m/s: Rules in compensated advanced chronic liver disease. *Liver Stiffness over 2.4 m/s: Suggestive of clinically significant portal hypertension. QUALITY OF DATA SET: *IQR/Median value equal or less than 0.15 implies a quality data set. *IQR/Median value over 0.15 implies a poor quality data set. SIGNIFICANT CHANGE FROM PRIOR EXAM: Significant change if liver stiffness measurement is 10% or greater from prior exam. OTHER CONSIDERATIONS: The stage of liver fibrosis may be overestimated in the setting of acute hepatitis, liver inflammation, elevated liver function tests, hepatic vascular congestion, obstructive cholestasis, non-fasting state, and infiltrative diseases such as amyloidosis and lymphoma. In some patients with NAFLD, the liver stiffness thresholds for compensated advanced chronic liver disease may be lower. In causes other than viral hepatitis and NAFLD, liver stiffness thresholds are not well established. Electronically signed by: Michael Mejia MD 06/22/2024 05:04 PM EDT
--- NOTE | ~2024-06-15 | US_ITS ---
EXAMINATION: US LOWER EXTREMITY (REFLUX EXAM), LEFT CLINICAL INDICATION: Left lower extremity swelling, history of deep venous thrombosis. Evaluate for venous insufficiency COMPARISON: Ultrasound from 01/25/2024 and 04/11/2021 TECHNIQUE: Color flow triplex imaging and compression Doppler was performed to evaluate both the deep and the superficial systems of the left lower extremity. To evaluate the superficial system, the examination was performed in the upright position. Color-flow Doppler ultrasound and compression ultrasound were utilized. In addition, maneuvers were utilized to demonstrate reflux. FINDINGS: 1. DEEP VENOUS DOPPLER ULTRASOUND: Common Femoral Vein: Compressible, normal respiratory variation and augmented flow. Femoral Vein: Compressible, normal color flow and augmentation. Popliteal Vein: Compressible, normal augmentation. Deep Reflux: There is no evidence of reflux in the deep system in either the common femoral vein, superficial femoral vein or the popliteal vein. There is no evidence of a Price's cyst. 2. SUPERFICIAL VENOUS DOPPLER ULTRASOUND: GREAT SAPHENOUS VEIN: Saphenofemoral Junction: 0.5 cm; Reflux: 0 ms Proximal Thigh: 0.4 cm; Reflux: 2968 ms Mid Thigh: 0.3 cm; Reflux: 2232 ms Above Knee: 0.4 cm; Reflux: 1920 ms At Knee: 0.4 cm; Reflux: No 116 ms Below Knee: 0.3 cm; Reflux: 0 ms Mid Calf: 0.3 cm; Reflux: 440 ms Ankle: 0.2 cm; Reflux: 928 ms DUPLICATED MEDIAL GREAT SAPHENOUS VEIN: Diameter: None imaged Reflux: NA DUPLICATED LATERAL GREAT SAPHENOUS VEIN: Diameter: None imaged Reflux: NA SMALL SAPHENOUS VEIN: Saphenopopliteal Junction: 0.2 cm; Reflux: 0 ms Proximal: 0.2 cm; Reflux: 0 ms Distal: 0.2 cm; Reflux: 0 ms VEIN OF GIACOMINI: Size: NA Reflux: NA PERFORATORS: Location: Mid calf Size: 0.3 cm Reflux: None VARICOSITIES: Location: Distal thigh, knee, medial calf Size: 0.3 to 0.4 cm Reflux: 2492- 2844 ms US/US venous duplex LE LT IMPRESSION: 1. Left great saphenous vein is patent with severe reflux as described above. 2. Left small saphenous vein is patent without reflux. 3. Multiple varicosities in the left lower extremity with severe reflux as described above. Electronically signed by: Fco Man MD 06/21/2024 01:43 PM EDT Workstation: [id number]
== END 2024-06-15 09:49 | disposition home or self-care (01) ==
LOC: HO.US 09:48
PROVIDERS: PCP Physician Assistant; Visit Provider Physician Assistant Surgical
DX: Z01.818 Encounter for other preprocedural examination (principal); M79.89 Other specified soft tissue disorders
CPT/HCPCS: 76700; 76981; 93971

== ENCOUNTER 2024-07-12 08:43 | Outpatient (AMB) | payer OTHER, SELFPAY ==
--- NOTE | 2024-07-12 08:44 | AM.OFFVISNUR ---
Intake Visit Reasons: Dora Inj Allergies No Known Allergies [No Known Allergies*] Allergy (Verified 05/31/24 11:40) Nursing Note Patient Presents for Vivitrol Injection. Current Dose 380mg . Given in the LG with no noted or stated complications. Denies any issues with previous injection. Denies symptoms, and denies any break through cravings. Will follow up with RN in 4 weeks for injection. Office Meds Vivitrol 380 mg intramuscular suspension,extended release Performing Provider: Geetha Coombs CNP Performing Location: [facility] Administered by: Rossy Arroyo RN on 07/12/24 08:47 Dose Route Admin Location Dispensed Lot Number Expiration Date [facility] Coding Coordinator 380 mg IM LG 380 mg [id number] 10/28/26 40277-921-85 [employer] Assessment & Plan Assessment & Plan Orders: Orders AMB Naltrexone Injection Patient Supplied (NC) Today F10.21 - Alcohol dependence, in remission Medications: New Vivitrol ER (naltrexone microspheres) 380 mg IM ONCE 1 ea 0RF NS F10.21 - Alcohol dependence, in remission
== END 2024-07-12 10:09 | disposition home or self-care (01) ==
PROVIDERS: PCP Physician Assistant
DX: F10.21 Alcohol dependence, in remission (principal)

== ENCOUNTER → 2024-07-12 08:43 | Outpatient (BNVA) | payer OTHER, SELFPAY | PROVIDERS: PCP Physician Assistant | DX: F10.21 Alcohol dependence, in remission (principal) | CPT/HCPCS: 96372; J2315 ==

== ENCOUNTER 2024-07-20 08:19 | Outpatient (REF) | payer OTHER, SELFPAY ==
--- NOTE | ~2024-07-20 | FL_ITS ---
EXAMINATION: XR FLUOROSCOPY UPPER GI WITH AIR CLINICAL INFORMATION: Evaluation prior to bariatric surgery. COMPARISON: 11/21/2019 4 GI. TECHNIQUE: Fluoroscopic air contrast upper GI examination was performed utilizing standard techniques with thin and thick barium and effervescent granules. Numerous spot images were obtained. FINDINGS: Dual and single contrast images of the esophagus demonstrate a normal caliber, contour, and mucosal pattern. 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 No evidence of stricture, mass, or ulcerations identified. Esophageal peristalsis is moderately disorganized. A very small type I hiatal hernia is present. No significant gastroesophageal reflux was seen during the course of the examination and on reflux views. Dual contrast and single contrast images of the stomach demonstrated normal contour and mucosal pattern without evidence of mass, ulceration, or other abnormality. Contrast freely passed into the gastric antrum and duodenal bulb without delay. Single and air-contrast images of the duodenal bulb demonstrate no abnormality. The duodenal sweep has a normal appearance, course, and mucosal fold appearance. The imaged proximal jejunum has a normal fold pattern and caliber. FLUOROSCOPY TIME: 3 minutes 56 seconds DOSE AREA PRODUCT: 3099 uGy-m2 (microgray-meter squared) FL/FL upper GI w air IMPRESSION: 1. 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 2. Moderately disorganized esophageal peristalsis. 3. Very small type I hiatal hernia. This procedure was performed by Rios Hubbard PA-C, and supervised by Dr. Rincon Electronically signed by: Taz Rincon MD 07/21/2024 02:32 PM EDT
== END 2024-07-20 08:20 | disposition home or self-care (01) ==
LOC: HO.XRAY 08:19
PROVIDERS: PCP Physician Assistant; Visit Provider Physician Assistant Surgical
DX: Z01.818 Encounter for other preprocedural examination (principal)
CPT/HCPCS: 74246

== ENCOUNTER → 2024-07-20 08:20 | Outpatient (BNV) | payer OTHER, SELFPAY | PROVIDERS: PCP Physician Assistant; Visit Provider Physician Assistant Surgical | DX: E66.9 Obesity, unspecified (principal); Z01.818 Encounter for other preprocedural examination | CPT/HCPCS: 74246 ==

== ENCOUNTER → 2024-07-20 08:42 | Outpatient (AMB) | payer OTHER, SELFPAY ==
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
== END ==
PROVIDERS: PCP Physician Assistant; Visit Provider Counselor Mental Health
DX: F10.21 Alcohol dependence, in remission (principal)
CPT/HCPCS: 90837

== ENCOUNTER 2024-08-08 11:39 | Outpatient (AMB) | payer OTHER, SELFPAY ==
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
== END 2024-08-09 08:17 | disposition home or self-care (01) ==
LOC: HO.HBST 11:39
PROVIDERS: PCP Physician Assistant; Visit Provider Counselor Mental Health
DX: F10.21 Alcohol dependence, in remission (principal)
CPT/HCPCS: 90834

== ENCOUNTER 2024-08-09 07:03 | Outpatient (REF) | payer OTHER, SELFPAY ==
[2024-08-09 07:45] LABS: Ethanol < 10 mg/dL
== END 2024-08-09 07:04 | disposition home or self-care (01) ==
LOC: HO.LAB 07:03
PROVIDERS: PCP Physician Assistant; Visit Provider Surgery
DX: F10.21 Alcohol dependence, in remission (principal)
CPT/HCPCS: 36415; 80307; 96372; J2315

== ENCOUNTER 2024-08-09 08:53 | Outpatient (AMB) | payer OTHER, SELFPAY ==
--- NOTE | 2024-08-09 08:56 | AM.OFFVISNUR ---
Intake Visit Reasons: Dora Inj Allergies No Known Allergies [No Known Allergies*] Allergy (Verified 05/31/24 11:40) Nursing Note Patient Presents for vivitrol Injection. Current Dose 380mg . Given in the LG with no noted or stated complications. Denies any issues with previous injection. Denies symptoms, and denies any break through cravings. Will follow up with RN in 4 weeks for injection. Will need to see provider for check in August . Office Meds Vivitrol 380 mg intramuscular suspension,extended release Performing Provider: Geetha Coombs CNP Performing Location: [facility] Administered by: Rossy Arroyo RN on 08/09/24 08:57 Dose Route Admin Location Dispensed Lot Number Expiration Date [facility] [employer] Worker 380 mg IM LG 380 mg [id number] 12/26/26 [id number] [employer] Assessment & Plan Assessment & Plan Orders: Orders AMB Naltrexone Injection Patient Supplied (NC) Today F10.21 - Alcohol dependence, in remission
== END 2024-08-09 09:16 | disposition home or self-care (01) ==
PROVIDERS: PCP Physician Assistant
DX: F10.21 Alcohol dependence, in remission (principal)

== ENCOUNTER 2024-08-24 08:57 | Outpatient (AMB) | payer OTHER, SELFPAY ==
--- NOTE | 2024-08-24 09:02 | A.OFFVIS_ITS ---
Vital Signs 08/24/24 09:03 Height 5 ft 7 in Weight 227 lb BMI 35.5 Intake Visit Reasons: OUTSIDE DELIVERER/[facility] referral Left LE VV s/p US Intake Note: OUTSIDE DELIVERER/ Declan Saravia referral for bilateral LE swelling, pt states Left LE worse than the Right LE. Pt had left LE US on 06/15/24. Pt states she is unsure if she has VV. When pt gets swelling she states the leg is painful and red. Mulling Machine Operator Required: No Accompanied by: Self / Same As Patient Allergies No Known Allergies [No Known Allergies*] Allergy (Verified 08/24/24 09:05) HPI HPI OUTSIDE DELIVERER/HMG referral Left LE VV s/p US: Details: Angelica, a pleasant 53-year-old female patient, is presenting today on referral from PCP for lower extremity swelling, left more than right along with redness and pain. She has trialed Lasix 20 mg p.r.n., which she states has helped a little bit. There was a duplex of the left lower extremity ordered by her PCP. Complaints include pain, swelling of lower extremities, cramping, fatigue, and heaviness of the lower extremities. It has been affecting their daily activities including walking, standing and physical activity. It is noted more so in left leg. Patient denies any previous venous surgery or injections. Patient has a history of a left lower extremity DVT in 2016 and was treated with aspirin and Coumadin, for a short time per patient. Patient denies any history of phlebitis. Trial of compression includes - elevation They now present for vascular evaluation regarding their varicose veins. [facility] Medical History Possible exposure to STD DVT (deep venous thrombosis) History of anxiety History of panic attacks Depression Osteoarthritis of right hip Hypertension Surgical History Hx of colonoscopy History of right hip replacement History of left hip replacement History of tubal ligation History of tonsillectomy Family History Father Colon cancer Mother In good health Maternal Grandmother Breast cancer Paternal Grandmother Colon cancer Brother Multiple sclerosis Paternal Uncle Colon cancer Social History Household Members: None Housing: Homeless Are you a primary pediatric care coordinator to a significant other at home: No Do you presently have visiting nurse or other home services: No Alcohol intake: former Year quit: 02/18 Comment: pt stated started vivitrol January 2024 Patient Tobacco Use Status: Former Tobacco user Cigarette Packs Per Day: 0.25 Cigarettes Per Day: 5.0 Years Smoked: 20 e-Cigarette/Vaping Use: Never Used Second Hand Smoke Exposure: No Substance Use Type: Marijuana service: No Current occupational status: unemployed and disabled Current occupation: Rt handed Cognitive needs: No Hearing needs: No Vision needs: No Review of Systems Const Reports as per HPI and Denies weakness ENT Reports Normal hearing present and Denies dizziness Card Reports as per HPI, Denies chest pain, Denies chest pain at rest, Denies chest pain with activity, Denies dyspnea and Denies dyspnea on exertion Resp Reports as per HPI, Denies cough, Denies dyspnea and Denies dyspnea on exertion GI Reports as per HPI, Denies abdominal pain, Denies nausea and Denies vomiting Musc Denies numbness Skin/Breast Reports as per HPI, Denies erythema and Denies wounds Neuro Reports Normal hearing present, Denies dizziness, Denies numbness, Denies Sensory deficit (Neuro) and Denies weakness Psych Reports no additional complaints Endo Reports no additional complaints Physical Exam Vital Signs: BMI result Body Mass Index 35.5 Const General: healthy appearing and no acute distress Orientation/consciousness: patient oriented x3 HEENT Head: Yes normal to inspection Ears: hearing grossly normal bilaterally Mouth: Normal oral and palatal mucosa present Resp Effort & Inspection: normal respiratory effort and able to speak in complete sentences Auscultation: clear to auscultation bilaterally Cardio Jugular venous distension: no JVD Rate: regular rate Rhythm: regular rhythm Heart sounds: S1 normal heart sound present and S2 normal heart sound present Bruits: no abdominal aortic bruits, no carotid bruits, no femoral bruits and no renal bruits Peripheral pulses: Peripheral pulses 2+ throughout GI Inspection: Yes normal to inspection Palpation (GI): No Abdominal aortic bruit present Skin General skin exam: no rashes or lesions noted Wounds: no wounds Hair: normal Neuro General: patient oriented x3 Cranial nerves: Yes Normal hearing present Cognition (Neuro): normal cognition Gait exam (Neuro): Normal gait present Motor exam (neuro): 5/5 motor strength present throughout Sensory Exam: No Sensory deficit (Neuro) Extrem Other: Left lower extremity: 1+ peripheral edema noted. Palpable DP pulses. Slight discoloration around the ankles. Right lower extremity: Trace peripheral edema noted. Palpable DP pulses. General: Yes normal to inspection, Yes full ROM, Yes capillary refill normal and Yes normal gait Results Reviewed Results Reviewed: Brief summary of venous insufficiency testing is as follows: right great saphenous vein: negative right small saphenous vein: negative right accessory vein: none present left great saphenous vein: positive for venous insufficiency. left small saphenous vein: negative left accessory vein: none present Please note there is no evidence of any venous aneurysms or significant tortuosity Assessment & Plan Assessment & Plan (1) Varicose veins of both lower extremities with inflammation: Code(s): I83.11 - Varicose veins of right lower extremity with inflammation; I83.12 - Varicose veins of left lower extremity with inflammation Category: Medical Plan: Angelica is presenting for follow-up to testing by her PCP, who is concerned about ongoing left lower extremity swelling. She has been on Lasix 20 mg with some relief but the swelling continues. She also endorses redness over her lower extremity as well as pain, which increases with the swelling. This patient has varicose veins with inflammation. They continue to be a source of discomfort for the patient. The patient has tried conservative treatment with compression, leg elevation and exercise program for over 3 months time. They have been compliant with all treatment. This has provided minimal relief for the patient. I do not anticipate this course of treatment will alter the underlying etiology. The patient has been scheduled for lower extremity venous treatment inclusive of left great saphenous vein Venaseal. She has no known drug allergies or allergies to latex or adhesives. Risks, benefits, and complications of this procedure has been discussed in detail with the patient including but not limited to bleeding, infection, and the development of a DVT. The patient has demonstrated a clear understanding and has consented. We will schedule the patient as soon as possible. Thank you for allowing us to participate in this patient's care. If there are any questions or concerns please do not hesitate to contact us. Coding Level of Care Code New Pt Level 4 (31270) Diagnoses Varicose veins of both lower extremities with inflammation I83.11; I83.12 Comment Review of venous insufficiency ultrasound, discussion plan
[2024-08-24 09:03] VITALS: BMI 35.5
== END 2024-08-24 09:55 | disposition home or self-care (01) ==
PROVIDERS: PCP Physician Assistant; Visit Provider Physician Assistant Surgical
DX: I83.11 Varicose veins of right lower extremity with inflammation (principal); I83.12 Varicose veins of left lower extremity with inflammation
CPT/HCPCS: 99204

== ENCOUNTER → 2024-08-24 08:57 | Outpatient (BNVA) | payer OTHER, SELFPAY | PROVIDERS: PCP Physician Assistant; Visit Provider Physician Assistant Surgical | DX: I83.11 Varicose veins of right lower extremity with inflammation (principal); I83.12 Varicose veins of left lower extremity with inflammation | CPT/HCPCS: 99202 ==

== ENCOUNTER 2024-09-09 08:50 | Outpatient (AMB) | payer OTHER, SELFPAY ==
--- NOTE | 2024-09-09 09:02 | A.OFFVISCC_ITS ---
Intake Visit Reasons: MAT/Dora Inj Allergies No Known Allergies [No Known Allergies*] Allergy (Verified 08/24/24 09:05) HPI HPI MAT/Dora Inj: Details: Patient presents for AUD treatment follow up and vivitrol injection 8 months abstaining from alcohol Still residing at [facility] --hoping for her own apartment this winter Still tolerating injection Denies cravings throughout the month Still engaged with weight management program Review of Systems Const Reports as per HPI and Reports no additional complaints Physical Exam Const General: cooperative, healthy appearing and well groomed Orientation/consciousness: patient oriented x3 Limitations: no limitations Neuro General: patient oriented x3 Psych Appearance: grossly normal Mental Status: mental status grossly normal Speech and movement: Normal speech and movement present Affect: normal affect Attitude: cooperative Thought process: Normal thought process present Thought content: Normal thought content present Insight: Good insight present (Psych) Judgement: Good judgement present (Psych) Office Meds Vivitrol 380 mg intramuscular suspension,extended release Performing Provider: Geetha Coombs CNP Performing Location: [facility] Administered by: Rossy Arroyo RN on 09/09/24 15:47 Dose Route Admin Location Dispensed Lot Number Expiration Date [facility] Addiction Social Worker 380 mg IM RG 380 mg 2024-1032T 03/27/25 00313-453-35 [employer] Assessment & Plan Assessment & Plan (1) Alcohol use disorder, severe, in early remission, dependence: Code(s): F10.21 - Alcohol dependence, in remission Category: Medical Plan: * tolerated injection * follow up 4 weeks for injection with RN Orders: Orders AMB Naltrexone Injection Patient Supplied ([place]) 09/09/24 F10.21 - Alcohol dependence, in remission [facility] Medical History Possible exposure to STD DVT (deep venous thrombosis) History of anxiety History of panic attacks Depression Osteoarthritis of right hip Hypertension Surgical History Hx of colonoscopy History of right hip replacement History of left hip replacement History of tubal ligation History of tonsillectomy Family History Father Colon cancer Mother In good health Maternal Grandmother Breast cancer Paternal Grandmother Colon cancer Brother Multiple sclerosis Paternal Uncle Colon cancer Social History Household Members: None Housing: Homeless Are you a primary home care chaplain to a significant other at home: No Do you presently have visiting nurse or other home services: No Alcohol intake: former Year quit: 02/18 Comment: pt stated started vivitrol January 2024 Patient Tobacco Use Status: Former Tobacco user Cigarette Packs Per Day: 0.25 Cigarettes Per Day: 5.0 Years Smoked: 20 e-Cigarette/Vaping Use: Never Used Second Hand Smoke Exposure: No Substance Use Type: Marijuana service: No Current occupational status: unemployed and disabled Current occupation: Rt handed Cognitive needs: No Hearing needs: No Vision needs: No
--- NOTE | 2024-09-09 09:35 | MHC.AM.SUB ---
Intake Visit Reasons: MAT/Dora Inj Allergies No Known Allergies [No Known Allergies*] Allergy (Verified 08/24/24 09:05) HPI HPI MAT/Dora Inj: Details: Patient seen in follow up for AUD and dora Office Meds Vivitrol 380 mg intramuscular suspension,extended release Performing Provider: Geetha Coombs CNP Performing Location: [facility] Administered by: Rossy Arroyo RN on 09/09/24 15:47 Dose Route Admin Location Dispensed Lot Number Expiration Date [facility] [employer] 380 mg IM RG 380 mg 2023-1032T 03/27/25 47116-818-95 What the Trend Assessment & Plan Assessment & Plan (1) Alcohol use disorder, severe, in early remission, dependence: Code(s): F10.21 - Alcohol dependence, in remission Category: Medical Orders: Orders AMB Naltrexone Injection Patient Supplied ([place]) 09/09/24 F10.21 - Alcohol dependence, in remission PFSH Medical History Possible exposure to STD DVT (deep venous thrombosis) History of anxiety History of panic attacks Depression Osteoarthritis of right hip Hypertension Surgical History Hx of colonoscopy History of right hip replacement History of left hip replacement History of tubal ligation History of tonsillectomy Family History Father Colon cancer Mother In good health Maternal Grandmother Breast cancer Paternal Grandmother Colon cancer Brother Multiple sclerosis Paternal Uncle Colon cancer Social History Household Members: None Housing: Homeless Are you a primary progressive care unit registered nurse to a significant other at home: No Do you presently have visiting nurse or other home services: No Alcohol intake: former Year quit: 02/18 Comment: pt stated started vivitrol January 2024 Patient Tobacco Use Status: Former Tobacco user Cigarette Packs Per Day: 0.25 Cigarettes Per Day: 5.0 Years Smoked: 20 e-Cigarette/Vaping Use: Never Used Second Hand Smoke Exposure: No Substance Use Type: Marijuana service: No Current occupational status: unemployed and disabled Current occupation: Rt handed Cognitive needs: No Hearing needs: No Vision needs: No
== END 2024-09-09 09:31 | disposition home or self-care (01) ==
PROVIDERS: PCP Physician Assistant; Visit Provider Nurse Practitioner Psychiatric/Mental Health
DX: F10.21 Alcohol dependence, in remission (principal)
CPT/HCPCS: 99213

== ENCOUNTER → 2024-09-09 08:50 | Outpatient (BNVA) | payer OTHER, SELFPAY | PROVIDERS: PCP Physician Assistant; Visit Provider Nurse Practitioner Psychiatric/Mental Health | DX: F10.21 Alcohol dependence, in remission (principal) | CPT/HCPCS: 96372; 99212; J2315 ==

== ENCOUNTER 2024-09-12 09:16 | Outpatient (AMB) | payer OTHER, SELFPAY ==
--- NOTE | 2024-09-12 09:10 | A.OFFWM_ITS ---
Intake Intake Visit Reasons: (TV) BH F/U Allergies No Known Allergies [No Known Allergies*] Allergy (Verified 08/24/24 09:05) PFSH Medical History Possible exposure to STD DVT (deep venous thrombosis) History of anxiety History of panic attacks Depression Osteoarthritis of right hip Hypertension Surgical History Hx of colonoscopy History of right hip replacement History of left hip replacement History of tubal ligation History of tonsillectomy Family History Father Colon cancer Mother In good health Maternal Grandmother Breast cancer Paternal Grandmother Colon cancer Brother Multiple sclerosis Paternal Uncle Colon cancer Social History Household Members: None Housing: Homeless Are you a primary dog daycare provider to a significant other at home: No Do you presently have visiting nurse or other home services: No Alcohol intake: former Year quit: 02/18 Comment: pt stated started vivitrol January 2024 Patient Tobacco Use Status: Former Tobacco user Cigarette Packs Per Day: 0.25 Cigarettes Per Day: 5.0 Years Smoked: 20 e-Cigarette/Vaping Use: Never Used Second Hand Smoke Exposure: No Substance Use Type: Marijuana service: No Current occupational status: unemployed and disabled Current occupation: Rt handed Cognitive needs: No Hearing needs: No Vision needs: No Behavioral Health Assessment Weight Management Therapy Therapy Notes Details Subjective: PT reports doing well. Some irritability due to her living situation. She has been called for an apartment in [place], [place] and is doing the steps to try to move to her own place soon. PT reports she has been off track with the holidays, has eaten some sweets and not exercising consistently due to pain thorough her whole body due to arthritis. Most recent weight: 224Lbs. Objective: PT presents for a follow up visit over the phone. Discussed functioning and routine. PHQ-9 administered. Processed ongoing needs and recovery process. Discussed commitment with weight-loss and meal/exercise plan. Planned for upcoming holidays, provided with techniques to remain consistent and to not skip meals. Explored challenges/triggers around the holidays and coping techniques were discussed. Assessment/Response: * Mental status: WNL. * Risk reported/identified:None. PT open and engaged. Responded well to interventions. Living Situation Current Living Situation [facility]idential[facility]/Treatment At risk of losing current housing? No Satisfied with current living situation? No Food/Weight/Diet Expectations of change Initial Goal to lose 10% of your weight before surgery, which is about 23lbs. Ultimate weight goal: 213lbs before surgery Most recent weight: 224Lbs. PT is implementing the following: Current meal plan: 2 shakes, 2 bar and 1 meal 07/07. Exercise plan: attending Gym 4-5 days at week. She does treadmill, bike and weights. Swim on weekends. Questionnaires PHQ-9 Over the last 2 weeks, how often have you been bothered by any of the following problems? 1. Little interest or pleasure in doing things: not at all 2. Feeling down, depressed, or hopeless: not at all 3. Trouble falling or staying asleep, or sleeping too much: not at all 4. Feeling tired or having little energy: not at all 5. Poor appetite or overeating: not at all 6. Feeling bad about yourself - or that you are a failure or have let yourself or your family down: not at all 7. Trouble concentrating on things, such as reading the newspaper or watching television: not at all 8. Moving or speaking so slowly that other people could have noticed. Or the opposite - being so fidgety or restless that you have been moving around a lot more than usual: not at all 9. Thoughts that you would be better off or of hurting yourself in some way: not at all Total score: 0 Depression Screening Interpretation: Negative Depression Screening Done: Yes 66106 - PHQ-9 Billing: Yes Source: Developed by Drs. Ehsan Jeffrey, Garima Rueda, Stanley Dias and colleagues, with an educational moises from [employer]. Assessment & Plan Assessment & Plan (1) Alcohol use disorder, severe, in early remission, dependence: Code(s): F10.21 - Alcohol dependence, in remission Plan PT continues doing well, and has been attending [facility] appointments as scheduled. Reports tolerating HERNANDEZ medication well and no cravings. This provider will consult with her [facility] provider Geetha Coombs, for further direction as PT wants to be submitted sir weight-loss surgery, she understands she needs to be sober for at least 1 year but would like to try to get approved before. At this time, patient is considered stable and functioning is intact. She is showing her commitment with herself and with the program and this provider is comfortable clearing her from BH standpoint as long all providers are on the same page. PT requested a Follow up after the holidays. Next ravinder: 10/10/24 at 11am, over the phone. Telehealth Telehealth Telehealth Platform: Telephone Location of provider rendering services: practice address Location of patient: address on file Telehealth method: voice only Patient verbally consented to treatment: Yes Patient verbally consented to billing insurance company: Yes Patient informed of any privacy concerns related to visit: Yes Minutes spent on Phone/Video with Pt.: 50 Coding Level of Care Code Established Pt Tele Psytx >53 mins (49593) Patient Type Established Diagnoses Alcohol use disorder, severe, in early remission, dependence F10.21 Additional Codes PHQ-9 - 70325 - PHQ-9 Billing: Yes ([id number]) Time Spent (min) 55
== END 2024-09-12 11:52 | disposition home or self-care (01) ==
LOC: HO.HBST 09:16
PROVIDERS: PCP Physician Assistant; Visit Provider Counselor Mental Health
DX: F10.21 Alcohol dependence, in remission (principal)
CPT/HCPCS: 90837

== ENCOUNTER → 2024-09-12 09:16 | Outpatient (BNVA) | payer OTHER, SELFPAY | PROVIDERS: PCP Physician Assistant; Visit Provider Counselor Mental Health ==

== ENCOUNTER 2024-10-03 10:50 | Outpatient (AMB) | payer OTHER, SELFPAY ==
[2024-10-03 11:08] VITALS: BP 104/62; PULSE 51; O2SAT 97; BMI 35.6
--- NOTE | 2024-10-03 11:08 | A.OFFPC_ITS ---
Vital Signs 10/03/24 11:08 Height 5 ft 7 in Weight 227 lb 4 oz BMI 35.6 BP 104/62 Blood Pressure Location Lt brachial Position Sitting Pulse 51 Pulse Source Pulse Oximeter Pulse Oximetry (%) 97 Oxygen Delivery Method Room Air Intake Visit Reasons: 4 Month F/U Acquisition Cost Estimator Required: No Accompanied by: Self / Same As Patient Allergies No Known Allergies [No Known Allergies*] Allergy (Verified 10/03/24 11:31) Medication List - Last Reconciled 10/03/24 by Declan Saravia PA-C acetaminophen 1,000 mg (2 x 500 mg) PO Q6H PRN 30 days blood pressure kit-extra large As directed clonidine HCl 0.6 mg (2 x 0.3 mg) PO BEDTIME 30 days diclofenac sodium 1% 2 grams topical QID PRN 30 days furosemide 20 mg PO DAILY 90 days lisinopril 5 mg PO DAILY loratadine 10 mg PO DAILY naltrexone microspheres ER (Vivitrol) 380 mg IM Q4W nirmatrelvir-ritonavir 300 mg (150 mg x 2)-100 mg (Paxlovid) take TWO 150 mg tablets of nirmatrelvir with ONE 100 mg tablet of ritonavir twice daily for 5 days PO propranolol 20 mg PO BEDTIME 90 days [Raised toilet seat As directed] vitamin B complex-folic acid 0.4 mg (B Complex 1 (with folic acid)) 1 tab PO DAILY Tobacco use date assessed: 10/03/24 Dental Screening Dental Screen Date: 10/03/24 Did you have a dental visit in the last 12 months?: Yes Did you have a dental problem in the last 6 months where you did not have access to dental care?: No Was dental information given to patient?: Patient has dentist HPI 4 Month F/U HPI Details Patient is a 53 year-old female here today for a f/u. Patient has a past medical history significant for generalized anxiety disorder polyarthralgia hypertension, history of total hip replacement. Concern--> numbness, tingling, and pain in both hands. These symptoms have been progressing for the last two to three months. The patient reports that the symptoms occur throughout the day and worsen at night, especially during sleep, resembling sensations of falling asleep on the hand. She experiences relief after shaking her hands, but the symptoms return throughout the day. Previous hand x-rays revealed severe osteoarthritis. Past evaluations suggested carpal tunnel syndrome, though prior information from another encounter indicated arthritis. The patient's osteoarthritis in the hands has become severely painful, impairing her ability to perform tasks such as picking up small objects. There is a history of using Tylenol and arthritis gel with minimal relief. Due to weight management concerns, anti-inflammatory medications like ibuprofen and naproxen have not been used. Alcohol use disorder (in remission)-continues to follow addiction analytics specialist. Now has about 8 months of sobriety Continues to do vivitrol injection. She reports she is feeling well. She has now in a new sober living situation at the [facility] and [place]. She plans on getting her own apartment in the next few months. . Obesity: Now followed by [place] bariatric program. hypertension: Blood pressure acceptable today in office. Continues on lis inopril 5 mg. Blood pressures have been stable at home. She denies any chest pain, shortness of breath or headaches [facility] Medical History Possible exposure to STD DVT (deep venous thrombosis) History of anxiety History of panic attacks Depression Osteoarthritis of right hip Hypertension Surgical History Hx of colonoscopy History of right hip replacement History of left hip replacement History of tubal ligation History of tonsillectomy Family History Father Colon cancer Mother In good health Maternal Grandmother Breast cancer Paternal Grandmother Colon cancer Brother Multiple sclerosis Paternal Uncle Colon cancer Social History Household Members: None Housing: Homeless Are you a primary manager medicare to a significant other at home: No Do you presently have visiting nurse or other home services: No Alcohol intake: former Year quit: 02/18 Comment: pt stated started vivitrol January 2024 Patient Tobacco Use Status: Former Tobacco user Cigarette Packs Per Day: 0.25 Cigarettes Per Day: 5.0 Years Smoked: 20 Packs Per Year: 5 Packs per year/per ci.00 e-Cigarette/Vaping Use: Never Used Second Hand Smoke Exposure: No Substance Use Type: Marijuana service: No Current occupational status: unemployed and disabled Current occupation: Rt handed Cognitive needs: No Hearing needs: No Vision needs: No Questionnaire PHQ-9 Over the last 2 weeks, how often have you been bothered by any of the following problems? 1. Little interest or pleasure in doing things: not at all 2. Feeling down, depressed, or hopeless: not at all 3. Trouble falling or staying asleep, or sleeping too much: not at all 4. Feeling tired or having little energy: not at all 5. Poor appetite or overeating: not at all 6. Feeling bad about yourself - or that you are a failure or have let yourself or your family down: not at all 7. Trouble concentrating on things, such as reading the newspaper or watching television: not at all 8. Moving or speaking so slowly that other people could have noticed. Or the opposite - being so fidgety or restless that you have been moving around a lot more than usual: not at all 9. Thoughts that you would be better off or of hurting yourself in some way: not at all Total score: 0 Depression Screening Interpretation: Negative Depression Screening Done: Yes 63841 - PHQ-9 Billing: Yes Source: Developed by Drs. Ehsan Jeffrey, Garima Rueda, Stanley Dias and colleagues, with an educational moises from [employer]. Thrive Questionnaire Date Thrive assessed: 10/03/24 I am a: Patient What is your living situation today?: I have a steady place to live Within the past 12 months, did the food you bought not last and you didn't have the money to get more?: Never true Within the past 12 months, did you worry whether your food would run out before you got money to buy more?: Never true Do you have trouble paying for medicines?: No Do you have trouble getting transportation to medical appointments?: No Do you have trouble paying your heating and electricity bill?: No Do you have trouble taking care of your child, family member or friend?: No Do you have trouble with day-to-day activities such as bathing, preparing meals, shopping, managing finances, etc.?: No Are you interested in more education?: No Please select the resources that you would like help with: None Currently or been in a relationship where the following occur: No concerns reported THRIVE Score: 0 AUDIT C Alcohol Use Questionnaire (AUDIT-C) 1. How often do you have a drink containing alcohol?: 4 or more times a week 2. How many drinks containing alcohol do you have on a typical day when you are drinking?: 5 or 6 (Nips 100 proof ) 3. How often do you have six or more drinks on one occasion?: Daily or almost daily Total Score: 10 DASHA-7 AMB Questionnaire DASHA-7 Date DASHA - 7 assessed: 10/03/24 Feeling nervous, anxious, or on edge: 0 = Not at all Not being able to stop or control worryin = Not at all Worrying too much about different things: 0 = Not at all Trouble relaxin = Not at all Being so restless that it is hard to sit still: 0 = Not at all Becoming easily annoyed or irritable: 0 = Not at all Feeling afraid as if something awful might happen: 0 = Not at all Total DASHA-7 score (0-4 normal; 5-9 mild; 10-14 moderate; 15-21 severe): 0 Source: Developed by Drs. Ehsan Jeffrey, Garima Rueda, Stanley Dias and colleagues, with an educational moises from [employer]. DASHA-7 Assessment Billing DASHA-7 Assessment Tool: DASHA-7 Assessment 93236 Review of Systems Const Denies headache(s) Eyes Denies loss of vision ENT Denies vertigo, Denies dizziness, Denies headache(s) and Denies sore throat Card Denies chest pain, Denies leg edema and Denies lightheadedness Resp Denies cough, Denies hemoptysis and Denies wheezing GI Denies abdominal pain, Denies melena, Denies constipation, Denies diarrhea and Denies vomiting Denies urinary frequency, Denies dysuria and Denies urinary urgency Musc Denies arthralgias, Denies joint swelling, Denies numbness and Denies tingling Neuro Denies Abnormal speech present, Denies behavioral changes, Denies vertigo, Denies dizziness, Denies headache(s), Denies loss of vision, Denies memory loss, Denies numbness and Denies tingling Psych Denies anxiety, Denies behavioral changes, Denies depression, Denies memory loss and Denies panic attacks Freddie/Lymph Denies easy bleeding and Denies easy bruising Aller/Immun Denies wheezing Physical exam (Primary Care) Vital Signs: Last Vital Signs Pulse 51 10/03/24 11:08 BP 104/62 10/03/24 11:08 Pulse Ox 97 10/03/24 11:08 Oxygen Delivery Method Room Air 10/03/24 11:08 BMI result Body Mass Index 35.6 Tobacco/Smoking Status: Tobacco use Status Tobacco use date assessed 10/03/24 10/03/24 11:17 Patient Tobacco Use Status Former Tobacco user 10/03/24 11:09 e-Cigarette/Vaping Use Never Used 10/03/24 11:09 PHQ-9: PHQ-9 Score PHQ-9: Total score 0 10/03/24 11:27 Depression Screening Interpretation: Negative Thrive Assessment: Date of Thrive Assessment Date Thrive assessed 10/03/24 10/03/24 11:09 Currently or been in a relationship where the following occur: No concerns reported Const General: healthy appearing, no acute distress, alert and awake Nutritional Appearance: well nourished Orientation/consciousness: oriented to person, oriented to place and oriented to time HENMT Ears: TM's normal bilaterally General nose exam: Normal nasal mucous membranes and turbinates present Eyes Conjunctivae: conjunctivae normal Sclerae: sclerae normal Pupils: Equal, round and reactive pupils present Neck Neck: Yes no lymphadenopathy and Yes no JVD Thyroid: Thyroid normal Carotids: no bruits Resp Effort & Inspection: normal respiratory effort and not tachypneic Auscultation: no crackles, no rales, no rhonchi and no wheezes Cardio Rate: regular rate Rhythm: regular rhythm Heart sounds: no murmurs and normal S1 and S2 GI Palpation (GI): Soft to palpation, nontender, no hepatomegaly and no splenomegaly Auscultation: normal bowel sounds Skin General skin exam: no rashes or lesions noted and dry skin Neuro General: oriented to person, oriented to place and oriented to time Cranial nerves: Yes Equal, round and reactive pupils present Speech: No Abnormal speech present Gait exam (Neuro): Normal gait present Motor exam (neuro): no tremor noted Extrem Right upper extremity: full ROM Left upper extremity: full ROM Right lower extremity: full ROM; no edema Left lower extremity: full ROM; no edema Psych Mental Status: mental status grossly normal Speech and movement: Normal speech and movement present Affect: normal affect Attitude: cooperative Thought process: Normal thought process present Office Procedures Flu Questionnaire Does the patient have a severe egg allergy?: No Does the patient have severe life threatening allergies?: No Does the patient have a fever or illness today?: No Has the patient ever had Guillain-[place] Syndrome?: No Has the patient ever had any past reaction to a flu shot?: No Immunizations Fluarix Triv [id number] (PF) 45 mcg (15 mcg x 3)/0.5 mL IM syringe Performing Provider: Declan Saravia PA-C [facility] Administered by: COMPA Hartman on 10/03/24 11:17 Dose Route Admin Location Dispensed Lot Number Expiration Date [facility] Vel[employer] 0.5 mL IM Left Deltoid 0.5 mL [id number] 03/27/25 30877-235-76 Responsible City VIS Given Date VIS Provided VIS Publication Date 10/03/24 Single Vaccine 21 Eligibility Eligibility Date Funding Source Not [facility] Eligible 10/03/24 Private Coding Level of Care Code Est Pt Level 4 (22858) Diagnoses Paresthesia of hand, bilateral R20.2 Peripheral vascular disease of lower extremity I73.9 Primary hypertension I10 Hypertension type: primary hypertension Primary osteoarthritis of both hands M19.041; M19.042 Osteoarthritis type: primary Alcohol use disorder, severe, in early remission, dependence F10.21 Additional Codes DASHA-7 Assessment Billing - DASHA-7 Assessment Tool: DASHA-7 Assessment 26574 ([id number]) PHQ-9 - 01965 - PHQ-9 Billing: Yes ([id number]) Assessment & Plan Assessment & Plan (1) Paresthesia of hand, bilateral: Code(s): R20.2 - Paresthesia of skin Category: Medical Plan: I discussed with the patient the likelihood of carpal tunnel syndrome affecting both hands and its relation to her symptoms. We reviewed the limitations and partial relief obtained from current medications like Tylenol and arthritis gel. The patient understands the benefits and limitations of occupational therapy but has limited access temporarily due to her living situation. We explored anti-inflammatory medication avoidance due to weight management strategies, and I proposed considering an EMG study to confirm nerve involvement (2) Peripheral vascular disease of lower extremity: Code(s): I73.9 - Peripheral vascular disease, unspecified Category: Medical Plan: Continues to have edema in her left lower extremity. Patient is followed by [facility] and will be due for a new procedure to help with her venous insufficiency (3) Hypertension: Code(s): I10 - Essential (primary) hypertension Category: Medical Qualifiers: Hypertension type: primary hypertension Qualified Code(s): I10 - Essential (primary) hypertension Plan: Patient's blood pressure acceptable today in office. Will continue his current dose of lisinopril with goal blood pressure to remain below 140/90 (4) Osteoarthritis of hands, bilateral: Code(s): M19.041 - Primary osteoarthritis, right hand; M19.042 - Primary osteoarthritis, left hand Category: Medical Qualifiers: Osteoarthritis type: primary Qualified Code(s): M19.041 - Primary osteoarthritis, right hand; M19.042 - Primary osteoarthritis, left hand Plan: Most recent x-ray showing severe osteoarthritis in the hands. She continues to have hand pain even with the use of Tylenol and p.r.n. topical NSAID. She is interested in seeing orthopedics for possible cortisone injection to help reduce her pain. (5) Alcohol use disorder, severe, in early remission, dependence: Code(s): F10.21 - Alcohol dependence, in remission Category: Medical Plan: She is now 8 month sober and I congratulated her on this. She continues on Vivitrol injections through comprehensive analytics specialist here in [place]. Orders: Orders Lipid Panel Today E78.9 - Disorder of lipoprotein metabolism, unspecified Influenza [id number] Immunization Today Z23 - Encounter for immunization Vitamin B12 and Folate Today E53.8 - Deficiency of other specified B group vitamins [facility] [place]. Panel Fast Today E78.9 - Disorder of lipoprotein metabolism, unspecified Complete Blood Count no Diff Today E78.9 - Disorder of lipoprotein metabolism, unspecified Microalbumin, Random (w Creat) Today I10 - Essential (primary) hypertension NE electromyogram (EMG) Today R20.2 - Paresthesia of skin Referrals Orthopedics Referral M19.041 - Primary osteoarthritis, right hand, M19.042 - Primary osteoarthritis, left hand
== END 2024-10-03 11:40 | disposition home or self-care (01) ==
PROVIDERS: PCP Physician Assistant; Visit Provider Physician Assistant
DX: R20.2 Paresthesia of skin (principal); I73.9 Peripheral vascular disease, unspecified; F10.21 Alcohol dependence, in remission; I10 Essential (primary) hypertension; M19.041 Primary osteoarthritis, right hand; M19.042 Primary osteoarthritis, left hand; Z23 Encounter for immunization

== ENCOUNTER → 2024-10-03 10:50 | Outpatient (BNVA) | payer OTHER, SELFPAY | PROVIDERS: PCP Physician Assistant; Visit Provider Physician Assistant | DX: M19.042 Primary osteoarthritis, left hand (principal); M19.041 Primary osteoarthritis, right hand; R20.2 Paresthesia of skin; I73.9 Peripheral vascular disease, unspecified; I10 Essential (primary) hypertension; F10.21 Alcohol dependence, in remission; E53.8 Deficiency of other specified B group vitamins; E78.9 Disorder of lipoprotein metabolism, unspecified; Z23 Encounter for immunization | CPT/HCPCS: 90471; 90656; 96127; 99212 ==

== ENCOUNTER 2024-10-07 07:08 | Outpatient (REF) | payer OTHER, SELFPAY ==
[2024-10-07 08:35] LABS: Hematocrit 38.5 % (37.0-47.0); Mean Corpuscular HGB Conc 33.8 g/dl (31.0-35.0); Mean Corpuscular Hemoglobin 30.4 pg (27.0-33.0); Mean Corpuscular Volume 90.2 fL (80.0-98.0); Mean Platelet Volume 11.3 fL (9.4-12.3); Platelet Count 174 X10*3/uL (160-400); Red Blood Count 4.27 X10*6/uL (4.20-5.50); Red Cell Distribution Width 11.7 % (11.0-16.0); White Blood Count 5.2 X10*3/uL (4.8-10.8)
[2024-10-07 09:05] LABS: Creatinine Urine 81.87 mg/dL; Microalbum/Creatinine Ratio Ur 25.6 ug/mg cr (<30)
[2024-10-07 09:36] LABS: Alanine Aminotransferase 14 U/L (0-31); Albumin Level 4.3 g/dL (3.5-5.0); Alkaline Phosphatase 75 U/L (39-117); Anion Gap 11 (12-20); Aspartate Amino Transferase 17 U/L (5-31); Bilirubin Total 0.6 mg/dL (0.0-1.0); Blood Urea Nitrogen 26 mg/dL (9-16); Carbon Dioxide 27 mmol/L (22-29); Chloride 107 mmol/L (96-108); Cholesterol 191 mg/dL (<200); Estimated Glomerular Filt Rate > 60; Glucose Fasting 112 mg/dL (60-99); HDL Cholesterol 45 mg/dL (>40); LDL Cholesterol Calculated 124 mg/dL (<100); Potassium 4.3 mmol/L (3.3-5.1); Sodium 141 mmol/L (135-145); Total Protein 7.6 g/dL (6.5-8.0); Triglycerides 112 mg/dL (<150)
[2024-10-07 09:39] LABS: Folate 17.1 ng/mL (> or = 4.0); Vitamin B12 410 pg/mL (200-900)
== END 2024-10-07 07:09 | disposition home or self-care (01) ==
LOC: HO.LAB 07:08
PROVIDERS: PCP Physician Assistant; Visit Provider Physician Assistant
DX: E78.9 Disorder of lipoprotein metabolism, unspecified (principal); E53.8 Deficiency of other specified B group vitamins; I10 Essential (primary) hypertension
CPT/HCPCS: 36415; 80053; 80061; 82043; 82570; 82607; 82746; 85027

== ENCOUNTER 2024-10-11 08:28 | Outpatient (REF) | payer OTHER, SELFPAY ==
[2024-10-13 11:11] LABS: Alcohol, Ethyl Urine Screen NEGATIVE
== END 2024-10-11 08:29 | disposition home or self-care (01) ==
LOC: HO.LAB 08:28
PROVIDERS: PCP Physician Assistant; Visit Provider Surgery
DX: F10.21 Alcohol dependence, in remission (principal); Z79.899 Other long term (current) drug therapy
CPT/HCPCS: 80307; 96372; J2315

== ENCOUNTER 2024-10-11 09:03 | Outpatient (AMB) | payer OTHER, SELFPAY ==
--- NOTE | 2024-10-11 13:58 | AM.OFFVISNUR ---
Intake Visit Reasons: Dora Inj Allergies No Known Allergies [No Known Allergies*] Allergy (Verified 10/03/24 11:31) Office Meds Vivitrol 380 mg intramuscular suspension,extended release Performing Provider: Geetha Coombs CNP Performing Location: [facility] Administered by: Rossy Arroyo RN on 10/12/24 14:47 Dose Route Admin Location Dispensed Lot Number Expiration Date [facility] Manager [employer] 380 mg IM LG 380 mg [id number] 01/25/27 18303-130-08 [employer] Assessment & Plan Assessment & Plan Orders: Orders AMB Naltrexone Injection Patient Supplied ([place]) 10/11/24 F10.21 - Alcohol dependence, in remission Medications: New Vivitrol ER (naltrexone microspheres) 380 mg IM ONCE 1 ea 0RF NS F10.21 - Alcohol dependence, in remission
== END 2024-10-11 09:35 | disposition home or self-care (01) ==
PROVIDERS: PCP Physician Assistant
DX: F10.21 Alcohol dependence, in remission (principal)

== ENCOUNTER 2024-10-14 07:30 | Outpatient (AMB) | payer OTHER, SELFPAY ==
--- NOTE | 2024-10-14 07:52 | MHC.OFFVIS ---
Intake Visit Reasons: Left GSV Venaseal Accompanied by: Self / Same As Patient Allergies No Known Allergies [No Known Allergies*] Allergy (Verified 10/14/24 07:52) PFS Medical History Possible exposure to STD DVT (deep venous thrombosis) History of anxiety History of panic attacks Depression Osteoarthritis of right hip Hypertension Surgical History Hx of colonoscopy History of right hip replacement History of left hip replacement History of tubal ligation History of tonsillectomy Family History Father Colon cancer Mother In good health Maternal Grandmother Breast cancer Paternal Grandmother Colon cancer Brother Multiple sclerosis Paternal Uncle Colon cancer Social History Household Members: None Housing: Homeless Are you a primary intensive care ambulance paramedic to a significant other at home: No Do you presently have visiting nurse or other home services: No Alcohol intake: former Year quit: 02/18 Comment: pt stated started vivitrol January 2024 Patient Tobacco Use Status: Former Tobacco user Cigarette Packs Per Day: 0.25 Cigarettes Per Day: 5.0 Years Smoked: 20 e-Cigarette/Vaping Use: Never Used Second Hand Smoke Exposure: No Substance Use Type: Marijuana service: No Current occupational status: unemployed and disabled Current occupation: Rt handed Cognitive needs: No Hearing needs: No Vision needs: No Office Procedures Vascular Office Procedure Details Details: Diagnosis: Left Leg varicose veins with inflammation Procedure: Endovenous Ablation of the left Great Saphenous Vein with VenaSeal Closure System Anesthesia: Local infiltration 5 cc, Engineering Design Manager: YASEMIN Lopez Estimated Blood Loss: min Specimen: none Duplex ultrasound was used to map out the insufficient saphenous vein, and access was determined and marked on the overlying skin. The depth and diameter of the vein(s) to be treated was documented. The patient was placed supine on the procedure table and the leg was prepped and draped using sterile technique. Ultasound guidance was again used to localize the access site. 1% lidocaine was injected as a local anesthetic in the subcutaneous tissues at the target location in the GSV in the lower leg. Using ultrasound guidance, access was gained at this location with the 19 gauge thin walled access needle and followed by introduction of a short guidewire, location confirmed with ultrasound. A small, 3 mm incision was made at the access site to allow for introduction and placement of the 7 Fr x7cm introducer/dilator. The dilator and guidewire were removed. The 0.035 guidewire from the VenaSeal kit was then introduced and positioned at the saphenofemoral junction using ultrasound guidance. The 80 cm 7 Fr introducer sheath/dilator was positioned 5cm from the saphenofemoral junction. The guidewire and dilator were removed, and the remaining sheath was flushed with sterile saline, with the syringe remaining in place prior to the next steps. The cyanoacrylate adhesive was precisely primed into the 5 F delivery catheter and this catheter/syringe combination was attached within the dispenser gun. This assembly was introduced through the 7F sheath and positioned 5 cm caudal of the saphenofemoral junction under ultrasound guidance. The steps from the IFU were followed for dispensing amounts, locations and compression times, 2 aliquots proximally with 3 minutes of compression, and 1 aliquot every 3 cm distally with 30 sec of compression along the course of the vessel. Following the last injection and compression sequence, the catheter and introducer sheath were pulled out from the access site. Hemostasis was achieved with manual compression and an adhesive bandage was applied to the incision. Ultrasound confirmed complete coaptation and closure of the treated segments of the GSV, and the absence of any DVT at the saphenofemoral junction. Treatment time was approximately 4 minutes and the vein length treated was 15 cm. The drapes were removed and the patient cleaned and prepared for discharge. Post op ultrasound check is scheduled for 48-72 hours and the patient was given written post-op instructions. 11690 - Endoven Ther Chem Adhes 1st All charges added?: Procedure code (CPT) selection complete Assessment & Plan Assessment & Plan (1) Varicose veins of left lower extremity with inflammation: Comment: 10/14/2024 - left great saphenous vein Cyanoacralate ablation Code(s): I83.12 - Varicose veins of left lower extremity with inflammation Category: Medical Plan: See op note Coding Level of Care Code Procedure Only Diagnoses Varicose veins of left lower extremity with inflammation I83.12 CPT Codes Details - Vascular 3: 82313 - Endoven Ther Chem Adhes 1st ([id number])
== END 2024-10-14 09:51 | disposition home or self-care (01) ==
PROVIDERS: PCP Physician Assistant; Visit Provider Surgery Vascular Surgery
DX: I83.12 Varicose veins of left lower extremity with inflammation (principal)
CPT/HCPCS: 36482

== ENCOUNTER → 2024-10-14 07:30 | Outpatient (BNVA) | payer OTHER, SELFPAY | PROVIDERS: PCP Physician Assistant; Visit Provider Surgery Vascular Surgery | DX: I83.12 Varicose veins of left lower extremity with inflammation (principal) | CPT/HCPCS: 36482; J2003 ==

== ENCOUNTER 2024-10-18 05:58 | Outpatient (REF) | payer OTHER, SELFPAY ==
--- NOTE | 2024-10-18 05:56 | EMG_ITS ---
Bilateral median and ulnar motor and sensory studies were performed. Bilateral radial sensory studies were performed and medial and lateral antecubital brachial sensory studies were performed and paraspinal muscles were tested with a needle. IMPRESSION: 1. [id number] bilateral median neuropathy across carpal tunnel. 2. Mild bilateral ulnar neuropathy across cubital tunnel. MD SEGUNDO Lemus/GLENDA / [id number]
== END 2024-10-18 05:59 | disposition home or self-care (01) ==
LOC: HO.NEURO 05:58
PROVIDERS: PCP Physician Assistant; Visit Provider Physician Assistant
DX: R20.2 Paresthesia of skin (principal)
CPT/HCPCS: 95886; 95913

== ENCOUNTER 2024-10-26 13:24 | Outpatient (AMB) | payer OTHER, SELFPAY ==
--- NOTE | 2024-10-26 13:59 | MHC.OFFVIS ---
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 Patient reports ongoing numbness and tingling for a couple months. She mentions that her left hand is worse than the right hand. She in having sharp/throbbing pain for about 2 months in her CMC joint. Patient has tried and failed diclofenac sodium topical cream. EMG done on 10/18/2024 IMPRESSION: 1. Xhbf-mz-hlrkaxlc bilateral median neuropathy across carpal tunnel. 2. Mild bilateral ulnar neuropathy across cubital tunnel. 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 Patient reports ongoing numbness and tingling for a couple months. She mentions that her left hand is worse than the right hand. She in having sharp/throbbing pain for about 2 months in her CMC joint. Patient has tried and failed diclofenac sodium topical cream. EMG done on 10/18/2024 IMPRESSION: 1. Kgrc-oy-khapvapc bilateral median neuropathy across carpal tunnel. 2. Mild bilateral ulnar neuropathy across cubital tunnel. [facility] Medical History Possible exposure to STD DVT (deep venous thrombosis) History of anxiety History of panic attacks Depression Osteoarthritis of right hip Hypertension Surgical History Hx of colonoscopy History of right hip replacement History of left hip replacement History of tubal ligation History of tonsillectomy Family History Father Colon cancer Mother In good health Maternal Grandmother Breast cancer Paternal Grandmother Colon cancer Brother Multiple sclerosis Paternal Uncle Colon cancer Social History Household Members: None Housing: Homeless Are you a primary healthcare account manager to a significant other at home: No Do you presently have visiting nurse or other home services: No Alcohol intake: former Year quit: 02/18 Comment: pt stated started vivitrol January 2024 Patient Tobacco Use Status: Former Tobacco user Cigarette Packs Per Day: 0.25 Cigarettes Per Day: 5.0 Years Smoked: 20 e-Cigarette/Vaping Use: Never Used Second Hand Smoke Exposure: No Substance Use Type: Marijuana service: No Current occupational status: unemployed and disabled Current occupation: Rt handed Cognitive needs: No Hearing needs: No Vision needs: No Review of Systems Const All systems reviewed & are unremarkable except as noted in HPI and below Physical Exam Vital Signs: Last Vital Signs Pulse 63 10/26/24 14:05 BP 116/70 10/26/24 14:05 Pulse Ox 98 10/26/24 14:05 Oxygen Delivery Method Room Air 10/26/24 14:05 BMI result Body Mass Index 38.4 Extrem Other: Neuro: Normal sensation of the tips of all digits of bilateral hands in the office today No thenar or intrinsic wasting. Good APB muscle firing and good finger cross. Vascular: Capillary refill brisk. ROM: Patient can make a fist and extend all their digits. Skin: No lacerations or abrasions noted. General: No ecchymosis. No erythema or evidence of infection. Results Reviewed Results Reviewed: EMG done on 10/18/2024 IMPRESSION: 1. Fylw-mu-fzyjnkrd bilateral median neuropathy across carpal tunnel. 2. Mild bilateral ulnar neuropathy across cubital tunnel. Assessment & Plan Assessment & Plan (1) Cubital tunnel syndrome, bilateral: Code(s): G56.23 - Lesion of ulnar nerve, bilateral upper limbs Category: Medical (2) Bilateral carpal tunnel syndrome: Code(s): G56.03 - Carpal tunnel syndrome, bilateral upper limbs Category: Medical Plan 1. Cubital tunnel syndrome, left 2. Carpal tunnel syndrome, left Symptoms intermittent, daily, worse at night I educated the patient about the condition. I discussed both operative and nonoperative treatment options. The patient would like to proceed with surgery. The risks and benefits of operative treatment were discussed with the patient and the patient wishes to proceed with surgery. These risks include, but are not limited to, risk of damage to blood vessels, nerves, tendons, infection, recurrence, incomplete relief of preoperative symptoms, persistent pain, possible need for further surgery, and the risks associated with regional blocks and/or anesthesia. Plan is to take the patient to the operating room at some point in the next few weeks for the following procedures: 1. Left cubital tunnel release under general anesthesia 2. Left carpal tunnel release under general anesthesia All of the preoperative paperwork including the consent was discussed today. All of the patient's questions were answered in the clinic today. The patient understands that they will be in contact with our surgical technician to discuss scheduling their procedure. Patient denies diabetes, blood thinners, asthma, heart issues, lung issues, kidney issues, or current smoking. Orders: Referrals Nephrology Referral E87.5 - Hyperkalemia Coding Level of Care Code Est Pt Level 4 (83359) Diagnoses Cubital tunnel syndrome, bilateral G56.23 Bilateral carpal tunnel syndrome G56.03
[2024-10-26 14:05] VITALS: BP 116/70; PULSE 63; O2SAT 98; BMI 38.4
--- OUTSIDE RECORDS SUMMARY | 2024-10-26 15:33 | XMS_ITS | Clinical Summary ---
Author Organization [facility] Address [id number] [place] [id number] Care Team Providers Care Lead Auditor Name Role Phone Unavailable Primary Care Provider Unavailabl e Surgical History Surgery Date Site/Laterality Comments TUBAL LIGATION PROCEDURE: HISTORICAL TUBAL LIGATION TONSILLECTOMY PROCEDURE: HISTORICAL TONSILLECTOMY Medical History Medical History Date Comments Degeneration of lumbar or merly mbosacral intervertebral disc 10/27/2006 DX:Degeneration of lumbar or lumbosacral intervertebral disc; COMMENT: corticosteroid injection November 2005 Family History Medical History Relation Name Comments Arthritis Father feet Other: psoriasis Father Relation Name Status Comments Father Social History Tobacco Use Types Packs/Day Years Used Date Smoking Tobacco: Former Alcohol Use Standard Drinks/Week Comments No 0 (1 standard drink = 0.6 oz pur e alcohol) Sex and Gender Information Value Date Recorded Sex Assigned at Not on file Gender Identity Not on file Sexual Orientation Not on file Obstetrics History Plan of Treatment Health Maintenance Due Date Last Done Comments Breast Cancer Screening 1970 DTaP,Tdap,and Td Vaccines (1 - Tdap) 1989 Hepatitis B Vaccines (1 of 3 - 19+ 3-dose series) 1989 Cervical Cancer Screening: P ap Smear 12/01/1991 Zoster Vaccines (1 of 2) 2020 Colorectal Cancer Screening: Colonoscopy 10/27/2023 Depression Screening 10/27/2023 HIV Screening 10/27/2023 Hepatitis C Screening 10/27/2023 Social Influencers of Health Screening 10/27/2023 COVID-19 Vaccine (2023-2 5 season) 2024 Influenza Vaccine (#1) 2024 HIB Vaccines Aged Out No longer eligi ble based on patient's age to complete this topic HPV Vaccines Aged Out No longer eligi ble based on patient's age to complete this topic Hepatitis A Vaccines Aged Out No long er eligible based on patient's age to complete this topic IPV Vaccines Aged Out No longer eligi ble based on patient's age to complete this topic MMR Vaccines Aged Out No longer eligi ble based on patient's age to complete this topic Meningococcal ACWY Vaccine Aged Out N o longer eligible based on patient's age to complete this topic Pneumococcal Vaccine: Pediat rics (0 to 5 Years) and At-Risk Patients (6 to 64 Years) Aged Out No longer eligible b ased on patient's age to complete this topic RSV Immunization Patients Un pippa 20 months Aged Out No longer eligible b ased on patient's age to complete this topic Varicella Vaccines Aged Out No longer eligible based on patient's age to complete this topic
== END 2024-10-26 14:58 | disposition home or self-care (01) ==
PROVIDERS: PCP Physician Assistant
DX: G56.23 Lesion of ulnar nerve, bilateral upper limbs (principal); G56.03 Carpal tunnel syndrome, bilateral upper limbs
CPT/HCPCS: 99214

== ENCOUNTER → 2024-10-26 13:24 | Outpatient (BNVA) | payer OTHER, SELFPAY | PROVIDERS: PCP Physician Assistant | DX: G56.23 Lesion of ulnar nerve, bilateral upper limbs (principal); G56.03 Carpal tunnel syndrome, bilateral upper limbs; E87.5 Hyperkalemia | CPT/HCPCS: 99212; J1010; J2003 ==

== ENCOUNTER 2024-10-27 08:35 | Outpatient (AMB) | payer OTHER, SELFPAY ==
--- NOTE | 2024-10-27 08:54 | A.OFFVIS_ITS ---
Vital Signs 10/27/24 08:55 Height 5 ft 7 in Weight 224 lb BMI 35.1 Intake Visit Reasons: 2 week follow up L GSV Venaseal 10/14/24 Intake Note: 2 week follow up Left GSV Venaseal 10/14/24, pt states she is doing well, no complaints. Accompanied by: Self / Same As Patient Allergies No Known Allergies [No Known Allergies*] Allergy (Verified 10/27/24 08:57) HPI HPI 2 week follow up L GSV Venaseal 10/14/24: Details: Very pleasant 53-year-old female presents for follow-up status post left great saphenous vein ablation. Reports that the left leg feels significantly better. She has concerns about her right leg swelling as well. She has been compliant with her compression stockings. She now presents for routine postprocedure follow-up. [facility] Medical History Possible exposure to STD DVT (deep venous thrombosis) History of anxiety History of panic attacks Depression Osteoarthritis of right hip Hypertension Surgical History Hx of colonoscopy History of right hip replacement History of left hip replacement History of tubal ligation History of tonsillectomy Family History Father Colon cancer Mother In good health Maternal Grandmother Breast cancer Paternal Grandmother Colon cancer Brother Multiple sclerosis Paternal Uncle Colon cancer Social History Household Members: None Housing: Homeless Are you a primary rehab care assistant to a significant other at home: No Do you presently have visiting nurse or other home services: No Alcohol intake: former Year quit: 02/18 Comment: pt stated started vivitrol January 2024 Patient Tobacco Use Status: Former Tobacco user Cigarette Packs Per Day: 0.25 Cigarettes Per Day: 5.0 Years Smoked: 20 e-Cigarette/Vaping Use: Never Used Second Hand Smoke Exposure: No Substance Use Type: Marijuana service: No Current occupational status: unemployed and disabled Current occupation: Rt handed Cognitive needs: No Hearing needs: No Vision needs: No Review of Systems Const Reports as per HPI ENT Reports no additional complaints Card Denies chest pain, Denies chest pain at rest and Denies chest pain with activity Resp Denies chest congestion and Denies cough GI Reports no additional complaints Musc Details: pain over varicosities, aching of lower extremities, swelling, cramping, heaviness and tiredness, itching Denies abnormal gait Skin/Breast Reports pruritus and Denies wounds Neuro Reports no additional complaints and Denies abnormal gait Psych Denies no additional complaints Physical Exam Vital Signs: BMI result Body Mass Index 35.1 Const General: cooperative, healthy appearing and comfortable Orientation/consciousness: oriented to person, oriented to place and oriented to time Neck Carotids: no bruits Chest Chest palpation & inspection: normal inspection of the chest and normal palpation of entire chest wall Resp Effort & Inspection: normal respiratory effort and able to speak in complete sentences Cardio Rate: regular rate Heart sounds: S1 normal heart sound present and S2 normal heart sound present Peripheral pulses: Peripheral pulses 2+ throughout GI Inspection: Yes normal to inspection Skin Other: +2 edema, CEAP Classification C4 - skin color changes Ep - Etiology Primary As - superficial veins P - reflux General skin exam: dry skin Neuro General: oriented to person, oriented to place and oriented to time Extrem Right lower extremity: full ROM, normal capillary refill and edema Left lower extremity: full ROM, normal capillary refill and edema Psych Mental Status: mental status grossly normal Assessment & Plan Assessment & Plan (1) Varicose veins of right lower extremity with inflammation: Code(s): I83.11 - Varicose veins of right lower extremity with inflammation Category: Medical Plan: In short patient does have an element of venous disease as evidenced by her left leg. I have taken the liberty of ordering right lower extremity venous ultrasound. We did discuss continued conservative measures including compression, elevation, exercise. Patient will follow up with us after testing. Thank you for allowing us to assist in her care. If there are any questions or concerns please do not hesitate to contact us (2) Varicose veins of left lower extremity with inflammation: Comment: 10/14/2024 - left great saphenous vein Cyanoacralate ablation Code(s): I83.12 - Varicose veins of left lower extremity with inflammation Category: Medical Plan: Has done well with her left leg procedure. Will get right leg testing. Orders: Orders US venous duplex LE RT 1 Week I83.11 - Varicose veins of right lower extremity with inflammation Coding Level of Care Code Est Pt Level 4 (60783) Diagnoses Varicose veins of right lower extremity with inflammation I83.11 Varicose veins of left lower extremity with inflammation I83.12
[2024-10-27 08:55] VITALS: BMI 35.1
== END 2024-10-27 09:05 | disposition home or self-care (01) ==
PROVIDERS: PCP Physician Assistant; Visit Provider Surgery Vascular Surgery
DX: I83.11 Varicose veins of right lower extremity with inflammation (principal); I83.12 Varicose veins of left lower extremity with inflammation
CPT/HCPCS: 99214

== ENCOUNTER → 2024-10-27 08:35 | Outpatient (BNVA) | payer OTHER, SELFPAY | PROVIDERS: PCP Physician Assistant; Visit Provider Surgery Vascular Surgery | DX: I83.11 Varicose veins of right lower extremity with inflammation (principal); I83.12 Varicose veins of left lower extremity with inflammation | CPT/HCPCS: 99212 ==

== ENCOUNTER 2024-10-31 11:57 | Outpatient (AMB) | payer OTHER, SELFPAY ==
[2024-10-31 11:58] VITALS: BP 96/68; PULSE 66; O2SAT 98; BMI 35.5
--- NOTE | 2024-10-31 11:58 | HO.NEPHOV ---
Vital Signs 10/31/24 11:58 Height 5 ft 7 in Weight 227 lb BMI 35.5 BP 96/68 Blood Pressure Location Lt brachial Position Sitting Pulse 66 Pulse Source Pulse Oximeter Pulse Oximetry (%) 98 Oxygen Delivery Method Room Air Intake Visit Reasons: INP- DX-Hyperkalemia Bird Tender Required: No Accompanied by: Self / Same As Patient Allergies No Known Allergies [No Known Allergies*] Allergy (Verified 10/31/24 12:00) Medication List - Last Reconciled 10/31/24 by Luke Cuevas MD acetaminophen 1,000 mg (2 x 500 mg) PO Q6H PRN 30 days blood pressure kit-extra large As directed clonidine HCl 0.6 mg (2 x 0.3 mg) PO BEDTIME 30 days diclofenac sodium 1% 2 grams topical QID PRN 30 days furosemide 20 mg PO DAILY PRN lisinopril 5 mg PO DAILY loratadine 10 mg PO DAILY naltrexone microspheres ER (Vivitrol) 380 mg IM Q4W propranolol 20 mg PO BEDTIME 90 days [Raised toilet seat As directed] vitamin B complex-folic acid 0.4 mg (B Complex 1 (with folic acid)) 1 tab PO DAILY HPI Comments Details: Angelica is a pleasant 53 year woman referred for evaluation of hyperkalemia. She has a history of alcohol use in the past. She claims to be sober at this time. History of severe osteoarthritis. Status post bilateral hip replacement. She was waiting for hence surgery. Nine She has had acute kidney injury about a year ago. This has resolved. She has had both low and high potassium levels in the past. She takes Lasix p.r.n. she has not taken Lasix for the last few weeks. Currently she is on lisinopril 5 mg. [facility] Medical History Possible exposure to STD DVT (deep venous thrombosis) History of anxiety History of panic attacks Depression Osteoarthritis of right hip Hypertension Surgical History Hx of colonoscopy History of right hip replacement History of left hip replacement History of tubal ligation History of tonsillectomy Family History Father Colon cancer Mother In good health Maternal Grandmother Breast cancer Paternal Grandmother Colon cancer Brother Multiple sclerosis Paternal Uncle Colon cancer Social History Household Members: None Housing: Homeless Are you a primary companion caregiver to a significant other at home: No Do you presently have visiting nurse or other home services: No Alcohol intake: former Year quit: 02/18 Comment: pt stated started vivitrol January 2024 Patient Tobacco Use Status: Former Tobacco user Cigarette Packs Per Day: 0.25 Cigarettes Per Day: 5.0 Years Smoked: 20 e-Cigarette/Vaping Use: Never Used Second Hand Smoke Exposure: No Substance Use Type: Marijuana service: No Current occupational status: unemployed and disabled Current occupation: Rt handed Cognitive needs: No Hearing needs: No Vision needs: No Review of Systems Const Denies fever(s) and Denies weight loss Card Denies chest pain Resp Denies cough and Denies hemoptysis GI Denies abdominal pain, Denies diarrhea and Denies nausea Musc Denies back pain Neuro Denies focal weakness Physical Exam Vital Signs: Last Vital Signs Pulse 66 10/31/24 11:58 BP 96/68 10/31/24 11:58 Pulse Ox 98 10/31/24 11:58 Oxygen Delivery Method Room Air 10/31/24 11:58 BMI result Body Mass Index 35.5 Results Reviewed Nephrology Results: Hgb 13.0 g/dl (12.0-16.0) 10/07/24 WBC 5.2 X10*3/uL (4.8-10.8) 10/07/24 Plt Count 174 X10*3/uL (160-400) 10/07/24 Sodium 139 mmol/L (135-145) 10/31/24 Potassium 5.0 mmol/L (3.3-5.1) 10/31/24 Chloride 105 mmol/L (96-108) 10/31/24 Carbon Dioxide 26 mmol/L (22-29) 10/31/24 BUN 14 mg/dL (9-16) 10/31/24 Creatinine 0.79 mg/dL (0.5-1.4) 10/31/24 Calcium 10.2 mg/dL (8.4-10.2) 10/31/24 Urine Protein Negative mg/dL (Neg-Trace) 10/31/24 Urine Creatinine 81.87 mg/dL 10/07/24 Assessment & Plan Assessment & Plan (1) Hyperkalemia: Code(s): E87.5 - Hyperkalemia Category: Medical Plan Middle-aged woman with a history of hyperkalemia. The most recent potassium level appears normal. She has been on low-dose lisinopril. She was also had episode of acute kidney injury past however the current renal function is normal. She has been using diuretics frequently which could be contributing to NIDIA. I have initiated a workup today. If renal function and serum potassium are normal there is no absolute contraindication for surgery. Orders: Orders Basic Metabolic Panel Today Luke Cuevas MD E87.5 - Hyperkalemia UA and rflx microscopic Today Luke Cuevas MD E87.5 - Hyperkalemia Medications: Changed From furosemide 20 mg PO DAILY 90 days 90 tabs 1RF R60.0 - Localized edema To furosemide 20 mg PO DAILY PRN R60.0 - Localized edema Declan Saravia PA-C Coding Level of Care Code New Pt Level 4 (18326) Diagnoses Hyperkalemia E87.5
--- OUTSIDE RECORDS SUMMARY | 2024-10-31 13:22 | XMS_ITS | Clinical Summary ---
Author Organization [employer] Address [address] [place] [address] [address] [address] Care Team Providers Care Carpenter Supervisor Wooden Ship Name Role Phone Unavailable Primary Care Provider Unavailabl e Social History Tobacco Use Types Packs/Day Years Used Date Smoking Tobacco: Never Assessed Comments Unknown Sex and Gender Information Value Date Recorded Sex Assigned at Female 03/04/2024 12:55 PM EDT Legal Sex Female 11:31 AM EDT Gender Identity Choose not to disclose 12:55 PM EDT Sexual Orientation Choose not to disclose 2023 12:55 PM EDT Plan of Treatment Health Maintenance Due Date Last Done Comments CT Colonography 1970 Colonoscopy 1970 Colorectal Cancer Screening 1970 Depression Screening 1970 FIT DNA/Cologuard 1970 FIT 1970 FOBT 1970 HIV Screening 1970 SDOH Screening 1970 Sigmoidoscopy 1970 Alcohol/Substance Use Screening 1982 Tobacco Screening 1982 Hepatitis C Screening 1988 Hepatitis A Vaccines (1 of 2 - Risk 2-dose series) 1989 Hepatitis B Vaccines (1 of 3 - 19+ 3-dose series) 1989 Pap Smear 12/01/1991 Cervical Cancer Screening 2000 HPV/Cotest 2000 Mammogram 2010 Pneumococcal Vaccine: 50+ Years (2 of 2 - PCV) 2020 06/30/2016 Zoster Vaccines (1 of 2) 2020 COVID-19 Vaccine ( - season) 2024 09/05/2022, 10/15/2021, 03/09/2021, Additional history exists Influenza Vaccine (#1) 2024 09/05/2022 DTaP/Tdap/Td Vaccines (2 - Td or Tdap) 11/05/2031 11/05/2021 RSV Patients and Patients Aged 60 years or older (1 - 1-dose 75+ series) 2045 Pneumococcal Vaccine: Pediatrics (0 to 5 Years) and At-Risk Patients (6 to 49) Years) Aged Out 06/30/2016 No longer eligible based on patient's age to complete this topic HIB Vaccines Aged Out No longer eligi ble based on patient's age to complete this topic HPV Vaccines Aged Out No longer eligi ble based on patient's age to complete this topic IPV Vaccines Aged Out No longer eligi ble based on patient's age to complete this topic Meningococcal Vaccine Aged Out No peña oz eligible based on patient's age to complete this topic RSV under 20 months Aged Out No longe r eligible based on patient's age to complete this topic Rotavirus Vaccines Aged Out No longer eligible based on patient's age to complete this topic [place] [address] [place] [address]
--- OUTSIDE RECORDS SUMMARY | 2024-10-31 13:22 | XMS_ITS | Clinical Summary ---
Author Organization [facility] Address [address] [place] [phone] Care Team Providers Care Labor Arbitrator Name Role Phone Unavailable Primary Care Provider [...]
== END 2024-10-31 12:14 | disposition home or self-care (01) ==
PROVIDERS: PCP Physician Assistant; Visit Provider Internal Medicine Hypertension Specialist
DX: E87.5 Hyperkalemia (principal)
CPT/HCPCS: 99204

== ENCOUNTER 2024-10-31 11:57 | Outpatient (REF) | payer OTHER, SELFPAY ==
--- OUTSIDE RECORDS SUMMARY | 2024-10-31 13:41 | XMS_ITS | Clinical Summary ---
Author Organization [facility] Address [address] [place] [phone] Care Team Providers Care Investigation Division Sergeant Name Role Phone Unavailable Primary Care Provider [...]
--- OUTSIDE RECORDS SUMMARY | 2024-10-31 13:41 | XMS_ITS | Clinical Summary ---
Author Organization [employer] Address [address] [place] [address] [address], [place] [address] Care Team Providers Care Peoplesoft Fscm Developer Name Role Phone Unavailable Primary Care Provider [...] to complete this topic Insurance [address] [address] [address]
[2024-10-31 13:54] LABS: Appearance Urine Clear; Color Urine Yellow; Glucose Urine UA Negative (Negative); Leukocyte Esterase Urine Trace (Negative); Nitrite Urine Negative (Negative); PH 6.5 (5.0-9.0); Specific Gravity - Urine <= 1.005 (1.005-1.025); UMIC TRIGGER UA YES; Urine Blood Negative (Negative); Urine Ketones Negative (Negative); Urine Protein Negative (Neg-Trace)
[2024-10-31 13:59] LABS: Bacteria Urine Trace (None Seen); Hyaline Casts Urine 0-2 /LPF (0-2); RBC Urine 0-2 /HPF (0-2); Squamous Epithelial Cell Urine 0-2 /HPF (0-2); WBC Urine 0-5 /HPF (0-5)
[2024-10-31 14:55] LABS: Anion Gap 13 (12-20); Blood Urea Nitrogen 14 mg/dL (9-16); Calcium 10.2 mg/dL (8.4-10.2); Carbon Dioxide 26 mmol/L (22-29); Chloride 105 mmol/L (96-108); Estimated Glomerular Filt Rate > 60; Glucose Random 104 mg/dL (60-115); Sodium 139 mmol/L (135-145)
== END 2024-10-31 11:58 | disposition home or self-care (01) ==
LOC: HO.LAB 11:57
PROVIDERS: PCP Physician Assistant; Visit Provider Internal Medicine Hypertension Specialist
DX: E87.5 Hyperkalemia (principal)
CPT/HCPCS: 36415; 80048; 81001; 99202

== ENCOUNTER 2024-11-08 08:40 | Outpatient (AMB) | payer OTHER, SELFPAY ==
--- NOTE | 2024-11-08 08:47 | AM.OFFVISNUR ---
Vital Signs 11/08/24 09:03 BP 110/80 Blood Pressure Location Rt radial Position Sitting Pulse 66 Pulse Source Pulse Oximeter Pulse Oximetry (%) 98 Oxygen Delivery Method Room Air Intake Visit Reasons: Dora Inj Allergies No Known Allergies [No Known Allergies*] Allergy (Verified 10/31/24 12:00) Nursing Note Patient Presents for Vivitrol Injection. Current Dose 380mg . Given in the RG with no noted or stated complications. Denies any issues with previous injection. Denies symptoms, and denies any break through cravings. Last appt with provider was , will follow up with RN in 4 weeks for injection. 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
[2024-11-08 09:03] VITALS: BP 110/80; PULSE 66; O2SAT 98
== END 2024-11-08 10:41 | disposition home or self-care (01) ==
PROVIDERS: PCP Physician Assistant
DX: F10.21 Alcohol dependence, in remission (principal)

== ENCOUNTER → 2024-11-08 08:40 | Outpatient (BNVA) | payer OTHER, SELFPAY | PROVIDERS: PCP Physician Assistant | DX: F10.21 Alcohol dependence, in remission (principal) | CPT/HCPCS: 96372; J2315 ==

== ENCOUNTER 2024-11-22 14:28 | Outpatient (AMB) | payer OTHER, SELFPAY ==
[2024-11-22 14:41] VITALS: BP 100/70; PULSE 50; O2SAT 99; BMI 35.9
--- NOTE | 2024-11-22 14:41 | HO.NEPHOV_ITS ---
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 Helper Required: No Accompanied by: Self / Same As Patient Allergies No Known Allergies [No Known Allergies*] Allergy (Verified 11/22/24 14:43) Medication List - Last Reconciled 11/22/24 by Luke Cuevas MD acetaminophen 1,000 mg (2 x 500 mg) PO Q6H PRN 30 days blood pressure kit-extra large As directed clonidine HCl 0.6 mg (2 x 0.3 mg) PO BEDTIME 30 days diclofenac sodium 1% 2 grams topical QID PRN 30 days furosemide 20 mg PO DAILY PRN lisinopril 5 mg PO DAILY loratadine 10 mg PO DAILY naltrexone microspheres ER (Vivitrol) 380 mg IM Q4W propranolol 20 mg PO BEDTIME 90 days [Raised toilet seat As directed] vitamin B complex-folic acid 0.4 mg (B Complex 1 (with folic acid)) 1 tab PO DAILY HPI Comments Details: Angelica is a pleasant 53 year woman referred for evaluation of hyperkalemia. She has a history of alcohol use in the past. She claims to be sober at this time. History of severe osteoarthritis. Status post bilateral hip replacement. She was waiting for hence surgery. Nine She has had acute kidney injury about a year ago. This has resolved. She has had both low and high potassium levels in the past. She takes Lasix p.r.n. she has not taken Lasix for the last few weeks. Currently she is on lisinopril 5 mg. [facility] Medical History Possible exposure to STD DVT (deep venous thrombosis) History of anxiety History of panic attacks Depression Osteoarthritis of right hip Hypertension Surgical History Hx of colonoscopy History of right hip replacement History of left hip replacement History of tubal ligation History of tonsillectomy Family History Father Colon cancer Mother In good health Maternal Grandmother Breast cancer Paternal Grandmother Colon cancer Brother Multiple sclerosis Paternal Uncle Colon cancer Social History Household Members: None Housing: Homeless Are you a primary childcare attendant to a significant other at home: No Do you presently have visiting nurse or other home services: No Alcohol intake: former Year quit: 02/18 Comment: pt stated started vivitrol January 2024 Patient Tobacco Use Status: Former Tobacco user Cigarette Packs Per Day: 0.25 Cigarettes Per Day: 5.0 Years Smoked: 20 e-Cigarette/Vaping Use: Never Used Second Hand Smoke Exposure: No Substance Use Type: Marijuana service: No Current occupational status: unemployed and disabled Current occupation: Rt handed Cognitive needs: No Hearing needs: No Vision needs: No Physical Exam Vital Signs: Last Vital Signs Pulse 50 11/22/24 14:41 BP 100/70 11/22/24 14:41 Pulse Ox 99 11/22/24 14:41 Oxygen Delivery Method Room Air 11/22/24 14:41 BMI result Body Mass Index 35.9 Results Reviewed Nephrology Results: Sodium 139 mmol/L (135-145) 10/31/24 Potassium 5.0 mmol/L (3.3-5.1) 10/31/24 Chloride 105 mmol/L (96-108) 10/31/24 Carbon Dioxide 26 mmol/L (22-29) 10/31/24 BUN 14 mg/dL (9-16) 10/31/24 Creatinine 0.79 mg/dL (0.5-1.4) 10/31/24 Calcium 10.2 mg/dL (8.4-10.2) 10/31/24 Urine Protein Negative mg/dL (Neg-Trace) 10/31/24 Assessment & Plan Assessment & Plan (1) Hyperkalemia: Code(s): E87.5 - Hyperkalemia Category: Medical Plan Middle-aged woman with a history of hyperkalemia. The most recent potassium level appears normal. She has been on low-dose lisinopril. She was also had episode of acute kidney injury past however the current renal function is normal. She has been using diuretics frequently which could be contributing to NIDIA. Potassium is back to normal she should stay on low-potassium diet. Coding Level of Care Code Est Pt Level 3 (54448) Diagnoses Hyperkalemia E87.5
--- OUTSIDE RECORDS SUMMARY | 2024-11-22 18:11 | XMS_ITS | Clinical Summary ---
Author Organization [employer] Address [address] [place] [address] [address] [address] Care Team Providers Care Director Check Name Role Phone Unavailable Primary Care Provider [...] patient's age to complete this topic [place] [address] [place] [address]
--- OUTSIDE RECORDS SUMMARY | 2024-11-22 18:11 | XMS_ITS | Clinical Summary ---
Author Organization [facility] Address [id number] [place] [id number] Care Team Providers Care Semi Truck Driver Name Role Phone Unavailable Primary Care Provider [...] drink = 0.6 oz pur e alcohol) Comments Unknown Sex and Gender Information Value Date Recorded Sex Assigned at Not on file Legal Sex Female 2:31 AM EST Gender Identity Not on file Sexual Orientation Not on file Obstetrics History Plan of Treatment Health Maintenance Due Date Last Done Comments Breast Cancer Screening 1970 DTaP,Tdap,and Td Vaccines (1 - Tdap) 1989 Hepatitis B Vaccines (1 of 3 - 19+ 3-dose series) 1989 Cervical Cancer Screening: P ap Smear 12/01/1991 Pneumococcal Vaccine: 50+ Ye ars (1 of 1 - PCV) 2020 Zoster Vaccines (1 of 2) 2020 Colorectal Cancer Screening: Colonoscopy 10/27/2023 Depression Screening 10/27/2023 HIV Screening 10/27/2023 Hepatitis C Screening 10/27/2023 Social Influencers of Health Screening 10/27/2023 COVID-19 Vaccine ( - 2023-2 5 season) 2024 Influenza Vaccine (#1) 2024 [...] patient's age to complete this topic Meningococcal B Vacine Aged Out No lo nger eligible based on patient's age to complete [...]
== END 2024-11-22 14:53 | disposition home or self-care (01) ==
PROVIDERS: PCP Physician Assistant; Visit Provider Internal Medicine Hypertension Specialist
DX: E87.5 Hyperkalemia (principal)
CPT/HCPCS: 99213

== ENCOUNTER → 2024-11-22 14:28 | Outpatient (BNVA) | payer OTHER, SELFPAY | PROVIDERS: PCP Physician Assistant; Visit Provider Internal Medicine Hypertension Specialist | DX: E87.5 Hyperkalemia (principal) | CPT/HCPCS: 99212 ==

== ENCOUNTER 2024-11-25 08:12 | Outpatient (REF) | payer OTHER, SELFPAY ==
--- NOTE | ~2024-11-25 | US_ITS ---
EXAMINATION: US LOWER EXTREMITY VENOUS (REFLUX EXAM), right lower extremity CLINICAL INFORMATION: Varices COMPARISON: June 15, 2024 and January 25, 2024. TECHNIQUE: Color flow triplex imaging and compression Doppler was performed to evaluate both the deep and the superficial systems bilaterally. To evaluate the superficial system, the examination was performed in the upright position. Color-flow Doppler ultrasound and compression ultrasound were utilized. In addition, maneuvers were utilized to demonstrate reflux. FINDINGS: 1. DEEP VENOUS ULTRASOUND OF THE RIGHT LOWER EXTREMITY: Common Femoral Vein: Compressible, normal respiratory variation and augmented flow. Femoral Vein: Compressible, normal color flow and augmentation. Popliteal Vein: Compressible, normal augmentation. Deep Reflux: There is more than 2532 ms reflux at the popliteal vein The previously identified popliteal cyst is not depicted on this exam. 2. SUPERFICIAL ULTRASOUND WITH DOPPLER OF RIGHT LOWER EXTREMITY: Pain GREAT SAPHENOUS VEIN: Saphenofemoral Junction: 0.6 cm; Reflux: 0 ms Proximal Thigh: 0.4 cm; Reflux: 0 ms Mid Thigh: 0.4 cm; Reflux: 0 ms Distal Thigh: 0.4 cm; Reflux: 0 ms At Knee: 0.4 cm; Reflux: 0 ms Proximal Calf: 0.4 cm; Reflux: 0 ms Mid Calf: 0.2 cm; Reflux: 0 ms Distal Calf: 0.3 cm; Reflux: 0 ms DUPLICATED MEDIAL GREAT SAPHENOUS VEIN: Diameter: None imaged Reflux: NA DUPLICATED LATERAL GREAT SAPHENOUS VEIN: Diameter: 0.2 cm. Reflux: NA SMALL SAPHENOUS VEIN: Saphenopopliteal Junction: 0.1 cm; Reflux: 0 ms Proximal: 0.2 cm; Reflux: 0 ms Distal: 0.2 cm; Reflux: 0 ms VEIN OF GIACOMINI: Size: 0.3 cm. Reflux: NA PERFORATORS: Location: Small saphenous vein in the proximal to mid segments and mid thigh and through the calf. Size: 0.1-0.3 cm. Reflux: NA VARICOSITIES: Location: Proximal and distal calf. Size: 2.3 cm. Reflux: NA US/US venous duplex LE RT IMPRESSION: Right: Right popliteal vein more than 2532 ms reflux. Varices without reflux, proximal to distal calf. Perforators without reflux involving small saphenous vein. . Electronically signed by: Horacio Bailey MD 11/25/2024 09:16 AM EST RP
--- OUTSIDE RECORDS SUMMARY | 2024-11-25 08:23 | XMS_ITS | Clinical Summary ---
Author Organization [facility] Address [id number] [place] [phone] Care Team Providers Care Utilization Review Coordinator Name Role Phone Unavailable Primary Care Provider [...]
--- OUTSIDE RECORDS SUMMARY | 2024-11-25 08:23 | XMS_ITS | Clinical Summary ---
Author Organization [employer] Address [address] [place] [address] [place] [address] Care Team Providers Care Negative Retoucher Name Role Phone Unavailable Primary Care Provider [...] patient's age to complete this topic [place] [address] [place] [address]
== END 2024-11-25 08:13 | disposition home or self-care (01) ==
LOC: HO.US 08:12
PROVIDERS: PCP Physician Assistant; Visit Provider Surgery Vascular Surgery
DX: I83.11 Varicose veins of right lower extremity with inflammation (principal)
CPT/HCPCS: 93971

== ENCOUNTER → 2024-11-25 08:14 | Outpatient (BNV) | payer OTHER, SELFPAY | PROVIDERS: PCP Physician Assistant; Visit Provider Radiology Diagnostic Radiology | DX: I82.431 Acute embolism and thrombosis of right popliteal vein (principal); I83.91 Asymptomatic varicose veins of right lower extremity | CPT/HCPCS: 93971 ==

== ENCOUNTER → 2024-11-30 11:06 | Outpatient (AMB) | payer OTHER, SELFPAY ==
--- NOTE | 2024-11-30 11:05 | MHC.WMTHER ---
Intake Intake Visit Reasons: TV BH F/U Allergies No Known Allergies [No Known Allergies*] Allergy (Verified 11/22/24 14:43) PFSH Medical History Possible exposure to STD DVT (deep venous thrombosis) History of anxiety History of panic attacks Depression Osteoarthritis of right hip Hypertension Surgical History Hx of colonoscopy History of right hip replacement History of left hip replacement History of tubal ligation History of tonsillectomy Family History Father Colon cancer Mother In good health Maternal Grandmother Breast cancer Paternal Grandmother Colon cancer Brother Multiple sclerosis Paternal Uncle Colon cancer Social History Household Members: None Housing: Homeless Are you a primary lawn care professional to a significant other at home: No Do you presently have visiting nurse or other home services: No Alcohol intake: former Year quit: 02/18 Comment: pt stated started vivitrol January 2024 Patient Tobacco Use Status: Former Tobacco user Cigarette Packs Per Day: 0.25 Cigarettes Per Day: 5.0 Years Smoked: 20 e-Cigarette/Vaping Use: Never Used Second Hand Smoke Exposure: No Substance Use Type: Marijuana service: No Current occupational status: unemployed and disabled Current occupation: Rt handed Cognitive needs: No Hearing needs: No Vision needs: No Behavioral Health Assessment Weight Management Therapy Therapy Notes Details Subjective: The patient reports that she is still waiting for an apartment. Her stay at the current program is set to end on February 15, but it may be extended as she has been doing well. However, she hopes to secure an apartment soon. Over the past few weeks, the patient has felt some frustration regarding her living situation but has resumed attending the gym. Her mood has remained stable, although she has felt sadness due to her father's medical issues. She denies any cravings or relapse related to alcohol and continues meeting with her Substance Use (HERNAN[facility]) MAT provider monthly. Objective: The patient presents for a follow-up visit via phone. We discussed her current functioning, daily routine, and emotional processing. A behavioral activation plan was developed to support her commitment to substance use abstinence, weight management, and general mental wellness. The plan also aligns with her readiness for bariatric surgery. Assessment/Response: Mental status: Stable, with good functioning. Risk reported/identified: None. The patient was open, engaged, and active during the session. She responded well to interventions and demonstrated an awareness of her triggers, along with a coping plan in place. This provider has had difficulty contacting her HERNAN[facility] provider in the MAT program, and a request for the completion of a behavioral health (BH) form was sent to her therapist at [facility] in September, but no response has been received. However, the patient has been in a supervised weight-loss program, meeting with the provider monthly for behavioral health support, engaging in weekly communication with the surgeon, and undergoing random alcohol testing by Dr. Phelps, with results confirming sobriety. Additionally, the patient is in a supervised living situation with the option to extend her stay, ensuring she will not be homeless during her recovery from weight-loss surgery. The patient denies any recent safety concerns, including suicidal ideation (SI), self-harm, or harm to others. There is no evidence of stress-induced emotional eating, and she has shown a strong commitment to program expectations. Scores from the Binge Eating Scale (BES) suggest a low risk for binge eating, and her PHQ-9 score indicates no active symptoms of depression. The mental status exam is within normal limits, indicating no impairment in functioning. Plan: At this time, the patient is cleared from a behavioral health standpoint. She will continue receiving monthly behavioral health support, both pre- and post-bariatric surgery. Next appointment: December 28, 2024, at 11:00 AM via telehealth. Living Situation Current Living Situation ResidentialCare/Treatment At risk of losing current housing? No Satisfied with current living situation? No Food/Weight/Diet Expectations of change The initial goal to lose 10% of your weight before surgery, which is about 23 lbs. The Ultimate weight goal: 213lbs before surgery PT started the program at 236Lbs at her initial weight check on 05/03/2024 Most recent weight: 224 lbs. Weight on 11/25/2024: 220Lbs. PT is implementing the following: Current meal plan: 2 shakes, 2 bars, and one meal 07/07. Exercise plan: Attending the gym 4-5 days a week. She does treadmill, bike, and weights. Swim on weekends. Questionnaires PHQ-9 Over the last 2 weeks, how often have you been bothered by any of the following problems? 1. Little interest or pleasure in doing things: not at all 2. Feeling down, depressed, or hopeless: several days (Sad about her dad) 3. Trouble falling or staying asleep, or sleeping too much: not at all 4. Feeling tired or having little energy: not at all 5. Poor appetite or overeating: not at all 6. Feeling bad about yourself - or that you are a failure or have let yourself or your family down: not at all 7. Trouble concentrating on things, such as reading the newspaper or watching television: not at all 8. Moving or speaking so slowly that other people could have noticed. Or the opposite - being so fidgety or restless that you have been moving around a lot more than usual: not at all 9. Thoughts that you would be better off or of hurting yourself in some way: not at all Total score: 1 Depression Screening Interpretation: Negative Depression Screening Done: Yes 32179 - PHQ-9 Billing: Yes Source: Developed by Drs. Ehsan Jeffrey, Garima Rueda, Stanley Dias and colleagues, with an educational moises from [email or web address]. Assessment & Plan Assessment & Plan (1) Alcohol use disorder, severe, in early remission, dependence: Code(s): F10.21 - Alcohol dependence, in remission Plan At this time, the patient is cleared from a behavioral health standpoint. She will continue receiving monthly behavioral health support, both pre- and post-bariatric surgery. Next appointment: December 28, 2024, at 11:00 AM via telehealth. Telehealth Telehealth Telehealth Platform: [facility] Location of provider rendering services: other Location of patient: address on file Patient Identification confirmed using: Name, : Yes Telehealth method: voice only Patient verbally consented to treatment: Yes Patient verbally consented to billing insurance company: Yes Patient informed of any privacy concerns related to visit: Yes Minutes spent on Phone/Video with Pt.: 55 Coding Level of Care Code Established Pt Tele Psytx >53 mins (37021) Patient Type Established Diagnoses Alcohol use disorder, severe, in early remission, dependence F10.21 Additional Codes PHQ-9 - 97021 - PHQ-9 Billing: Yes ([id number]) Time Spent (min) 55
--- OUTSIDE RECORDS SUMMARY | 2024-11-30 13:23 | XMS_ITS | Clinical Summary ---
Author Organization [employer] Address [address] [place] [address] [address] [address] Care Team Providers Care First Assistant Name Role Phone Unavailable Primary Care Provider [...] patient's age to complete this topic [place] [address] [place] [address]
--- OUTSIDE RECORDS SUMMARY | 2024-11-30 13:23 | XMS_ITS | Clinical Summary ---
Author Organization [facility] Address [address] [place] [phone] Care Team Providers Care Flood Control Engineer Name Role Phone Unavailable Primary Care Provider [...]
== END ==
PROVIDERS: PCP Physician Assistant; Visit Provider Counselor Mental Health
DX: F10.21 Alcohol dependence, in remission (principal)
CPT/HCPCS: 90837

== ENCOUNTER 2024-12-01 14:45 | Outpatient (AMB) | payer OTHER, SELFPAY ==
--- NOTE | 2024-12-01 15:14 | MHC.OFFVIS ---
Vital Signs 12/01/24 15:15 Height 5 ft 7 in Weight 224 lb BMI 35.1 Intake Visit Reasons: US follow up 11/25/2024 Intake Note: Follow up for Right LE US 11/25/24 w/ Hx of Left GSV Venaseal 10/14/24. Pt states that her right leg does not bother her as much as the Left LE did. Accompanied by: Self / Same As Patient Allergies No Known Allergies [No Known Allergies*] Allergy (Verified 12/01/24 15:16) HPI HPI US follow up 11/25/2024: Details: The patient is a 54-year-old female presenting with follow-up for right lower extremity venous insufficiency. She has a history of successfully managed left leg venous insufficiency through ablation, resulting in reduced swelling and discomfort. Currently, the right leg shows no significant venous abnormalities upon ultrasound assessment, indicating preserved venous function. The patient has also recently developed symptoms consistent with left knee osteoarthritis, characterized by discomfort during pressure and moments of instability. With a history of bilateral hip replacements, she is concerned about the progression of arthritis and potential need for further surgical intervention. She now presents for follow-up with right lower extremity venous insufficiency test [facility] Medical History Possible exposure to STD DVT (deep venous thrombosis) History of anxiety History of panic attacks Depression Osteoarthritis of right hip Hypertension Surgical History Hx of colonoscopy History of right hip replacement History of left hip replacement History of tubal ligation History of tonsillectomy Family History Father Colon cancer Mother In good health Maternal Grandmother Breast cancer Paternal Grandmother Colon cancer Brother Multiple sclerosis Paternal Uncle Colon cancer Social History Household Members: None Housing: Homeless Are you a primary career technical supervisor to a significant other at home: No Do you presently have visiting nurse or other home services: No Alcohol intake: former Year quit: 02/18 Comment: pt stated started vivitrol January 2024 Patient Tobacco Use Status: Former Tobacco user Cigarette Packs Per Day: 0.25 Cigarettes Per Day: 5.0 Years Smoked: 20 e-Cigarette/Vaping Use: Never Used Second Hand Smoke Exposure: No Substance Use Type: Marijuana service: No Current occupational status: unemployed and disabled Current occupation: Rt handed Cognitive needs: No Hearing needs: No Vision needs: No Review of Systems Const All systems reviewed & are unremarkable except as noted in HPI and below Reports no additional complaints ENT Reports Normal hearing present Card Denies chest pain, Denies chest pain at rest, Denies chest pain with activity and Denies pedal edema Resp Denies cough GI Denies abdominal pain Musc Denies abnormal gait, Denies muscle cramps and Denies radiating pain into limb Skin/Breast Denies skin ulcer and Denies wounds Neuro Reports Normal hearing present and Denies abnormal gait Psych Reports no additional complaints Physical Exam Vital Signs: BMI result Body Mass Index 35.1 Const General: cooperative, healthy appearing and comfortable Orientation/consciousness: oriented to person, oriented to place and oriented to time HEENT Head: Yes normal to inspection Neck Neck: Yes normal visual inspection Carotids: no bruits Chest Chest palpation & inspection: normal inspection of the chest Resp Effort & Inspection: normal respiratory effort and able to speak in complete sentences Auscultation: clear to auscultation bilaterally, no crackles, no rales, no rhonchi and no wheezes Cardio Rate: regular rate Rhythm: regular rhythm Heart sounds: S1 normal heart sound present and S2 normal heart sound present Bruits: no carotid bruits Peripheral pulses: Peripheral pulses 2+ throughout GI Inspection: Yes normal to inspection Skin Wounds: no wounds Hair: normal Neuro General: oriented to person, oriented to place and oriented to time Cranial nerves: Yes CN's II-XII intact bilaterally and Yes Normal hearing present Cognition (Neuro): normal cognition Motor exam (neuro): 5/5 motor strength present throughout Extrem Other: venous exam: No significant superficial varicosities or spider telangiectasias, minimal edema General: No clubbing, No cyanosis and No edema Psych Appearance: grossly normal Mental Status: mental status grossly normal Speech and movement: Normal speech and movement present Results Reviewed Results Reviewed: Brief summary of venous insufficiency testing is as follows: right great saphenous vein: negative right small saphenous vein: negative right accessory vein: none present Please note there is no evidence of any venous aneurysms or significant tortuosity Assessment & Plan Assessment & Plan (1) Varicose veins of left lower extremity with inflammation: Comment: 10/14/2024 - left great saphenous vein Cyanoacralate ablation Code(s): I83.12 - Varicose veins of left lower extremity with inflammation Category: Medical Plan: In short patient is negative for any significant venous insufficiency on the right. She appears to be doing relatively well on the left lower extremity. No other intervention is required. The patient has done extremely well with all venous treatments. Patient's may often experience postprocedure phlebitic episodes and I have discussed with the patient use of warm compresses and NSAIDS if tolerated for pain discomfort. In addition, I have discussed continued conservative measures including use of compression, leg elevation, and exercise. The patient was also given an information sheet regarding appropriate use of compression stockings and future purchases. Thank you for allowing us to care for your patient with venous disease. Plan Patient was informed and verbally consented to the use of an ambient scribe for clinic note documentation during this visit. Patient Instructions: - Continue using compression stockings regularly - Elevate legs during rest periods - Maintain physical activity and incorporate walking into routine - Consider physical therapy for knee discomfort - Monitor knee symptoms, and if worsening occurs, seek further orthopedic evaluation - Return for follow-up as instructed Coding Level of Care Code Est Pt Level 4 (28668) Diagnoses Varicose veins of left lower extremity with inflammation I83.12
[2024-12-01 15:15] VITALS: BMI 35.1
--- OUTSIDE RECORDS SUMMARY | 2024-12-01 18:08 | XMS_ITS | Clinical Summary ---
Author Organization [facility] Address [address] [place] [phone] Care Team Providers Care Colleter Name Role Phone Unavailable Primary Care Provider [...]
--- OUTSIDE RECORDS SUMMARY | 2024-12-01 18:08 | XMS_ITS | Clinical Summary ---
Author Organization [employer] Address [address] [place] [address] [address], [place] [address] Care Team Providers Care Director Talent Acquisition Name Role Phone Unavailable Primary Care Provider [...] older (1 - 1-dose 75+ series) 2045 HIB Vaccines Aged Out No longer eligi [...] patient's age to complete this topic [place] [address]
== END 2024-12-01 15:31 | disposition home or self-care (01) ==
PROVIDERS: PCP Physician Assistant; Visit Provider Surgery Vascular Surgery
DX: I83.12 Varicose veins of left lower extremity with inflammation (principal)
CPT/HCPCS: 99214

== ENCOUNTER → 2024-12-01 14:45 | Outpatient (BNVA) | payer OTHER, SELFPAY | PROVIDERS: PCP Physician Assistant; Visit Provider Surgery Vascular Surgery | DX: I83.12 Varicose veins of left lower extremity with inflammation (principal); Z87.891 Personal history of nicotine dependence | CPT/HCPCS: 99212 ==

== ENCOUNTER 2024-12-06 08:53 | Outpatient (AMB) | payer OTHER, SELFPAY ==
--- NOTE | 2024-12-06 09:02 | AM.OFFVISNUR ---
Vital Signs 12/06/24 09:44 BP 120/70 Blood Pressure Location Rt brachial Position Sitting Respiration 19 Pulse 59 Pulse Source Pulse Oximeter Pulse Oximetry (%) 96 Intake Visit Reasons: Vivitrol Allergies No Known Allergies [No Known Allergies*] Allergy (Verified 12/01/24 15:16) Office Meds Vivitrol 380 mg intramuscular suspension,extended release Performing Provider: Geetha Coombs CNP Performing Location: [facility] Administered by: Rossy Arroyo RN on 12/06/24 09:43 Dose Route Admin Location Dispensed Lot Number Expiration Date [facility] Syrup Maker 380 mg IM LG 380 mg [id number] 07/28/27 72119-573-95 Clothes Horse Assessment & Plan Assessment & Plan Orders: Orders AMB Naltrexone Injection Patient Supplied (NC) Today F10.21 - Alcohol dependence, in remission Medications: New Vivitrol ER (naltrexone microspheres) 380 mg IM ONCE 1 ea 0RF NS F10.21 - Alcohol dependence, in remission Coding
[2024-12-06 09:44] VITALS: BP 120/70; PULSE 59; RESP 19; O2SAT 96
--- OUTSIDE RECORDS SUMMARY | 2024-12-06 09:47 | XMS_ITS | Clinical Summary ---
Author Organization [facility] Address [id number] [place] [id number] Care Team Providers Care Paper Bundler Name Role Phone Unavailable Primary Care Provider [...]
--- OUTSIDE RECORDS SUMMARY | 2024-12-06 09:47 | XMS_ITS | Clinical Summary ---
Author Organization [employer] Address [address] [place] [address] [address], [place] [address] Care Team Providers Care Septic Technician Name Role Phone Unavailable Primary Care Provider [...] Screening 1982 Hepatitis C Screening 1988 Hepatitis B Vaccines (1 of 3 - 19+ 3-dose series) 1989 Pap Smear 12/01/1991 Cervical Cancer Screening 2000 HPV/Cotest 2000 Mammogram 2010 Pneumococcal Vaccine: 50+ Years (2 of 2 - PCV) 2020 06/30/2016 Zoster Vaccines (1 of 2) 2020 COVID-19 Vaccine ( season) 2024 09/05/2022, 10/15/2021, 03/09/2021, Additional history [...] patient's age to complete this topic [place] [address] [address] [place] [address]
== END 2024-12-06 09:23 | disposition home or self-care (01) ==
LOC: HO.HCC 08:53
PROVIDERS: PCP Physician Assistant
DX: F10.21 Alcohol dependence, in remission (principal)

== ENCOUNTER → 2024-12-06 08:53 | Outpatient (BNVA) | payer OTHER, SELFPAY | PROVIDERS: PCP Physician Assistant | DX: F10.21 Alcohol dependence, in remission (principal) | CPT/HCPCS: 96372; J2315 ==

== ENCOUNTER 2024-12-14 10:44 | Outpatient (AMB) | payer OTHER, SELFPAY ==
--- NOTE | 2024-12-14 10:50 | MHC.OFFVIS ---
Vital Signs 12/14/24 10:54 Height 5 ft 7 in Weight 225 lb BMI 35.2 Handedness Right Intake Visit Reasons: Preop LT cubital/CTR 12/15/24 AR Intake Note: Angelica is a 54 year old right hand dominant female who presents today for a pre operative visit for a scheduled carpal and cubital tunnel release DOS: 12/15/24 w/ Dr Karen Villela. Allergies No Known Allergies [No Known Allergies*] Allergy (Verified 12/14/24 10:54) HPI HPI Preop LT cubital/CTR 12/15/24 AR: Details: Angelica is a 53 year old right hand dominant female who presents today as a new patient for an evaluation of her bilateral hand numbness and tinging. Patient reports ongoing numbness and tingling for a couple months. She mentions that her left hand is worse than the right hand. She in having sharp/throbbing pain for about 2 months in her CMC joint. Patient has tried and failed diclofenac sodium topical cream. EMG done on 10/18/2024 IMPRESSION: 1. [id number] bilateral median neuropathy across carpal tunnel. 2. Mild bilateral ulnar neuropathy across cubital tunnel. [facility] Medical History Possible exposure to STD DVT (deep venous thrombosis) History of anxiety History of panic attacks Depression Osteoarthritis of right hip Hypertension Surgical History Hx of colonoscopy History of right hip replacement History of left hip replacement History of tubal ligation History of tonsillectomy Family History Father Colon cancer Mother In good health Maternal Grandmother Breast cancer Paternal Grandmother Colon cancer Brother Multiple sclerosis Paternal Uncle Colon cancer Social History Household Members: None Housing: Homeless Are you a primary managed care coordinator to a significant other at home: No Do you presently have visiting nurse or other home services: No Alcohol intake: former Year quit: 02/18 Comment: pt stated started vivitrol January 2024 Patient Tobacco Use Status: Former Tobacco user Cigarette Packs Per Day: 0.25 Cigarettes Per Day: 5.0 Years Smoked: 20 e-Cigarette/Vaping Use: Never Used Second Hand Smoke Exposure: No Substance Use Type: Marijuana service: No Current occupational status: unemployed and disabled Current occupation: Rt handed Cognitive needs: No Hearing needs: No Vision needs: No Review of Systems Const All systems reviewed & are unremarkable except as noted in HPI and below Physical Exam Vital Signs: BMI result Body Mass Index 35.2 Extrem Other: Neuro: Normal sensation of the tips of all digits of bilateral hands in the office today No thenar or intrinsic wasting. Good APB muscle firing and good finger cross. Vascular: Capillary refill brisk. ROM: Patient can make a fist and extend all their digits. Skin: No lacerations or abrasions noted. General: No ecchymosis. No erythema or evidence of infection. Assessment & Plan Assessment & Plan (1) Cubital tunnel syndrome, bilateral: Code(s): G56.23 - Lesion of ulnar nerve, bilateral upper limbs Category: Medical (2) Bilateral carpal tunnel syndrome: Code(s): G56.03 - Carpal tunnel syndrome, bilateral upper limbs Category: Medical Plan 1. Cubital tunnel syndrome, left 2. Carpal tunnel syndrome, left Symptoms intermittent, daily, worse at night I educated the patient about the condition. I discussed both operative and nonoperative treatment options. The patient would like to proceed with surgery. The risks and benefits of operative treatment were discussed with the patient and the patient wishes to proceed with surgery. These risks include, but are not limited to, risk of damage to blood vessels, nerves, tendons, infection, recurrence, incomplete relief of preoperative symptoms, persistent pain, possible need for further surgery, and the risks associated with regional blocks and/or anesthesia. Plan is to take the patient to the operating room at some point in the next few weeks for the following procedures: 1. Left cubital tunnel release under general anesthesia 2. Left carpal tunnel release under general anesthesia All of the preoperative paperwork including the consent was discussed today. All of the patient's questions were answered in the clinic today. The patient understands that they will be in contact with our medical surgical tech to discuss scheduling their procedure. Patient denies diabetes, blood thinners, asthma, heart issues, lung issues, kidney issues, or current smoking. Coding Level of Care Code Est Pt Level 4 (78412) Diagnoses Cubital tunnel syndrome, bilateral G56.23 Bilateral carpal tunnel syndrome G56.03
[2024-12-14 10:54] VITALS: BMI 35.2
== END 2024-12-14 11:04 | disposition home or self-care (01) ==
LOC: HO.HOS 10:44
PROVIDERS: PCP Physician Assistant
DX: G56.23 Lesion of ulnar nerve, bilateral upper limbs (principal); G56.03 Carpal tunnel syndrome, bilateral upper limbs
CPT/HCPCS: 99214

== ENCOUNTER → 2024-12-14 10:44 | Outpatient (BNVA) | payer OTHER, SELFPAY | PROVIDERS: PCP Physician Assistant | DX: G56.23 Lesion of ulnar nerve, bilateral upper limbs (principal); G56.03 Carpal tunnel syndrome, bilateral upper limbs | CPT/HCPCS: 99212 ==

== ENCOUNTER 2024-12-15 08:56 | Day surgery (SDC) | payer OTHER, SELFPAY ==
--- OUTSIDE RECORDS SUMMARY | 2024-11-24 08:30 | XMS_ITS | Clinical Summary ---
Author Organization [facility] Address [id number] [place] [id number] Care Team Providers Care Production Team Advisor Name Role Phone Unavailable Primary Care Provider [...]
--- OUTSIDE RECORDS SUMMARY | 2024-11-24 08:30 | XMS_ITS | Clinical Summary ---
Author Organization [employer] Address [address] [place] [address] [address], [place] [address] Care Team Providers Care Car Salter Name Role Phone Unavailable Primary Care Provider [...] patient's age to complete this topic [place] [address] [place] [address]
--- NOTE | 2024-12-14 10:03 | P.CONAN_ITS ---
Documented by User: Dianna Solis NP 12/14/24 10:05 HPI - Anesthesia Eval Consult details Narrative: 54yo F for Left Cubital Tunnel Release, Carpal Tunnel Release ETOH use disorder - ? vivitrol injection, last documented 08/2024 PMF Active Problems Active Problems: All Active Problems Bilateral carpal tunnel syndrome (Acute) Cubital tunnel syndrome, bilateral (Acute) Varicose veins of right lower extremity with inflammation (Acute) Varicose veins of left lower extremity with inflammation (Acute) Paresthesia of hand, bilateral (Acute) Varicose veins of both lower extremities with inflammation (Acute) Peripheral vascular disease of lower extremity (Acute) Alcohol use disorder, severe, in early remission, dependence (Acute) Osteoarthritis of hands, bilateral (Acute) COVID-19 (Acute) Left leg swelling (Acute) Pain of left thumb (Acute) Pre-op evaluation (Acute) BMI 37.0-37.9, adult (Acute) Status post fall (Acute) Allergic rhinitis (Acute) Lower extremity edema (Acute) Alcohol abuse (Acute) Acute pharyngitis (Acute) Facial rash (Acute) Possible exposure to STD (Acute) Low vitamin B12 level (Acute) Low folate (Acute) CKD (chronic kidney disease) stage 3, GFR 30-59 ml/min (Acute) Hyperkalemia (Acute) Bilateral lower extremity edema (Acute) Cervical cancer screening (Acute) Alcohol abuse (Acute) QT prolongation (Acute) Obese (Acute) Colon cancer screening (Acute) Migraines (Acute) Acute frontal sinusitis (Acute) Borderline high cholesterol (Acute) Annual physical exam (Acute) Hypertension (Acute) DASHA (generalized anxiety disorder) (Acute) Price's cyst of knee (Acute) Status post right hip replacement (Acute) Panic attack (Acute) Hip osteoarthritis (Acute) Knee pain, left (Acute) Knee pain, right (Acute) Preoperative clearance (Acute) Past Medical History Medical History Possible exposure to STD DVT (deep venous thrombosis) History of anxiety History of panic attacks Depression Osteoarthritis of right hip Hypertension Family History Family History Father Colon cancer Mother In good health Maternal Grandmother Breast cancer Paternal Grandmother Colon cancer Brother Multiple sclerosis Paternal Uncle Colon cancer Family history of problems with anesthesia: No Surgical History Surgical History H/O vascular surgery Hx of colonoscopy History of right hip replacement History of left hip replacement History of tubal ligation History of tonsillectomy History of Problems with Anesthesia: No Social History Social History Household Members: None Housing: Homeless Housing Other:: recovery home Are you a primary career development manager to a significant other at home: No Do you presently have visiting nurse or other home services: No Alcohol intake: former Year quit: 02/18 Comment: pt stated started vivitrol January 2024 Patient Tobacco Use Status: Former Tobacco user Tobacco use type: Cigarette Cigarette Packs Per Day: 0.25 Cigarettes Per Day: 5.0 Years Smoked: 20 e-Cigarette/Vaping Use: Never Used Second Hand Smoke Exposure: No Substance Use Type: Marijuana service: No Current occupational status: unemployed and disabled Current occupation: Rt handed Cognitive needs: No Hearing needs: No Vision needs: No Meds Allergies Allergy/AdvReac Type Severity Reaction Status Date / Time No Known Allergies Allergy Verified 12/15/24 09:11 [No Known Allergies*] Exam Pertinent Lab Results Pertinent Lab Results: Laboratory Tests 10/07/24 10/31/24 07:22 13:03 WBC 5.2 Hgb 13.0 Hct 38.5 Plt Count 174 Sodium 139 Potassium 5.0 Chloride 105 Carbon Dioxide 26 BUN 14 Creatinine 0.79 Narrative Narrative: ECHO 2023 Conclusions: - The left ventricular systolic function is normal. The calculated ejection fraction is 67% by biplane method. - The left atrium is moderately dilated. - No obvious valvular pathology seen on this study. EKG 2023 Vent. Rate : 067 BPM Atrial Rate : 067 BPM P-R Int : 180 ms QRS Dur : 090 ms QT Int : 440 ms P-R-T Axes : 048 030 042 degrees QTc Int : 464 ms Normal sinus rhythm Anterior infarct , age undetermined Abnormal ECG When compared with ECG of 19-DEC-2020 12:28, Anterior infarct is now Present Assessment and Plan Assessment Anesthesia Assessment: Chart Reviewed Final Anesthetic Review Family History of Problems with Anesthesia: No History of Problems with Anesthesia: No Documented by User: Raven Rodriguez MD 12/15/24 10:30 PMFSH Past Medical History Medical History Possible exposure to STD DVT (deep venous thrombosis) History of anxiety History of panic attacks Depression Osteoarthritis of right hip Hypertension Family History Family History Father Colon cancer Mother In good health Maternal Grandmother Breast cancer Paternal Grandmother Colon cancer Brother Multiple sclerosis Paternal Uncle Colon cancer Family history of problems with anesthesia: No Surgical History Surgical History H/O vascular surgery Hx of colonoscopy History of right hip replacement History of left hip replacement History of tubal ligation History of tonsillectomy History of Problems with Anesthesia: No Social History Social History Household Members: None Housing: Homeless Housing Other:: recovery home Are you a primary career development manager to a significant other at home: No Do you presently have visiting nurse or other home services: No Alcohol intake: former Year quit: 02/18 Comment: pt stated started vivitrol January 2024 Patient Tobacco Use Status: Former Tobacco user Tobacco use type: Cigarette Cigarette Packs Per Day: 0.25 Cigarettes Per Day: 5.0 Years Smoked: 20 e-Cigarette/Vaping Use: Never Used Second Hand Smoke Exposure: No Substance Use Type: Marijuana service: No Current occupational status: unemployed and disabled Current occupation: Rt handed Cognitive needs: No Hearing needs: No Vision needs: No Meds Allergies Allergy/AdvReac Type Severity Reaction Status Date / Time No Known Allergies Allergy Verified 12/15/24 09:11 [No Known Allergies*] Exam Height,Weight and Vital Signs: Height 5 ft 7 in Weight 103.4 kg Vital Signs Temp Pulse Resp BP Pulse Ox O2 Del Method 12/15/24 09:21 97.3 F 47 L 16 100/60 96 Room Air Pertinent Lab Results Pertinent Lab Results: Laboratory Tests 10/07/24 10/31/24 07:22 13:03 WBC 5.2 Hgb 13.0 Hct 38.5 Plt Count 174 Sodium 139 Potassium 5.0 Chloride 105 Carbon Dioxide 26 BUN 14 Creatinine 0.79 Airway Mallampati Class: II TM Dist: >3cm Neck ROM: Full Loose/Missing/Broken Teeth: Yes (Missing teeth. Denies broken or loose teeth) Heart: RRR Lungs: CTAB Assessment and Plan Assessment Anesthesia Assessment: Anesthesia Plan Discussed and Chart Reviewed Final Anesthetic Review Family History of Problems with Anesthesia: No History of Problems with Anesthesia: No NPO: Yes ASA Class: III Final Preanesthetic Review: No Changes in Pt Med Stat, Meds/Allgs Chart Reviewed, Consent Obtained/Reviewed and Anes Risks/Benef Reviewed Patient Risk: Intermediate Procedure Risk: Low Assessment/Block/Sedation in SS: Assess/Block/Sedation-SS Anesthetic Plan Anesthetic Plan: GA Disposition: Standard PACU
[2024-12-15 09:21] VITALS: BP 100/60; PULSE 47; RESP 16; TEMP 36.3; O2SAT 96; BMI 35.7
[2024-12-15] MEDS: Lactated Ringers 1,000 ML 100 ML IVCONT (09:47)
--- NOTE | 2024-12-15 10:45 | MHC.SHP ---
Pre-Procedural Eval Section A - 24 Hr Update-Section A only Date of Service: 12/15/24 The patient is an INPATIENT: No Changes since office visit: No Cold of Flu in the past 2 weeks, No New Medical Problems, No Changes in Medication and No Patient answered all questions The patient has been examined within 24 hours of the surgical procedure. The History & Physical has been completed within 30 days and I have reviewed it.: Yes Section B - Complete if H&P > 30 days Chief Complaint: Carpal tunnel syndrome, left upper limb Allergies: Allergies Allergy/AdvReac Type Severity Reaction Status Date / Time No Known Allergies Allergy Verified 12/15/24 09:11 [No Known Allergies*] Plan Diagnosis/Plan: Unchanged I have reviewed the history and physical and performed a pertinent physical examination on my patient. No changes have occurred unless specified. Time Spent With Patient Time: Total time managing care of this patient today ____ minutes.
--- NOTE | 2024-12-15 10:46 | P.OP_ITS ---
Operative Note Operative Note Date of Service: 12/15/24 Narrative: Operative Note Narrative: Preop diagnosis: 1. Left Cubital tunnel syndrome 2. Left carpal tunnel syndrome Postop diagnosis: Same Procedure: 1. Left Cubital Tunnel Release 2. Left carpal tunnel release Surgeon: Karen Villela MD Ski Production Supervisor: Bran HAZEL Anesthesia: General Anesthesia Findings: Thickening and fibrosis about the ulnar nerve at the cubital tunnel Implants: none Tourniquet time: 3 minutes EBL: 5.0 ml Specimen: none Drains: None Complications: None Disposition: Brought to the recovery room in stable condition Plan: Follow-up in 10-14 days for wound check, and suture removal Indications: The patient is 54 years old with left cubital tunnel syndrome and left carpal tunnel syndrome . The risks and benefits of operative treatment, including but not limited to risk of damage to blood vessels, nerves, tendons, infection, recurrence, persistent pain or numbness, incomplete resolution of preoperative symptoms, or need for further surgery were discussed with the patient and they wished to proceed with surgery. Procedure: Once consent was obtained patient was brought back to the operating suite and placed in the operating table in a supine position. Perioperative antibiotics and anesthesia was administered by the anesthesia team. The limb was prepped and draped in a standard surgical fashion, and a sterile tourniquet applied to the proximal aspect of the left upper extremity. The limb was elevated exsanguinated with Esmarch bandage and the tourniquet inflated to 250 mm of mercury for a total tourniquet time of 53 minutes. Once assured that we had a good block, a 2.0 cm longitudinal incision was made centered over the left carpal tunnel. The incision was made through the skin to the subcutaneous tissues using a #15 blade. Dissection was made down to the level of the transverse carpal ligament with care being taken to protect the palmar cutaneous nerve. Once the transverse carpal ligament was clearly visualized, a longitudinal incision was made in the transverse carpal ligament 1st using a #15 blade, then using tenotomy scissors under direct visualization. Care was taken to look for and protect the motor branch of the median nerve when seen in this area. Once satisfied with our carpal tunnel release the wound was irrigated with normal saline. The skin edges were then reapproximated with some 5 0 Prolene suture material. A 6 cm gently curved but longitudinally oriented incision was made centered over the cubital tunnel of the left upper extremity. Incision was made through the skin to the subcutaneous tissues using a # 15 Blade. I then dissected down to the level of the medial epicondyle and the cubital tunnel using tenotomy scissors. Care was taken to protect the medial antebrachial cutaneous nerve. The ulnar nerve was identified just posterior to the medial intermuscular septum. The ulnar nerve was released in a proximal to distal direction using tenotomy in iris scissors while directly visualizing and protecting the ulnar nerve. Thickening and fibrosis was appreciated about the ulnar nerve as it passed through the cubital tunnel. The ulnar nerve was assessed as I passed the elbow through full flexion and extension and was found to remain stable within its groove. At this point the tourniquet was deflated and hemostasis obtained with a brief period of local pressure and bipolar electrocautery. The wound was copiously irrigated with normal saline. The subcutaneous layer was closed with 4-0 Vicryl suture, and the skin edges were reapproximated with running 4-0 Monocryl subcuticular closure. Steri-Strips and Mastisol were applied.. The wounds were infiltrated with some 1% lidocaine with epinephrine for postop pain control and sterile dressings were applied. The patient appears to have tolerated the procedure well and with no complications. All digits were well vascularized at the conclusion of the case.
[2024-12-15 12:07] VITALS: BP 125/73; PULSE 55; RESP 16; TEMP 36.4; O2SAT 98
[2024-12-15 12:37] VITALS: BP 148/92; PULSE 75; RESP 12; TEMP 36.4; O2SAT 96
[2024-12-15 12:42] VITALS: BP 139/81; PULSE 64; RESP 20; O2SAT 96
[2024-12-15 12:47] VITALS: BP 140/72; PULSE 65; RESP 20; O2SAT 96
[2024-12-15 12:52] VITALS: BP 126/73; PULSE 56; RESP 20; O2SAT 96
== END 2024-12-15 13:58 | disposition home or self-care (01) ==
PROVIDERS: PCP Physician Assistant; Visit Provider Orthopaedic Surgery
PROC: (CPT 64718; principal; 2024-12-15 10:30)
PROC: (CPT 64721; 2024-12-15 10:30)
DX: G56.02 Carpal tunnel syndrome, left upper limb (principal); G56.22 Lesion of ulnar nerve, left upper limb; I10 Essential (primary) hypertension; Z86.718 Personal history of other venous thrombosis and embolism; Z98.890 Other specified postprocedural states; Z96.643 Presence of artificial hip joint, bilateral; Z56.0 Unemployment, unspecified; F32.A Depression, unspecified; Z79.899 Other long term (current) drug therapy; Z87.891 Personal history of nicotine dependence
CPT/HCPCS: 64721; 64718; J0690; J1100; J1596; J2003; J2004; J2250; J2405; J2704; J3010

== ENCOUNTER → 2024-12-15 08:56 | Outpatient (BNV) | payer OTHER, SELFPAY | PROVIDERS: PCP Physician Assistant; Visit Provider Orthopaedic Surgery | DX: G56.02 Carpal tunnel syndrome, left upper limb (principal); G56.22 Lesion of ulnar nerve, left upper limb | CPT/HCPCS: 64718; 64721 ==

== ENCOUNTER 2024-12-23 08:06 | Outpatient (AMB) | payer OTHER, SELFPAY ==
--- NOTE | 2024-12-23 11:40 | A.OFFVIS_ITS ---
VS Expanded 12/23/24 11:41 Height 5 ft 7 in Weight 224 lb 8 oz BMI 35.2 Body Fat % 30 Body Fat Mass 67.4 Fat Free Mass 157.4 Visceral Fat Rating 16 Body Water % 48 Body Water Mass 107.9 Basal Metabolic Rate/Score 1,910 Intake Visit Reasons: TV Pre Op LSG 01/03/25 Allergies No Known Allergies [No Known Allergies*] Allergy (Verified 12/23/24 11:59) Medication List - Last Reconciled 12/23/24 by Tirso Phelps MD acetaminophen 1,000 mg (2 x 500 mg) PO Q6H PRN 30 days blood pressure kit-extra large As directed clonidine HCl 0.6 mg (2 x 0.3 mg) PO BEDTIME 30 days hydrocodone-acetaminophen 5-325 mg 1 tab PO Q6H PRN lisinopril 5 mg PO DAILY loratadine 10 mg PO DAILY naltrexone microspheres ER (Vivitrol) 380 mg IM Q4W ondansetron 4 mg PO Q12H pantoprazole 40 mg PO DAILY polyethylene glycol 3350 17 grams PO DAILY propranolol 20 mg PO BEDTIME 90 days [Raised toilet seat As directed] sucralfate 10 mL PO BID vitamin B complex-folic acid 0.4 mg (B Complex 1 (with folic acid)) 1 tab PO DAILY HPI HPI TV Pre Op LSG 01/03/25: Details: Start time: 11.56am, End time: 12.16pm ?I spent 15 minutes speaking with the patient on the phone plus an additional 5 minutes reviewing and updating records for a total of 20 minutes HPI Comments Details: Overall weight loss: 18.8lbs, or 7.72% TBWL Is doing 3 premade Premier shakes (4oz oz Premier mixed with 4oz almond milk), 2 protein bars and one meal (8 forks of protein and 8 forks of salad) Exercise: Gym x3-5/wk doing treadmill and bike [facility] Medical History (Updated 12/23/24 @ 11:55 by Tirso Phelps MD) Morbid (severe) obesity due to excess calories Morbid obesity Possible exposure to STD DVT (deep venous thrombosis) History of anxiety History of panic attacks Depression Osteoarthritis of right hip Hypertension Surgical History H/O vascular surgery Hx of colonoscopy History of right hip replacement History of left hip replacement History of tubal ligation History of tonsillectomy Family History Father Colon cancer Mother In good health Maternal Grandmother Breast cancer Paternal Grandmother Colon cancer Brother Multiple sclerosis Paternal Uncle Colon cancer Social History Household Members: None Housing: Homeless Housing Other:: recovery home Are you a primary insurance healthcare consultant to a significant other at home: No Do you presently have visiting nurse or other home services: No Alcohol intake: former Year quit: 02/18 Comment: pt stated started vivitrol January 2024 Patient Tobacco Use Status: Former Tobacco user Tobacco use type: Cigarette Cigarette Packs Per Day: 0.25 Cigarettes Per Day: 5.0 Years Smoked: 20 e-Cigarette/Vaping Use: Never Used Second Hand Smoke Exposure: No Substance Use Type: Marijuana service: No Current occupational status: unemployed and disabled Current occupation: Rt handed Cognitive needs: No Hearing needs: No Vision needs: No Telehealth Telehealth Telehealth Platform: Telephone Location of provider rendering services: practice address Location of patient: address on file Patient Identification confirmed using: Name, : Yes Telehealth method: voice only Patient verbally consented to treatment: Yes Patient verbally consented to billing insurance company: Yes Patient informed of any privacy concerns related to visit: Yes Minutes spent on Phone/Video with Pt.: 20 Assessment & Plan Assessment & Plan (1) Morbid obesity: Code(s): E66.01 - Morbid (severe) obesity due to excess calories Category: Medical Plan: 1. Plan for lap sleeve gastrectomy including upper GI endoscopy. All tests has been completed and reviewed and the patient is cleared for the surgery. ?If diaphragmatic or ventral hernias are present at time of surgery, these will be repaired laparoscopically as well. Risks and complications were discussed in detail including possible conversion to an open procedure, anastomotic leak, bleeding requiring transfusion, small bowel obstruction, , DVT and pulmonary embolism, cardiac, or pulmonary complications, as custodial complications such as anastomotic ulcer, insufficient weight loss and vitamin deficiencies. I emphasized the importance of close follow-up, adherence to instructions and good communication. So far she has proven to be an excellent communicator and very compliant with all our directions accomplishing a great weight loss. I believe that she is an excellent candidate and she is ready. 2. Preop prescriptions were provided and explained the purpose of each one. Need to be purchased preop. Start Pantoprazole now as you get it from the pharmacy, 1 pill per day. Sucralfate and Zofran are for after surgery as needed. 3. Bowel prep: please do 7 packets ?of Miralax mixing each one with a an 8oz glass of water, crystal light, gatorade zero, or propel ?on 01/21/25 and the same amount on 01/22/25. The Miralax you begin with one packet at a time in 8oz water or crystal light, gatorade zero, or propel ?as early in the day as you can and you do them back to back until you finish them. Continue the protein shakes during ?the bowel prep. 4. Needs to purchase 1oz medicine cups . 5. Needs to purchase Children's liquid Tylenol for postop pain control. 6. Avoid aspirin, motrin, Advil, Aleve, Meloxicam, Excedrin, Ibuprofen, Naproxyn. Tylenol is OK. 7. She needs to purchase the Celebrate multivitamins from the hospital's gift shop. 8. Will do basic preop blood work-up any day between Thursday12/26/24 and Thursday12/30/24 fasting for 12 hours and is scheduled to see the Anesthesiologist prior to the day of surgery. 9. Importance of adherence to postop folllow-up and recommendations was underscored and she understands that. 10. Stop food and bars as of tomorrow 12/24/24 and continue with 4 Premier protein shakes (4oz Premier with 4oz almond milk) at 6am-8am, 9am-11am, 12pm- 2pm, 3pm-5pm and one more whole bottle Premier protein shake at 6pm-8pm 11. No soups, broths or V8 12. The patient's?medical?history has been reviewed and they are considered low risk for post op DVT and therefore DVT prophylaxis is not considered necessary. Travel after surgery was reviewed. The patient has not disclosed any travel plans during the first 30 days after surgery and they have been advised that within the first 30 days after surgery any bus, plane, train or car travel over 2 hours in duration is contraindicated due to the possibility of developing blood clots from immobility. Any travel, needs to include periods of ambulation of 10 minutes in duration every 2 hours.? Patient was instructed to discuss any plans for travel during this period with their bariatric surgeon.? 13. As of tomorrow, please check your blood pressure daily in the morning. If your blood pressure is: Below 120/70: do not take the Lisinopril or the Propranolol 121/71 to 135/85: take HALF Lisinopril and HALF Propranolol Over 136/86: take the whole Lisinopril and the whole Propranolol 14. Please take at the day of surgery the following medications: Lisinopril and Propranolol if the blood pressure that day is high enough to justify it based on the parameters at the previous bullet point. 15. Stop any control pills and don't use them for one month after surgery 16. Absolutely no smoking or vaping, or marijuana until the surgery and for at least the first 4 weeks. Only nicotine patches are allowed. 17. Send me weight measurements on Thursday12/24/24, Thursday12/31/24 and then on Thursday01/03/25 the day of surgery before you go to the hospital. 18. Avoid any steroids by mouth for any reason. Let me know if someone prescribes them to you 19. These instructions supersede anything else you read in the handbook, anything you watched in videos or classes or you were told by any other provider. If there is any conflict, you follow the above instructions and nothing else. Orders: Orders Lipid Panel Today E66.01 - Morbid (severe) obesity due to excess calories Type and Screen Today E66.01 - Morbid (severe) obesity due to excess calories Partial Thromboplastin Time Today E66.01 - Morbid (severe) obesity due to excess calories Insulin Today E66.01 - Morbid (severe) obesity due to excess calories Comprehensive Met. Panel Today E66.01 - Morbid (severe) obesity due to excess calories TSH reflex Free T4 Today E66.01 - Morbid (severe) obesity due to excess calories Prothrombin Time INR Today E66.01 - Morbid (severe) obesity due to excess calories Hemoglobin A1c Today E66.01 - Morbid (severe) obesity due to excess calories C Reactive Protein Today E66.01 - Morbid (severe) obesity due to excess calories Complete Blood Count Auto Diff Today E66.01 - Morbid (severe) obesity due to excess calories Medications: New ondansetron 4 mg PO Q12H 20 tabs 0RF nausea and vomiting R11.0 - Nausea pantoprazole 40 mg PO DAILY 90 tabs 0RF K21.9 - Gastro-esophageal reflux disease without esophagitis sucralfate 10 mL PO BID 600 mL 2RF K21.9 - Gastro-esophageal reflux disease without esophagitis polyethylene glycol 3350 Mix each measuring cup with 8oz of water, Crystal light, or Gatorade zero, or Propel and do 7 measuring cups on 01/01/25 and another 7 measuring cups on 01/02/25 17 grams PO DAILY 238 grams 0RF Z01.818 - Encounter for other preprocedural examination
[2024-12-23 11:41] VITALS: BMI 35.2
== END 2024-12-23 12:17 | disposition home or self-care (01) ==
LOC: HO.HBS 08:06
PROVIDERS: PCP Physician Assistant; Visit Provider Surgery
DX: E66.812 Obesity, class 2 (principal); Z68.35 Body mass index [BMI] 35.0-35.9, adult
CPT/HCPCS: 99213

== ENCOUNTER → 2024-12-27 08:36 | Outpatient (BNVA) | payer OTHER, SELFPAY | PROVIDERS: PCP Physician Assistant; Visit Provider Surgery ==

== ENCOUNTER → 2024-12-28 09:35 | Outpatient (BNV) | payer OTHER, SELFPAY | PROVIDERS: Admitting Provider Surgery; PCP Physician Assistant; Visit Provider Internal Medicine | DX: R00.1 Bradycardia, unspecified (principal); Z01.810 Encounter for preprocedural cardiovascular examination | CPT/HCPCS: 93010 ==

== ENCOUNTER 2024-12-28 11:09 | Outpatient (AMB) | payer OTHER, SELFPAY ==
--- NOTE | 2024-12-28 11:00 | A.OFFWM_ITS ---
Intake Intake Visit Reasons: TV BH F/U Allergies No Known Allergies [No Known Allergies*] Allergy (Verified 12/27/24 08:41) PFSH Medical History (Updated 12/27/24 @ 11:10 by Sultana Wynne RN) Migraines Chronic renal insufficiency Alcohol use disorder in remission Morbid (severe) obesity due to excess calories DVT (deep venous thrombosis) History of anxiety History of panic attacks Depression Osteoarthritis of right hip Hypertension Surgical History (Updated 12/27/24 @ 11:19 by Sultana Wynne RN) Hx of carpal tunnel repair H/O vascular surgery Hx of colonoscopy History of right hip replacement History of left hip replacement History of tubal ligation History of tonsillectomy Family History Father Colon cancer Mother In good health Maternal Grandmother Breast cancer Paternal Grandmother Colon cancer Brother Multiple sclerosis Paternal Uncle Colon cancer Social History Household Members: None Housing: Homeless Housing Other:: recovery home Are you a primary assistant child care teacher to a significant other at home: No Do you presently have visiting nurse or other home services: No Alcohol intake: former Year quit: 02/18 Comment: pt stated started vivitrol January 2024 Patient Tobacco Use Status: Former Tobacco user Tobacco use type: Cigarette Cigarette Packs Per Day: 0.25 Cigarettes Per Day: 5.0 Years Smoked: 20 e-Cigarette/Vaping Use: Never Used Second Hand Smoke Exposure: No Substance Use Type: Marijuana service: No Current occupational status: unemployed and disabled Current occupation: Rt handed Cognitive needs: No Hearing needs: No Vision needs: No Behavioral Health Assessment Weight Management Therapy 2 Therapy Notes Details Subjective: PT reports she graduated the [facility]-program and is currently living with her father, she moved in on Sat 12/24. PT reports feeing happy about being approved for surgery and has been scheduled for 01/03/25. Feeling more relaxed in general since noting the structured program as before she felt in a [place]. She is attending the same meeting, she is able to use her dad's car. Objective: PT presents for a f/up visit over the phone . Discussed functioning and recent changes in living situation. Reflected on differences in between real hunger and cravings or non-hunger desires to eat. supported client with coping plan for adjusting to a non-structured environment and relapse prevention tips. Implemented reflective listening, constructive feedback and CPT tecniques. Assessment/Response: * Mental status: WNL. * Risk reported/identified: None. Living Situation Current Living Situation Relative's/Guardian's Richie At risk of losing current housing? No Satisfied with current living situation? Yes Comments PT moved in to her father's home in [facility]. Food/Weight/Diet Expectations of change The initial goal to lose 10% of your weight before surgery, which is about 23 lbs. The Ultimate weight goal: 213lbs before surgery PT started the program at 236 lbs at her initial weight check on 05/03/2024 Most recent weight: 224 lbs. Weight on 11/25/2024: 220 lbs. Weight as of 12/27/24: 223Lbs PT is implementing the following: Current meal plan: all shakes - Exercise plan: walking. Assessment & Plan Assessment & Plan (1) Alcohol use disorder, severe, in early remission, dependence: Code(s): F10.21 - Alcohol dependence, in remission Plan PT will return Post-op Next ravinder: 01/19/25 at 9am, In person. Telehealth Telehealth Telehealth Platform: [facility] Location of provider rendering services: other Location of patient: address on file Patient Identification confirmed using: Name, : Yes Telehealth method: voice only Patient verbally consented to treatment: Yes Patient verbally consented to billing insurance company: Yes Patient informed of any privacy concerns related to visit: Yes Minutes spent on Phone/Video with Pt.: 45 Coding Level of Care Code Established Pt Tele Psytx 45 mins (81809) Patient Type Established Diagnoses Alcohol use disorder, severe, in early remission, dependence F10.21 Time Spent (min) 45
--- OUTSIDE RECORDS SUMMARY | 2024-12-28 13:30 | XMS_ITS | Clinical Summary ---
Author Organization [employer] Address [address] [place] [address] [address], [place] [address] Care Team Providers Care Circuit Board Assembler Name Role Phone Unavailable Primary Care Provider [...] patient's age to complete this topic [place] [address] [place] [address]
--- OUTSIDE RECORDS SUMMARY | 2024-12-28 13:30 | XMS_ITS | Clinical Summary ---
Author Organization [facility] Address [id number] [place] [id number] Care Team Providers Care Industrial Maintenance Electrician Name Role Phone Unavailable Primary Care Provider [...]
== END 2024-12-28 12:02 | disposition home or self-care (01) ==
LOC: HO.HBST 11:09
PROVIDERS: PCP Physician Assistant; Visit Provider Counselor Mental Health
DX: F10.21 Alcohol dependence, in remission (principal)
CPT/HCPCS: 90834

== ENCOUNTER → 2024-12-28 11:09 | Outpatient (BNVA) | payer OTHER, SELFPAY | PROVIDERS: PCP Physician Assistant; Visit Provider Counselor Mental Health ==

== ENCOUNTER 2024-12-30 10:18 | Outpatient (AMB) | payer OTHER, SELFPAY ==
--- NOTE | 2024-12-30 10:23 | MHC.OFFVIS ---
Vital Signs 12/30/24 10:28 Height 5 ft 7 in Weight 223 lb BMI 34.9 Handedness Right Intake Visit Reasons: PO LT cubital/CTR 12/15/24 AR Intake Note: Angelica is a 54 year old right hand dominant female who presents today for a post operative visit s/p left cubital tunnel Release and left carpal tunnel release DOS: 12/15/[address] Karen Villela. Patient reports she feels improvement however still has very mild numbness and tingling 1st and 2nd digits. Her elbow symptoms have completely resolved. She reports mild pain if she moved her left hand a certain way. Denies drainage from incision. Suture removed and steri strips applied. Allergies No Known Allergies [No Known Allergies*] Allergy (Verified 12/30/24 10:28) HPI HPI PO LT cubital/CTR 12/15/24 AR: Details: Angelica is a 54 year old right hand dominant female who presents today for a post operative visit s/p left cubital tunnel Release and left carpal tunnel release DOS: 12/15/[address] Karen Villela. Patient reports she feels improvement however still has very mild numbness and tingling 1st and 2nd digits. Her elbow symptoms have completely resolved. She reports mild pain if she moved her left hand a certain way. Denies drainage from incision. Suture removed and steri strips applied. [facility] Medical History (Updated 12/30/24 @ 10:29 by COMPA Carlos) Bilateral carpal tunnel syndrome Migraines Chronic renal insufficiency Alcohol use disorder in remission Morbid (severe) obesity due to excess calories DVT (deep venous thrombosis) History of anxiety History of panic attacks Depression Osteoarthritis of right hip Hypertension Surgical History (Updated 12/27/24 @ 11:19 by Sultana Wynne RN) Hx of carpal tunnel repair H/O vascular surgery Hx of colonoscopy History of right hip replacement History of left hip replacement History of tubal ligation History of tonsillectomy Family History Father Colon cancer Mother In good health Maternal Grandmother Breast cancer Paternal Grandmother Colon cancer Brother Multiple sclerosis Paternal Uncle Colon cancer Social History Household Members: None Household Members Other:: staying w/father to help with his care Housing: Homeless Housing Other:: recovery home Are you a primary healthcare administration internship to a significant other at home: No Do you presently have visiting nurse or other home services: No Alcohol intake: former Year quit: 02/18 Comment: pt stated started vivitrol January 2024 Patient Tobacco Use Status: Former Tobacco user Tobacco use type: Cigarette Cigarette Packs Per Day: 0.25 Cigarettes Per Day: 5.0 Years Smoked: 19 e-Cigarette/Vaping Use: Never Used Second Hand Smoke Exposure: No Substance Use Type: Marijuana service: No Current occupational status: unemployed and disabled Current occupation: Rt handed Cognitive needs: No Hearing needs: No Vision needs: No Review of Systems Const All systems reviewed & are unremarkable except as noted in HPI and below Physical Exam Vital Signs: BMI result Body Mass Index 34.9 Extrem Other: Patient is alert, oriented, and in no acute distress. Neuro: Normal sensation of the tips of all digits of the left hand at this time Vascular: Cap refill brisk Pain: No tenderness to palpation about incisions on left elbow or wrist No pain with range of motion of left elbow, hand, wrist ROM: Patient was able to make a closed fist and extend all digits of the left hand fully Patient is able to flex and extend the left elbow fully and without difficulty Skin: Well approximated and well healing incision sites noted on the volar left wrist and medial left elbow No lacerations or abrasions. General: No ecchymosis, erythema, or evidence of infection. Psych: Appears grossly normal Affect normal Attitude cooperative Assessment & Plan Assessment & Plan (1) Bilateral carpal tunnel syndrome: Code(s): G56.03 - Carpal tunnel syndrome, bilateral upper limbs Category: Medical (2) Cubital tunnel syndrome, bilateral: Code(s): G56.23 - Lesion of ulnar nerve, bilateral upper limbs Category: Medical Plan 1. Status post left cubital tunnel release 2. Status post left carpal tunnel release Patient appears to be recovering well postoperatively Patient was educated about the typical recovery course At this time, patient was informed she will require no further acute follow-up with us for her left carpal and cubital tunnel releases, as she appears to be recovering quite well Patient was amenable to this plan Follow-up as needed with any acute concerns Coding Level of Care Code Global (67964) Diagnoses Bilateral carpal tunnel syndrome G56.03 Cubital tunnel syndrome, bilateral G56.23
[2024-12-30 10:28] VITALS: BMI 34.9
--- OUTSIDE RECORDS SUMMARY | 2024-12-30 11:44 | XMS_ITS | Clinical Summary ---
Author Organization [facility] Address [address] [place] [id number] Care Team Providers Care Muck Operator Name Role Phone Unavailable Primary Care Provider [...]
--- OUTSIDE RECORDS SUMMARY | 2024-12-30 11:44 | XMS_ITS | Clinical Summary ---
Author Organization [employer] Address [address] [place] [address] [address], [place] [address] Care Team Providers Care Dish Technician Name Role Phone Unavailable Primary Care [...] patient's age to complete this topic [place] [address] [place] [id number]
== END 2024-12-30 10:43 | disposition home or self-care (01) ==
LOC: HO.HOS 10:18
PROVIDERS: PCP Physician Assistant
DX: G56.03 Carpal tunnel syndrome, bilateral upper limbs (principal); G56.23 Lesion of ulnar nerve, bilateral upper limbs
CPT/HCPCS: 99024

== ENCOUNTER → 2024-12-30 10:18 | Outpatient (BNVA) | payer OTHER, SELFPAY | PROVIDERS: PCP Physician Assistant | DX: Z47.89 Encounter for other orthopedic aftercare (principal); Z98.890 Other specified postprocedural states | CPT/HCPCS: 99212 ==

== ENCOUNTER 2025-01-03 08:56 | Outpatient (AMB) | payer OTHER, SELFPAY ==
--- OUTSIDE RECORDS SUMMARY | 2025-01-03 09:34 | XMS_ITS | Clinical Summary ---
Author Organization [employer] Address [address] [place] [address] [address], [place] [address] Care Team Providers Care Electromechanical Equipment Tester Name Role Phone Unavailable Primary Care Provider [...] patient's age to complete this topic Insurance [place] [address]
--- OUTSIDE RECORDS SUMMARY | 2025-01-03 09:34 | XMS_ITS | Clinical Summary ---
Author Organization [facility] Address [id number] [place] [id number] Care Team Providers Care Vegetable I Farmworker Name Role Phone Unavailable Primary Care Provider [...] age to complete this topic Meningococcal B Vaccine Aged Out No l onger eligible based on patient's age to complete [...]
--- NOTE | 2025-01-03 12:38 | AM.OFFVISNUR ---
Intake Visit Reasons: Vivitrol Allergies No Known Allergies [No Known Allergies*] Allergy (Verified 01/03/25 10:33) Office Meds Vivitrol 380 mg intramuscular suspension,extended release Performing Provider: Stephanie Espino MD Performing Location: [facility] Administered by: Rossy Arroyo RN on 01/03/25 12:43 Dose Route Admin Location Dispensed Lot Number Expiration Date [facility] Assistant Facility Manager 380 mg IM 380 mg [id number] 11/01/24 22513-524-79 [employer] Assessment & Plan Assessment & Plan Orders: Orders AMB Naltrexone Injection Patient Supplied (NC) Today F10.21 - Alcohol dependence, in remission Medications: New Vivitrol ER (naltrexone microspheres) 380 mg IM ONCE 1 ea 0RF NS F10.21 - Alcohol dependence, in remission Coding
== END 2025-01-03 13:16 | disposition home or self-care (01) ==
LOC: HO.HCC 08:56
PROVIDERS: PCP Physician Assistant
DX: F10.21 Alcohol dependence, in remission (principal)

== ENCOUNTER 2025-01-03 10:09 | Inpatient (IN) | payer OTHER, SELFPAY ==
[2024-12-27 08:30] LABS: MANUAL DIFF FLAG NO
[2024-12-27 08:33] LABS: Basophils Percent Auto 0.6 % (0-2); Eosinophils Absolute Auto 0.2 X10*3/uL (0.0-0.4); Eosinophils Percent Auto 3.4 % (0-4); Hematocrit 38.7 % (37.0-47.0); Hemoglobin 12.9 g/dl (12.0-16.0); Imm Gran Abs Auto 0.02 X10*3/uL (0.00-0.03); Imm Gran Pct Auto 0.4 % (0.0-0.4); Lymphocytes Absolute Auto 1.8 X10*3/uL (1.2-4.9); Lymphocytes Percent Auto 36.7 % (20-40); Mean Corpuscular HGB Conc 33.3 g/dl (31.0-35.0); Mean Corpuscular Hemoglobin 30.5 pg (27.0-33.0); Mean Corpuscular Volume 91.5 fL (80.0-98.0); Mean Platelet Volume 10.5 fL (9.4-12.3); Monocytes Absolute Auto 0.3 X10*3/uL (0.1-1.2); Monocytes Percent Auto 5.7 % (2-11); Neutrophils Absolute Auto 2.6 x10*3/uL (2.0-8.3); Neutrophils Percent Auto 53.2 % (45-73); Platelet Count 168 X10*3/uL (160-400); Red Blood Count 4.23 X10*6/uL (4.20-5.50); White Blood Count 4.9 X10*3/uL (4.8-10.8)
[2024-12-27 08:44] LABS: INTERNATIONAL NORM RATIO 0.9 (0.9-1.1); Prothrombin Time 10.4 SEC (10.9-12.4)
[2024-12-27 08:47] LABS: Partial Thromboplastin Time 29.2 SEC (26.0-36.8)
[2024-12-27 08:48] LABS: Estimated Average Glucose 120 mg/dL; Hemoglobin A1C 130.6057 umol/L; Hemoglobin A1c % 5.8 % (<6.0); Total Hemoglobin (HGBA1C) 3316.0717 umol/L
[2024-12-27 09:02] LABS: Alanine Aminotransferase 12 U/L (0-31); Albumin Level 4.2 g/dL (3.5-5.0); Alkaline Phosphatase 84 U/L (39-117); Anion Gap 8 (12-20); Aspartate Amino Transferase 15 U/L (5-31); Bilirubin Total 0.4 mg/dL (0.0-1.0); Blood Urea Nitrogen 15 mg/dL (9-16); C Reactive Protein 0.17 mg/dL (< or = 0.50); Carbon Dioxide 28 mmol/L (22-29); Chloride 111 mmol/L (96-108); Cholesterol 169 mg/dL (<200); Estimated Glomerular Filt Rate > 60; Glucose Random 112 mg/dL (60-115); HDL Cholesterol 43 mg/dL (>40); LDL Cholesterol Calculated 108 mg/dL (<100); Sodium 142 mmol/L (135-145); Total Protein 7.2 g/dL (6.5-8.0); Triglycerides 94 mg/dL (<150)
[2024-12-27 09:17] LABS: TSH reflex Free T4 1.39 uIU/mL (0.32-4.0)
[2024-12-27 11:25] LABS: Insulin 8 uU/mL (2-29)
--- NOTE | 2024-12-28 09:35 | ECG_ITS ---
Test Reason : pre op Blood Pressure : */* mmHG Vent. Rate : 54 BPM Atrial Rate : 54 BPM P-R Int : 166 ms QRS Dur : 98 ms QT Int : 448 ms P-R-T Axes : 56 41 40 degrees QTcB Int : 424 ms Sinus bradycardia Otherwise normal ECG When compared with ECG of 25-Jan-2024 11:33, T inversion improved in V3 Referred By: Timoteo Sanchez Electronically Signed By: ISSAC TAYLOR
[2024-12-28 14:10] VITALS: BMI 35.1
--- NOTE | 2025-01-02 09:10 | P.CONAN_ITS ---
Documented by User: Dianna Solis NP 01/02/25 09:29 HPI - Anesthesia Eval Consult details Narrative: 54yo F for Gastrectomy Sleeve,EGD,possibel Diaphragmatic Hernia,possible Ventral Hernia,possible Open Hx ETOH abuse - vivitrol injection monthly - planned for [address] Romano [facility] Active Problems Active Problems: All Active Problems Morbid obesity (Acute) Bilateral carpal tunnel syndrome (Acute) Cubital tunnel syndrome, bilateral (Acute) Varicose veins of right lower extremity with inflammation (Acute) Varicose veins of left lower extremity with inflammation (Acute) Paresthesia of hand, bilateral (Acute) Varicose veins of both lower extremities with inflammation (Acute) Peripheral vascular disease of lower extremity (Acute) Alcohol use disorder, severe, in early remission, dependence (Acute) Osteoarthritis of hands, bilateral (Acute) COVID-19 (Acute) Left leg swelling (Acute) Pain of left thumb (Acute) Pre-op evaluation (Acute) BMI 37.0-37.9, adult (Acute) Status post fall (Acute) Allergic rhinitis (Acute) Lower extremity edema (Acute) Alcohol abuse (Acute) Acute pharyngitis (Acute) Facial rash (Acute) Possible exposure to STD (Acute) Low vitamin B12 level (Acute) Low folate (Acute) CKD (chronic kidney disease) stage 3, GFR 30-59 ml/min (Acute) Hyperkalemia (Acute) Bilateral lower extremity edema (Acute) Cervical cancer screening (Acute) Alcohol abuse (Acute) QT prolongation (Acute) Obese (Acute) Colon cancer screening (Acute) Migraines (Acute) Acute frontal sinusitis (Acute) Borderline high cholesterol (Acute) Annual physical exam (Acute) DASHA (generalized anxiety disorder) (Acute) Price's cyst of knee (Acute) Status post right hip replacement (Acute) Preoperative clearance (Acute) Knee pain, right (Acute) Knee pain, left (Acute) Hip osteoarthritis (Acute) Panic attack (Acute) Morbid (severe) obesity due to excess calories (Acute) Hypertension (Acute) Past Medical History Medical History Bilateral carpal tunnel syndrome Migraines Chronic renal insufficiency Alcohol use disorder in remission Morbid (severe) obesity due to excess calories DVT (deep venous thrombosis) History of anxiety History of panic attacks Depression Osteoarthritis of right hip Hypertension Family History Family History Father Colon cancer Mother In good health Maternal Grandmother Breast cancer Paternal Grandmother Colon cancer Brother Multiple sclerosis Paternal Uncle Colon cancer Family history of problems with anesthesia: No Surgical History Surgical History Hx of carpal tunnel repair H/O vascular surgery Hx of colonoscopy History of right hip replacement History of left hip replacement History of tubal ligation History of tonsillectomy History of Problems with Anesthesia: No Social History Social History Household Members: None Household Members Other:: staying w/father to help with his care Housing: Homeless Housing Other:: recovery home Are you a primary career services officer to a significant other at home: No Do you presently have visiting nurse or other home services: No Alcohol intake: former Year quit: 02/18 Comment: pt stated started vivitrol January 2024 Patient Tobacco Use Status: Former Tobacco user Tobacco use type: Cigarette Cigarette Packs Per Day: 0.25 Cigarettes Per Day: 5.0 Years Smoked: 19 e-Cigarette/Vaping Use: Never Used Second Hand Smoke Exposure: No Use of substances other than those prescribed or required for medical reasons: No Substance Use Type: Marijuana Have you been hit, kicked, punched, or otherwise hurt by someone within the past year? If so, by whom?: No Spiritual Healthcare Practices: no Spiritism Healthcare Practices: no Cultural Healthcare Practices: no Are you DNR?: No Advance Directives Information Provided: Yes (as above noted) Advance Directives on File: No FDLMP: n/a Poor oral hygiene: No (missing tooth upper front) service: No Current occupational status: unemployed and disabled Current occupation: Rt handed Cognitive needs: No Hearing needs: No Vision needs: No Meds Allergies Allergy/AdvReac Type Severity Reaction Status Date / Time No Known Allergies Allergy Verified 01/03/25 10:33 [No Known Allergies*] Home Medications ?Medication ?Instructions ?Recorded ?Confirmed ?Last Taken ?Type magnesium oxide 250 mg PO DAILY 12/27/24 01/03/25 01/02/25 History multivitamin tab PO 12/27/24 Unknown History Exam Height,Weight and Vital Signs: Height 5 ft 7 in Weight 101.605 kg Pertinent Lab Results Pertinent Lab Results: Laboratory Tests 12/27/24 12/27/24 08:19 08:24 WBC 4.9 RBC 4.23 Hgb 12.9 Hct 38.7 MCV 91.5 MCH 30.5 MCHC 33.3 RDW 13.0 Plt Count 168 MPV 10.5 Immature Gran % (Auto) 0.4 Neut % (Auto) 53.2 Lymph % (Auto) 36.7 [place] % (Auto) 5.7 Eos % (Auto) 3.4 Baso % (Auto) 0.6 Lymph # (Auto) 1.8 [place] # (Auto) 0.3 Eos # (Auto) 0.2 Baso # (Auto) 0.0 Abs Immat Gran (auto) 0.02 Absolute Neuts (auto) 2.6 Absolute Nucleated RBC 0.000 Nucleated RBC % (auto) 0.0 PT 10.4 L INR 0.9 APTT 29.2 Sodium 142 Potassium 5.0 Chloride 111 H Carbon Dioxide 28 Anion Gap 8 L BUN 15 Creatinine 0.81 Estim Creat Clear Calc TNP Estimated GFR > 60 Random Glucose 112 Estimat Average Glucose 120 Hemoglobin A1c % 5.8 Insulin Level 8 Calcium 10.0 Total Bilirubin 0.4 AST 15 ALT 12 Alkaline Phosphatase 84 C-Reactive Protein 0.17 Total Protein 7.2 Albumin 4.2 Triglycerides 94 Cholesterol 169 LDL Cholesterol, Calc 108 H HDL Cholesterol 43 TSH 1.39 Blood Type B Positive Antibody Screen NEGATIVE Narrative Narrative: ECHO 2023 Conclusions: - The left ventricular systolic function is normal. The calculated ejection fraction is 67% by biplane method. - The left atrium is moderately dilated. - No obvious valvular pathology seen on this study. EKG 12/2024 Vent. Rate : 54 BPM Atrial Rate : 54 BPM P-R Int : 166 ms QRS Dur : 98 ms QT Int : 448 ms P-R-T Axes : 56 41 40 degrees QTcB Int : 424 ms Sinus bradycardia Otherwise normal ECG When compared with ECG of 25-Jan-2024 11:33, T inversion improved in V3 Assessment and Plan Assessment Anesthesia Assessment: Chart Reviewed Final Anesthetic Review Family History of Problems with Anesthesia: No History of Problems with Anesthesia: No Documented by User: Raven Rodriguez MD 01/03/25 11:23 HPI - Anesthesia Eval Consult details Narrative: 54yo F for EGD, Laparoscopic Sleeve Gastrectomy,possible Diaphragmatic Hernia repair, possible Ventral Hernia repair, possible Open Hx ETOH abuse - vivitrol injection monthly - planned for [address] Juan Antonio Johnitrol injection 12/06/24 and this morning. Aware of possibility of inadequate pain control. Had issues with pain control following cubital/carpal tunnel surgeries 12/15/24 PMF Active Problems Active Problems: All Active Problems Morbid obesity (Acute) Bilateral carpal tunnel syndrome (Acute) Cubital tunnel syndrome, bilateral (Acute) Varicose veins of right lower extremity with inflammation (Acute) Varicose veins of left lower extremity with inflammation (Acute) Paresthesia of hand, bilateral (Acute) Varicose veins of both lower extremities with inflammation (Acute) Peripheral vascular disease of lower extremity (Acute) Alcohol use disorder, severe, in early remission, dependence (Acute) Osteoarthritis of hands, bilateral (Acute) COVID-19 (Acute) Left leg swelling (Acute) Pain of left thumb (Acute) Pre-op evaluation (Acute) BMI 37.0-37.9, adult (Acute) Status post fall (Acute) Allergic rhinitis (Acute) Lower extremity edema (Acute) Alcohol abuse (Acute) Acute pharyngitis (Acute) Facial rash (Acute) Possible exposure to STD (Acute) Low vitamin B12 level (Acute) Low folate (Acute) CKD (chronic kidney disease) stage 3, GFR 30-59 ml/min (Acute) Hyperkalemia (Acute) Bilateral lower extremity edema (Acute) Cervical cancer screening (Acute) Alcohol abuse (Acute) QT prolongation (Acute) Obese (Acute) Colon cancer screening (Acute) Migraines (Acute) Acute frontal sinusitis (Acute) Borderline high cholesterol (Acute) Annual physical exam (Acute) DASHA (generalized anxiety disorder) (Acute) Price's cyst of knee (Acute) Status post right hip replacement (Acute) Preoperative clearance (Acute) Knee pain, right (Acute) Knee pain, left (Acute) Hip osteoarthritis (Acute) Panic attack (Acute) Morbid (severe) obesity due to excess calories (Acute) Hypertension (Acute) No ETOH or marijuana for 1 year Past Medical History Medical History Bilateral carpal tunnel syndrome Migraines Chronic renal insufficiency Alcohol use disorder in remission Morbid (severe) obesity due to excess calories DVT (deep venous thrombosis) History of anxiety History of panic attacks Depression Osteoarthritis of right hip Hypertension Family History Family History Father Colon cancer Mother In good health Maternal Grandmother Breast cancer Paternal Grandmother Colon cancer Brother Multiple sclerosis Paternal Uncle Colon cancer Family history of problems with anesthesia: No Surgical History Surgical History Hx of carpal tunnel repair H/O vascular surgery Hx of colonoscopy History of right hip replacement History of left hip replacement History of tubal ligation History of tonsillectomy History of Problems with Anesthesia: No Social History Social History Household Members: None Household Members Other:: staying w/father to help with his care Housing: Homeless Housing Other:: recovery home Are you a primary career services officer to a significant other at home: No Do you presently have visiting nurse or other home services: No Alcohol intake: former Year quit: 02/18 Comment: pt stated started vivitrol January 2024 Patient Tobacco Use Status: Former Tobacco user Tobacco use type: Cigarette Cigarette Packs Per Day: 0.25 Cigarettes Per Day: 5.0 Years Smoked: 19 e-Cigarette/Vaping Use: Never Used Second Hand Smoke Exposure: No Use of substances other than those prescribed or required for medical reasons: No Substance Use Type: Marijuana Have you been hit, kicked, punched, or otherwise hurt by someone within the past year? If so, by whom?: No Spiritual Healthcare Practices: no Spiritism Healthcare Practices: no Cultural Healthcare Practices: no Are you DNR?: No Advance Directives Information Provided: Yes (as above noted) Advance Directives on File: No FDLMP: n/a Poor oral hygiene: No (missing tooth upper front) service: No Current occupational status: unemployed and disabled Current occupation: Rt handed Cognitive needs: No Hearing needs: No Vision needs: No Meds Allergies Allergy/AdvReac Type Severity Reaction Status Date / Time No Known Allergies Allergy Verified 01/03/25 10:33 [No Known Allergies*] Home Medications ?Medication ?Instructions ?Recorded ?Confirmed ?Last Taken ?Type magnesium oxide 250 mg PO DAILY 12/27/24 01/03/25 01/02/25 History multivitamin tab PO 12/27/24 Unknown History Exam Height,Weight and Vital Signs: Height 5 ft 7 in Weight 101.605 kg Vital Signs Temp Pulse Resp BP Pulse Ox O2 Del Method 01/03/25 10:36 97.6 F 63 14 112/79 95 Room Air Airway Mallampati Class: II TM Dist: >3cm Neck ROM: Full Loose/Missing/Broken Teeth: Yes (Missing tooth top front and molars. Denies broken or loose teeth) Heart: RRR Lungs: CTAB Assessment and Plan Assessment Anesthesia Assessment: Anesthesia Plan Discussed and Chart Reviewed Final Anesthetic Review Family History of Problems with Anesthesia: No History of Problems with Anesthesia: No NPO: Yes ASA Class: III Final Preanesthetic Review: No Changes in Pt Med Stat, Meds/Allgs Chart Reviewed, Consent Obtained/Reviewed and Anes Risks/Benef Reviewed Patient Risk: Intermediate Procedure Risk: Intermediate Assessment/Block/Sedation in SS: Assess/Block/Sedation-SS Anesthetic Plan Anesthetic Plan: GA Disposition: Inp. Admit - Standard Bed
[2025-01-03] VITALS (11 sets, daily range): BP systolic 112–179; BP diastolic 70–97; PULSE 62–74; RESP 9–18; TEMP 36.4–37.6; O2SAT 95–100
[2025-01-03] MEDS: Lactated Ringers 1,000 ML 999 ML IV (10:55)
[2025-01-03] MEDS: Aprepitant 32 MG/4.4 ML VIAL IVPUSH (10:55)
--- OUTSIDE RECORDS SUMMARY | 2025-01-03 11:58 | XMS_ITS | Clinical Summary ---
Author Organization [facility] Address [id number] [place] [id number] Care Team Providers Care Biology Instructor Name Role Phone Unavailable Primary Care Provider [...]
--- OUTSIDE RECORDS SUMMARY | 2025-01-03 11:58 | XMS_ITS | Clinical Summary ---
Author Organization [employer] Address [address] [place] [address] [address], [place] [address] Care Team Providers Care Flat Locker Name Role Phone Unavailable Primary Care Provider [...] patient's age to complete this topic Insurance [place] [address]
--- NOTE | 2025-01-03 13:20 | MHC.SHP ---
Pre-Procedural Eval Section A - 24 Hr Update-Section A only Date of Service: 01/03/25 The patient is an INPATIENT: No The patient has been examined within 24 hours of the surgical procedure. The History & Physical has been completed within 30 days and I have reviewed it.: Yes Section B - Complete if H&P > 30 days Chief Complaint: Obesity Relevant Family History (Specify if Yes): No Relevant Social History: None Present Medications: None Medical History: No relevant PMH History of Previous Operations: No relevant previous surgery Allergies: Allergies Allergy/AdvReac Type Severity Reaction Status Date / Time No Known Allergies Allergy Verified 01/03/25 10:33 [No Known Allergies*] Review of Systems Sugical H&P ROS: Negative: Constitution, Cardiovascular, Respiratory, Neurological, Psychiatric, Hem-Onc, Allergic/Immunologic, Gastrointestinal, Genitourinary, Musculoskeletal, Integumentary, Endocrine and Eyes/Ears/Nose/Throat Exam Surgical H&P Exam: Normal: HEENT, Normal: Heart, Normal: Lungs, Normal: Extremities, Normal: Abdomen, Normal: Skin and Normal: Neurological Plan Diagnosis/Plan: Unchanged I have reviewed the history and physical and performed a pertinent physical examination on my patient. No changes have occurred unless specified. Time Spent With Patient Time: Total time managing care of this patient today ____ minutes.
--- NOTE | 2025-01-03 13:40 | P.BOP_ITS ---
Brief Operative Note Date of Service: 01/03/25 Pre-op diagnosis: Severe obesity with comorbidities (see below) Post-op diagnosis: same (& abdominal adhesions) Procedure: INITIAL PATIENT BMI ON PRESENTATION AT OUR OFFICE: 47.9 kg/m2 LAST BMI BEFORE SURGERY: 34.3 kg/m2 COMORBIDITIES: hypertension, depression, anxiety, DJD, liver fibrosis ?The patient presented to the Weight Management Program with significant obesity that was negatively impacting the patient's comorbidities as listed above.? The program is a phased program with a special focus on preoperative medical weight management to promote substantial weight loss and prepare the patients for the second phase of the program: bariatric surgery. The patient participated in an intensive weekly lifestyle ?intervention and exercise program during which the patient ?has lost between the initial office visit and the last preoperative visit 24.6lbs, or 10.1% of initial actual body weight. It was deemed appropriate for the patient to now have bariatric surgery. In light of the current Covid-19 pandemic and the well documented strong association of obesity and increased risk of worse outcomes if infected with Covid-19 (REFERENCES: https://pubmed.ncbi.nlm.nih.gov/89493571/ ,? https://pubmed.ncbi.nlm.nih.gov/27173728/ ), any delay in undergoing bariatric surgery may lead to the patient's worsening health condition and increased?risk of more severe Covid-19 disease if infected. In addition a recent?study from [facility] published in [facility] on 09/23/2021 ([email or web address]) found that, among patients with obesity, substantial weight loss achieved with surgery was associated with improved outcomes of COVID-19 infection. The findings suggest that obesity can be a modifiable risk factor for the severity of COVID-19 infection. In addition, the patient met the BMI-criteria for bariatric surgery based on the BMI on initial presentation. The patient should not be penalized for achieving such weight loss because ?it is not sustainable long-term without surgical intervention and it was achieved in preparation for bariatric surgery ?under my direction and based on my published research ([email or web address]).[email or web address] and? https://www.soard.org/article/[email or web address](31)17230-X/pdf ) ?that a 10% preoperative weight loss improves long-term weight loss after surgery and reduces perioperative complications.? Insurance carriers such as [facility] have endorsed my recommendations ?and have included in their policies criteria to include a 10% preoperative weight loss requirement. PROCEDURE: Esophago-gastroscopy, laparoscopic lysis of adhesions, laparoscopic sleeve gastrectomy and laparoscopic gastropexy INDICATIONS: This is a 54 year-old female who was electively scheduled for laparoscopic, possibly open sleeve gastrectomy. The risks and complications of the procedure were discussed with the patient in advance, particularly the possibility of ; pulmonary embolism; staple line leak; bleeding; GERD; cardiac, pulmonary, or renal complications; as well as long-term problems such as insufficient weight loss, vitamin deficiency, strictures, or ulcers. The patient understood all the risks, and was in agreement to proceed with surgery. DESCRIPTION OF PROCEDURE: After informed consent was obtained from the patient, the patient was given preoperative antibiotics, and was transferred to the operating room. After successful induction of general anesthesia, pneumatic compression devices were placed on both lower extremities. An upper endoscopy was performed next. The oropharynx and esophagus appeared to be within normal limits. There was no diaphragmatic hernia present. The stomach was entered. Then after all fluid and air were suctioned and the stomach was fully decompressed, the scope was withdrawn and secured in the mid esophagus. The patient was then prepped and draped in the usual sterile manner, and abdominal access was established at the right upper quadrant with the Irving technique. A 12 mm blunt port was inserted, and the abdomen was insufflated with CO2 to a pressure of 15 mmHg. Under direct visualization, additional ports were placed, specifically two 5 mm Versi-step ports to the left upper quadrant, and a 5 mm Versi-Step port to the right upper quadrant. 1% lidocaine plain was used to infiltrate all port sites as well as all fascia defects. Following that, the patient was placed in a steep reverse Trendelenburg position. An additional 5 mm port was placed to the right flank for the Mediflex retractor that was used to retract the left lobe of the liver. The gastro-esophageal fat pad was opened with the ultrasonic device (Thunderbeat, Olympus) and the anterior esophagus and hiatus were exposed. The angle of His was opened with the ultrasonic device the fundus of the stomach from any diaphragmatic and splenic attachments. I then opened the gastrocolic ligament between the transverse colon and the greater curvature of the stomach with the ultrasonic device to enter the lesser sac and facilitate the ligation of the short gastric vessels. I started at a mid-point along the greater curvature and using the Thunderbeat, all short gastric vessels were divided all the way to the angle of His until the left xenia was completely dissected at its entirety. I then divided the gastro-colic ligament distally to a distance of about 3-4 cm proximal to the pylorus. There were extensive congenital adhesions between the pancreas and posterior gastric wall. Those were lysed completely with the ultrasonic device. Adhesiolysis took approximately 45 min to complete.? The stomach was then divided transversely with two Endo CARLOS-45 purple and four CARLOS-60 articulating purple loads using the Fridge stapler and loads. Every effort was made that the gastric sleeve had a tubular shape and an even caliber throughout. Once the sleeve resection was completed, the staple line of the gastric sleeve was reinforced with Hemoclips. The resected stomach was retrieved without difficulty from the Irving port. A gastropexy was then performed in order to prevent postoperative GERD and partial gastric volvulus. Several interrupted 2.0 Surgidac sutures were placed between the sleeve's staple line and the previously divided greater omentum and gastro-colic ligament using the Endo-Stitch device. ?An upper endoscopy was performed. There was no narrowing at the GE junction. The scope was easily advanced all the way to the pylorus which was clearly vi sualized. There was no narrowing anywhere and the sleeve's caliber was even throughout. The sleeve's staple line was inspected and there was no evidence of ischemia, bleeding or dehiscence. At that point the gastroscope was withdrawn from the patient?s mouth while we were decompressing the bowel and the stomach from any remaining air. I looked into the lesser sac to see how the sleeve was situating and it was situating well. There was no bleeding from the staple line, spleen, or short gastric vessels. The Mediflex retractor was removed, and the undersurface of the liver was inspected and there was no bleeding. The patient was placed in supine position. I closed the fascial defect of the 12 mm port site with a figure of eight #1 Polysorb suture. Then 30cc Ropivacaine plain with 10 mg of Dexamethasone were used to infiltrate the fascial closure as well as all skin incisions. At this point, the abdomen was deflated, all ports were removed under direct vision, and no bleeding was noted from any of the port sites. The skin incisions were irrigated with saline and were closed with 4-0 absorbable monofilament sutures. Steri-Strips and OpSites were used to cover all incisions. The patient was extubated and was transferred in stable condition to the recovery room for further care. I was present and performed all carmona parts of the procedure. Ms. Bernard was the title i assistant. There were no residents to assist with this case. Shadi Phelps MD, PhD, FACS Surgeon: Tirso Phelps MD Anesthesia: GETA, local and other (TAP block) Was an Bridge Expert used for this Procedure?: No Bridge Expert: Melanie Bernard Estimated blood loss (mL): 10 IV fluids (mL): 3,000 Urine output (mL): 0 (No Reyes to record output) Pathology: other (1) Stomach, 2) Gastro-esophageal fat pad) Condition: stable Disposition: PACU
--- NOTE | 2025-01-03 13:43 | P.PNGS_ITS ---
Subjective Subjective Date of Service: 01/04/25 Interval history: Feels well. Mild incisional pain. She is tolerating phase 1 bariatric diet Physical Exam 2 Vital Signs: Vital Signs: Last Vital Signs Temp 97.6 F 01/03/25 10:36 Pulse 63 01/03/25 10:36 Resp 14 01/03/25 10:36 BP 112/79 01/03/25 10:36 Pulse Ox 95 01/03/25 10:36 O2 Del Method Room Air 01/03/25 10:36 BMI result Body Mass Index 35.1 GI: Inspection: Yes normal to inspection, Yes incision (clean, dry and intact) and Yes obesity Palpation (GI): Soft to palpation Extrem: Right lower extremity: normal to inspection (no calf tenderness) L eft lower extremity: normal to inspection (no calf tenderness) Objective Data Active Medications Lactated Ringer's (Lr) 1,000 mls @ 100 mls/hr IVCONT .Q10H JUNE Labs 01/04/25 06:05 01/04/25 06:05 Procedures Date of Service Date of Service: 01/04/25 Progress Note: A&P Assessment and plan (1) Obese: Status: Acute Assessment and Plan: s/p laparoscopic sleeve gastrectomy, lysis of adhesions and gastropexy Doing well Will check am labs and if OK the patient will be discharged home (2) BMI 35.0-35.9,adult: Status: Acute (3) Hypertension: Status: Acute (4) Hip osteoarthritis: Status: Acute (5) Alcohol abuse: Status: Acute (6) DASHA (generalized anxiety disorder): Status: Acute (7) Depression: Status: Acute (8) Liver fibrosis: Status: Acute (9) S/P laparoscopic sleeve gastrectomy: Status: Acute Time Spent With Patient Time: Total time managing care of this patient today ____ minutes. Quality Stroke Does the patient have a stroke diagnosis?: No VTE Prior VTE?: No VTE Risk Level:: Surgical - moderate VTE Device Contraindication: N/A - Device Ordered VTE Drug Contraindication: Treatment Not Indicated
[2025-01-03] MEDS: ceFAZolin Sodium/Dextrose,Iso 2 GM/50 ML PIGGYBACK IV ×2 (14:12→19:13)
[2025-01-03] MEDS: Acetaminophen 1,000 MG/100 ML PIGGYBACK 400 MG IV (14:18)
--- NOTE | 2025-01-03 16:21 | P.DS_ITS ---
DS: Providers Provider Date of Service: 01/04/25 Date of admission: 01/03/25 10:09 Date of discharge: 01/04/25 Primary care physician: Declan Saravia PA-C DS: Diagnosis Discharge Diagnosis (1) Obese: Status: Acute (2) BMI 35.0-35.9,adult: Status: Acute (3) Hypertension: Status: Acute (4) Hip osteoarthritis: Status: Acute (5) Alcohol abuse: Status: Acute (6) DASHA (generalized anxiety disorder): Status: Acute (7) Depression: Status: Acute (8) Liver fibrosis: Status: Acute DS: Summary Hospital Course Hospital Course: ADMITTING DIAGNOSIS: obesity,?depression, liver fibrosis, carpal tunnel/cubital tunnel syndrome, varicose veins, PVD, alcohol use disorder, OA, allergic rhinitis, CKD stage 3, migraines, borderline high cholesterol, DASHA, HTN ? DISCHARGE DIAGNOSIS: same, s/p laparoscopic sleeve gastrectomy and gastropexy ? PAST SURGICAL HISTORY:? H/O vascular surgery Hx of colonoscopy History of right hip replacement History of left hip replacement History of tubal ligation History of tonsillectomy ? PROCEDURE: upper endoscopy, laparoscopic sleeve gastrectomy and gastropexy ? DISCHARGE SUMMARY: ? History of Present Illness: ? The patient is a?54 year-old woman with a BMI of?35.1 kg/m2 and associated co- morbidities as described above. The patient had extensive work-up, lost?12.8 lbs preoperatively and was electively scheduled for laparoscopic, possible open sleeve gastrectomy and gastropexy. Risks and complications of the surgery were discussed with the patient in advance, particularly the possibility of , pulmonary embolism, anastomotic leak, bleeding, bowel injury, GERD, cardiac, renal or pulmonary complications. The patient understood all the risks and was in agreement with the surgical plan. ? Hospital Course: ? The patient underwent an uneventful laparoscopic sleeve gastrectomy with gastropexy on the day of admission. Postoperatively, the patient was transferred to the surgical floor. The patient received IV Acetaminophen and IV dilaudid for pain control. Patient was started on bariatric phase 1 diet POD #0. On postoperative day one, the patient was feeling well without nausea, vomiting, fevers, or tachycardia. The patient had some mild incisional pain and the abdomen was soft.? ? On the morning of postoperative day one, the patient was continued on 1 ounce of water or ice every half hour. During the day, the patient did fairly well, having some incisional pain, but able to ambulate adequately and to tolerate liquids well. ? Since the patient is doing well, we decided that the patient was ready to be discharged. The patient was given instructions to follow-up with me next week and to call my office for any fever over 101, persistent abdominal pain, nausea, vomiting, GERD, symptoms of DVT such as calf tenderness, or leg swelling, or pulmonary embolism such as chest pain or shortness of breath.? The patient was also instructed to drink 40-60 ounces of liquids per day using the 1-ounce cups. The patient had been given prescriptions for Tylenol for pain, Zofran prn for nausea, and pantoprazole and carafate previously. The patient was encouraged to ambulate and use the incentive spirometer. The patient was allowed to shower, but no baths, and encouraged to stay active at home. All of these instructions were given to the patient personally. All questions were answered and the patient understood all instructions, the instructions were also given to the patient in print. Time Attestation Discharge Coordination Time (in mins): 30 Quality: Safe Use of Opioids Does Pt have an Active Cancer Diagnosis on the Problem List?: No Quality: Stroke Does the patient have a stroke diagnosis?: No Physical Exam Vital Signs: Vital Signs: Last Vital Signs Temp 97.8 F 01/03/25 16:12 Pulse 66 01/03/25 16:17 Resp 16 01/03/25 16:17 BP 169/94 H 01/03/25 16:17 Pulse Ox 100 01/03/25 16:17 O2 Del Method Nasal Cannula 01/03/25 16:17 O2 Flow Rate 2 01/03/25 16:17 BMI result Body Mass Index 35.1 DS: Data Data Completed and Pending Completed studies during hospitalization [Text1]: Procedures Detoxification Services for Substance Abuse Treatment (01/25/24) Replacement of Right Hip Joint with Synthetic Substitute, Uncemented, Open Approach (01/22/21) Pending studies at discharge: Pending at discharge 01/03/25 15:11 Surgical [PTH] Routine Discharge Plan Discharge Anticipated Discharge Date/Time: 01/04/25 10:00 Patient Disposition: Home, Self-Care Discharge Diagnosis: s/p laparoscopic sleeve gastrectomy with gastropexy Referrals: Declan Saravia PA-C [Primary Care Provider] - 1 Week Discharge Medications: Continued loratadine 10 mg tablet 10 mg PO DAILY Qty: 90 1RF Vivitrol 380 mg suspension,extended rel recon 380 mg IM Q4W Qty: 1 2RF (DME) blood pressure kit-extra large Kit See Rx Instructions .Route Qty: 1 0RF Rx Instructions: As directed (DME) Raised toilet seat See Rx Instructions .ROUTE .MEDSUPPLY Qty: 1 0RF Rx Instructions: As directed pantoprazole 40 mg tablet,delayed release (DR/EC) 40 mg PO DAILY Qty: 90 0RF sucralfate 100 mg/mL suspension 10 ml PO BID Qty: 600 2RF ondansetron 4 mg tablet,disintegrating 4 mg PO Q12H Qty: 20 0RF Held lisinopril 5 mg tablet 5 mg PO DAILY Qty: 90 1RF Hold Instructions: Resume on 01/05/25. Check your blood pressure every morning as soon as you wake up and send it to Dr. Phelps. Do no take the blood pressure medication if the blood pressure is below 120/70. Wait every day to hear back from Dr. Phelps before you take the medication. furosemide 20 mg tablet 20 mg PO DAILY PRN (Reason: edema) Hold Instructions: Resume on 01/05/25. Check your blood pressure every morning as soon as you wake up and send it to Dr. Phelps. Do no take the blood pressure medication if the blood pressure is below 120/70. Wait every day to hear back from Dr. Phelps before you take the medication. clonidine HCl 0.3 mg tablet 0.6 mg PO BEDTIME 30 Days Qty: 60 6RF Hold Instructions: Resume on 01/09/25. propranolol 20 mg tablet 20 mg PO BEDTIME 90 Days Qty: 90 3RF Hold Instructions: Resume on 01/05/25. Check your blood pressure every morning as soon as you wake up and send it to Dr. Phelps. Do no take the blood pressure medication if the blood pressure is below 120/70. Wait every day to hear back from Dr. Phelps before you take the medication. Discontinued vitamin B complex-folic acid [B Complex 1 (with folic acid)] 0.4 mg tablet 1 tab PO DAILY Qty: 90 0RF acetaminophen 500 mg capsule 1,000 mg PO Q6H PRN (Reason: fever) 30 Days Qty: 120 3RF polyethylene glycol 3350 17 gram/dose powder 17 g PO DAILY Qty: 238 0RF Rx Instructions: Mix each measuring cup with 8oz of water, Crystal light, or Gatorade zero, or Propel and do 7 measuring cups on 01/01/25 and another 7 measuring cups on 01/02/25 magnesium oxide 250 mg magnesium tablet 250 mg PO DAILY multivitamin Tablet PO No Action hydrocodone-acetaminophen 5-325 mg tablet 1 tab PO QID PRN (Reason: Pain) vitamin B complex-folic acid 0.4 mg tablet 1 tab PO DAILY multivitamin Tablet 1 tab PO DAILY magnesium oxide 250 mg magnesium Tablet 250 mg PO DAILY Discharge Orders: Discharge Order (Routine); Ordered 01/04/25 Ordered By: Tirso Phelps Activity on Discharge: No heavy lifting Stand Alone Forms: Patient Portal Discharge page Print Language: Mauritian Care Plan Goals: weight loss Health Concerns: obesity Plan of Treatment: No tub baths, sex or returning to work until discussed at first post op appointment. No alcohol, tobacco or illegal drug use. Continue to use incentive spirometer hourly while awake. Walk in home for 5- 10 minutes every 2 hours during the first week. Wear abdominal binder with activity. Follow all meal plan instructions from your bariatric surgeon. Review bariatric handbook and call with any questions. Discharge Instructions 1. Please call your doctor or come back to the emergency room should any new symptoms arise. 2. Activity: abstain from alcohol,? limited stair climbing, no bending, no driving, no exercise, no illicit substances, no lifting, no sex, no tub bath, no work. 4. Diet: follow your bariatric surgeons recommendations for advancing diet. 5. Dressing Change/Wound Care: Your incisions are covered with waterproof dressings. You can shower with these and pat dry. Do not rub over dressings or incisions. If the area is tender, you may apply an ice pack for short intervals (no more than 20 minutes on, followed by at least 20 minutes off). Do not apply heat. Do not use creams, lotions, or topical antibiotics unless instructed to do so by your surgeon. 6. Call your doctor if: - Your temperature exceeds 101.5 F - You experience excessive pain or swelling - You have an unexpected reaction to medication - You have excessive bleeding - You experience continued vomiting/nausea - Your incision begins to separate - Your incision shows signs of infection such as increased redness, swelling, excessive pain, heat, or drainage (light blood or clear fluid is normal) General instructions: No lifting greater than 10 lbs for the next [address] iving within 24 hours of taking narcotic pain medications. If you do not move your bowels in the next 2 days, please take milk of magnesia over the counter. Please follow the post op diet and do not advance your diet until you are seen in the office in about 2 weeks. Please walk around your home every hour or two to prevent blood clots from forming in your legs. You do not need to wake from sleeping to walk. Please sleep in a bed or couch to prevent kinking at the hips and knees. Please take your incentive spirometer (your lung territory sales professional) home with you and use it for the next few days to prevent pneumonias. You may shower, no hot tubs, baths or swimming pools. Please call the office with any questions or concerns such as increasing abdominal pain, fever, chills, shortness of breath, chest pain, leg pain or swelling, or redness or drainage from your incisions. Please make sure you are consuming 40-60 ounces of total fluids per day. Avoid all carbonation. Do not hesitate to contact the office with any questions at . The patient's medical history has been reviewed and they are considered low risk for post op DVT and therefore DVT prophylaxis is not considered necessary. Travel after surgery was reviewed. The patient has not disclosed any travel plans during the first 30 days after surgery and they have been advised that within the first 30 days after surgery any bus, plane, train or car travel over 2 hours in duration is contraindicated due to the possibility of developing blood clots from immobility. Any travel, needs to include periods of ambulation of 10 minutes in duration every 2 hours.? The patient was instructed to discuss any plans for travel during this period with their bariatric surgeon. Assessment: s/p laparoscopic sleeve gastrectomy with gastropexy Discharge Date/Time: 01/04/25 09:34
[2025-01-03] MEDS: Haloperidol Lactate 5 MG/ML VIAL 1 MG IVPUSH (16:34)
[2025-01-03 17:02] LABS: Hematocrit 38.4 % (37.0-47.0); Hemoglobin 13.3 g/dl (12.0-16.0)
[2025-01-03 17:09] LABS: Anion Gap 17 (12-20); Blood Urea Nitrogen 19 mg/dL (9-16); Calcium 9.7 mg/dL (8.4-10.2); Carbon Dioxide 21 mmol/L (22-29); Chloride 107 mmol/L (96-108); Creatinine Clr Calc Pharmacy 88.5; Estimated Glomerular Filt Rate > 60; Glucose Random 141 mg/dL (60-115); Potassium 4.1 mmol/L (3.3-5.1); Sodium 141 mmol/L (135-145)
[2025-01-03] MEDS: Lactated Ringers 1,000 ML 100 ML IVCONT (17:43)
[2025-01-03] MEDS: Acetaminophen 1,000 MG/100 ML PIGGYBACK 16.7 MG IV (19:52)
[2025-01-03] MEDS: cloNIDine HCL 0.2 MG TABLET 0.6 MG PO (19:53)
[2025-01-03] MEDS: Famotidine/PF 20 MG/2 ML VIAL IVPUSH (19:53)
[2025-01-03] MEDS: 0.9 % Sodium Chloride Flush 3 ML SYRINGE IVFLUSH (19:53)
--- NOTE | 2025-01-03 22:01 | PHA.MEDREC ---
Addendum entered by Mayrui Castaneda lacho 01/04/25 07:24: Patient is being discharged this morning. Claims match what med rec chemical research technician inputted. Reviewed. Original Note: Pharmacy Consult ? Medication Reconciliation Pharmacy could not complete med rec. Went to speak with patient a few times tonight and patient was asleep. I called the patients daughter who was somewhat helpful and was able to confirm some of her moms medications. We will have the Am team confirm with the patient in the morning.
[2025-01-04] MEDS: Acetaminophen 1,000 MG/100 ML PIGGYBACK 16.7 MG IV (01:53)
[2025-01-04 02:50] VITALS: BP 113/62; PULSE 60; RESP 17; TEMP 36.2; O2SAT 95
[2025-01-04] MEDS: Lactated Ringers 1,000 ML 100 ML IVCONT (03:21)
[2025-01-04 06:52] LABS: MANUAL DIFF FLAG NO
[2025-01-04 06:59] LABS: Basophils Percent Auto 0.1 % (0-2); Eosinophils Percent Auto 0.1 % (0-4); Hemoglobin 12.2 g/dl (12.0-16.0); Imm Gran Abs Auto 0.02 X10*3/uL (0.00-0.03); Imm Gran Pct Auto 0.3 % (0.0-0.4); Lymphocytes Absolute Auto 1.4 X10*3/uL (1.2-4.9); Lymphocytes Percent Auto 19.9 % (20-40); Mean Corpuscular HGB Conc 34.9 g/dl (31.0-35.0); Mean Corpuscular Hemoglobin 30.7 pg (27.0-33.0); Mean Corpuscular Volume 88.2 fL (80.0-98.0); Mean Platelet Volume 11.4 fL (9.4-12.3); Monocytes Absolute Auto 0.3 X10*3/uL (0.1-1.2); Monocytes Percent Auto 4.9 % (2-11); Neutrophils Absolute Auto 5.1 x10*3/uL (2.0-8.3); Neutrophils Percent Auto 74.7 % (45-73); Platelet Count 161 X10*3/uL (160-400); Red Blood Count 3.97 X10*6/uL (4.20-5.50); Red Cell Distribution Width 12.5 % (11.0-16.0); White Blood Count 6.9 X10*3/uL (4.8-10.8)
[2025-01-04 07:17] LABS: Anion Gap 13 (12-20); Blood Urea Nitrogen 16 mg/dL (9-16); Calcium 9.2 mg/dL (8.4-10.2); Carbon Dioxide 24 mmol/L (22-29); Chloride 106 mmol/L (96-108); Creatinine Clr Calc Pharmacy 94.9; Estimated Glomerular Filt Rate > 60; Glucose Random 138 mg/dL (60-115); Sodium 139 mmol/L (135-145)
[2025-01-04 07:21] VITALS: BP 108/59; PULSE 58; RESP 17; TEMP 36.6; O2SAT 94
[2025-01-04] MEDS: Famotidine/PF 20 MG/2 ML VIAL IVPUSH (07:38)
[2025-01-04] MEDS: Loratadine 10 MG TABLET PO (07:38)
--- NOTE | 2025-01-04 08:20 | HO.POSTANES ---
Post Anesthesia Evaluation Post Anesthesia Evaluation Date of Service: 01/04/25 Vital Signs: Vital Signs Temp Pulse Resp BP Pulse Ox O2 Del Method O2 Flow Rate 01/04/25 07:21 98 F 58 17 108/59 L 94 Room Air 01/04/25 02:50 97.1 F 60 17 113/62 95 Nasal Cannula 2 01/03/25 23:27 98.1 F 70 17 134/70 97 Nasal Cannula 2 01/03/25 20:37 99.4 F 65 16 138/78 96 Nasal Cannula 2 Anesthesia: General Endotracheal-GETA Mental Status: Awake Pain Control: Satisfactory Nausea/Vomiting: None Hydration: Adequate Anesthesia-Related Issues: No Anes. Related Issues
--- NOTE | 2025-01-04 09:33 | MHC.CM.PN ---
S/P Gastric sleeve w LAUREN she lives with family. She is independen t with all functional mobility. She is discharge to home self care. She will arrange for transportation home.
== END 2025-01-04 09:34 | disposition home or self-care (01) | DRG 403 ==
LOC: HO.SSSA 16:18 → HO.S3 16:22
PROVIDERS: Physician Assistant Surgical; Admitting Provider Surgery; PCP Physician Assistant; Visit Provider Surgery
PROC: 0DB64Z3 Excision of Stomach, Percutaneous Endoscopic Approach, Vertical (ICD-10-PCS; CPT 43845; principal; 2025-01-03 12:50)
DX: E66.01 Morbid (severe) obesity due to excess calories (principal); K74.00 Hepatic fibrosis, unspecified; Q43.3 Congenital malformations of intestinal fixation; F32.A Depression, unspecified; I10 Essential (primary) hypertension; Z68.34 Body mass index [BMI] 34.0-34.9, adult; F41.9 Anxiety disorder, unspecified; M19.90 Unspecified osteoarthritis, unspecified site; Z87.891 Personal history of nicotine dependence; Z79.899 Other long term (current) drug therapy
CPT/HCPCS: 36415; 80048; 80053; 80061; 83036; 83525; 84443; 85014; 85018; 85025; 85610; 85730; 86140; 86850; 86900; 86901; 88304; 88305; 88307; 88342; 93005; 96372; A4649; C9145; J0131; J0690; J1100; J1171; J1630; J1920; J2003; J2250; J2315; J2405; J2704; J2795; J3010; J7120

== ENCOUNTER → 2025-01-03 10:09 | Outpatient (BNV) | payer OTHER, SELFPAY | PROVIDERS: Admitting Provider Surgery; PCP Physician Assistant; Visit Provider Surgery | DX: E66.01 Morbid (severe) obesity due to excess calories (principal); Z68.35 Body mass index [BMI] 35.0-35.9, adult; Z98.84 Bariatric surgery status | CPT/HCPCS: 43659; 43775; 99024; 99499 ==

== ENCOUNTER 2025-01-11 09:48 | Outpatient (AMB) | payer OTHER, SELFPAY ==
--- NOTE | 2025-01-11 10:05 | A.OFFVIS_ITS ---
VS Expanded 01/11/25 10:06 BP 93/57 L Blood Pressure Location Lt brachial Blood Pressure Position Sitting Pulse 58 Pulse Source Pulse Oximeter Pulse Oximetry 97 Height 5 ft Weight 211 lb BMI 41.2 Body Fat % 42.1 Body Fat Mass 88.8 Fat Free Mass 122.2 Visceral Fat Rating 11.0 Body Water % 41.2 Body Water Mass 86.8 Muscle Mass/Score 116.0 Basal Metabolic Rate/Score 1,689 Intake Visit Reasons: (OV) PO LSG 01/03/25 Intake Note: States that she sneezed on Thursday and has had pain in the middle excision since. Diabetes Clinical Manager Required: No Allergies No Known Allergies [No Known Allergies*] Allergy (Verified 01/11/25 10:06) Medication List - Last Reconciled 01/11/25 by YASEMIN Estrada blood pressure kit-extra large As directed clonidine HCl 0.6 mg (2 x 0.3 mg) PO BEDTIME 30 days furosemide 20 mg PO DAILY PRN hydrocodone-acetaminophen 5-325 mg 1 tab PO QID PRN lisinopril 5 mg PO DAILY loratadine 10 mg PO DAILY magnesium oxide 250 mg PO DAILY multivitamin 1 tab PO DAILY naltrexone microspheres ER (Vivitrol) 380 mg IM Q4W ondansetron 4 mg PO Q12H pantoprazole 40 mg PO DAILY propranolol 20 mg PO BEDTIME 90 days [Raised toilet seat As directed] sucralfate 10 mL PO BID vitamin B complex-folic acid 0.4 mg 1 tab PO DAILY HPI Comments Details: Pt is 8 days s/p LSG 01/03/2025. Pt reports some pain after sneezing on Thursday- at center incision. No pain in stomach when she drinks, no nausea. Current meal plan is 2 scoops Premier in 8oz UAM, and also bought vitamins. No fevers at home. She has been taking her BP daily, going to skip lisinopril tonight and boogie lf propranolol due to low VS today. COUNT INCLUDES THE [facility] Medical History (Updated 01/11/25 @ 10:46 by YASEMIN Estrada) Obese Bilateral carpal tunnel syndrome Migraines Chronic renal insufficiency Alcohol use disorder in remission Morbid (severe) obesity due to excess calories DVT (deep venous thrombosis) History of anxiety History of panic attacks Depression Osteoarthritis of right hip Hypertension Surgical History (Updated 01/05/25 @ 00:01 by Sohan Olsen) Hx of carpal tunnel repair H/O vascular surgery Hx of colonoscopy History of right hip replacement History of left hip replacement History of tubal ligation History of tonsillectomy Family History Father Colon cancer Mother In good health Maternal Grandmother Breast cancer Paternal Grandmother Colon cancer Brother Multiple sclerosis Paternal Uncle Colon cancer Social History Household Members: Family Household Members Other:: staying w/father to help with his care Housing: House Housing Other:: recovery home Are you a primary rn homecare to a significant other at home: No Do you presently have visiting nurse or other home services: No Alcohol intake: former Year quit: 02/18 Comment: pt stated started vivitrol January 2024 Patient Tobacco Use Status: Former Tobacco user Tobacco use type: Cigarette Cigarette Packs Per Day: 0.25 Cigarettes Per Day: 5.0 Years Smoked: 19 e-Cigarette/Vaping Use: Never Used Second Hand Smoke Exposure: No Substance Use Type: Marijuana service: No Current occupational status: unemployed and disabled Current occupation: Rt handed Cognitive needs: No Hearing needs: No Vision needs: No Physical Exam Vital Signs: Last Vital Signs Pulse 58 01/11/25 10:06 BP 93/57 L 01/11/25 10:06 Pulse Ox 97 01/11/25 10:06 BMI result Body Mass Index 41.2 Const General: cooperative, comfortable and no acute distress Orientation/consciousness: patient oriented x3 GI Other: soft, nontender, nondistended, steri-strips c/d/i, some old bruising, no hematoma or swelling at center incision Neuro General: patient oriented x3 Assessment & Plan Assessment & Plan (1) S/P laparoscopic sleeve gastrectomy: Code(s): Z98.84 - Bariatric surgery status Category: Medical (2) Morbid obesity: Code(s): E66.01 - Morbid (severe) obesity due to excess calories Category: Medical Plan May shower tomorrow but no bath or submersion of abdomen in water. May start exercise.? No abdominal exercises x 6 weeks. Abdominal binder for the next 2 weeks with activity or exercise. Continue meal plan per Dr Villalobos until next f/u. Reviewed pantoprazole and carafate dosing. Reminded of the pace of drinking 2 mL/min or 1oz per 15 min. Will be emailed link for post op video for review. RTC 1 month.
[2025-01-11 10:06] VITALS: BP 93/57; PULSE 58; O2SAT 97; BMI 41.2
--- OUTSIDE RECORDS SUMMARY | 2025-01-11 11:03 | XMS_ITS | Clinical Summary ---
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
--- OUTSIDE RECORDS SUMMARY | 2025-01-11 11:03 | XMS_ITS | Clinical Summary ---
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
== END 2025-01-11 11:04 | disposition home or self-care (01) ==
PROVIDERS: PCP Physician Assistant; Visit Provider Physician Assistant Surgical
DX: E66.01 Morbid (severe) obesity due to excess calories (principal); Z68.41 Body mass index [BMI] 40.0-44.9, adult; Z90.3 Acquired absence of stomach [part of]; Z98.84 Bariatric surgery status
CPT/HCPCS: 99024

== ENCOUNTER → 2025-01-11 09:48 | Outpatient (BNVA) | payer OTHER, SELFPAY | PROVIDERS: PCP Physician Assistant; Visit Provider Physician Assistant Surgical | DX: E66.01 Morbid (severe) obesity due to excess calories (principal); Z98.84 Bariatric surgery status; Z68.41 Body mass index [BMI] 40.0-44.9, adult | CPT/HCPCS: 99212 ==

== ENCOUNTER 2025-01-19 10:47 | Outpatient (AMB) | payer OTHER, SELFPAY ==
--- NOTE | 2025-01-19 10:40 | A.OFFWM_ITS ---
Intake Intake Visit Reasons: TV PO LSG 01/03/25 Allergies No Known Allergies [No Known Allergies*] Allergy (Verified 01/11/25 10:06) PFSH Medical History (Updated 01/11/25 @ 10:46 by YASEMIN Estrada) Obese Bilateral carpal tunnel syndrome Migraines Chronic renal insufficiency Alcohol use disorder in remission Morbid (severe) obesity due to excess calories DVT (deep venous thrombosis) History of anxiety History of panic attacks Depression Osteoarthritis of right hip Hypertension Surgical History (Updated 01/05/25 @ 00:01 by Sohan Olsen) Hx of carpal tunnel repair H/O vascular surgery Hx of colonoscopy History of right hip replacement History of left hip replacement History of tubal ligation History of tonsillectomy Family History Father Colon cancer Mother In good health Maternal Grandmother Breast cancer Paternal Grandmother Colon cancer Brother Multiple sclerosis Paternal Uncle Colon cancer Social History Household Members: Family Household Members Other:: staying w/father to help with his care Housing: House Housing Other:: recovery home Are you a primary medicare biller to a significant other at home: No Do you presently have visiting nurse or other home services: No Alcohol intake: former Year quit: 02/18 Comment: pt stated started vivitrol January 2024 Patient Tobacco Use Status: Former Tobacco user Tobacco use type: Cigarette Cigarette Packs Per Day: 0.25 Cigarettes Per Day: 5.0 Years Smoked: 19 e-Cigarette/Vaping Use: Never Used Second Hand Smoke Exposure: No Substance Use Type: Marijuana service: No Current occupational status: unemployed and disabled Current occupation: Rt handed Cognitive needs: No Hearing needs: No Vision needs: No Behavioral Health Assessment Weight Management Therapy Therapy Notes Details Subjective: Patient reports undergoing bariatric surgery on 01/03/2025. She shared that she has secured a car and plans to sign a lease through [facility] this coming Thursday. Continues to attend individual therapy and reports feeling emotionally stable at this time. Objective: Patient presented for a routine post-operative behavioral health follow-up. Discussed overall recovery progress and current post-op adjustment. Administered the PHQ-9 to screen for symptoms of depression. Provided psychoeducation on the importance of monitoring mental health following bariatric surgery. Offered supportive resources and encouraged ongoing engagement with the treatment team if symptoms of emotional distress arise. Assessment/Response: * Mental status: WNL * Risk reported/identified: None Food/Weight/Diet Expectations of change PT started the program at 236 lbs at her initial weight check on 05/03/2024 Weight on 11/25/2024: 220 lbs. Weight as of 12/27/24: 223 lbs Post-op weight 01/11/25: 211 lb PT is implementing the following: Current meal plan: 2 shakes, 1 protein bar, and water. Exercise plan: will start again, attending the gym to use the treadmill. Communication w/ provider: Tuesdays. Questionnaires PHQ-9 Over the last 2 weeks, how often have you been bothered by any of the following problems? 1. Little interest or pleasure in doing things: not at all 2. Feeling down, depressed, or hopeless: not at all 3. Trouble falling or staying asleep, or sleeping too much: not at all 4. Feeling tired or having little energy: not at all 5. Poor appetite or overeating: not at all (but feeling hungry) 6. Feeling bad about yourself - or that you are a failure or have let yourself or your family down: not at all 7. Trouble concentrating on things, such as reading the newspaper or watching television: not at all 8. Moving or speaking so slowly that other people could have noticed. Or the opposite - being so fidgety or restless that you have been moving around a lot more than usual: not at all 9. Thoughts that you would be better off or of hurting yourself in some way: not at all Total score: 0 Depression Screening Interpretation: Negative Depression Screening Done: Yes 03850 - PHQ-9 Billing: Yes Source: Developed by Drs. Ehsan Jeffrey, Garima Rueda, Stanley Dias and colleagues, with an educational moises from [employer]. Assessment & Plan Assessment & Plan (1) Alcohol use disorder, severe, in early remission, dependence: Code(s): F10.21 - Alcohol dependence, in remission Plan Follow-up appointment scheduled in 1 month Continue monitoring mood and adjustment to post-op life Encourage continued engagement in therapy and communication with the bariatric care team. Next ravinder: 02/16/2025 at 10 am Telehealth Telehealth Telehealth Telehealth Platform: Telephone Location of provider rendering services: other Location of patient: other (dad's home. [place], [place]) Patient Identification confirmed using: Name, : Yes Telehealth method: voice only Patient verbally consented to treatment: Yes Patient verbally consented to billing insurance company: Yes Patient informed of any privacy concerns related to visit: Yes Minutes spent on Phone/Video with Pt.: 25 Coding Level of Care Code Established Pt Tele Psytx 30 mins (45809) Patient Type Established Diagnoses Alcohol use disorder, severe, in early remission, dependence F10.21 Additional Codes PHQ-9 - 27842 - PHQ-9 Billing: Yes ([id number]) Time Spent (min) 25 Comment start time: 10:40am, End time: 11:05am
--- OUTSIDE RECORDS SUMMARY | 2025-01-19 12:37 | XMS_ITS | Clinical Summary ---
Author Organization [facility] Address [id number] [place] [id number] Care Team Providers Care Machine Leather Trimmer Name Role Phone Unavailable Primary Care Provider [...]
== END 2025-01-19 11:18 | disposition home or self-care (01) ==
LOC: HO.HBST 10:47
PROVIDERS: PCP Physician Assistant; Visit Provider Counselor Mental Health
DX: F10.21 Alcohol dependence, in remission (principal)
CPT/HCPCS: 90832

== ENCOUNTER → 2025-01-19 10:47 | Outpatient (BNVA) | payer OTHER, SELFPAY | PROVIDERS: PCP Physician Assistant; Visit Provider Counselor Mental Health ==

== ENCOUNTER 2025-02-01 09:22 | Outpatient (AMB) | payer OTHER, SELFPAY ==
--- NOTE | 2025-02-01 09:12 | A.OFFVIS_ITS ---
VS Expanded 02/01/25 09:18 Height 5 ft Weight 201 lb BMI 39.3 Intake Visit Reasons: TV PO LSG 01/03/25 Allergies No Known Allergies [No Known Allergies*] Allergy (Verified 01/11/25 10:06) Medication List - Last Reconciled 02/01/25 by YASEMIN Estrada blood pressure kit-extra large As directed clonidine HCl 0.6 mg (2 x 0.3 mg) PO BEDTIME 30 days furosemide 20 mg PO DAILY PRN hydrocodone-acetaminophen 5-325 mg 1 tab PO QID PRN lisinopril 5 mg PO DAILY loratadine 10 mg PO DAILY magnesium oxide 250 mg PO DAILY multivitamin 1 tab PO DAILY naltrexone microspheres ER (Vivitrol) 380 mg IM Q4W pantoprazole 40 mg PO DAILY propranolol 20 mg PO BEDTIME 90 days [Raised toilet seat As directed] sucralfate 10 mL PO BID vitamin B complex-folic acid 0.4 mg 1 tab PO DAILY HPI Comments Details: This?is a?54?yo female who is s/p LSG 01/03/2025. Presents for 1 month post op visit. Weight at last visit on 01/11/2025 was 211 pounds with a BMI of 41.2, weight today is 201 pounds, representing a [10 pound weight loss with a BMI today of 39.3. No complaints of nausea, emesis, abdominal pain or reflux, or constipation. Pt reports I feel very good, I'm just exhausted. Doing a lot of stair climbing, lives on the 6th floor and elevator is broken. Monitoring BP but last took one week ago; taking lisinopril, also takes propranolol for tachycardia. Present meal plan includes: Premier powder 1 scoop each x 2 Clean protein bar reports 16.9oz water in addition to shakes, Crystal Light Exercise routine includes: leg lifts, stair climbing PFSH Medical History (Updated 01/11/25 @ 10:46 by YASEMIN Estrada) Obese Bilateral carpal tunnel syndrome Migraines Chronic renal insufficiency Alcohol use disorder in remission Morbid (severe) obesity due to excess calories DVT (deep venous thrombosis) History of anxiety History of panic attacks Depression Osteoarthritis of right hip Hypertension Surgical History (Updated 01/05/25 @ 00:01 by Sohan Olsen) Hx of carpal tunnel repair H/O vascular surgery Hx of colonoscopy History of right hip replacement History of left hip replacement History of tubal ligation History of tonsillectomy Family History Father Colon cancer Mother In good health Maternal Grandmother Breast cancer Paternal Grandmother Colon cancer Brother Multiple sclerosis Paternal Uncle Colon cancer Social History Household Members: Family Household Members Other:: staying w/father to help with his care Housing: House Housing Other:: recovery home Are you a primary respiratory care program director to a significant other at home: No Do you presently have visiting nurse or other home services: No Alcohol intake: former Year quit: 02/18 Comment: pt stated started vivitrol January 2024 Patient Tobacco Use Status: Former Tobacco user Tobacco use type: Cigarette Cigarette Packs Per Day: 0.25 Cigarettes Per Day: 5.0 Years Smoked: 19 e-Cigarette/Vaping Use: Never Used Second Hand Smoke Exposure: No Substance Use Type: Marijuana service: No Current occupational status: unemployed and disabled Current occupation: Rt handed Cognitive needs: No Hearing needs: No Vision needs: No Telehealth Telehealth Telehealth Platform: Telephone Location of provider rendering services: other Location of patient: address on file Patient Identification confirmed using: Name, : Yes Telehealth method: voice only Patient verbally consented to treatment: Yes Patient verbally consented to billing insurance company: Yes Patient informed of any privacy concerns related to visit: Yes Minutes spent on Phone/Video with Pt.: 16 Assessment & Plan Assessment & Plan (1) S/P laparoscopic sleeve gastrectomy: Code(s): Z98.84 - Bariatric surgery status Category: Surgical (2) BMI 35.0-35.9,adult: Code(s): Z68.35 - Body mass index [BMI] 35.0-35.9, adult Category: Medical Plan She will continue to follow meal plan per Dr. Erazo Emphasized the importance of adequate hydration; she reports she fell behind in this last week due to moving but back on track now. Goal at least 40oz/day. Reviewed heavy listing restriction until 6w postop. She already has an appt with me for 02/22 so can keep this appt, also scheduled to see Angelica on 02/16.
[2025-02-01 09:18] VITALS: BMI 39.3
--- OUTSIDE RECORDS SUMMARY | 2025-02-01 10:05 | XMS_ITS | Clinical Summary ---
Author Organization [facility] Address [id number] [place] [phone] Care Team Providers Care Miner Name Role Phone Unavailable Primary Care Provider [...]
--- OUTSIDE RECORDS SUMMARY | 2025-02-01 10:05 | XMS_ITS | Clinical Summary ---
Author Organization [employer] Address [address] [place] [address] [address] [address] Care Team Providers Care System Support Technician Name Role Phone Unavailable Primary Care [...] patient's age to complete this topic [place] [address] [id number]
== END 2025-02-01 09:30 | disposition home or self-care (01) ==
LOC: HO.HBS 09:22
PROVIDERS: PCP Physician Assistant; Visit Provider Physician Assistant Surgical
DX: E66.9 Obesity, unspecified (principal); Z68.39 Body mass index [BMI] 39.0-39.9, adult; Z90.3 Acquired absence of stomach [part of]; Z98.84 Bariatric surgery status
CPT/HCPCS: 99024

== ENCOUNTER → 2025-02-01 09:22 | Outpatient (BNVA) | payer OTHER, SELFPAY | PROVIDERS: PCP Physician Assistant; Visit Provider Physician Assistant Surgical ==

== ENCOUNTER 2025-02-03 10:45 | Outpatient (AMB) | payer OTHER, SELFPAY ==
--- NOTE | 2025-02-03 10:57 | MHC.OFFVIS ---
Vital Signs 02/03/25 10:58 Pulse 57 Pulse Source Pulse Oximeter Pulse Oximetry (%) 99 Oxygen Delivery Method Room Air Intake Visit Reasons: MAT/Injection vivitrol Allergies No Known Allergies [No Known Allergies*] Allergy (Verified 02/03/25 10:58) HPI HPI MAT/Injection vivitrol: Details: She is doing well with Vivitrol. She has not had a drink. [facility] Medical History Obese Bilateral carpal tunnel syndrome Migraines Chronic renal insufficiency Alcohol use disorder in remission Morbid (severe) obesity due to excess calories DVT (deep venous thrombosis) History of anxiety History of panic attacks Depression Osteoarthritis of right hip Hypertension Surgical History Hx of carpal tunnel repair H/O vascular surgery Hx of colonoscopy History of right hip replacement History of left hip replacement History of tubal ligation History of tonsillectomy Family History Father Colon cancer Mother In good health Maternal Grandmother Breast cancer Paternal Grandmother Colon cancer Brother Multiple sclerosis Paternal Uncle Colon cancer Social History Household Members: Family Household Members Other:: staying w/father to help with his care Housing: House Housing Other:: recovery home Are you a primary child care nurse to a significant other at home: No Do you presently have visiting nurse or other home services: No Alcohol intake: former Year quit: 02/18 Comment: pt stated started vivitrol January 2024 Patient Tobacco Use Status: Former Tobacco user Tobacco use type: Cigarette Cigarette Packs Per Day: 0.25 Cigarettes Per Day: 5.0 Years Smoked: 19 e-Cigarette/Vaping Use: Never Used Second Hand Smoke Exposure: No Substance Use Type: Marijuana service: No Current occupational status: unemployed and disabled Current occupation: Rt handed Cognitive needs: No Hearing needs: No Vision needs: No Review of Systems Const All systems reviewed & are unremarkable except as noted in HPI and below Physical Exam Vital Signs: Last Vital Signs Pulse 57 02/03/25 10:58 Pulse Ox 99 02/03/25 10:58 Oxygen Delivery Method Room Air 02/03/25 10:58 Const General: cooperative Office Meds Vivitrol 380 mg intramuscular suspension,extended release Performing Provider: Stephanie Espino MD Performing Location: [facility] Administered by: Stephanie Espino MD on 02/03/25 14:23 Dose Route Admin Location Dispensed Lot Number Expiration Date [employer] 380 mg IM right buttock 380 mg [id number] 08/27/27 30688-630-57 AquaHydrate Assessment & Plan Assessment & Plan (1) Alcohol use disorder, severe, in early remission, dependence: Code(s): F10.21 - Alcohol dependence, in remission Category: Medical Plan Continue Vivitrol See within 28 days. Orders: Orders AMB Naltrexone Injection - Practice Supplied 02/03/25 F10.21 - Alcohol dependence, in remission Medications: New naltrexone microspheres ER (Vivitrol) 380 mg IM Q4W 1 ea 0RF 28 days Coding Level of Care Code Est Pt Level 3 (50853) Diagnoses Alcohol use disorder, severe, in early remission, dependence F10.21
[2025-02-03 10:58] VITALS: PULSE 57; O2SAT 99
--- OUTSIDE RECORDS SUMMARY | 2025-02-03 11:15 | XMS_ITS | Clinical Summary ---
Author Organization [employer] Address [address] [place] [address] [address] [address] Care Team Providers Care Review Scheduling Coordinator Name Role Phone Unavailable Primary Care [...] patient's age to complete this topic [place] [address] [address] [place] [address]
--- OUTSIDE RECORDS SUMMARY | 2025-02-03 11:15 | XMS_ITS | Clinical Summary ---
Author Organization [facility] Address [id number] [place] [id number] Care Team Providers Care Record Retrieval Specialist Name Role Phone Unavailable Primary Care Provider [...]
== END 2025-02-03 11:29 | disposition home or self-care (01) ==
LOC: HO.HCC 10:45
PROVIDERS: PCP Physician Assistant; Visit Provider Internal Medicine
DX: F10.21 Alcohol dependence, in remission (principal)
CPT/HCPCS: 99213

== ENCOUNTER → 2025-02-03 10:45 | Outpatient (BNVA) | payer OTHER, SELFPAY | PROVIDERS: PCP Physician Assistant; Visit Provider Internal Medicine | DX: F10.21 Alcohol dependence, in remission (principal); Z51.81 Encounter for therapeutic drug level monitoring; Z79.899 Other long term (current) drug therapy | CPT/HCPCS: 96372; 99212; J2315 ==

== ENCOUNTER 2025-02-16 10:09 | Outpatient (AMB) | payer OTHER, SELFPAY ==
--- NOTE | 2025-02-16 10:05 | A.OFFWM_ITS ---
Intake Intake Visit Reasons: TV PO LSG 01/03/25 Allergies No Known Allergies [No Known Allergies*] Allergy (Verified 02/03/25 10:58) PFSH Medical History Obese Bilateral carpal tunnel syndrome Migraines Chronic renal insufficiency Alcohol use disorder in remission Morbid (severe) obesity due to excess calories DVT (deep venous thrombosis) History of anxiety History of panic attacks Depression Osteoarthritis of right hip Hypertension Surgical History Hx of carpal tunnel repair H/O vascular surgery Hx of colonoscopy History of right hip replacement History of left hip replacement History of tubal ligation History of tonsillectomy Family History Father Colon cancer Mother In good health Maternal Grandmother Breast cancer Paternal Grandmother Colon cancer Brother Multiple sclerosis Paternal Uncle Colon cancer Social History Household Members: Family Household Members Other:: staying w/father to help with his care Housing: House Housing Other:: recovery home Are you a primary career development director to a significant other at home: No Do you presently have visiting nurse or other home services: No Alcohol intake: former Year quit: 02/18 Comment: pt stated started vivitrol January 2024 Patient Tobacco Use Status: Former Tobacco user Tobacco use type: Cigarette Cigarette Packs Per Day: 0.25 Cigarettes Per Day: 5.0 Years Smoked: 19 e-Cigarette/Vaping Use: Never Used Second Hand Smoke Exposure: No Substance Use Type: Marijuana service: No Current occupational status: unemployed and disabled Current occupation: Rt handed Cognitive needs: No Hearing needs: No Vision needs: No Behavioral Health Assessment Weight Management Therapy Therapy Notes Details Subjective: PT reports she has been stressed due to transportation issues, she has moved into the new apartment and since then she has not exercised as she should. Her bike is at her daughter's home. Also this last month was very tied financially for her. She had her injection on 02/01/2025. However, she has not been able to engage on AA meeting since moved and has car issues. Objective: PT presents for a f/up visit via Telehealth. . Discussed functioning, challenges and needs. Reflected on recent sources of stress and impact on her routine. Explored ways she can get back on track, also supported her finding AA meetings near her new location. Used CPT and strength-based interventions to better support post-op journey. Reviewed sources of support and coping skills. Assessment/Response: * Mental status: stressed but not anxious. Good functioning in general. * Risk reported/identified: None. Food/Weight/Diet Expectations of change PT started the program at 236 lbs at her initial weight check on 05/03/2024 Weight on 11/25/2024: 220 lbs. Weight as of 12/27/24: 223 lbs Post-op weight 01/11/25: 211 lb PO weight 02/15/2025: 197Lbs. PT is implementing the following: Current meal plan: 2 shakes, 1 protein bar, and water. Exercise plan: walks. Communication w/ provider: Wednesdays Assessment & Plan Assessment & Plan (1) Alcohol use disorder, severe, in early remission, dependence: Code(s): F10.21 - Alcohol dependence, in remission (2) Status post bariatric surgery: Code(s): Z98.84 - Bariatric surgery status Plan Clinician provided address of 2 AA meetings close to her home, and advised to resume then as a soon as part of supporting for her recovery progress. F/up in 1 month. Next ravinder: 03/17/2025 at 9am, OV Telehealth Telehealth Telehealth Platform: Telephone Location of provider rendering services: practice address Location of patient: address on file Patient Identification confirmed using: Name, : Yes Telehealth method: voice only Patient verbally consented to treatment: Yes Patient verbally consented to billing insurance company: Yes Patient informed of any privacy concerns related to visit: Yes Minutes spent on Phone/Video with Pt.: 45 Coding Level of Care Code Established Pt Tele Psytx 45 mins (56304) Patient Type Established Diagnoses Alcohol use disorder, severe, in early remission, dependence F10.21 Status post bariatric surgery Z98.84 Time Spent (min) 45
--- OUTSIDE RECORDS SUMMARY | 2025-02-16 10:30 | XMS_ITS | Clinical Summary ---
Author Organization [employer] Address [address] [place] [address] [address] [address] Care Team Providers Care Ecommerce Marketing Manager Name Role Phone Unavailable Primary Care Provider [...] Screening 1970 SDOH Screening 1970 Sigmoidoscopy 1970 Disability Screening 1970 Alcohol/Substance Use Screening 1982 Tobacco Screening [...] patient's age to complete this topic [place] [address] [address] [place] [id number]
--- OUTSIDE RECORDS SUMMARY | 2025-02-16 10:30 | XMS_ITS | Clinical Summary ---
Author Organization [facility] Address [id number] [place] [phone] Care Team Providers Care Store Lead Name Role Phone Unavailable Primary Care Provider [...]
== END 2025-02-16 10:53 | disposition home or self-care (01) ==
LOC: HO.HBST 10:09
PROVIDERS: PCP Physician Assistant; Visit Provider Counselor Mental Health
DX: F10.21 Alcohol dependence, in remission (principal); Z98.84 Bariatric surgery status
CPT/HCPCS: 90834

== ENCOUNTER 2025-02-21 09:05 | Outpatient (AMB) | payer OTHER, SELFPAY ==
--- NOTE | 2025-02-21 09:09 | MHC.OFFVIS ---
Intake Visit Reasons: New prob-rt hand Cubital tunnel discuss sx Intake Note: Angelica is a 54 yr old right hand dominant presents today for a new problem evaluation for her right hand Cubital tunnel and to discuss surgical intervention. States she is having numbness and tingling mainly on her small finger that comes and goes daily. She is also having weakness and wakes her up at night. Patient mentions that her symptoms are worse at night. Hx of left CTR with Dr Villela 12/15/24 & right hip replacement done with Dr Moore 01/22/21. EMG done 10/22/24 IMPRESSION: 1. [id number] bilateral median neuropathy across carpal tunnel. 2. Mild bilateral ulnar neuropathy across cubital tunnel. Allergies No Known Allergies [No Known Allergies*] Allergy (Verified 02/21/25 09:11) PFSH Medical History Obese Bilateral carpal tunnel syndrome Migraines Chronic renal insufficiency Alcohol use disorder in remission Morbid (severe) obesity due to excess calories DVT (deep venous thrombosis) History of anxiety History of panic attacks Depression Osteoarthritis of right hip Hypertension Surgical History Hx of carpal tunnel repair H/O vascular surgery Hx of colonoscopy History of right hip replacement History of left hip replacement History of tubal ligation History of tonsillectomy Family History Father Colon cancer Mother In good health Maternal Grandmother Breast cancer Paternal Grandmother Colon cancer Brother Multiple sclerosis Paternal Uncle Colon cancer Social History Household Members: Family Household Members Other:: staying w/father to help with his care Housing: House Housing Other:: recovery home Are you a primary companion caregiver to a significant other at home: No Do you presently have visiting nurse or other home services: No Alcohol intake: former Year quit: 02/18 Comment: pt stated started vivitrol January 2024 Patient Tobacco Use Status: Former Tobacco user Tobacco use type: Cigarette Cigarette Packs Per Day: 0.25 Cigarettes Per Day: 5.0 Years Smoked: 19 e-Cigarette/Vaping Use: Never Used Second Hand Smoke Exposure: No Substance Use Type: Marijuana service: No Current occupational status: unemployed and disabled Current occupation: Rt handed Cognitive needs: No Hearing needs: No Vision needs: No Assessment & Plan Assessment & Plan (1) Bilateral carpal tunnel syndrome: Code(s): G56.03 - Carpal tunnel syndrome, bilateral upper limbs Category: Medical (2) Cubital tunnel syndrome, bilateral: Code(s): G56.23 - Lesion of ulnar nerve, bilateral upper limbs Category: Medical Plan History of Present Illness The patient is a 54-year-old female presenting with symptoms consistent with right carpal and cubital tunnel syndromes. She reports ongoing numbness and tingling in the fingers of her right hand, initially mirroring symptoms previously experienced and resolved on the left side. The symptoms have persisted despite conservative measures, leading to a planned surgical intervention. The patient?s background includes a weight loss procedure performed on January 03, positively influencing her overall health. Notably, she holds a history of kidney disease, currently stable, warranting clearance for anesthesia due to the frequency of prior surgeries within the past year. Review of Systems - Neurological: Reports numbness and tingling in all fingers of the right hand. - Cardiovascular: Denies any heart conditions. - Hematological: Denies use of blood thinners. - Endocrinological: Denies diabetes. - Renal: History of kidney disease, currently stable. Systems reviewed and are negative except as per HPI and below Physical Exam - Musculoskeletal- No evidence of thenar or intrinsic muscle wasting in the right hand. Normal fist-making reflex and finger movement. Positive symmetrical sign with thumbs up on the right hand. No evidence of subluxation or instability upon movement. Results Procedure - Informed consent obtained for right carpal and cubital tunnel release surgery. Patient expressed understanding of the procedure, risks, and postoperative expectations. Patient agreed to proceed with surgical scheduling for the specified time frame. Plan The patient will undergo right carpal and cubital tunnel release surgery, having expressed agreement with the procedure and necessary preoperative assessments. Clearance from her patient financial services manager is mandated prior to general anesthesia administration due to her medical history. The procedure is scheduled for April, with postoperative care including limited hand use and scheduled follow-ups. A thorough surgical consent was obtained and documented. I educated the patient about the condition. I discussed both operative and nonoperative treatment options. The patient would like to proceed with surgery. The risks and benefits of operative treatment were discussed with the patient and the patient wishes to proceed with surgery. These risks include, but are not limited to, risk of damage to blood vessels, nerves, tendons, infection, recurrence, incomplete relief of preoperative symptoms, persistent pain, possible need for further surgery, and the risks associated with regional blocks and/or anesthesia. Plan is to take the patient to the operating room at some point in the next few weeks for the following procedures: 1. Right cubital tunnel release under general 2. Right carpal tunnel release under general All of the preoperative paperwork including the consent was discussed today. All of the patient's questions were answered in the clinic today. The patient understands that they will be in contact with our surgical orderly to discuss scheduling their procedure. Patient denies diabetes, blood thinners, asthma, heart issues, lung issues, current smoking Reports chronic kidney disease, we will need nephrology clearance prior to surgery Patient was informed and verbally consented to the use of an ambient scribe for clinic note documentation during this visit. Discussion Notes I discussed the necessity and rationale for planned right carpal and cubital tunnel release surgery with the patient, emphasizing the potential for symptom resolution and improved hand function post-surgery. I explained the surgical process, including the required incisions at the elbow and wrist, and outlined postoperative care, emphasizing incision management and activity limitations. The potential risks associated with surgery, such as injury to blood vessels, nerves, or incomplete resolution of symptoms, were also communicated. Clearance from her patient financial services manager is required prior to anesthesia due to her kidney history. The patient understands and agrees with the outlined plans and precautions. Patient Instructions - Follow up with patient financial services manager for preoperative clearance. - Schedule the right carpal and cubital tunnel release surgery for April. - Limit activities involving heavy use of the right hand until surgery. - Keep incision sites dry and intact post-surgery for five days. - Avoid lifting anything heavier than a cell phone for four weeks post-surgery. - Return for suture removal two weeks post-surgery. - Avoid immersing the right hand in water (pool, hot tub) for three weeks post-surgery. - Contact office for any changes in symptoms or concerns prior to surgery. Coding Level of Care Code Est Pt Level 4 (23096) Diagnoses Bilateral carpal tunnel syndrome G56.03 Cubital tunnel syndrome, bilateral G56.23
--- OUTSIDE RECORDS SUMMARY | 2025-02-21 09:34 | XMS_ITS | Clinical Summary ---
Author Organization [facility] Address [id number] [place] [id number] Care Team Providers Care Hat Brim And Crown Laminating Operator Name Role Phone Unavailable Primary Care [...]
== END 2025-02-21 09:39 | disposition home or self-care (01) ==
LOC: HO.HOS 09:06
PROVIDERS: PCP Physician Assistant
DX: G56.03 Carpal tunnel syndrome, bilateral upper limbs (principal); G56.23 Lesion of ulnar nerve, bilateral upper limbs
CPT/HCPCS: 99214

== ENCOUNTER → 2025-02-21 09:05 | Outpatient (BNVA) | payer OTHER, SELFPAY | PROVIDERS: PCP Physician Assistant | DX: G56.03 Carpal tunnel syndrome, bilateral upper limbs (principal); G56.23 Lesion of ulnar nerve, bilateral upper limbs | CPT/HCPCS: 99212 ==

== ENCOUNTER 2025-02-22 09:14 | Outpatient (AMB) | payer OTHER, SELFPAY ==
--- NOTE | 2025-02-22 09:09 | MHC.OFFVISWM ---
VS Expanded 02/22/25 09:12 Height 5 ft Weight 196 lb BMI 38.3 Intake Visit Reasons: TV PO LSG 01/03/25 Allergies No Known Allergies [No Known Allergies*] Allergy (Verified 02/21/25 09:11) Medication List - Last Reconciled 02/22/25 by YASEMIN Estrada blood pressure kit-extra large As directed clonidine HCl 0.6 mg (2 x 0.3 mg) PO BEDTIME 30 days docusate sodium 100 mg PO BID furosemide 20 mg PO DAILY PRN inulin 2 grams PO DAILY lisinopril 5 mg PO DAILY loratadine 10 mg PO DAILY multivitamin 1 tab PO DAILY naltrexone microspheres ER (Vivitrol) 380 mg IM Q4W naltrexone microspheres ER (Vivitrol) 380 mg IM Q4W 28 days pantoprazole 40 mg PO DAILY propranolol 20 mg PO BEDTIME 90 days [Raised toilet seat As directed] sucralfate 10 mL PO BID HPI Comments Details: This?is a?54?yo F who is s/p LSG 01/03/2025. Presents for 2mo post op visit. Weight at last visit 1mo ago was 201 pounds with a BMI of 39.3, weight today is 196 pounds, representing a 5 pound weight loss with a BMI today of 38.3.? No complaints of nausea, emesis, abdominal pain or reflux. Reports constipation, hasn't tried anything. Was monitoring BP but hasn't found BP cuff, lost at home; taking lisinopril, also takes propranolol for tachycardia. Present meal plan includes: Premier powder 2 scoop each x 2 in U[facility] Clean protein bar hydration is adequate Exercise routine includes: leg lifts, has increased other body weight strength training, stair climbing- lives on [address]th floor [facility] Medical History Obese Bilateral carpal tunnel syndrome Migraines Chronic renal insufficiency Alcohol use disorder in remission Morbid (severe) obesity due to excess calories DVT (deep venous thrombosis) History of anxiety History of panic attacks Depression Osteoarthritis of right hip Hypertension Surgical History Hx of carpal tunnel repair H/O vascular surgery Hx of colonoscopy History of right hip replacement History of left hip replacement History of tubal ligation History of tonsillectomy Family History Father Colon cancer Mother In good health Maternal Grandmother Breast cancer Paternal Grandmother Colon cancer Brother Multiple sclerosis Paternal Uncle Colon cancer Social History Household Members: Family Household Members Other:: staying w/father to help with his care Housing: House Housing Other:: recovery home Are you a primary care management associate to a significant other at home: No Do you presently have visiting nurse or other home services: No Alcohol intake: former Year quit: 02/18 Comment: pt stated started vivitrol January 2024 Patient Tobacco Use Status: Former Tobacco user Tobacco use type: Cigarette Cigarette Packs Per Day: 0.25 Cigarettes Per Day: 5.0 Years Smoked: 19 e-Cigarette/Vaping Use: Never Used Second Hand Smoke Exposure: No Substance Use Type: Marijuana service: No Current occupational status: unemployed and disabled Current occupation: Rt handed Cognitive needs: No Hearing needs: No Vision needs: No Telehealth Telehealth Telehealth Platform: Telephone Location of provider rendering services: other Location of patient: address on file Patient Identification confirmed using: Name, : Yes Telehealth method: voice only Patient verbally consented to treatment: Yes Patient verbally consented to billing insurance company: Yes Patient informed of any privacy concerns related to visit: Yes Minutes spent on Phone/Video with Pt.: 15 Assessment & Plan Assessment & Plan (1) S/P laparoscopic sleeve gastrectomy: Code(s): Z98.84 - Bariatric surgery status Category: Medical (2) Obese: Code(s): E66.9 - Obesity, unspecified Category: Medical Qualifiers: Obesity type: due to excess calories Obesity classification: adult class 2 (BMI 35 - 39.9) Serious obesity comorbidity presence: with serious comorbidity Body mass index: BMI 36.0-36.9 Qualified Code(s): E66.01 - Morbid (severe) obesity due to excess calories; Z68.36 - Body mass index [BMI] 36.0-36.9, adult Plan Pt will continue meal plan per Dr Villalobos. Has increased exercise, will continue to do so. No activity restrictions now that she is more than 6w postop. Colace and fiber for constipation, can use MoM or Miralax PRN also. Complete PPI/carafate. RTC 6w. Medications: New docusate sodium 100 mg PO BID 90 caps 1RF inulin 2 grams PO DAILY 90 tabs 3RF
[2025-02-22 09:12] VITALS: BMI 38.3
--- OUTSIDE RECORDS SUMMARY | 2025-02-22 09:50 | XMS_ITS | Clinical Summary ---
Author Organization [employer] Address [address] [place] [address] [address] [address] Care Team Providers Care Wearing Apparel Folder Name Role Phone Unavailable Primary Care Provider [...] patient's age to complete this topic Insurance [address] [address]
== END 2025-02-22 09:29 | disposition home or self-care (01) ==
LOC: HO.HBS 09:14
PROVIDERS: PCP Physician Assistant; Visit Provider Physician Assistant Surgical
DX: E66.09 Other obesity due to excess calories (principal); Z68.38 Body mass index [BMI] 38.0-38.9, adult; Z90.3 Acquired absence of stomach [part of]; Z98.84 Bariatric surgery status
CPT/HCPCS: 99024

== ENCOUNTER → 2025-02-22 09:14 | Outpatient (BNVA) | payer OTHER, SELFPAY | PROVIDERS: PCP Physician Assistant; Visit Provider Physician Assistant Surgical | DX: E66.01 Morbid (severe) obesity due to excess calories (principal); Z98.84 Bariatric surgery status; Z68.38 Body mass index [BMI] 38.0-38.9, adult | CPT/HCPCS: 99212 ==

== ENCOUNTER 2025-03-06 09:42 | Outpatient (AMB) | payer OTHER, SELFPAY ==
[2025-03-06 09:59] VITALS: BP 88/56; PULSE 51; O2SAT 99; BMI 31.8
--- NOTE | 2025-03-06 09:59 | AM.OFFVISNUR ---
Vital Signs 03/06/25 09:59 Height 5 ft 7 in Weight 92.079 kg BMI 31.8 BP 88/56 L Blood Pressure Location Rt brachial Position Sitting Pulse 51 Pulse Source Pulse Oximeter Pulse Oximetry (%) 99 Oxygen Delivery Method Room Air Intake Visit Reasons: MAT/ Vivitrol Allergies No Known Allergies [No Known Allergies*] Allergy (Verified 03/06/25 10:00) Nursing Note Angelica is here for 4 week AUD check in and Vivitrol injection. Angelica is alert and oriented, calm and cooperative with appropriate affect. Angelica has 13 months of sobriety and reports doing well in recovery. She attends AA meetings regularly and has two home groups whom she relies on for support. She reports no signs or symptoms of breakthrough cravings; her only concern with MAT was if insurance will stop covering the injection after one year- there is no evidence to suggest that. She did report that her father has stage four cancer but is feeling well- she was tearful- reporting how proud he is of her sobriety. Angelica was encouraged to call the office if any further support is needed. Folow up in 4 weeks for next injection. Office Meds Vivitrol 380 mg intramuscular suspension,extended release Performing Provider: Stephanie Espino MD Performing Location: [facility] Administered by: Angelica Wong RN on 03/06/25 10:50 Dose Route Admin Location Dispensed Lot Number Expiration Date [facility] [place] [facility] Call[facility] Nurse 380 mg IM LG 380 mg [id number] 06/27/27 27038-762-44 Orate Comments: Pt here for 4 week AUD check in and Vivitrol injection. Pt denies any issues with previous injection and tolerated injection well. Pt educated on signs and symptoms of infection and urged to call [facility] with any questions or concerns. Pt verbalized understanding. Follow up made for next injection in 4 weeks. Assessment & Plan Assessment & Plan Orders: Orders AMB Naltrexone Injection Patient Supplied (NC) Today F10.21 - Alcohol dependence, in remission Medications: New Vivitrol ER (naltrexone microspheres) 380 mg IM ONCE 1 ea 0RF NS F10.21 - Alcohol dependence, in remission Coding
--- OUTSIDE RECORDS SUMMARY | 2025-03-06 10:24 | XMS_ITS | Clinical Summary ---
Author Organization [employer] Address [address] [place] [address] [address] [address] Care Team Providers Care Concrete Spreader Name Role Phone Unavailable Primary Care Provider [...] 10/15/2021, 03/09/2021, Additional history exists Influenza Vaccine (Season Ended) 2025 09/05/2022 DTaP/Tdap/Td Vaccines (2 - Td or [...] patient's age to complete this topic [place] [address] [place] [address]
== END 2025-03-06 10:19 | disposition home or self-care (01) ==
PROVIDERS: PCP Physician Assistant
DX: F10.21 Alcohol dependence, in remission (principal)

== ENCOUNTER → 2025-03-06 09:42 | Outpatient (BNVA) | payer OTHER, SELFPAY | PROVIDERS: PCP Physician Assistant; Visit Provider Internal Medicine | DX: F10.21 Alcohol dependence, in remission (principal); Z79.899 Other long term (current) drug therapy | CPT/HCPCS: 96372; J2315 ==

== ENCOUNTER 2025-03-17 09:21 | Outpatient (AMB) | payer OTHER, SELFPAY ==
--- NOTE | 2025-03-17 09:15 | A.OFFWM_ITS ---
Intake Intake Visit Reasons: OV PO LSG 01/03/25 Allergies No Known Allergies (No Known Allergies*) Allergy (Verified 04/03/25 09:51) PFSH Medical History Obese Bilateral carpal tunnel syndrome Migraines Chronic renal insufficiency Alcohol use disorder in remission Morbid (severe) obesity due to excess calories DVT (deep venous thrombosis) History of anxiety History of panic attacks Depression Osteoarthritis of right hip Hypertension Surgical History Hx of carpal tunnel repair H/O vascular surgery Hx of colonoscopy History of right hip replacement History of left hip replacement History of tubal ligation History of tonsillectomy Family History Father Colon cancer Mother In good health Maternal Grandmother Breast cancer Paternal Grandmother Colon cancer Brother Multiple sclerosis Paternal Uncle Colon cancer Social History Household Members: Family Household Members Other:: staying w/father to help with his care Housing: House Housing Other:: recovery home Are you a primary nurse wound care to a significant other at home: No Do you presently have visiting nurse or other home services: No Alcohol intake: former Year quit: 02/18 Comment: pt stated started vivitrol January 2024 Patient Tobacco Use Status: Former Tobacco user Tobacco use type: Cigarette Cigarette Packs Per Day: 0.25 Cigarettes Per Day: 5.0 Years Smoked: 19 e-Cigarette/Vaping Use: Never Used Second Hand Smoke Exposure: No Substance Use Type: Marijuana service: No Current occupational status: unemployed and disabled Current occupation: Rt handed Cognitive needs: No Hearing needs: No Vision needs: No Behavioral Health Assessment Weight Management Therapy Therapy Notes Details Subjective: The patient reports generally feeling well. Last week, she experienced a period of low mood, preferring solitude due to frustration with transportation issues and negativity from friends. This week, she feels better and has been able to communicate more directly with her friends. She recently acquired an exercise machine and has been using it for 30 minutes, 4-5 times a week. She continues her regimen of two shakes and one meal per day but is considering dietary adjustments due to constipation. Objective: The patient presents for a follow-up visit. Although initially scheduled as an in-person appointment, it was changed to a telehealth session due to transportation challenges. During the visit, we discussed her adaptation to living in a new town, strategies for managing family activities centered around food, and fostering a healthy relationship with food. We focused on habit building and behavioral activation to enhance physical activity. Regarding substance use recovery, the patient has been attending one meeting per week. We reinforced coping and relapse prevention skills for substance use and emphasized the importance of maintaining communication with the healthcare team at [facility] and adhering to post-operative instructions. Assessment/Response: * Mental status: flat at the beginning, but as the session progressed she became more engaged, talkative and cooperative. Oriented X3, alert. PT responded well to interventions. * Risk reported/identified: None. Food/Weight/Diet Expectations of change PT started the program at 236 lbs at her initial weight check on 05/03/2024 Weight on 11/25/2024: 220 lbs. Weight as of 12/27/24: 223 lbs Post-op weight 01/11/25: 211 lbs. PO weight 02/15/2025: 197Lbs. PO weight 02/12/2025: 193Lbs PT is implementing the following: Current meal plan: 2 shakes, 1 protein bar, and water. Exercise plan: walks. Communication with provider: Wednesdays Assessment & Plan Assessment & Plan (1) Alcohol use disorder, severe, in early remission, dependence: Code(s): F10.21 - Alcohol dependence, in remission (2) Status post bariatric surgery: Code(s): Z98.84 - Bariatric surgery status Plan -The patient is strongly encouraged to participate in a peer support group to enhance social support with weight-loss journey. To facilitate this, a flyer with details about the group and upcoming sessions will be mailed to the patient. -A follow-up appointment is scheduled in six weeks to assess progress and address any concerns. -Next ravinder: 04/28/2025 at 9am, in person Medications: Resumed clonidine HCl 0.6 mg (2 x 0.3 mg) PO BEDTIME 30 days 60 tabs 6RF F41.1 - Generalized anxiety disorder clonidine HCl 0.6 mg (2 x 0.3 mg) PO BEDTIME 30 days 60 tabs 6RF F41.1 - Generalized anxiety disorder Telehealth Telehealth Telehealth Platform: Telephone Location of provider rendering services: practice address Location of patient: address on file Patient Identification confirmed using: Name, : Yes Telehealth method: voice only Patient verbally consented to treatment: Yes Patient verbally consented to billing insurance company: Yes Patient informed of any privacy concerns related to visit: Yes Minutes spent on Phone/Video with Pt.: 45 Coding Level of Care Code Established Pt Tele Psytx 45 mins (17289) Patient Type Established Diagnoses Alcohol use disorder, severe, in early remission, dependence F10.21 Status post bariatric surgery Z98.84 Time Spent (min) 45
--- OUTSIDE RECORDS SUMMARY | 2025-03-17 09:39 | XMS_ITS | Clinical Summary ---
Author Organization [employer] Address [address] [place] [address] [address], [place] [address] Care Team Providers Care Cafeteria Food Server Name Role Phone Unavailable Primary Care Provider [...] patient's age to complete this topic [place] [address] [address] [place] [address]
== END 2025-03-17 10:07 | disposition home or self-care (01) ==
LOC: HO.HBST 09:21
PROVIDERS: PCP Physician Assistant; Visit Provider Counselor Mental Health
DX: F10.21 Alcohol dependence, in remission (principal); Z98.84 Bariatric surgery status
CPT/HCPCS: 90834

== ENCOUNTER 2025-04-03 09:26 | Outpatient (AMB) | payer OTHER, SELFPAY ==
--- NOTE | 2025-04-03 09:38 | AM.OFFVISNUR ---
Vital Signs 04/03/25 09:51 Height 5 ft 7 in Weight 87.09 kg BMI 30.1 BP 78/56 L Blood Pressure Location Rt brachial Position Sitting Pulse 60 Pulse Source Pulse Oximeter Pulse Oximetry (%) 98 Oxygen Delivery Method Room Air Intake Visit Reasons: Vivitrol injection Allergies No Known Allergies (No Known Allergies*) Allergy (Verified 04/03/25 09:51) Nursing Note Angelica is here for her four week Vivitrol injection and check in. Angelica is alert and oriented x4 and presents with appropriate affect. Angelica reports continued sobriety with no major concerns besides some conflict with her brother that is preventing her from seeing her father who has cancer- she feels no news is good news. She continues with AA for outpatient support. Angelica reports no issues with the injections other than the first one being painful months ago. Appointment for next injection in 4 weeks. Office Meds Vivitrol 380 mg intramuscular suspension,extended release Performing Provider: Stephanie Espino MD Performing Location: [facility] Administered by: Angelica Wong RN on 04/03/25 10:38 Dose Route Admin Location Dispensed Lot Number Expiration Date [facility] Servicing Manager 380 mg IM RG 380 mg [id number] 07/28/27 55022-293-23 [employer] Total Dispensed Waste 380 mg 0 % Comments: Pt here for 4 week Vivitrol 380 mg injection. Pt denies any concern with previous injections and tolerated injection well. Educated on signs and symptoms of infection and encouraged to call [facility] with any related questions or concerns, pt verbalized understanding. Medication guide given per [facility] protocol. Follow-up scheduled in 4 weeks for next injection. Assessment & Plan Assessment & Plan Orders: Orders AMB Naltrexone Injection Patient Supplied (NC) Today F10.21 - Alcohol dependence, in remission Medications: Discontinued naltrexone microspheres ER (Vivitrol) Discontinued Reason: Patient Completed Course 380 mg IM Q4W 1 ea 2RF Coding
[2025-04-03 09:51] VITALS: BP 78/56; PULSE 60; O2SAT 98; BMI 30.1
--- OUTSIDE RECORDS SUMMARY | 2025-04-03 09:56 | XMS_ITS | Clinical Summary ---
Author Organization [facility] [[email or web address]] Address [address] [place] [id number] Care Team Providers Care Marine Pipe Welder Name Role Phone Unavailable Primary Care Provider [...] Influencers of Health Screening 10/27/2023 COVID-19 Vaccine (1 - 2023-2 5 season) 2024 Influenza Vaccine (#1) 2025 HIB Vaccines Aged Out No longer [...]
--- OUTSIDE RECORDS SUMMARY | 2025-04-03 09:56 | XMS_ITS | Clinical Summary ---
Author Organization [employer] Address [address] [place] [address] [address] [address] Care Team Providers Care Imaging Aide Name Role Phone Unavailable Primary Care Provider [...] 03/09/2021, Additional history exists Influenza Vaccine (#1) 2025 09/05/2022 DTaP/Tdap/Td Vaccines (2 - Td [...] patient's age to complete this topic [place] [address] [address]
== END 2025-04-03 10:34 | disposition home or self-care (01) ==
LOC: HO.HCC 09:26
PROVIDERS: PCP Physician Assistant
DX: F10.21 Alcohol dependence, in remission (principal)

== ENCOUNTER → 2025-04-03 09:26 | Outpatient (BNVA) | payer OTHER, SELFPAY | PROVIDERS: PCP Physician Assistant | DX: F10.21 Alcohol dependence, in remission (principal) | CPT/HCPCS: 96372; J2315 ==

== ENCOUNTER 2025-04-07 07:55 | Outpatient (REF) | payer OTHER, SELFPAY ==
--- OUTSIDE RECORDS SUMMARY | 2025-04-07 07:59 | XMS_ITS | Clinical Summary ---
Author Organization [employer] Address [address] [place] [address] [address] [address] Care Team Providers Care Striping Machine Operator Name Role Phone Unavailable Primary Care [...] patient's age to complete this topic [place] [address] [place] [address]
--- OUTSIDE RECORDS SUMMARY | 2025-04-07 07:59 | XMS_ITS | Clinical Summary ---
Author Organization [facility] Address [id number] [place] [id number] Care Team Providers Care Floor Waxer Name Role Phone Unavailable Primary Care Provider [...] 5 Years) and At-Risk Patients (6 to 49 Years) Aged Out No longer eligible b ased on patient's age to complete this topic RSV Immunization Patients Un pippa 20 months Aged Out No longer eligible b ased on patient's age to complete this topic Varicella Vaccines Aged Out No longer eligible based on patient's age to complete this topic
== END 2025-04-07 07:56 | disposition home or self-care (01) ==
LOC: HO.MAMMO 07:55
PROVIDERS: PCP Physician Assistant; Visit Provider Physician Assistant
DX: Z12.31 Encounter for screening mammogram for malignant neoplasm of breast (principal)
CPT/HCPCS: 77063; 77067

== ENCOUNTER → 2025-04-07 08:00 | Outpatient (BNV) | payer OTHER, SELFPAY | PROVIDERS: PCP Physician Assistant; Visit Provider Internal Medicine | DX: Z12.31 Encounter for screening mammogram for malignant neoplasm of breast (principal) | CPT/HCPCS: 77063; 77067 ==

== ENCOUNTER 2025-05-03 09:49 | Outpatient (AMB) | payer OTHER, SELFPAY ==
--- NOTE | 2025-05-03 09:50 | AM.OFFVISNUR ---
Vital Signs 05/03/25 09:56 Height 5 ft 7 in Weight 86.183 kg BMI 29.8 BP 126/68 Pulse 62 Pulse Oximetry (%) 96 Intake Visit Reasons: vivitrol injection Allergies No Known Allergies (No Known Allergies*) Allergy (Verified 05/03/25 09:59) Nursing Note Angelica is here for her 4 week Vivitrol injection. Angelica is alert, oriented and cooperative with care and presents with appropriate affect. Angelica reports doing well, she saw one of her providers regarding the BP meds that she was on as recommended due to her low BP and two were put on hold; she is monitoring. Angelica reports having great outings with her children and grandchildren; follow-up scheduled in 4 weeks for next injection. Office Meds Vivitrol 380 mg intramuscular suspension,extended release Performing Provider: Stephanie Espino MD Performing Location: [facility] Administered by: Angelica Wong RN on 05/03/25 10:25 Dose Route Admin Location Dispensed Lot Number Expiration Date [facility] Centrifuge Operator 380 mg IM LG 380 mg [id number] 05/28/27 [id number] [employer] Total Dispensed Waste 380 mg 0 % Comments: Pt is present for 4 week Vivitrol 380 mg injection. Pt denies any concern with previous injections and tolerated injection well. Educated on signs and symptoms of infection and encouraged to call [facility] with any related questions or concerns, pt verbalized understanding. Follow-up scheduled in 4 weeks for next injection. Assessment & Plan Assessment & Plan Orders: Orders AMB Naltrexone Injection Patient Supplied (NC) Today F10.21 - Alcohol dependence, in remission Coding
[2025-05-03 09:56] VITALS: BP 126/68; PULSE 62; O2SAT 96; BMI 29.8
--- OUTSIDE RECORDS SUMMARY | 2025-05-03 10:17 | XMS_ITS | Clinical Summary ---
Author Organization [facility] Address [address] [place] [id number] Care Team Providers Care Auto Overhauler Name Role Phone Unavailable Primary Care Provider [...] 2) 2020 Colorectal Cancer Screening: Colonoscopy 10/27/2023 HIV Screening 10/27/2023 Hepatitis C Screening 10/27/2023 Social Influencers of Health Screening 10/27/2023 COVID-19 Vaccine (1 - 2023-2 5 season) 2024 Depression Screening 09/28/2024 Influenza Vaccine (#1) 2025 HIB Vaccines Aged [...]
--- OUTSIDE RECORDS SUMMARY | 2025-05-03 10:17 | XMS_ITS | Clinical Summary ---
Author Organization [employer] Address [address] [place] [address] [place] [address] Care Team Providers Care Facing Cutting Machine Operator Name Role Phone Unavailable Primary [...] this topic Meningococcal Vaccine Aged Out No peañ oz eligible based on patient's age to complete this topic RSV under 20 months Aged Out No longe r eligible based on patient's age to complete this topic Rotavirus Vaccines Aged Out No longer eligible based on patient's age to complete this topic [place] [address] [address] [address]
== END 2025-05-03 10:38 | disposition home or self-care (01) ==
LOC: HO.HCC 09:49
PROVIDERS: PCP Physician Assistant
DX: F10.21 Alcohol dependence, in remission (principal)

== ENCOUNTER → 2025-05-03 09:49 | Outpatient (BNVA) | payer OTHER, SELFPAY | PROVIDERS: PCP Physician Assistant | DX: F10.21 Alcohol dependence, in remission (principal) | CPT/HCPCS: 96372; J2315 ==

== ENCOUNTER 2025-05-17 08:34 | Outpatient (AMB) | payer OTHER, SELFPAY ==
--- NOTE | 2025-05-17 08:36 | MHC.OFFVIS ---
Vital Signs 05/17/25 08:40 Height 5 ft 7 in Weight 185 lb BMI 29.0 Handedness Right Intake Visit Reasons: Pre-Rt Cubital, CTR 05/25/25 Intake Note: Angelica is a 54 year old right hand dominant female who presents today for her pre operative appointment for her right cubital and carpel tunnel release on 05/25/[address] Villela. Allergies No Known Allergies (No Known Allergies*) Allergy (Verified 05/17/25 08:39) HPI HPI Pre-Rt Cubital, CTR 05/25/25: Details: Angelica is a 54 year old right hand dominant woman who returns to discuss her right carpal & cubital tunnel syndrome. She complains of numbness in all digits of her right hand. Symptoms intermittent, but daily, worse at night. She has a Hx of a left carpal & cubital tunnel release, DOS: 12/15/24, with good improvement of her symptoms. [facility] Medical History Obese Bilateral carpal tunnel syndrome Migraines Chronic renal insufficiency Alcohol use disorder in remission Morbid (severe) obesity due to excess calories DVT (deep venous thrombosis) History of anxiety History of panic attacks Depression Osteoarthritis of right hip Hypertension Surgical History Hx of carpal tunnel repair H/O vascular surgery Hx of colonoscopy History of right hip replacement History of left hip replacement History of tubal ligation History of tonsillectomy Family History Father Colon cancer Mother In good health Maternal Grandmother Breast cancer Paternal Grandmother Colon cancer Brother Multiple sclerosis Paternal Uncle Colon cancer Social History Household Members: Family Household Members Other:: staying w/father to help with his care Housing: House Housing Other:: recovery home Are you a primary care aide to a significant other at home: No Do you presently have visiting nurse or other home services: No Alcohol intake: former Year quit: 02/18 Comment: pt stated started vivitrol January 2024 Patient Tobacco Use Status: Former Tobacco user Tobacco use type: Cigarette Cigarette Packs Per Day: 0.25 Cigarettes Per Day: 5.0 Years Smoked: 19 e-Cigarette/Vaping Use: Never Used Second Hand Smoke Exposure: No Substance Use Type: Marijuana service: No Current occupational status: unemployed and disabled Current occupation: Rt handed Cognitive needs: No Hearing needs: No Vision needs: No Review of Systems Const All systems reviewed & are unremarkable except as noted in HPI and below Physical Exam Vital Signs: BMI result Body Mass Index 29.0 Const General: no acute distress and alert Orientation/consciousness: patient oriented x3 Neuro General: patient oriented x3 Extrem Other: Evaluation of Right Upper Extremity: The patient is alert, oriented, and in no acute distress Neuro: Median, Ulnar, Radial nerves motor and sensory intact and sensation is normal to the tips of all digits No thenar or intrinsic wasting Good APB muscle belly firing and good finger cross Vascular: Cap refill brisk ROM: She can make a fist and extend all her digits Nerve Conduction Study: IMPRESSION: 1. [id number] bilateral median neuropathy across carpal tunnel. 2. Mild bilateral ulnar neuropathy across cubital tunnel. Roby Byrne MD 10/18/2024 Psych Appearance: grossly normal Affect: normal affect Attitude: cooperative Assessment & Plan Assessment & Plan (1) Carpal tunnel syndrome of right wrist: Code(s): G56.01 - Carpal tunnel syndrome, right upper limb Category: Medical (2) Cubital tunnel syndrome on right: Code(s): G56.21 - Lesion of ulnar nerve, right upper limb Category: Medical (3) Alcohol use disorder, severe, in early remission, dependence: Code(s): F10.21 - Alcohol dependence, in remission Category: Medical Plan Assessment & Plan: 1. Right carpal tunnel syndrome, mild-moderate Symptoms intermittent, but daily, worse at night 2. Right cubital tunnel syndrome, mild Symptoms intermittent, but daily, worse at night I educated her about this condition I discussed operative and non-operative treatment options The patient would like to proceed with surgery The risks and benefits of operative treatment were discussed with the patient and the patient wishes to proceed with surgery. These risks include, but are not limited to risk of damage to blood vessels, nerves, tendons, infection, recurrence, incomplete relief of preoperative symptoms, persistent pain, possible need for further surgery and the risks associated with regional blocks and anesthesia. The plan is to take the patient to the operating room sometime on 05/25/25 for the following procedures: 1. Right cubital tunnel release, under general 1. Right carpal tunnel release, under general All of the preoperative paperwork including the consent was reviewed today. All the patient's questions were answered. The patient understands that they will be contacted by our scheduler maintenance soon to schedule this procedure She denies Diabetes, blood thinners, asthma, heart, lung issues She has a Hx of ETOH abuse, 1 year sober 3. Left carpal tunnel syndrome, S/P release DOS: 12/15/24 Pre-operative symptoms intermittent but daily Now resolved with normal sensation 4. Left cubital tunnel syndrome, S/P release DOS: 12/15/24 Pre-operative symptoms intermittent but daily Now resolved with normal sensation Scribed for Karen Villela MD by Yusuf Ceballos, adjunct faculty for medical terminology, on 05/17/25 at 9:10 AM, EST. Coding Level of Care Code Est Pt Level 4 (43817) Diagnoses Carpal tunnel syndrome of right wrist G56.01 Cubital tunnel syndrome on right G56.21 Alcohol use disorder, severe, in early remission, dependence F10.21
[2025-05-17 08:40] VITALS: BMI 29.0
--- OUTSIDE RECORDS SUMMARY | 2025-05-17 09:15 | XMS_ITS | Clinical Summary ---
Author Organization [employer] Address [address] [place] [address] [address] [address] Care Team Providers Care Parts Runner Name Role Phone Unavailable Primary Care Provider [...] patient's age to complete this topic [place] [address] [place] [address]
--- OUTSIDE RECORDS SUMMARY | 2025-05-17 09:15 | XMS_ITS | Clinical Summary ---
Author Organization [facility] Address [id number] [place] [phone] Care Team Providers Care Roving Court Reporter Name Role Phone Unavailable Primary Care Provider [...]
== END 2025-05-17 10:00 | disposition home or self-care (01) ==
LOC: HO.HOS 08:34
PROVIDERS: PCP Physician Assistant; Visit Provider Orthopaedic Surgery
DX: G56.01 Carpal tunnel syndrome, right upper limb (principal); G56.21 Lesion of ulnar nerve, right upper limb; F10.21 Alcohol dependence, in remission
CPT/HCPCS: 99214

== ENCOUNTER → 2025-05-17 08:34 | Outpatient (BNVA) | payer OTHER, SELFPAY | PROVIDERS: PCP Physician Assistant; Visit Provider Orthopaedic Surgery | DX: Z01.818 Encounter for other preprocedural examination (principal); G56.01 Carpal tunnel syndrome, right upper limb; G56.21 Lesion of ulnar nerve, right upper limb; F10.21 Alcohol dependence, in remission | CPT/HCPCS: 99212 ==

== ENCOUNTER 2025-05-25 05:58 | Day surgery (SDC) | payer OTHER, SELFPAY ==
--- OUTSIDE RECORDS SUMMARY | 2025-03-27 09:13 | XMS_ITS | Clinical Summary ---
Author Organization [employer] Address [address] [place] [address] [address], [place] [address] Care Team Providers Care Nursing Clerk Name Role Phone Unavailable Primary Care Provider [...] patient's age to complete this topic [place] [address] [place] [address]
[2025-05-23 10:14] VITALS: BMI 29.0
[2025-05-23 10:27] VITALS: BMI 29.0
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
[2025-05-25 06:09] VITALS: BMI 29.6
[2025-05-25] MEDS: Lactated Ringers 1,000 ML 100 ML IVCONT (06:27)
--- NOTE | 2025-05-25 07:34 | P.OP_ITS ---
Operative Note Operative Note Date of Service: 05/25/25 Narrative: Operative Note Narrative: Preop diagnosis: 1. Right Cubital tunnel syndrome 2. Right carpal tunnel syndrome Postop diagnosis: Same Procedure: 1. Right Cubital Tunnel Release 2. Right carpal tunnel release Surgeon: Karen Villela MD Assistant Facility Manager: Bran HAZEL Anesthesia: General Anesthesia Findings: Thickening and fibrosis about the ulnar nerve at the cubital tunnel Implants: none Tourniquet time: 46 minutes EBL: 5.0 ml Specimen: none Drains: None Complications: None Disposition: Brought to the recovery room in stable condition Plan: Follow-up in 10-14 days for wound check, and suture removal Indications: The patient is 54 years old with right cubital tunnel syndrome and right carpal tunnel syndrome . The risks and benefits of operative treatment, including but not limited to risk of damage to blood vessels, nerves, tendons, infection, recurrence, persistent pain or numbness, incomplete resolution of preoperative symptoms, or need for further surgery were discussed with the patient and they wished to proceed with surgery. Procedure: Once consent was obtained patient was brought back to the operating suite and placed in the operating table in a supine position. Perioperative antibiotics and anesthesia was administered by the anesthesia team. The limb was prepped and draped in a standard surgical fashion, and a sterile tourniquet applied to the proximal aspect of the right upper extremity. The limb was elevated exsanguinated with Esmarch bandage and the tourniquet inflated to 250 mm of mercury for a total tourniquet time of 46 minutes. Once assured that we had a good block, a 2.0 cm longitudinal incision was made centered over the right carpal tunnel. The incision was made through the skin to the subcutaneous tissues using a #15 blade. Dissection was made down to the level of the transverse carpal ligament with care being taken to protect the palmar cutaneous nerve. Once the transverse carpal ligament was clearly visualized, a longitudinal incision was made in the transverse carpal ligament 1st using a #15 blade, then using tenotomy scissors under direct visualization. Care was taken to look for and protect the motor branch of the median nerve when seen in this area. Once satisfied with our carpal tunnel release the wound was irrigated with normal saline. A 6 cm gently curved but longitudinally oriented incision was made centered over the cubital tunnel of the right upper extremity. Incision was made through the skin to the subcutaneous tissues using a # 15 Blade. I then dissected down to the level of the medial epicondyle and the cubital tunnel using tenotomy scissors. Care was taken to protect the medial antebrachial cutaneous nerve. The ulnar nerve was identified just posterior to the medial intermuscular septum. The ulnar nerve was released in a proximal to distal direction using tenotomy in iris scissors while directly visualizing and protecting the ulnar nerve. Thickening and fibrosis was appreciated about the ulnar nerve as it passed through the cubital tunnel. The ulnar nerve was assessed as I passed the elbow through full flexion and extension and was found to remain stable within its groove. At this point the tourniquet was deflated and hemostasis obtained with a brief period of local pressure and bipolar electrocautery. The wound was copiously irrigated with normal saline. The subcutaneous layer was closed with 4-0 Vicryl suture, and the skin edges were reapproximated with 5-0 nylon suture. The wound was infiltrated with some % lidocaine with epinephrine for postop pain control and sterile dressings were applied. The patient appears to have tolerated the procedure well and with no complications. All digits were well vascularized at the conclusion of the case.
--- NOTE | 2025-05-25 07:34 | MHC.SHP ---
Pre-Procedural Eval Section A - 24 Hr Update-Section A only Date of Service: 05/25/25 The patient is an INPATIENT: No Changes since office visit: No Cold of Flu in the past 2 weeks, No New Medical Problems, No Changes in Medication and No Patient answered all questions The patient has been examined within 24 hours of the surgical procedure. The History & Physical has been completed within 30 days and I have reviewed it.: Yes Section B - Complete if H&P > 30 days Chief Complaint: carpal tunnel,lesion of ulnar nerve Allergies: Allergies Allergy/AdvReac Type Severity Reaction Status Date / Time No Known Allergies (No Known Allergy Verified 05/25/25 06:17 Allergies*) Plan I have reviewed the history and physical and performed a pertinent physical examination on my patient. No changes have occurred unless specified. Time Spent With Patient Time: Total time managing care of this patient today ____ minutes.
[2025-05-25 09:11] VITALS: BP 104/61; PULSE 77; RESP 16; TEMP 36.5; O2SAT 99
[2025-05-25 09:15] VITALS: BP 120/65; PULSE 84; RESP 16; O2SAT 98
[2025-05-25 09:20] VITALS: BP 105/55; PULSE 79; RESP 16; O2SAT 98
[2025-05-25 09:25] VITALS: BP 119/57; PULSE 78; RESP 16; O2SAT 97
[2025-05-25 09:40] VITALS: BP 115/61; PULSE 66; RESP 16; O2SAT 97
== END 2025-05-25 10:17 | disposition home or self-care (01) ==
PROVIDERS: PCP Physician Assistant; Visit Provider Orthopaedic Surgery
PROC: (CPT 64718; principal; 2025-05-25 07:30)
PROC: (CPT 64721; 2025-05-25 07:30)
DX: G56.01 Carpal tunnel syndrome, right upper limb (principal); G56.21 Lesion of ulnar nerve, right upper limb; R20.0 Anesthesia of skin; I12.9 Hypertensive chronic kidney disease with stage 1 through stage 4 chronic kidney disease, or unspecified chronic kidney disease; N18.9 Chronic kidney disease, unspecified; Z87.891 Personal history of nicotine dependence; E66.9 Obesity, unspecified; Z68.29 Body mass index [BMI] 29.0-29.9, adult; Z79.899 Other long term (current) drug therapy; F10.21 Alcohol dependence, in remission; Z98.890 Other specified postprocedural states; Z56.0 Unemployment, unspecified; Z98.84 Bariatric surgery status
CPT/HCPCS: 64721; 64718; J0131; J0690; J1100; J2003; J2004; J2405; J2704; J2795; J3010

== ENCOUNTER → 2025-05-25 05:58 | Outpatient (BNV) | payer OTHER, SELFPAY | PROVIDERS: PCP Physician Assistant; Visit Provider Orthopaedic Surgery | DX: G56.21 Lesion of ulnar nerve, right upper limb (principal); G56.01 Carpal tunnel syndrome, right upper limb | CPT/HCPCS: 64718; 64721 ==

== ENCOUNTER 2025-06-01 11:29 | Outpatient (AMB) | payer OTHER, SELFPAY ==
--- NOTE | 2025-06-01 11:35 | A.OFFPC_ITS ---
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 Required: No Accompanied by: Self / Same As Patient Allergies No Known Allergies (No Known Allergies*) Allergy (Verified 06/01/25 12:07) Medication List - Last Reconciled 06/01/25 by Declan Saravia PA-C blood pressure kit-extra large As directed clonidine HCl 0.6 mg (2 x 0.3 mg) PO BEDTIME 30 days loratadine 10 mg PO BEDTIME multivitamin 1 tab PO BEDTIME [Raised toilet seat As directed] Tobacco use date assessed: 06/01/25 Dental Screening Dental Screen Date: 06/01/25 Did you have a dental visit in the last 12 months?: Yes Did you have a dental problem in the last 6 months where you did not have access to dental care?: No Was dental information given to patient?: Patient has dentist HPI ANNUAL HPI Details Patient is a 54 year-old female here today a routine annual physical Patient has a past medical history significant for generalized anxiety disorder polyarthralgia hypertension, history of total hip replacement. Concern--> Right carpal tunnel syndrome: Recently underwent carpal tunnel surgery. 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 Now has Two years sobriety. She now has her own appointment and her own vehicle. She plans on getting her own apartment in the next few months. . Obesity: Now followed by [facility]. hypertension: Blood pressure acceptable today in office. Has stopped propranolol and lisinopril due to low blood pressures. Continues with clonidine Vaccines: UTD with COVID VAcc, UTD Tdap, Declines FLu. 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 Service: Followed by [facility], Pap smear done in October/2023 Mammogram: Done in March of 2025 BI-RADS 1 Colonoscopy: Up-to-date with colonoscopy- done in spring polyp found repeat 1 year- has a family history PFSH Medical History (Updated 06/01/25 @ 12:27 by Declan Saravia PA-C) Obese Bilateral carpal tunnel syndrome Migraines Chronic renal insufficiency Alcohol use disorder in remission DVT (deep venous thrombosis) History of anxiety History of panic attacks Depression Osteoarthritis of right hip Hypertension Surgical History History of gastric surgery (01/03/25) Hx of carpal tunnel repair H/O vascular surgery Hx of colonoscopy History of right hip replacement History of left hip replacement History of tubal ligation History of tonsillectomy Family History Father Colon cancer Mother In good health Maternal Grandmother Breast cancer Paternal Grandmother Colon cancer Brother Multiple sclerosis Paternal Uncle Colon cancer Social History Household Members: Family Household Members Other:: staying w/father to help with his care Housing: House Housing Other:: recovery home Are you a primary healthcare manager to a significant other at home: No Do you presently have visiting nurse or other home services: No Alcohol intake: former Year quit: 02/18 Comment: pt stated started vivitrol January 2024 Patient Tobacco Use Status: Former Tobacco user Tobacco use type: Cigarette Cigarette Packs Per Day: 0.25 Cigarettes Per Day: 5.0 Years Smoked: 19 e-Cigarette/Vaping Use: Never Used Second Hand Smoke Exposure: No Substance Use Type: Marijuana service: No Current occupational status: unemployed and disabled Current occupation: Rt handed Cognitive needs: No Hearing needs: No Vision needs: No Questionnaire PHQ-9 Over the last 2 weeks, how often have you been bothered by any of the following problems? 1. Little interest or pleasure in doing things: not at all 2. Feeling down, depressed, or hopeless: not at all 3. Trouble falling or staying asleep, or sleeping too much: not at all 4. Feeling tired or having little energy: not at all 5. Poor appetite or overeating: not at all 6. Feeling bad about yourself - or that you are a failure or have let yourself or your family down: not at all 7. Trouble concentrating on things, such as reading the newspaper or watching television: not at all 8. Moving or speaking so slowly that other people could have noticed. Or the opposite - being so fidgety or restless that you have been moving around a lot more than usual: not at all 9. Thoughts that you would be better off or of hurting yourself in some way: not at all Total score: 0 Depression Screening Interpretation: Negative Depression Screening Done: Yes 33116 - PHQ-9 Billing: Yes Source: Developed by Drs. Ehsan Jeffrey, Garima Rueda, Stanley Dias and colleagues, with an educational moises from [employer]. Thrive Questionnaire Date Thrive assessed: 06/01/25 I am a: Patient What is your living situation today?: I have a steady place to live Within the past 12 months, did the food you bought not last and you didn't have the money to get more?: Often true Within the past 12 months, did you worry whether your food would run out before you got money to buy more?: Never true Do you have trouble paying for medicines?: No Do you have trouble getting transportation to medical appointments?: No Do you have trouble paying your heating and electricity bill?: No Do you have trouble taking care of your child, family member or friend?: No Do you have trouble with day-to-day activities such as bathing, preparing meals, shopping, managing finances, etc.?: No Are you currently unemployed and looking for a job?: No Are you interested in more education?: No Please select the resources that you would like help with: None Currently or been in a relationship where the following occur: No concerns reported THRIVE Score: 1 AUDIT C Alcohol Use Questionnaire (AUDIT-C) 1. How often do you have a drink containing alcohol?: Never Total Score: 0 DASHA-7 AMB Questionnaire DASHA-7 Date DASHA - 7 assessed: 10/03/24 Feeling nervous, anxious, or on edge: 0 = Not at all Not being able to stop or control worryin = Not at all Worrying too much about different things: 0 = Not at all Trouble relaxin = Not at all Being so restless that it is hard to sit still: 0 = Not at all Becoming easily annoyed or irritable: 0 = Not at all Feeling afraid as if something awful might happen: 0 = Not at all Total DASHA-7 score (0-4 normal; 5-9 mild; 10-14 moderate; 15-21 severe): 0 Source: Developed by Garima Piedra Kurt Kroenke and colleagues, with an educational moises from [employer]. DASHA-7 Assessment Billing DASHA-7 Assessment Tool: DASHA-7 Assessment 35695 Review of Systems Const Denies body aches, Denies chills, Denies excessive sweating, Denies fatigue, Denies fever(s) and Denies headache(s) Eyes Denies blurry vision ENT Denies dysphagia, Denies vertigo, Denies dizziness, Denies headache(s), Denies hearing loss and Denies tinnitus Card Denies chest pain, Denies chest pain with activity, Denies syncope, Denies irregular heart rhythm and Denies dyspnea Resp Denies chest congestion, Denies cough, Denies hemoptysis, Denies dyspnea and Denies wheezing GI Denies abdominal pain, Denies melena, Denies hematochezia, Denies coffee ground emesis, Denies dysphagia, Denies diarrhea, Denies nausea and Denies vomiting Denies urinary frequency, Denies dysuria, Denies urinary hesitancy and Denies urinary urgency Musc Denies arthralgias, Denies limited range of motion, Denies muscle cramps and Denies muscle weakness Skin/Breast Denies rash and Denies skin ulcer Neuro Denies Abnormal speech present, Denies confusion, Denies vertigo, Denies dizziness, Denies syncope, Denies headache(s), Denies memory loss and Denies seizure-like activity Psych Denies anxiety, Denies confusion, Denies depression, Denies memory loss, Denies panic attacks and Denies paranoia Endo Denies excessive sweating, Denies fatigue, Denies flushing, Denies polydipsia and Denies polyuria Aller/Immun Denies wheezing Physical exam (Primary Care) Vital Signs: Last Vital Signs Pulse 60 06/01/25 11:38 BP 118/86 06/01/25 11:38 Pulse Ox 100 06/01/25 11:38 Oxygen Delivery Method Room Air 06/01/25 11:38 Tobacco/Smoking Status: Tobacco use Status Tobacco use date assessed 06/01/25 06/01/25 11:43 Patient Tobacco Use Status Former Tobacco user 06/01/25 11:43 Tobacco use type Cigarette 06/01/25 11:43 e-Cigarette/Vaping Use Never Used 06/01/25 11:43 PHQ-9: PHQ-9 Score PHQ-9: Total score 0 06/01/25 11:43 Depression Screening Interpretation: Negative Thrive Assessment: Date of Thrive Assessment Date Thrive assessed 06/01/25 06/01/25 11:43 Currently or been in a relationship where the following occur: No concerns reported Const General: cooperative, comfortable, no acute distress, alert and awake; No confusion Orientation/consciousness: oriented to person, oriented to place, patient oriented x3 and No confusion HENMT Head: Yes normocephalic Ears: external ears normal and TM's normal bilaterally Face and sinus: No sinus tenderness Mouth: Normal oral and palatal mucosa present and tongue normal Teeth and gingiva: dentition normal and gingiva normal Throat: Yes posterior oropharynx normal, Yes tonsils normal and Yes uvula midline Eyes Conjunctivae: conjunctivae normal Sclerae: sclerae normal Pupils: Equal, round and reactive pupils present EOM: EOMs intact bilaterally Direct Ophthalmoscopy: No no photophobia Neck Neck: Yes no lymphadenopathy, No tender and Yes no JVD Thyroid: Thyroid normal Carotids: no bruits Chest Chest palpation & inspection: no tenderness Resp Effort & Inspection: normal respiratory effort, no audible wheezes, not labored and no stridor Auscultation: no crackles, no rales, no rhonchi and no wheezes Cardio Jugular venous distension: no JVD Rate: regular rate, not bradycardic and not tachycardic Rhythm: regular rhythm Bruits: no carotid bruits Peripheral pulses: Peripheral pulses 2+ throughout GI Inspection: Yes normal to inspection, No abdominal wall ecchymosis and No visible herniation Palpation (GI): Soft to palpation, nontender, no guarding, not rigid and No hepatosplenomegaly present Auscultation: normoactive bowel sounds General: Yes no CVA tenderness Back/Spine/Pelvis Back: no CVA tenderness and No back tenderness Cervical Spine: cervical ROM normal Thoracic/Lumbar Spine: thoracic and lumbar spine normal to inspection, straight leg raise negative bilaterally, No thoraco-lumbar ROM limited and No lumbar spinal tenderness Skin Lesions: no lesions Rashes: no rashes Wounds: no wounds Neuro General: oriented to person, oriented to place, patient oriented x3, CN's II-XI intact bilaterally and No confusion Cranial nerves: Yes Equal, round and reactive pupils present and Yes Normal acco mmodation reflex present Cognition (Neuro): normal cognition Speech: No Abnormal speech present Gait exam (Neuro): Normal gait present Motor exam (neuro): 5/5 motor strength present throughout Extrem Right upper extremity: full ROM; no cyanosis Left upper extremity: full ROM; no cyanosis Right lower extremity: no edema Left lower extremity: no edema Psych Appearance: grossly normal Mental Status: mental status grossly normal Affect: normal affect Attitude: cooperative Thought process: Normal thought process present Coding Level of Care Code Est Pt Prev Care 40-64y(46964) Diagnoses Annual physical exam Z00.00 Colon cancer screening Z12.11 Alcohol use disorder, severe, in early remission, dependence F10.21 Stage 3a chronic kidney disease N18.31 Chronic kidney disease stage 3 subtype: stage 3a (GFR 45-59) Primary hypertension I10 Hypertension type: primary hypertension Additional Codes DASHA-7 Assessment Billing - DASHA-7 Assessment Tool: DASHA-7 Assessment 73999 ([id number]) PHQ-9 - 15769 - PHQ-9 Billing: Yes ([id number]) Assessment & Plan Assessment & Plan (1) Annual physical exam: Code(s): Z00.00 - Encounter for general adult medical examination without abnormal findings Category: Medical Plan: As per HPI (2) Colon cancer screening: Code(s): Z12.11 - Encounter for screening for malignant neoplasm of colon Category: Medical Plan: Patient has a need of screening colonoscopy due to family history of colon cancer. He did 1 year follow-up in 2023. She promises to call Gastroenterology for follow-up colonoscopy (3) Alcohol use disorder, severe, in early remission, dependence: Code(s): F10.21 - Alcohol dependence, in remission Category: Medical Plan: Now has 2 years sober. Now has a own apartment and car. She feels much better. Congratulated her on her sobriety (4) CKD (chronic kidney disease) stage 3, GFR 30-59 ml/min: Code(s): N18.30 - Chronic kidney disease, stage 3 unspecified Category: Medical Qualifiers: Chronic kidney disease stage 3 subtype: stage 3a (GFR 45-59) Qualified Code(s): N18.31 - Chronic kidney disease, stage 3a Plan: CKD has resolved. Patient has a history of CKD during the time of my drinking. Most recent creatinine stable GFR above 60 (5) Hypertension: Code(s): I10 - Essential (primary) hypertension Category: Medical Qualifiers: Hypertension type: primary hypertension Qualified Code(s): I10 - Essential (primary) hypertension Plan: Patient has a history of hypertension, has stopped both propranolol and lisinopril due job on low blood pressures. She continues on clonidine. Goal blood pressures to remain below 140/90 Orders: Orders Microalbumin, Random (w Creat) Today I10 - Essential (primary) hypertension Comprehensive [place]. Panel Fast Today I10 - Essential (primary) hypertension Complete Blood Count no Diff Today I10 - Essential (primary) hypertension Medications: Changed From loratadine 10 mg PO BEDTIME To loratadine 10 mg PO BEDTIME PRN 90 tabs 0RF allergic symptoms 90 days
[2025-06-01 11:38] VITALS: BP 118/86; PULSE 60; O2SAT 100
== END 2025-06-01 12:24 | disposition home or self-care (01) ==
LOC: HO.HMCH 11:30
PROVIDERS: PCP Physician Assistant; Visit Provider Physician Assistant
DX: Z00.00 Encounter for general adult medical examination without abnormal findings (principal); Z12.11 Encounter for screening for malignant neoplasm of colon; F10.21 Alcohol dependence, in remission; N18.31 Chronic kidney disease, stage 3a; I10 Essential (primary) hypertension

== ENCOUNTER → 2025-06-01 11:29 | Outpatient (BNVA) | payer OTHER, SELFPAY | PROVIDERS: PCP Physician Assistant; Visit Provider Physician Assistant | DX: Z00.00 Encounter for general adult medical examination without abnormal findings (principal); F41.1 Generalized anxiety disorder; I10 Essential (primary) hypertension; M25.50 Pain in unspecified joint; E66.9 Obesity, unspecified; F10.21 Alcohol dependence, in remission; I12.9 Hypertensive chronic kidney disease with stage 1 through stage 4 chronic kidney disease, or unspecified chronic kidney disease; N18.31 Chronic kidney disease, stage 3a | CPT/HCPCS: 96127; 99396 ==

== ENCOUNTER 2025-06-07 08:41 | Outpatient (AMB) | payer OTHER, SELFPAY ==
--- NOTE | 2025-06-07 08:43 | MHC.OFFVIS ---
Vital Signs 06/07/25 08:57 Height 5 ft 7 in Weight 189 lb BMI 29.6 Intake Visit Reasons: PO-Rt Cubital, CTR 05/25/25 Intake Note: Angelica is a 54 year old right hand dominant woman who presents today post operatively status post Right Carpal & Cubital Tunnel Release, DOS: 05/25/[address] Villela. Patient reports she is doing well. She is taking Tylenol and Ibuprofen PRN with relief of pain. Denies numbness or tingling. Sutures removed in office and steri-strips applied. Allergies No Known Allergies (No Known Allergies*) Allergy (Verified 06/07/25 08:57) HPI HPI PO-Rt Cubital, CTR 05/25/25: Details: Angelica is a 54 year old right hand dominant woman who presents today post operatively status post Right Carpal & Cubital Tunnel Release, DOS: 05/25/[address] Villela. Patient reports she is doing well. Denies redness or swelling around the incision site, reports some minor discomfort to palpation of the incision site of the right elbow. She is taking Tylenol and Ibuprofen PRN with relief of pain. Denies numbness or tingling. Sutures removed in office and steri-strips applied. [facility] Medical History (Updated 06/01/25 @ 12:27 by Declan Saravia PA-C) Obese Bilateral carpal tunnel syndrome Migraines Chronic renal insufficiency Alcohol use disorder in remission DVT (deep venous thrombosis) History of anxiety History of panic attacks Depression Osteoarthritis of right hip Hypertension Surgical History History of gastric surgery (01/03/25) Hx of carpal tunnel repair H/O vascular surgery Hx of colonoscopy History of right hip replacement History of left hip replacement History of tubal ligation History of tonsillectomy Family History Father Colon cancer Mother In good health Maternal Grandmother Breast cancer Paternal Grandmother Colon cancer Brother Multiple sclerosis Paternal Uncle Colon cancer Social History Household Members: Family Household Members Other:: staying w/father to help with his care Housing: House Housing Other:: recovery home Are you a primary healthcare sales representative to a significant other at home: No Do you presently have visiting nurse or other home services: No Alcohol intake: former Year quit: 02/18 Comment: pt stated started vivitrol January 2024 Patient Tobacco Use Status: Former Tobacco user Tobacco use type: Cigarette Cigarette Packs Per Day: 0.25 Cigarettes Per Day: 5.0 Years Smoked: 19 e-Cigarette/Vaping Use: Never Used Second Hand Smoke Exposure: No Substance Use Type: Marijuana service: No Current occupational status: unemployed and disabled Current occupation: Rt handed Cognitive needs: No Hearing needs: No Vision needs: No Review of Systems Const All systems reviewed & are unremarkable except as noted in HPI and below Physical Exam Vital Signs: BMI result Body Mass Index 29.6 Extrem Other: Patient is alert, oriented, and in no acute distress. Neuro: Normal sensation of the tips of all digits of the left hand at this time Vascular: Cap refill brisk Pain: Mild tenderness to palpation of incision site on right medial elbow No tenderness to palpation about incisions on right wrist wrist No pain with range of motion of left elbow, hand, wrist ROM: Patient was able to make a closed fist and extend all digits of the right hand fully Patient is able to flex and extend the right elbow fully and without difficulty Skin: Well approximated and well healing incision sites noted on the volar right wrist and medial left elbow No lacerations or abrasions. General: No ecchymosis, erythema, or evidence of infection. Psych: Appears grossly normal Affect normal Attitude cooperative Assessment & Plan Assessment & Plan (1) Bilateral carpal tunnel syndrome: Code(s): G56.03 - Carpal tunnel syndrome, bilateral upper limbs Category: Medical (2) Cubital tunnel syndrome, bilateral: Code(s): G56.23 - Lesion of ulnar nerve, bilateral upper limbs Category: Medical Plan 1. Status post right cubital tunnel release 2. Status post right carpal tunnel release Patient appears to be recovering well postoperatively Patient was educated about the typical recovery course At this time, patient was informed she will require no further acute follow-up with us for her right carpal and cubital tunnel releases, as she appears to be recovering quite well No under water for one-week, 2 lb weight limit for 2 weeks Patient was amenable to this plan Follow-up as needed with any acute concerns Coding Level of Care Code Global (92062) Diagnoses Bilateral carpal tunnel syndrome G56.03 Cubital tunnel syndrome, bilateral G56.23
[2025-06-07 08:57] VITALS: BMI 29.6
== END 2025-06-07 09:04 | disposition home or self-care (01) ==
LOC: HO.HOS 08:42
PROVIDERS: PCP Physician Assistant
DX: G56.03 Carpal tunnel syndrome, bilateral upper limbs (principal); G56.23 Lesion of ulnar nerve, bilateral upper limbs
CPT/HCPCS: 99024

== ENCOUNTER → 2025-06-07 08:41 | Outpatient (BNVA) | payer OTHER, SELFPAY | PROVIDERS: PCP Physician Assistant | DX: Z47.89 Encounter for other orthopedic aftercare (principal); Z86.69 Personal history of other diseases of the nervous system and sense organs; G56.03 Carpal tunnel syndrome, bilateral upper limbs; G56.22 Lesion of ulnar nerve, left upper limb | CPT/HCPCS: 99212 ==

== ENCOUNTER 2025-06-30 12:04 | Day surgery (SDC) | payer OTHER, SELFPAY ==
--- NOTE | 2025-06-07 09:45 | HO.ANESPROP2 ---
HPI - Anesthesia Eval Consult details Narrative: 54yo F for Colonoscopy s/p cubital tunnel 04/2025 with GA-LMA 4 s/p gastric sleeve 12/2024 with GA-ETT 7 Hx ETOH abuse - vivitrol injection monthly - ? last PMFSH Active Problems Active Problems: All Active Problems Cubital tunnel syndrome on right (Acute) Carpal tunnel syndrome of right wrist (Acute) S/P laparoscopic sleeve gastrectomy (Acute) Liver fibrosis (Acute) BMI 35.0-35.9,adult (Acute) Morbid obesity (Acute) Cubital tunnel syndrome, bilateral (Acute) Varicose veins of right lower extremity with inflammation (Acute) Varicose veins of left lower extremity with inflammation (Acute) Paresthesia of hand, bilateral (Acute) Varicose veins of both lower extremities with inflammation (Acute) Peripheral vascular disease of lower extremity (Acute) Alcohol use disorder, severe, in early remission, dependence (Acute) Osteoarthritis of hands, bilateral (Acute) COVID-19 (Acute) Left leg swelling (Acute) Pain of left thumb (Acute) Pre-op evaluation (Acute) BMI 37.0-37.9, adult (Acute) Status post fall (Acute) Allergic rhinitis (Acute) Lower extremity edema (Acute) Alcohol abuse (Acute) Acute pharyngitis (Acute) Facial rash (Acute) Possible exposure to STD (Acute) Low vitamin B12 level (Acute) Low folate (Acute) CKD (chronic kidney disease) stage 3, GFR 30-59 ml/min (Acute) Hyperkalemia (Acute) Bilateral lower extremity edema (Acute) Cervical cancer screening (Acute) Alcohol abuse (Acute) QT prolongation (Acute) Colon cancer screening (Acute) Migraines (Acute) Acute frontal sinusitis (Acute) Borderline high cholesterol (Acute) Annual physical exam (Acute) DASHA (generalized anxiety disorder) (Acute) Price's cyst of knee (Acute) Status post right hip replacement (Acute) Preoperative clearance (Acute) Knee pain, right (Acute) Knee pain, left (Acute) Hip osteoarthritis (Acute) Panic attack (Acute) Depression (Acute) Bilateral carpal tunnel syndrome (Acute) Obese (Acute) Hypertension (Acute) Past Medical History Medical History Obese Bilateral carpal tunnel syndrome Migraines Chronic renal insufficiency Alcohol use disorder in remission DVT (deep venous thrombosis) History of anxiety History of panic attacks Depression Osteoarthritis of right hip Hypertension Family History Family History Father Colon cancer Mother In good health Maternal Grandmother Breast cancer Paternal Grandmother Colon cancer Brother Multiple sclerosis Paternal Uncle Colon cancer Family history of problems with anesthesia: No Surgical History Surgical History History of gastric surgery (01/03/25) Hx of carpal tunnel repair H/O vascular surgery Hx of colonoscopy History of right hip replacement History of left hip replacement History of tubal ligation History of tonsillectomy History of Problems with Anesthesia: No Social History Social History Household Members: Family Household Members Other:: staying w/father to help with his care Housing: House Housing Other:: recovery home Are you a primary child care coordinator to a significant other at home: No Do you presently have visiting nurse or other home services: No Alcohol intake: former Year quit: 02/18 Comment: pt stated started vivitrol January 2024 Patient Tobacco Use Status: Former Tobacco user Tobacco use type: Cigarette Cigarette Packs Per Day: 0.25 Cigarettes Per Day: 5.0 Years Smoked: 19 e-Cigarette/Vaping Use: Never Used Second Hand Smoke Exposure: No Use of substances other than those prescribed or required for medical reasons: Yes Substance Use Type: Marijuana Substance Use Frequency: Daily Have you been hit, kicked, punched, or otherwise hurt by someone within the past year? If so, by whom?: No Are you DNR?: No Advance Directives: No Advance Directives Information Provided: Yes Patient : No service: No Current occupational status: unemployed and disabled Current occupation: Rt handed Cognitive needs: No Hearing needs: No Vision needs: No Meds Allergies Allergy/AdvReac Type Severity Reaction Status Date / Time No Known Allergies (No Known Allergy Verified 06/30/25 13:10 Allergies*) Home Medications ?Medication ?Instructions ?Recorded ?Confirmed ?Last Taken ?Type multivitamin 1 tab PO BEDTIME 01/03/25 06/30/25 Unknown History Exam Height,Weight and Vital Signs: Height 5 ft 7 in Weight 83.915 kg Pertinent Lab Results Pertinent Lab Results: Laboratory Tests 01/04/25 06:05 WBC 6.9 Hgb 12.2 Hct 35.0 L Plt Count 161 Sodium 139 Potassium 4.0 Chloride 106 Carbon Dioxide 24 BUN 16 Creatinine 0.83 Narrative Narrative: ECHO 2023 Conclusions: - The left ventricular systolic function is normal. The calculated ejection fraction is 67% by biplane method. - The left atrium is moderately dilated. - No obvious valvular pathology seen on this study. EKG 12/2024 Vent. Rate : 54 BPM Atrial Rate : 54 BPM P-R Int : 166 ms QRS Dur : 98 ms QT Int : 448 ms P-R-T Axes : 56 41 40 degrees QTcB Int : 424 ms Sinus bradycardia Otherwise normal ECG When compared with ECG of 25-Jan-2024 11:33, T inversion improved in V3 Assessment and Plan Assessment Anesthesia Assessment: Chart Reviewed Final Anesthetic Review Family History of Problems with Anesthesia: No History of Problems with Anesthesia: No
[2025-06-30 13:11] VITALS: BP 131/88; PULSE 63; RESP 14; TEMP 36.2; O2SAT 100; BMI 27.6
[2025-06-30] MEDS: Lactated Ringers 1,000 ML 100 ML IVCONT (13:21)
--- NOTE | 2025-06-30 13:27 | MHC.SHP ---
Pre-Procedural Eval Section A - 24 Hr Update-Section A only Date of Service: 06/30/25 Section B - Complete if H&P > 30 days Chief Complaint: Hx of polyps Details of Present Illness: DVT (deep venous thrombosis) History of anxiety History of panic attacks Depression Osteoarthritis of right hip Hypertension Surgical History History of right hip replacement History of left hip replacement History of tubal ligation History of tonsillectomy Present Medications: see Short Stay Collaborative assessment Allergies: Allergies Allergy/AdvReac Type Severity Reaction Status Date / Time No Known Allergies (No Known Allergy Verified 06/30/25 13:10 Allergies*) Review of Systems Review of Systems Comment: Ten point ROS negative Exam Exam Comment: Gen appear: No acute distress HEENT: no icterus Chest: No overt resp distress Abd: soft, nontender, nondistended Psych: Stable affect, answering questions appropriately Neuro: A/Ox3 noted to move all extremities spontaneously Ext: no peripheral edema Plan Diagnosis/Plan: Unchanged I have reviewed the history and physical and performed a pertinent physical examination on my patient. No changes have occurred unless specified. Time Spent With Patient Time: Total time managing care of this patient today ____ minutes.
[2025-06-30 14:45] VITALS: BP 90/55; PULSE 55; TEMP 36.1; O2SAT 100
--- NOTE | 2025-06-30 14:48 | P.OPN-COLO_ITS ---
Colonoscopy Operative Note Operative Note Date of Service: 06/30/25 Narrative: Procedure: Colonoscopy Indication: Personal history of polyps, fam hx of colon ca Endoscopist: Do Camacho MD Anesthesia Provider: Toribio Bell CRNA Anesthesia type: MAC Instrument: Olympus [id number]-[id number] Consent: Indication, risks vs benefits, and alternatives were discussed with the patient who gave written informed consent to proceed. EKG, pulse, pulse oximetry and blood pressure were monitored throughout the procedure. Please see anesth esia flowsheet. Procedure: The patient was brought to the procedure room and placed in the left lateral decubitus position. IV medications were administered by the anesthesia provider in attendance. A digital rectal exam was performed which was normal. A distal attachment cap was affixed to the tip of the colonoscope which was then inserted through the anus and advanced through the colon to the cecum at 80 cm,and terminal ileum. Appendiceal orifice and ileocecal valve were identified. Mucosa was carefully examined under high definition white light as the instrume nt was slowly withdrawn in a retrograde panoramic fashion. Retroflexion was performed in rectum. The procedure was not difficult. There were no immediate obvious complications. The quality of the prep was BBPS: 2+2+2 = adequate Withdrawal time 20 minutes. Limitations: No limitations. Findings: Mucosa: Normal to cecum and terminal ileum. Protruding lesions: * 1pedunculated polyp of size 20 mm in descending colon at 40 cm. Hot snare polypectomy was performed. The polyp was completely removed and retrieved. * 2 sessile polyps of size 5-10 mm in descending colon. Cold snare polypectomy was performed. The polyps were completely removed and retrieved. * 2 sessile polyp of size 4-6 mm in sigmoid colon. Cold snare polypectomy was performed. The polyps were completely removed and retrieved. * Medium internal hemorrhoids without stigmata of recent bleeding. Impression: 1. Normal colon and terminal ileum mucosa 2. Total of 5 polyps removed 3. Internal hemorrhoids Recommendations: - Follow path results. - Repeat colonoscopy in 3 years if the largest polyp is an adenoma.
[2025-06-30 15:01] VITALS: BP 140/80; PULSE 56; RESP 18; TEMP 36.1; O2SAT 97
== END 2025-06-30 15:43 | disposition home or self-care (01) ==
PROVIDERS: PCP Physician Assistant; Visit Provider Internal Medicine
PROC: 0DJD8ZZ Inspection of Lower Intestinal Tract, Via Natural or Artificial Opening Endoscopic (ICD-10-PCS; CPT 45378; principal; 2025-06-30 14:10)
DX: K63.5 Polyp of colon (principal); D12.4 Benign neoplasm of descending colon; Z86.0109 Personal history of other colon polyps; Z83.719 Family history of colon polyps, unspecified; K64.8 Other hemorrhoids
CPT/HCPCS: 45385; 45380; 88305; J2371; J2704

== ENCOUNTER → 2025-06-30 12:04 | Outpatient (BNV) | payer OTHER, SELFPAY | PROVIDERS: PCP Physician Assistant; Visit Provider Internal Medicine | DX: Z12.11 Encounter for screening for malignant neoplasm of colon (principal); D12.4 Benign neoplasm of descending colon; D12.5 Benign neoplasm of sigmoid colon; K64.8 Other hemorrhoids | CPT/HCPCS: 45385 ==

== ENCOUNTER 2025-07-20 15:12 | Outpatient (AMB) | payer OTHER, SELFPAY ==
--- NOTE | 2025-07-20 15:31 | MHC.OFFVIS ---
Vital Signs 07/20/25 15:32 Height 5 ft 7 in Weight 175 lb BMI 27.4 BP 100/64 Intake Visit Reasons: 3RD PRESSMAN annual exam Day Habilitation Supervisor: Day Habilitation Supervisor Present (Fernanda) Allergies No Known Allergies (No Known Allergies*) Allergy (Verified 07/20/25 15:32) HPI Comments Details: Patient is a postmenopausal woman presenting for her annual orthopaedic physician assistant examination. Community Aide concerns: . Currently not sexually active >12yrs. Denies any vaginal dryness or irritation. STI testing offered; she declined. Attempting to eat a healthy diet with calcium and vitamin D and stays active with exercise. Last pap smear; 2023, negative. Last mammogram; 2024. Colonoscopy is UTD, q yearly. [facility] Medical History Obese Bilateral carpal tunnel syndrome Migraines Chronic renal insufficiency Alcohol use disorder in remission DVT (deep venous thrombosis) History of anxiety History of panic attacks Depression Osteoarthritis of right hip Hypertension Surgical History History of gastric surgery (01/03/25) Hx of carpal tunnel repair H/O vascular surgery Hx of colonoscopy History of right hip replacement History of left hip replacement History of tubal ligation History of tonsillectomy Family History Father Colon cancer Mother In good health Maternal Grandmother Breast cancer Paternal Grandmother Colon cancer Brother Multiple sclerosis Paternal Uncle Colon cancer Social History Household Members: Family Household Members Other:: staying w/father to help with his care Housing: House Housing Other:: recovery home Are you a primary attending ambulatory care to a significant other at home: No Do you presently have visiting nurse or other home services: No Alcohol intake: former Year quit: 02/18 Comment: pt stated started vivitrol January 2024 Patient Tobacco Use Status: Former Tobacco user Tobacco use type: Cigarette Cigarette Packs Per Day: 0.25 Cigarettes Per Day: 5.0 Years Smoked: 19 e-Cigarette/Vaping Use: Never Used Second Hand Smoke Exposure: No Substance Use Type: Marijuana service: No Current occupational status: unemployed and disabled Current occupation: Rt handed Cognitive needs: No Hearing needs: No Vision needs: No Female Reproductive History Menstrual control method: permanent sterilization Permanent Sterilization: BTL Total pregnancies: 3 Full term: 3 Number of Living Children: 3 Date of last pap smear: 11/13/23 (neg pap and hpv) Date of Mammogram: 04/07/25 (Birad 1) Review of Systems Const All systems reviewed & are unremarkable except as noted in HPI and below Reports as per HPI Eyes Reports no additional complaints ENT Reports no additional complaints Card Reports no additional complaints Resp Reports no additional complaints GI Reports as per HPI and Reports no additional complaints Reports as per HPI Musc Reports no additional complaints Skin/Breast Reports as per HPI Neuro Reports no additional complaints Psych Reports no additional complaints Endo Reports no additional complaints Freddie/Lymph Reports no additional complaints Aller/Immun Reports no additional complaints Physical Exam Vital Signs: Last Vital Signs BP 100/64 07/20/25 15:32 BMI result Body Mass Index 27.4 Const General: cooperative, healthy appearing, no acute distress, well developed and alert Orientation/consciousness: patient oriented x3 HEENT Head: Yes normal to inspection Eyes General: appearance normal, both eyes and all related structures Neck Neck: Yes normal visual inspection Thyroid: Thyroid normal Chest Chest palpation & inspection: normal inspection of the chest and other (no puckering, dimpling, peau de orange, retraction, discharge, masses) Breast/axilla inspection: normal inspection of the breasts Breast/axilla palpation: normal palpation of the breasts Resp Effort & Inspection: normal respiratory effort GI Inspection: Yes normal to inspection Palpation (GI): Soft to palpation Rectal Exam - Female: deferred General: Yes bladder normal to palpation External Female Exam: normal external appearance (black lesion lower right labia) and normal appearance of the urethra Speculum Exam - Vagina: normal appearance of the vagina, normal palpation, normal vaginal discharge and vagina atrophic Speculum Exam - Cervix: normal appearance of the cervix and normal palpation Bimanual exam- vagina & uterus: normal bimanual exam, normal palpation, uterine size normal, bladder normal to palpation, normal palpation and non-tender Bimanual Exam- Adnexa, other: no masses Skin General skin exam: no rashes or lesions noted Rashes: no rashes Neuro General: patient oriented x3 Cognition (Neuro): normal cognition Extrem General: Yes normal to inspection Psych Attitude: cooperative Thought process: Normal thought process present Assessment & Plan Assessment & Plan (1) Encounter for well woman exam with routine gynecological exam: Code(s): Z01.419 - Encounter for gynecological examination (general) (routine) without abnormal findings Category: Medical Plan: Discussed: Current recommendations for pap smears per ASCCP guidelines. Breast awareness, periodic self breast exams and yearly mammogram. Maintain a healthy lifestyle, well balanced diet including Calcium 1,200 mg and Vitamin D 600 IU daily, and routine exercise. Contact the office with any postmenopausal bleeding. Patient verbalizes understanding and agrees to the plan of care. She was given opportunity to ask questions and all questions were answered to the best of my ability. RTO in 1 year for annual orthopaedic physician assistant exam. This note is constructed using voice recognition software. While every effort has been made to ensure accuracy, satin finisher errors may have been included. (2) Vulvar lesion: Code(s): N90.89 - Other specified noninflammatory disorders of vulva and perineum Plan Discuss findings of dark pigmented lesion on her labia and recommended skin biopsy procedure to be scheduled. The patient expressed understanding and agreement with the plan of care. All of her questions and concerns were addressed to the best of my ability. Coding Level of Care Code Est Pt Prev Care 40-64y(35897) Diagnoses Encounter for well woman exam with routine gynecological exam Z01.419 Vulvar lesion N90.89
[2025-07-20 15:32] VITALS: BP 100/64; BMI 27.4
== END 2025-07-20 16:10 | disposition home or self-care (01) ==
LOC: HO.HWS 15:13
PROVIDERS: PCP Physician Assistant; Visit Provider Advanced Practice Midwife
DX: Z01.419 Encounter for gynecological examination (general) (routine) without abnormal findings (principal); N90.89 Other specified noninflammatory disorders of vulva and perineum
CPT/HCPCS: 99396; 99459

== ENCOUNTER → 2025-07-20 15:12 | Outpatient (BNVA) | payer OTHER, SELFPAY | PROVIDERS: PCP Physician Assistant; Visit Provider Advanced Practice Midwife | DX: Z01.419 Encounter for gynecological examination (general) (routine) without abnormal findings (principal) | CPT/HCPCS: 99396 ==

== ENCOUNTER 2025-08-15 09:02 | Outpatient (REF) | payer OTHER, SELFPAY | END 2025-08-15 09:03 | disposition home or self-care (01) | LOC: HO.LNP 09:02 | PROVIDERS: PCP Physician Assistant; Visit Provider Advanced Practice Midwife | DX: N90.89 Other specified noninflammatory disorders of vulva and perineum (principal) | CPT/HCPCS: 56605; 88304; 88305; 88312 ==

== ENCOUNTER 2025-08-15 09:02 | Outpatient (AMB) | payer OTHER, SELFPAY ==
--- NOTE | 2025-08-15 09:36 | MHC.OFFVIS ---
Vital Signs 08/15/25 09:37 Height 5 ft 7 in BP 100/60 Intake Visit Reasons: Skin Biopsy Senior Embedded Software Engineer: Senior Embedded Software Engineer Present (Fernanda) Allergies No Known Allergies (No Known Allergies*) Allergy (Verified 08/15/25 09:36) Is last menstrual period known: Yes HPI Comments Details: Patient is here today for a skin biopsy, history of black colored vulvar lesion. [facility] Medical History Obese Bilateral carpal tunnel syndrome Migraines Chronic renal insufficiency Alcohol use disorder in remission DVT (deep venous thrombosis) History of anxiety History of panic attacks Depression Osteoarthritis of right hip Hypertension Surgical History History of gastric surgery (01/03/25) Hx of carpal tunnel repair H/O vascular surgery Hx of colonoscopy History of right hip replacement History of left hip replacement History of tubal ligation History of tonsillectomy Family History Father Colon cancer Mother In good health Maternal Grandmother Breast cancer Paternal Grandmother Colon cancer Brother Multiple sclerosis Paternal Uncle Colon cancer Social History Household Members: Family Household Members Other:: staying w/father to help with his care Housing: House Housing Other:: recovery home Are you a primary special needs child caregiver to a significant other at home: No Do you presently have visiting nurse or other home services: No Alcohol intake: former Year quit: 02/18 Comment: pt stated started vivitrol January 2024 Patient Tobacco Use Status: Former Tobacco user Tobacco use type: Cigarette Cigarette Packs Per Day: 0.25 Cigarettes Per Day: 5.0 Years Smoked: 19 e-Cigarette/Vaping Use: Never Used Second Hand Smoke Exposure: No Substance Use Type: Marijuana service: No Current occupational status: unemployed and disabled Current occupation: Rt handed Cognitive needs: No Hearing needs: No Vision needs: No Review of Systems Const All systems reviewed & are unremarkable except as noted in HPI and below Endo Reports no additional complaints Physical Exam Vital Signs: Last Vital Signs BP 100/60 08/15/25 09:37 Const General: cooperative, healthy appearing and no acute distress Other: External: dark brown black colored lesion right labia Psych Appearance: well kempt Attitude: cooperative Thought process: Normal thought process present Office Procedures Skin Biopsy Details: Vulvar Biopsy: Preop Diagnosis: Vulvar biopsy. The patient was consented for a vulvar skin biopsy procedure today. The purpose of the procedure is to rule out any skin abnormalities in the area of concern(s) including: RADHA, atypia, precancer or cancer, or skin conditions such as lichen sclerosis. All the risks and benefits were reviewed. The risk of the procedure including: pain, bleeding, swelling, bruising, injury to nerves blood supply, and surrounding tissue, scarring, and permanent skin discoloration. All of her questions and concerns were addressed to the best of my ability and shared decision making. She is agreeable to the plan of care. The patient was placed in the dosal lithotomy position. Using aseptic technique for the procedure the biopsy area was cleansed and prepped with Betadine solution. The skin area was anesthetized with Lidocaine 1% using a 3cc syringe and a 25g needle, 0.5cc was injected perpendicular into the dermis at the biopsy site until elevation was noted. A Shave biopsy technique was utilized. The bleeding site was minimal and controlled by direct pressure for several seconds. Vaseline ointment and guaze dressing was applied to the biopsy site. The patient tolerated the procedure well and left the department in good condition. Post biopsies skin care: Keep the area clean and dry. Apply Vaseline to the area as directed for the 1st week. Wear loose clothing and avoid intimacy until well healed. Report any signs of infection: Fever flu-like symptom, increased pain, redness, any foul odor or pus discharge. Return to the office in 2 weeks for biopsy results. Call sooner if any concerns. All of her questions and concerns were addressed to the best of my ability and shared decision making. She is agreeable to the plan of care. This note is constructed using voice recognition software. While every effort has been made to ensure accuracy, orchid superintendent errors may have been included. Skin biopsy performed by: Milady Boone Informed consent given: Yes Consent signed: Yes Type of Biopsy: shave Hemostasis: pressure Wound closure: secondary intention Patient tolerated procedure: well Complications: No Assessment & Plan Assessment & Plan (1) Lesion of vulva: Code(s): N90.89 - Other specified noninflammatory disorders of vulva and perineum Plan Vulvar skin biopsy completed, see procedure notes. This note is constructed using voice recognition software. While every effort has been made to ensure accuracy, orchid superintendent errors may have been included. Orders: Orders Surgical Today N90.89 - Other specified noninflammatory disorders of vulva and perineum Coding Level of Care Code Procedure Only Diagnoses Lesion of vulva N90.89
[2025-08-15 09:37] VITALS: BP 100/60
== END 2025-08-15 10:11 | disposition home or self-care (01) ==
LOC: HO.HWS 09:03
PROVIDERS: PCP Physician Assistant; Visit Provider Advanced Practice Midwife
DX: N90.89 Other specified noninflammatory disorders of vulva and perineum (principal)
CPT/HCPCS: 56605

== ENCOUNTER 2025-08-31 14:34 | Outpatient (AMB) | payer OTHER, SELFPAY ==
--- NOTE | 2025-08-31 14:37 | MHC.OFFVIS ---
Vital Signs 08/31/25 14:40 Height 5 ft 7 in Weight 178 lb BMI 27.9 BP 118/74 Blood Pressure Location Lt brachial Position Sitting Intake Visit Reasons: Biopsy F/U Intake Note: vulvar biopsy follow up Senior Clinical Data Manager Required: No Information Interpreted: non-clinical & clinical Membership Sales Advisor: Membership Sales Advisor Present (Leandra) Accompanied by: Self / Same As Patient Allergies No Known Allergies (No Known Allergies*) Allergy (Verified 08/31/25 14:41) Medication List - Last Reconciled 08/31/25 by Zayra Kuhn LPN blood pressure kit-extra large As directed clonidine HCl 0.6 mg (2 x 0.3 mg) PO BEDTIME 30 days multivitamin 1 tab PO BEDTIME Is last menstrual period known: Yes Do you need a note to return to daycare/school/sports/work: No HPI Comments Details: Patient is here today for vulvar biopsy results. She reports the area of biopsy is well healed and has no other concerns today. [facility] Medical History Obese Bilateral carpal tunnel syndrome Migraines Chronic renal insufficiency Alcohol use disorder in remission DVT (deep venous thrombosis) History of anxiety History of panic attacks Depression Osteoarthritis of right hip Hypertension Surgical History History of gastric surgery (01/03/25) Hx of carpal tunnel repair H/O vascular surgery Hx of colonoscopy History of right hip replacement History of left hip replacement History of tubal ligation History of tonsillectomy Family History Father Colon cancer Mother In good health Maternal Grandmother Breast cancer Paternal Grandmother Colon cancer Brother Multiple sclerosis Paternal Uncle Colon cancer Social History Household Members: Family Household Members Other:: staying w/father to help with his care Housing: House Housing Other:: recovery home Are you a primary home visit field care manager to a significant other at home: No Do you presently have visiting nurse or other home services: No Alcohol intake: former Year quit: 02/18 Comment: pt stated started vivitrol January 2024 Patient Tobacco Use Status: Former Tobacco user Tobacco use type: Cigarette Cigarette Packs Per Day: 0.25 Cigarettes Per Day: 5.0 Years Smoked: 19 e-Cigarette/Vaping Use: Never Used Second Hand Smoke Exposure: No Substance Use Type: Marijuana service: No Current occupational status: unemployed and disabled Current occupation: Rt handed Cognitive needs: No Hearing needs: No Vision needs: No Female Reproductive History Menstrual Age of Menarche: 12 control method: permanent sterilization Total pregnancies: 3 Number of Living Children: 3 Review of Systems Const All systems reviewed & are unremarkable except as noted in HPI and below Endo Reports no additional complaints Physical Exam Vital Signs: Last Vital Signs BP 118/74 08/31/25 14:40 BMI result Body Mass Index 27.9 Const General: cooperative, healthy appearing and no acute distress Other: External inspection only- Biopsy site is well healed Psych Appearance: well kempt Attitude: cooperative Thought process: Normal thought process present Results Reviewed Results Reviewed: Name: Angelica Ventura Age/Sex: 54/F Attending: Milady Boone CNM : 1970 Submitted by: Milady Boone CNM Copies to: Declan Saravia PA-C MR #: [id number] Status: DEP REF Collected: 08/15/25 Location: [facility] Received: 08/16/25 Diagnosis Vulva, biopsy: Skin/squamous mucosa with marked hemosiderin deposition, foreign body giant cell reaction and features of ruptured epidermal inclusion cyst; no atypia or malignancy identified. Clinical History Lesion of vulva Microscopic Description Microscopic sections reviewed. No fungi are seen, supported by PAS stain. Material Received Vulvar biopsy Gross Description Received in formalin is 1 roman 0.6 cm in greatest dimension epithelialized soft tissue fragment, inked blue along the base, bisected and totally submitted in cassette A1. (DTL) This case was reviewed intradepartmentally. Special studies ordered and performed: PAS stain for fungus Copies To Declan Saravia PA-C [facility] [address] [place] [address] Milady Boone CNM [facility] [address] [place] [address] NOTE: Unless otherwise stated, all tissue is formalin-fixed and paraffin-embedded. Some or all of the immunohistochemical tests reported herein may have been developed and their performance characteristics determined by [facility]. They have not been cleared or approved by the U.S. Food and Drug Administration (FDA). However, the FDA has determined that such clearance or approval is not necessary. This laboratory is certified under the Clinical Laboratory Improvement Amendments of Patient: Angelica Ventura Age/Sex: 54/F MR#: [id number] Page 1 of 2 Assessment & Plan Assessment & Plan (1) Encounter to discuss test results: Code(s): Z71.2 - Person consulting for explanation of examination or test findings Plan Discussed: Skin biopsy results- Diagnosis Vulva, biopsy: Skin/squamous mucosa with marked hemosiderin deposition, foreign body giant cell reaction and features of ruptured epidermal inclusion cyst; no atypia or malignancy identified. The patient expressed understanding and agreement with the plan of care. All of her questions and concerns were addressed to the best of my ability. Annual exam is scheduled for next year. This note is constructed using voice recognition software. While every effort has been made to ensure accuracy, sales professional errors may have been included. Coding Level of Care Code Est Pt Level 3 (79165) Diagnoses Encounter to discuss test results Z71.2
[2025-08-31 14:40] VITALS: BP 118/74; BMI 27.9
== END 2025-08-31 16:18 | disposition home or self-care (01) ==
LOC: HO.HWS 14:34
PROVIDERS: PCP Physician Assistant; Visit Provider Advanced Practice Midwife
DX: Z71.2 Person consulting for explanation of examination or test findings (principal)
CPT/HCPCS: 99213

== ENCOUNTER → 2025-08-31 14:34 | Outpatient (BNVA) | payer OTHER, SELFPAY | PROVIDERS: PCP Physician Assistant; Visit Provider Advanced Practice Midwife | DX: Z71.2 Person consulting for explanation of examination or test findings (principal); Z98.51 Tubal ligation status | CPT/HCPCS: 99212 ==